=== PATIENT | female | born 1935 | race Caucasian/White ===

== ENCOUNTER 2016-09-17 10:31 | Inpatient (IN) | payer MEDICARE ==
[2016-09-17] MEDS ORDERED: PANTOPRAZOLE 40 MG/10 ML VIAL IVP STA (10:44)
[2016-09-17] MEDS: SODIUM CHLORIDE 0.9% 1,000 ML IV STA ×2 (11:10→15:45)
[2016-09-17 11:19] LABS: CH 30.5; CHCM 33.9; HCT 40.7 % (34.0-46.0); HGB 13.7 gm/dL (11.4-16.0); Immature Gran Flag Marked; MCH 30.4 pg (25.0-35.0); MCHC 33.6 g/dL (31.0-37.0); MCV 90.4 fL (80.0-100.0); RDW 14.4 % (11.5-15.5); WBC 5.9 k/uL (3.8-10.6); WBC (Perox) 5.93
[2016-09-17 11:25] LABS: ALT 20 U/L (9-52); AST 20 U/L (14-36); Alkaline Phosphatase 59 U/L (38-126); Amylase 108 U/L (30-110); Anion Gap 12 mmol/L; Blood Urea Nitrogen 14 mg/dL (7-17); Calcium 8.7 mg/dL (8.4-10.2); Carbon Dioxide 22 mmol/L (22-30); Chloride 106 mmol/L (98-107); Glucose 85 mg/dL (74-99); Non-African American GFR(MDRD) >60 (>60 ml/min/1.73 sqM); Sodium 140 mmol/L (137-145); Total Protein 5.6 g/dL (6.3-8.2)
[2016-09-17] MEDS ORDERED: POTASSIUM CHLORIDE ER 20 MEQ TAB.ER PO STA (11:30)
[2016-09-17 11:37] LABS: INR 1.2 (<1.1); Prothrombin Time 12.3 sec (9.0-12.0)
[2016-09-17 11:42] LABS: Partial Thromboplastin Time 21.5 sec (22.0-30.0)
--- NOTE | 2016-09-17 11:54 | XR ---
EXAMINATION TYPE: XR abdomen acute w cxr DATE OF EXAM: 09/17/2016 COMPARISON: NONE HISTORY: Right upper quadrant pain TECHNIQUE: Frontal view of the chest, upright view of the abdomen, supine view of the abdomen submit shelby FINDINGS: Chest x-ray is rotated. There is increased attenuation at the right lung base, obscured right hemidia phragm and heart border. There is no evident pneumothorax. Difficult to assess heart size. Minimal pa tchy density also present at the left lung base. There is no evident bowel obstruction or pneumoperit oneum. Arthropathy present in the hips. There is a spinal curvature, bone mineralization is reduced. There are vascular calcifications. Calcified gallstones present in quadrant. IMPRESSION: Cholelithiasis. Possible right lower lobe pneumonia versus atelectasis and associated effusion, minim al basilar density also noted on the left, follow-up PA and lateral chest x-ray is recommended.
[2016-09-17] MEDS ORDERED: HYDROmorphone 1 MG/ML 1 ML SYRINGE IVP STA (11:56)
[2016-09-17 11:58] LABS: Creatine Kinase MB 1.1 ng/mL (0.0-2.4); Troponin I 0.029 ng/mL (0.000-0.034)
[2016-09-17] MEDS ORDERED: POTASSIUM CHLORIDE 20 MEQ in WATER FOR INJECTION 1 100ML.BAG IVPB ONE (12:00)
[2016-09-17 12:03] LABS: Add Differential Manual Differential
[2016-09-17 12:06] LABS: Nucleated Red Blood Cells 0 /100 WBC (0-0); Total Cells Counted 100
[2016-09-17 12:08] LABS: Manual Review Performed
[2016-09-17 12:46] LABS: Appearance,Urine Cloudy (Clear); Bacteria,Urine Occasional /hpf; Bilirubin,Urine Negative (Negative); Glucose,Urine (UA) Negative (Negative); Ketones,Urine Negative (Negative); Leukocyte Esterase,Urine Negative (Negative); Mucus,Urine Rare /hpf; Nitrite,Urine Negative (Negative); Particle Count 176076; Protein,Urine 2+ (Negative); Specific Gravity,Urine 1.015 (1.001-1.035); UA Billing (MACRO vs. MICRO) MICRO; Urobilinogen,Urine <2.0 mg/dL (<2.0); WBC,Urine 4 /hpf (0-5)
[2016-09-17] MEDS ORDERED: RX INFO: IV CONTRAST WAS GIVEN 1 EACH MISC MISCELLANE PRN (13:53)
[2016-09-17] MEDS ORDERED: MAGNESIUM SULFATE-D5W PMX 1 GM in DEXTROSE/WATER 1 100ML.BAG IVPB ONE (13:55)
--- NOTE | 2016-09-17 14:01 | ED ---
Abdominal Pain HPI - General Chief Complaint: Abdominal Pain Stated Complaint: Abd Pain, Diff Breathing Time Seen by Provider: 09/17/16 10:31 Source: patient, EMS, RN notes reviewed Mode of arrival: EMS Limitations: physical limitation - History of Present Illness Initial Comments: This is a 1-year-old female was brought in by EMS for complaints are right upper abdominal pain and later developed shortness breath. She was noted have a 80% saturation was placed on a nonrebreather now she was 95% upon arrival with nasal cannula. Also new she had atrial fibrillation with a rate between 101 50 bpm. She was given 50 g of fentanyl blood pressure initially was in the 90s over 50s after some fluids it was 130s over 70s. Of note she does have a history of COPD who just quit smoking several days ago. MD Complaint: abdominal pain, other - Related Data Home Medications Medication Instructions Recorded Confirmed Gabapentin [Neurontin] 300 mg PO HS 09/17/16 09/17/16 Ibuprofen [Motrin] 200 mg PO Q6HR PRN 09/17/16 09/17/16 Allergies Allergy/AdvReac Type Severity Reaction Status Date / Time No Known Allergies Allergy Verified 09/17/16 11:07 Review of Systems ROS Statement: Those systems with pertinent positive or pertinent negative responses have been documented in the HPI. ROS Other: All systems not noted in ROS Statement are negative. Past Medical History Past Medical History: COPD Additional Past Medical History / Comment(s): arthritis, emphysema History of Any Multi-Drug Resistant Organisms: None Reported Past Surgical History: Unable to Obtain Past Psychological History: No Psychological Hx Reported Smoking Status: Former smoker Past Alcohol Use History: None Reported Past Drug Use History: None Reported General Exam - General Exam Comments Initial Comments: This is a well-developed well-nourished awake alert oriented 1 female Limitations: physical limitation General appearance: alert, in no apparent distress Head exam: Present: atraumatic, normocephalic, normal inspection Eye exam: Present: normal appearance, PERRL, EOMI. Absent: scleral icterus, conjunctival injection, periorbital swelling ENT exam: Present: mucous membranes dry Neck exam: Present: normal inspection. Absent: tenderness, meningismus, lymphadenopathy Respiratory exam: Present: decreased breath sounds. Absent: respiratory distress, wheezes, rales, rhonchi, stridor Cardiovascular Exam: Present: tachycardia, irregular rhythm. Absent: systolic murmur, diastolic murmur, rubs, gallop, clicks GI/Abdominal exam: Present: soft, tenderness (Tenderness increased hip pain no definite guarding no pulsatile masses or bruits.), normal bowel sounds. Absent : distended, guarding, rebound, rigid Extremities exam: Present: normal inspection, full ROM, normal capillary refill. Absent: tenderness, pedal edema, joint swelling, calf tenderness Back exam: Present: normal inspection Neurological exam: Present: alert, oriented X3, CN II-XII intact Psychiatric exam: Present: normal affect, normal mood Skin exam: Present: warm, dry, intact, normal color. Absent: rash Course Vital Signs 09/17/16 09/17/16 09/17/16 10:34 10:49 11:51 Temperature 97.6 F Pulse Rate 128 H 112 H Respiratory 18 24 18 Rate Blood Pressure 124/75 173/94 O2 Sat by Pulse 93 L 93 L Oximetry 09/17/16 09/17/16 09/17/16 12:38 13:38 13:57 Temperature 97.0 F L Pulse Rate 91 76 117 H Respiratory 18 18 14 Rate Blood Pressure 157/93 144/94 129/89 O2 Sat by Pulse 93 L 95 91 L Oximetry - Reevaluation(s) Reevaluation #1: 09/17/16 15:00 Reevaluation patient is heart rate is ordering between 100 110 so Cardizem was withheld initially. 09/17/16 15:01 Reevaluation #2: 09/17/16 15:02 I did discuss case with Dr. Savage surgery will be consulted as well as cardiology Medical Decision Making - Medical Decision Making I did discuss findings with the patient family and with Dr. Crowell and Dr. Savage. Dr. Crowell did come to the emergency department. Patient will be admitted his service and taken surgery. - Lab Data Result diagrams: 09/17/16 10:11 09/17/16 10:11 Lab Results 09/17/16 09/17/16 09/17/16 Range/Units 10:11 10:11 10:11 WBC 5.9 (3.8-10.6) k/uL RBC 4.50 (3.80-5.40) m/uL Hgb 13.7 (11.4-16.0) gm/dL Hct 40.7 (34.0-46.0) % MCV 90.4 (80.0-100.0) fL MCH 30.4 (25.0-35.0) pg MCHC 33.6 (31.0-37.0) g/dL RDW 14.4 (11.5-15.5) % Plt Count 370 (150-450) k/uL Neutrophils % (Manual) 68.0 % Band Neutrophils % 10.0 % Lymphocytes % (Manual) 14.0 % Monocytes % (Manual) 8.0 % Neutrophils # (Manual) 4.6 (1.3-7.7) k/uL Lymphocytes # (Manual) 0.8 L (1.0-4.8) k/uL Monocytes # (Manual) 0.5 (0-1.0) k/uL Nucleated RBCs 0 (0-0) /100 WBC Manual Slide Review Performed PT (9.0-12.0) sec INR (<1.1) APTT (22.0-30.0) sec D-Dimer (<0.60) mg/L FEU Sodium 140 (137-145) mmol/L Potassium 3.0 L* (3.5-5.1) mmol/L Chloride 106 (98-107) mmol/L Carbon Dioxide 22 (22-30) mmol/L Anion Gap 12 mmol/L BUN 14 (7-17) mg/dL Creatinine 0.65 (0.52-1.04) mg/dL Est GFR (MDRD) Af Amer >60 (>60 ml/min/1.73 sqM) Est GFR (MDRD) Non-Af >60 (>60 ml/min/1.73 sqM) Glucose 85 (74-99) mg/dL Plasma Lactic Acid Denny (0.7-2.0) mmol/L Calcium 8.7 (8.4-10.2) mg/dL Magnesium (1.6-2.3) mg/dL Total Bilirubin 1.0 (0.2-1.3) mg/dL AST 20 (14-36) U/L ALT 20 (9-52) U/L Alkaline Phosphatase 59 (38-126) U/L Total Creatine Kinase 39 (30-135) U/L CK-MB (CK-2) 1.1 (0.0-2.4) ng/mL CK-MB (CK-2) Rel Index 2.8 Troponin I 0.029 (0.000-0.034) ng/mL Total Protein 5.6 L (6.3-8.2) g/dL Albumin 2.9 L (3.5-5.0) g/dL Amylase 108 (30-110) U/L Lipase 479 H (23-300) U/L Urine Color Urine Appearance (Clear) Urine pH (5.0-8.0) Ur Specific Ferguson (1.001-1.035) Urine Protein (Negative) Urine Glucose (UA) (Negative) Urine Ketones (Negative) Urine Blood (Negative) Urine Nitrite (Negative) Urine Bilirubin (Negative) Urine Urobilinogen (<2.0) mg/dL Ur Leukocyte Esterase (Negative) Urine WBC (0-5) /hpf Urine Bacteria (None) /hpf Urine Mucus (None) /hpf Blood Type Blood Type Confirm Blood Type Recheck Antibody Screen Spec Expiration Date 09/17/16 09/17/16 09/17/16 Range/Units 10:11 10:11 10:11 WBC (3.8-10.6) k/uL RBC (3.80-5.40) m/uL Hgb (11.4-16.0) gm/dL Hct (34.0-46.0) % MCV (80.0-100.0) fL MCH (25.0-35.0) pg MCHC (31.0-37.0) g/dL RDW (11.5-15.5) % Plt Count (150-450) k/uL Neutrophils % (Manual) % Band Neutrophils % % Lymphocytes % (Manual) % Monocytes % (Manual) % Neutrophils # (Manual) (1.3-7.7) k/uL Lymphocytes # (Manual) (1.0-4.8) k/uL Monocytes # (Manual) (0-1.0) k/uL Nucleated RBCs (0-0) /100 WBC Manual Slide Review PT 12.3 H (9.0-12.0) sec INR 1.2 (<1.1) APTT 21.5 L (22.0-30.0) sec D-Dimer 3.61 H (<0.60) mg/L FEU Sodium (137-145) mmol/L Potassium (3.5-5.1) mmol/L Chloride (98-107) mmol/L Carbon Dioxide (22-30) mmol/L Anion Gap mmol/L BUN (7-17) mg/dL Creatinine (0.52-1.04) mg/dL Est GFR (MDRD) Af Amer (>60 ml/min/1.73 sqM) Est GFR (MDRD) Non-Af (>60 ml/min/1.73 sqM) Glucose (74-99) mg/dL Plasma Lactic Acid Denny 1.4 (0.7-2.0) mmol/L Calcium (8.4-10.2) mg/dL Magnesium (1.6-2.3) mg/dL Total Bilirubin (0.2-1.3) mg/dL AST (14-36) U/L ALT (9-52) U/L Alkaline Phosphatase (38-126) U/L Total Creatine Kinase (30-135) U/L CK-MB (CK-2) (0.0-2.4) ng/mL CK-MB (CK-2) Rel Index Troponin I (0.000-0.034) ng/mL Total Protein (6.3-8.2) g/dL Albumin (3.5-5.0) g/dL Amylase (30-110) U/L Lipase (23-300) U/L Urine Color Urine Appearance (Clear) Urine pH (5.0-8.0) Ur Specific Ferguson (1.001-1.035) Urine Protein (Negative) Urine Glucose (UA) (Negative) Urine Ketones (Negative) Urine Blood (Negative) Urine Nitrite (Negative) Urine Bilirubin (Negative) Urine Urobilinogen (<2.0) mg/dL Ur Leukocyte Esterase (Negative) Urine WBC (0-5) /hpf Urine Bacteria (None) /hpf Urine Mucus (None) /hpf Blood Type A Positive Blood Type Confirm Blood Type Recheck CABO Indicated Antibody Screen NEGATIVE Spec Expiration Date 09/20/2016 - 231009/17/16 09/17/16 09/17/16 Range/Units 11:03 12:30 13:04 WBC (3.8-10.6) k/uL RBC (3.80-5.40) m/uL Hgb (11.4-16.0) gm/dL Hct (34.0-46.0) % MCV (80.0-100.0) fL MCH (25.0-35.0) pg MCHC (31.0-37.0) g/dL RDW (11.5-15.5) % Plt Count (150-450) k/uL Neutrophils % (Manual) % Band Neutrophils % % Lymphocytes % (Manual) % Monocytes % (Manual) % Neutrophils # (Manual) (1.3-7.7) k/uL Lymphocytes # (Manual) (1.0-4.8) k/uL Monocytes # (Manual) (0-1.0) k/uL Nucleated RBCs (0-0) /100 WBC Manual Slide Review PT (9.0-12.0) sec INR (<1.1) APTT (22.0-30.0) sec D-Dimer (<0.60) mg/L FEU Sodium (137-145) mmol/L Potassium (3.5-5.1) mmol/L Chloride (98-107) mmol/L Carbon Dioxide (22-30) mmol/L Anion Gap mmol/L BUN (7-17) mg/dL Creatinine (0.52-1.04) mg/dL Est GFR (MDRD) Af Amer (>60 ml/min/1.73 sqM) Est GFR (MDRD) Non-Af (>60 ml/min/1.73 sqM) Glucose (74-99) mg/dL Plasma Lactic Acid Denny (0.7-2.0) mmol/L Calcium (8.4-10.2) mg/dL Magnesium 1.5 L (1.6-2.3) mg/dL Total Bilirubin (0.2-1.3) mg/dL AST (14-36) U/L ALT (9-52) U/L Alkaline Phosphatase (38-126) U/L Total Creatine Kinase (30-135) U/L CK-MB (CK-2) (0.0-2.4) ng/mL CK-MB (CK-2) Rel Index Troponin I (0.000-0.034) ng/mL Total Protein (6.3-8.2) g/dL Albumin (3.5-5.0) g/dL Amylase (30-110) U/L Lipase (23-300) U/L Urine Color Yellow Urine Appearance Cloudy H (Clear) Urine pH 6.0 (5.0-8.0) Ur Specific Ferguson 1.015 (1.001-1.035) Urine Protein 2+ H (Negative) Urine Glucose (UA) Negative (Negative) Urine Ketones Negative (Negative) Urine Blood Negative (Negative) Urine Nitrite Negative (Negative) Urine Bilirubin Negative (Negative) Urine Urobilinogen <2.0 (<2.0) mg/dL Ur Leukocyte Esterase Negative (Negative) Urine WBC 4 (0-5) /hpf Urine Bacteria Occasional H (None) /hpf Urine Mucus Rare H (None) /hpf Blood Type Blood Type Confirm A Positive Blood Type Recheck Antibody Screen Spec Expiration Date - Radiology Data Radiology results: report reviewed (I did review the imaging and reports x-rays are suspicious for infiltrate. CAT scan was discussed with Dr. leone there is evidence of free air under the diaphragm suspected of a perforated viscus.), image reviewed Critical Care Time Critical Care Time: Yes Critical Care Time: Critical care time 35 minutes includes initial monitoring EMS and discussed with paramedics. History physical labs x-rays reevaluation patient several occasions discussion with the patient family members discussion with the admitting physicians. Disposition Clinical Impression: Perforated viscus, Rapid atrial fibrillation, Pancreatitis, Acute abdomen Disposition: ADMITTED IP TO THIS HOSP Condition: Serious Referrals: Reuben Ruiz MD [Primary Care Provider] - 1-2 days
[2016-09-17] MEDS ORDERED: DILTIAZEM 125 MG in SODIUM CHLORIDE 0.9% 100 ML IV ONE (14:59)
--- NOTE | 2016-09-17 15:08 | CT ---
EXAMINATION TYPE: CT angio thoracic/abd aorta DATE OF EXAM: 09/17/2016 COMPARISON: NONE HISTORY: Generalized abdominal pain with weakness CT DLP: 1166 mGycm. Automated Exposure Control for Dose Reduction was Utilized. CONTRAST: CTA scan of the thorax, abdomen and pelvis is performed without oral and without and with IV Contrast , patient injected with 100 mL of Omnipaque 350. Three-D reconstructed images are created on independ ent workstation and reviewed. FINDINGS: Patient has very little intra-abdominal fat making evaluation somewhat suboptimal. VASCULAR: There is satisfactory enhancement of the pulmonary artery and its branches. Ascending aorta measures up to 3.3 cm in diameter. There is mild to moderate calcified plaque in the aortic arch ext ending into descending aorta. No aneurysmal change is evident. There is focal ectasia of distal abdom inal aorta measuring up to 2.2 cm transversely on axial image 68. Moderate to severe calcified change in the abdominal aorta extending into pelvic branch vessels is present. No linear hypodensity to sug gest dissection is seen. There is patent celiac axis, SMA, HUSSAIN, bilateral single renal arteries. Patency of the common as well as internal/external iliac arteries is present bilaterally. Patency of common femoral into branching superficial and deep femoral arteries is seen without significant stenosis. There is normal three-v essel origin from the arch. Arch vessels are patent without significant stenosis. LUNGS: Mild to moderate underlying emphysematous change is present. There is more focal posterior rig ht basilar consolidation and/or atelectasis MEDIASTINUM: There are no greater than 1 cm hilar or mediastinal lymph nodes. No significant perica rdial effusion is seen. Cardiomegaly is present. OTHER: No additional significant abnormality is seen. LIVER/GB: Gallbladder has distended margins and is dilated with dependent small calcified gallstones. Liver is small in size. PANCREAS: Generalized atrophy of pancreas is felt present which is overall not well visualized. SPLEEN: No significant abnormality is seen. ADRENALS: There is heterogeneous enhancing right adrenal mass measuring 1.8 x 1.1 cm on axial image 5 0. KIDNEYS: A 3 mm central calcification right kidney on coronal image 50 favors collecting system calcu paola, vascular calcification is not excluded. No hydronephrosis is evident bilaterally. BOWEL: There is moderate to large size hiatal hernia which is poorly distended, thickened wall is fel t present. Evaluation of bowel is suboptimal secondary to lack of enteric contrast. There are diverti cula throughout the colon most pronounced in the left and sigmoid colon. There is no CT evidence for acute diverticulitis. Evaluation is however suboptimal as there is diffuse fluid and fat stranding no shelby throughout the abdomen and pelvis. No suspicious small or large bowel dilatation is present. GENITAL ORGANS: Uterus is surgically absent or markedly atrophic in appearance. LYMPH NODES: No greater than 1cm abdominal or pelvic lymph nodes are appreciated. OSSEOUS STRUCTURES: Osseous structures are demineralized. Underlying S-shaped scoliosis is present. T here is mild compression at T12 level and T11 level. There is advanced compression with sclerosis at T7 level. Multilevel spurring and disc space narrowing is seen most prominent in lumbar levels. Moder ate to severe joint space loss in both hip joints is seen. OTHER: There is small amount of fluid in the left pelvis on axial image 101. Some mild ill-defined fl uid throughout the mesentery of the abdomen. There is large amount of focal fluid in the right upper and mid abdomen. In addition there is pneumoperitoneum identified for reference axial image 44. Addit ional foci of pneumoperitoneum are seen in the anterior abdominal wall upper to midabdomen, for refer ence midline on axial image 51. IMPRESSION: 1. No CTA evidence for aortic aneurysm or dissection. 2. Pneumoperitoneum is present most prominent in the upper abdomen. There is abdominal and pelvic asc ites most prominent in the right upper quadrant. There is hiatal hernia with abnormal wall thickening at this level. Consider perforated ulcer related to severe esophagitis or gastritis. There is dilate d gallbladder with gallstones also noted. Diverticular disease is present. Critical results of pneumoperitoneum communicated to ordering ER physician via telephone at time of d ictation.
[2016-09-17] MEDS ORDERED: PIPERACILLIN-TAZOBACTAM 3.375 GM in DEXTROSE/WATER 1 50ML.BAG IVPB STA (15:09)
[2016-09-17] MEDS ORDERED: NALOXONE 0.4 MG/ML 1 ML VIAL IV PRN (15:45)
--- NOTE | 2016-09-17 16:26 | P.GSHP ---
History of Present Illness H&P Date: 09/17/16 Chief Complaint: Pneumoperitoneum Patient comes in the hospital today accompanied by her daughter who she lives with. She was short of breath complaining of abdominal pain. The symptoms appeared to begin today. She is also complaining of an exacerbation of her chronic back pain. Her white blood cell count was normal however there were 10 % bands present. Her magnesium and potassium are both low. She was found to be in A. fib with rapid ventricular response. Initially her blood pressure was 90 systolic but it is been in the 140s since that time. Cardizem drip is starting currently. A CAT scan was performed with the aorta protocol because of an elevated d-dimer level. The CAT scan shows evidence of free air. The etiology is unclear however she does have a hiatal hernia with some inflammation present. She ambulates with a walker at times. Her appetite has been low lately. No nausea or vomiting. No heartburn. No dysphagia. Some constipation at times. Last colonoscopy 10-15 years ago. Only surgical abdominal history is a hysterectomy. - Review of Systems Comment: The patient denies any acute changes in his vision or hearing, no dysphagia or odynophagia, no chest pain, no dysuria or hematuria, no headache, no runny nose , no rectal bleeding or melena, no unexplained weight loss Past Medical History Past Medical History: COPD Additional Past Medical History / Comment(s): arthritis, emphysema History of Any Multi-Drug Resistant Organisms: None Reported Past Surgical History: Unable to Obtain Past Psychological History: No Psychological Hx Reported Smoking Status: Former smoker Past Alcohol Use History: None Reported Past Drug Use History: None Reported Medications and Allergies Home Medications Medication Instructions Recorded Confirmed Type Gabapentin [Neurontin] 300 mg PO HS 09/17/16 09/17/16 History Ibuprofen [Motrin] 200 mg PO Q6HR PRN 09/17/16 09/17/16 History Allergies Allergy/AdvReac Type Severity Reaction Status Date / Time No Known Allergies Allergy Verified 09/17/16 11:07 Surgical - Exam Vital Signs Temp Pulse Resp BP Pulse Ox 97.6 F 128 H 18 124/75 93 L 09/17/16 10:34 09/17/16 10:34 09/17/16 10:34 09/17/16 10:34 09/17/16 10:34 Physical exam: General: Elderly female, somewhat malnourished-appearing, appears to be in some abdominal distress as she is moving about bed HEENT: Normocephalic, sclerae nonicteric Abdomen: Slightly distended, moderate to severe diffuse tenderness noted Extremities: No edema Neuro: Alert, slightly confused Results - Labs 09/17/16 10:11 09/17/16 10:11 Abnormal Lab Results - Last 24 Hours (Table) 09/17/16 09/17/16 09/17/16 Range/Units 10:11 10:11 10:11 Lymphocytes # (Manual) 0.8 L (1.0-4.8) k/uL PT 12.3 H (9.0-12.0) sec APTT 21.5 L (22.0-30.0) sec D-Dimer 3.61 H (<0.60) mg/L FEU Potassium 3.0 L* (3.5-5.1) mmol/L Magnesium (1.6-2.3) mg/dL Total Protein 5.6 L (6.3-8.2) g/dL Albumin 2.9 L (3.5-5.0) g/dL Lipase 479 H (23-300) U/L Urine Appearance (Clear) Urine Protein (Negative) Urine Bacteria (None) /hpf Urine Mucus (None) /hpf 09/17/16 09/17/16 Range/Units 11:03 12:30 Lymphocytes # (Manual) (1.0-4.8) k/uL PT (9.0-12.0) sec APTT (22.0-30.0) sec D-Dimer (<0.60) mg/L FEU Potassium (3.5-5.1) mmol/L Magnesium 1.5 L (1.6-2.3) mg/dL Total Protein (6.3-8.2) g/dL Albumin (3.5-5.0) g/dL Lipase (23-300) U/L Urine Appearance Cloudy H (Clear) Urine Protein 2+ H (Negative) Urine Bacteria Occasional H (None) /hpf Urine Mucus Rare H (None) /hpf Diabetes panel 09/17/16 Range/Units 10:11 Sodium 140 (137-145) mmol/L Potassium 3.0 L* (3.5-5.1) mmol/L Chloride 106 (98-107) mmol/L Carbon Dioxide 22 (22-30) mmol/L BUN 14 (7-17) mg/dL Creatinine 0.65 (0.52-1.04) mg/dL Glucose 85 (74-99) mg/dL Calcium 8.7 (8.4-10.2) mg/dL AST 20 (14-36) U/L ALT 20 (9-52) U/L Alkaline Phosphatase 59 (38-126) U/L Total Protein 5.6 L (6.3-8.2) g/dL Albumin 2.9 L (3.5-5.0) g/dL Calcium panel 09/17/16 Range/Units 10:11 Calcium 8.7 (8.4-10.2) mg/dL Albumin 2.9 L (3.5-5.0) g/dL Pituitary panel 09/17/16 Range/Units 10:11 Sodium 140 (137-145) mmol/L Potassium 3.0 L* (3.5-5.1) mmol/L Chloride 106 (98-107) mmol/L Carbon Dioxide 22 (22-30) mmol/L BUN 14 (7-17) mg/dL Creatinine 0.65 (0.52-1.04) mg/dL Glucose 85 (74-99) mg/dL Calcium 8.7 (8.4-10.2) mg/dL Adrenal panel 09/17/16 Range/Units 10:11 Sodium 140 (137-145) mmol/L Potassium 3.0 L* (3.5-5.1) mmol/L Chloride 106 (98-107) mmol/L Carbon Dioxide 22 (22-30) mmol/L BUN 14 (7-17) mg/dL Creatinine 0.65 (0.52-1.04) mg/dL Glucose 85 (74-99) mg/dL Calcium 8.7 (8.4-10.2) mg/dL Total Bilirubin 1.0 (0.2-1.3) mg/dL AST 20 (14-36) U/L ALT 20 (9-52) U/L Alkaline Phosphatase 59 (38-126) U/L Total Protein 5.6 L (6.3-8.2) g/dL Albumin 2.9 L (3.5-5.0) g/dL Assessment and Plan (1) Pneumoperitoneum Narrative/Plan: Clinical scenario discussed in detail with the patient and her daughter. We'll proceed with exploratory laparotomy. Potential need for bowel resection and/or ostomy was discussed. Risks of bleeding, infection, hernia, progressive sepsis , respiratory failure, cardiac failure, and were discussed. They understand and wish for us to proceed. Status: Acute
[2016-09-17] MEDS ORDERED: LIDOCAINE 1% INJ 10MG/ML (20 ML MDV) ONE (17:04)
[2016-09-17] MEDS ORDERED: fentaNYL (PF) 50 MCG/ML 2 ML AMP ONE (17:04)
[2016-09-17] MEDS ORDERED: MIDAZOLAM 2 MG/2 ML VIAL ONE (17:04)
[2016-09-17] MEDS ORDERED: ePHEDrine 50 MG/ML 1 ML AMP ONE (17:04)
[2016-09-17] MEDS ORDERED: PROPOFOL 10 MG/ML 20 ML VIAL IV ONE (17:04)
[2016-09-17] MEDS ORDERED: PHENYLEPHRINE-0.9% NACL SYG 1 MG/10 ML SYRINGE ONE (17:04)
[2016-09-17] MEDS ORDERED: ROCURONIUM BROMIDE 10 MG/ML 10 ML VIAL IV ONE (17:04)
[2016-09-17] MEDS ORDERED: IV FLUID CONTINUATION 1,000 ML IV ONE ×2 (17:04→17:26)
[2016-09-17] MEDS ORDERED: SUCCINYLCHOLINE CHLORIDE 100 MG/5 ML SYR IV ONE (17:04)
[2016-09-17] MEDS ORDERED: LACTATED RINGERS 1,000 ML IV ONE (17:51)
[2016-09-17] MEDS ORDERED: PROPOFOL 50 ML IV ONE (19:17)
[2016-09-17 19:19] LABS: Glucose,Whole Blood 107 mg/dL (75-99)
[2016-09-17] MEDS: 0.9% NACL WITH KCL 20 MEQ/L 1,000 ML IV SCH (19:38)
--- NOTE | 2016-09-17 19:48 | P.OP ---
Date of Procedure: 09/17/16 Preoperative Diagnosis: Postoperative Diagnosis: Procedure(s) Performed: PREOPERATIVE DIAGNOSIS: Pneumoperitoneum POSTOPERATIVE DIAGNOSIS: Perforated gastric ulcer PROCEDURE: Partial gastrectomy with loop gastrojejunostomy SURGEON: Mervat EBL: 25 mL ANESTHESIA: Gen. COMPLICATIONS: None OPERATIVE PROCEDURE: Patient was placed under anesthesia in the supine position. The abdomen was prepped and draped in the usual sterile fashion. The abdomen was entered through a midline incision extending above and below the umbilicus. The fascia was divided using electrocautery. There was bilious fluid present throughout the peritoneal cavity with a mucopurulent exudate seen scattered throughout as well. This was gradually evacuated. The stomach was inspected and there was noted to be a perforated ulcer measuring approximately 8 mm in diameter. There was a masslike inflammatory reaction in the antrum at the location of the ulcer. Clinically I was concerned about the possibility of a malignant perforation. The edges of the perforation site were extremely thin and did not appear to be amenable to primary closure. At that point I decided to proceed with a distal gastrectomy. The distal stomach was freed of the surrounding vascular structures using a combination of 2-0 silk ties and the LigaSure device. Once the duodenum was identified the duodenum was divided using a linear 75 blue load stapler. The stomach was divided proximal to the masslike area using 2 separate firings of the linear 75 stapler with the green load. The posterior aspect of the stomach was inspected and the gastrocolic ligament was divided proximally for a short distance as well. No bleeding was seen. The specimen was later opened and revealed a large ulcer in the prepyloric region. There appeared to be an abscess-like cavity and the wall of the stomach creating the fairly impressive inflammatory response but at that point I was less concerned about malignancy. I decided to perform a loop gastrojejunostomy. The proximal jejunum was brought up and stapled to the posterior wall the stomach in a antecolic fashion. A small gastrotomy was created approximately 3 cm proximal to the staple line and a small enterotomy was created on the antimesenteric border. Using a blue load near [address] took place. The remaining defect was closed transversely using a TX 60 blue load stapler. This staple line was imbricated using interrupted 3- 0 GI silk sutures. A 3-0 GI silk stitch was also placed proximally on the stomach between the stomach and the jejunum to avoid tension of our staple line. Care was taken to avoid kinking of the gastrojejunostomy proximally. The abdomen was thoroughly irrigated with saline. A drain was placed from the right upper quadrant in the epigastric region anterior to both the duodenal stump and the distal stomach. The midline fascia was then reapproximated using a double-stranded #1 PDS suture. The skin was loosely reapproximated with yoandy and 3 separate Telfa erik were placed within the wound itself. A sterile dressing was applied. DISPOSITION: Stable to recovery room Implants: Indications for Procedure: Operative Findings: Description of Procedure:
[2016-09-17 20:21] LABS: ABG Base Excess -6.4 mmol/L; ABG HCO3 19 mmol/L (21-25); ABG PCO2 44 mmHg (35-45); ABG PH 7.27 (7.35-7.45); ABG PO2 83 mmHg (83-108); ABG TCO2 21 mmol/L (19-24)
[2016-09-17] MEDS ORDERED: PROPOFOL 500 MG in EMPTY BAG 1 BAG IV SCH (22:00)
[2016-09-17] MEDS: FLUCONAZOLE IN NACL,ISO-OSM 100 MG in SALINE 1 50ML.BAG IVPB SCH (22:06)
[2016-09-17] MEDS: MAGNESIUM SULFATE-D5W PMX 1 GM in DEXTROSE/WATER 1 100ML.BAG IVPB SCH ×2 (22:07→23:32)
[2016-09-17 22:49] LABS: Appearance,Urine Clear (Clear); Bacteria,Urine Rare /hpf; Bilirubin,Urine Negative (Negative); Glucose,Urine (UA) Negative (Negative); Ketones,Urine Negative (Negative); Leukocyte Esterase,Urine Trace (Negative); Nitrite,Urine Negative (Negative); PH, Urine 6.5 (5.0-8.0); Particle Count 1522; Protein,Urine 1+ (Negative); RBC,Urine 7 /hpf (0-5); UA Billing (MACRO vs. MICRO) MICRO; Urobilinogen,Urine <2.0 mg/dL (<2.0); WBC,Urine 3 /hpf (0-5)
[2016-09-17] MEDS: POTASSIUM CHLORIDE 10 MEQ, LIDOCAINE 2% INJ 10 MG in SODIUM CHLORIDE 0.9% 100 ML IV SCH (23:32)
[2016-09-17] MEDS: PIPERACILLIN-TAZOBACTAM 3.375 GM in DEXTROSE/WATER 1 50ML.BAG IVPB SCH (23:33)
[2016-09-18] MEDS ORDERED: HYDROmorphone 1 MG/ML 1 ML SYRINGE IVP PRN (00:15)
[2016-09-18] MEDS ORDERED: SODIUM CHLORIDE 0.9% 2,000 ML IV ONE (00:15)
[2016-09-18] MEDS: IPRATROPIUM-ALBUTEROL 3 ML NEB INHALATION SCH ×6 (01:17→20:36)
[2016-09-18] MEDS: HEPARIN SODIUM,PORCINE 5,000 UNIT/ML 1 ML VIAL SQ SCH ×3 (01:29→16:32)
[2016-09-18] MEDS: POTASSIUM CHLORIDE 10 MEQ, LIDOCAINE 2% INJ 10 MG in SODIUM CHLORIDE 0.9% 100 ML IV SCH (01:29)
[2016-09-18 05:11] LABS: ALT 23 U/L (9-52); AST 21 U/L (14-36); Alkaline Phosphatase 36 U/L (38-126); Anion Gap 7 mmol/L; Blood Urea Nitrogen 15 mg/dL (7-17); Calcium 7.2 mg/dL (8.4-10.2); Carbon Dioxide 16 mmol/L (22-30); Chloride 116 mmol/L (98-107); Glucose 105 mg/dL (74-99); Magnesium 2.4 mg/dL (1.6-2.3); Non-African American GFR(MDRD) >60 (>60 ml/min/1.73 sqM); Phosphorous 3.7 mg/dL (2.5-4.5); Potassium 4.1 mmol/L (3.5-5.1); Sodium 139 mmol/L (137-145); Total Bilirubin 0.5 mg/dL (0.2-1.3); Total Protein 4.1 g/dL (6.3-8.2)
[2016-09-18 05:21] LABS: CH 30.1; CHCM 32.2; HCT 39.8 % (34.0-46.0); HDW 2.89; HGB 12.6 gm/dL (11.4-16.0); Immature Gran Flag Marked; MCH 29.8 pg (25.0-35.0); MCHC 31.7 g/dL (31.0-37.0); MCV 93.9 fL (80.0-100.0); RBC 4.24 m/uL (3.80-5.40); RDW 14.6 % (11.5-15.5); WBC 11.8 k/uL (3.8-10.6); WBC (Perox) 12.07
[2016-09-18 06:35] LABS: Add Differential Manual Differential
[2016-09-18 06:41] LABS: Metamyelocytes % 2.5 %; Nucleated Red Blood Cells 0 /100 WBC (0-0); Total Cells Counted 200
[2016-09-18 06:42] LABS: Toxic Vacuolation Present
[2016-09-18 06:44] LABS: Polychromasia Present
[2016-09-18] MEDS: 0.9% NACL WITH KCL 20 MEQ/L 1,000 ML IV SCH ×4 (07:21→21:01)
[2016-09-18] MEDS: PANTOPRAZOLE 40 MG/10 ML VIAL IVP SCH (08:09)
[2016-09-18] MEDS: BISACODYL 10 MG SUPP RECTAL SCH (08:09)
--- NOTE | 2016-09-18 08:16 | XR ---
EXAMINATION TYPE: XR chest 1V DATE OF EXAM: 09/18/2016 COMPARISON: Prior chest x-ray 09/17/[address] 09/17/2016 HISTORY: Shortness of breath TECHNIQUE: Single frontal view of the chest is obtained. FINDINGS: There is been interval intubation, endotracheal tube is overlying the tracheal air column. NG tube has also been placed and is coursing towards the stomach. There are overlying cardiac leads. Heart is likely enlarged, there is elevation of the right hemidiaphragm, increased basilar density o n the right. Interstitium is increased. No evident pneumothorax. Patient is rotated. Pneumoperitoneum noted on CT is not evident. IMPRESSION: Interval intubation. There may be a component of volume overload, pulmonary venous hyper tension and interstitial edema. Additional findings above.
[2016-09-18 08:47] LABS: ABG HCO3 16 mmol/L (21-25); ABG PCO2 32 mmHg (35-45); ABG PH 7.32 (7.35-7.45); ABG PO2 111 mmHg (83-108)
[2016-09-18 08:48] LABS: ABG TCO2 17 mmol/L (19-24)
[2016-09-18] MEDS: PIPERACILLIN-TAZOBACTAM 3.375 GM in DEXTROSE/WATER 1 50ML.BAG IVPB SCH ×2 (08:50→16:35)
[2016-09-18] MEDS ORDERED: CHLORHEXIDINE GLUCONATE 15 ML CUP MUCOUS MEM SCH (09:00)
[2016-09-18] MEDS ORDERED: FUROSEMIDE 10 MG/ML 4 ML VIAL IV STA (09:13)
--- NOTE | 2016-09-18 09:26 | ECHOF ---
Referral Reason:Atrial fibrillation MEASUREMENTS -------- HEIGHT: 160.0 cm WEIGHT: 53.1 kg BP: 86/55 RVIDd: 3.4 cm (< 3.3) IVSd: 0.9 cm (0.6 - 1.1) LVIDd: 3.2 cm (3.9 - 5.3) LVPWd: 1.4 cm (0.6 - 1.1) IVSs: 1.1 cm LVIDs: 3.0 cm LVPWs: 1.4 cm LAESV Index (A-L): 22.58 ml/m Ao Diam: 3.2 cm (2.0 - 3.7) AV Cusp: 1.4 cm (1.5 - 2.6) LA Diam: 4.1 cm (2.7 - 3.8) MV EXCURSION: 15.965 mm (> 18.000) MV EF SLOPE: 91 mm/s (70 - 150) EPSS: 1.0 cm MV E Aki: 0.37 m/s MV DecT: 229 ms MV A Aki: 0.85 m/s MV E/A Ratio: 0.43 RAP: 5.00 mmHg RVSP: 33.58 mmHg FINDINGS -------- Atrial fibrillation. This was a technically good study. There is mild concentric left ventricular hypertrophy. There is severe global hypokinesis of LV . Overall left ventricular systolic function is severely impaired with, an EF between 25 - 30 %. The right ventricle is mildly enlarged. Normal LA size by volume 22+/-6 ml/m2. RA appears enlarged. Aortic valve is trileaflet and is mildly thickened. The mitral valve leaflets are mildly thickened. Mild mitral annular calcification present. Mild mitral regurgitation is present. Moderate tricuspid regurgitation present. The right ventricular systolic pressure, as measured by Doppler, is 33.58mmHg. Pulmonic valve appears structurally normal. The aortic root size is normal. There is a trivial pericardial effusion present. CONCLUSIONS -------- 1. Atrial fibrillation. 2. The mitral valve leaflets are mildly thickened. 3. Mild mitral annular calcification present. 4. Mild mitral regurgitation is present. 5. Moderate tricuspid regurgitation present. 6. The right ventricular systolic pressure, as measured by Doppler, is 33.58mmHg. 7. Pulmonic valve appears structurally normal. 8. The aortic root size is normal. 9. There is a trivial pericardial effusion present. 10. This was a technically good study. 11. There is mild concentric left ventricular hypertrophy. 12. There is severe global hypokinesis of LV . 13. Overall left ventricular systolic function is severely impaired with, an EF between 25 - 30 %. 14. The right ventricle is mildly enlarged. 15. Normal LA size by volume 22+/-6 ml/m2. 16. RA appears enlarged. 17. Aortic valve is trileaflet and is mildly thickened. FINISHING TECHNICIAN: Karen Anderson RDCS
[2016-09-18] MEDS: HYDROmorphone 1 MG/ML 1 ML SYRINGE IVP PRN ×4 (09:35→23:27)
--- NOTE | 2016-09-18 11:44 | CONS ---
DATE OF CONSULTATION: Mrs. Guzman is an 80-year-old female who presented yesterday to the emergency room with symptoms of abdominal discomfort, was found to have free air and underwent emergency surgery by Dr. Crowell and was found to have a ruptured viscus with her perforated gastric ulcer ans underwent partial gastrectomy and loop gastrojejunostomy. She is intubated. Cardiology consultation was requested because possible arrhythmia in the ER. Patient is intubated. She is hemodynamically stable. She is in sinus mechanism. I am not able to obtain any history at this time. There is no prior admission to the hospital available to me. Her medications at home included Ibuprofen on a p.r.n. basis and gabapentin. Review of systems could not be obtained. PHYSICAL EXAMINATION: She is an 80-year-old female, alert, intubated, in the weaning process. Blood pressure 91/57 with a heart rate in the 80s. HEAD: Normocephalic. EYES: Sclerae anicteric. NECK: No bruit. LUNGS: With clear lungs anteriorly. HEART: Regular rate and rhythm. S1, S2, no S3, with systolic murmur at the base. No diastolic murmur. ABDOMEN: Tender, hypoactive bowel sounds. EXTREMITIES: No edema, +2 distal pulses. LAB DATA: On presentation, her BUN and creatinine 14 and 0.65. Potassium 3.0. Her troponin 0.029, 0.044 and 0.061. Her BUN and creatinine 15 and 0.7. Potassium 4.1. Her hemoglobin is 12.6. White blood cell of 11.8. Her NT-proBNP is 4080. Her TSH is 2.0. Her EKG performed yesterday revealed a sinus mechanism with multiple PACs and nonspecific ST-T wave changes with occasional PVCs. Her chest x-ray this morning shows evidence of pulmonary congestion. IMPRESSION: 1. Status post ruptured viscus and surgery. 2. Atrial arrhythmia with no evidence of atrial fibrillation. 3. Findings consistent with congestive heart failure that could be related to the fluid overload that she received during and after surgery. The full echo report is pending at this time. RECOMMENDATIONS: From the cardiac standpoint, patient will be extubated today. I will repeat her EKG. The troponin elevation most likely represents a type II event. She will receive diuretics because of her congestion. Depending on the results of the echo, further adjustment of her medical regimen will be done. Thank you for this consult. We will follow with you.
--- NOTE | 2016-09-18 11:54 | P.CNPUL ---
History of Present Illness Consult date: 09/18/16 Requesting physician: Mynor Crowell Reason for consult: other (ICU management, patient is status post partial gastrectomy and loop gastrojejunostomy for perforated gastric ulcer) Chief complaint: Abdominal pain History of present illness: This is an 80-year-old female with history of COPD, brought in yesterday to the ER with mostly symptoms of abdominal pain and shortness of breath of 1 day duration. Patient was also complaining of chronic back pain, workup in the ER included a CT of the abdomen and pelvis and it was positive for pneumoperitoneum. Hence the patient was taken to the operating room by Dr. read , and she was found to have perforation of gastric ulcer. She underwent partial gastrectomy and loop gastrojejunostomy. Upon exploration, the patient was found to have bilious fluid present throughout the peritoneal cavity and mucopurulent exudate seen scattered throughout. There was also evidence of perforated ulcer measuring 8 mm in diameter. There was a masslike inflammatory reaction in the antrum at the location of the ulcer. Patient underwent distal gastrectomy. Postoperatively, patient was transferred to the intensive care unit on mechanical ventilation, and I was asked to see her on consultation. Ventilator settings were adjusted overnight, patient received fluid boluses overnight for marginal urine output, and her follow-up chest x-ray this morning showed evidence of pulmonary vascular congestion and possibly some component of interstitial edema. Hence her main IV fluid was cut down to 75 mL/h, and I recommended Lasix 40 mg IV push 1. I reviewed her ventilator settings, reviewed her chest x-ray, reviewed her weaning parameters, and I gave the patient is short the pressure support and CPAP trial then moved on to extubate the patient to a nasal cannula. Patient is relatively asymptomatic except for some abdominal discomfort. After extubation, patient denied any shortness of breath, denied any headaches no blurred vision no dizziness. No nausea, she has some vague abdominal discomfort over the incision. Denies any dysuria frequency or urgency. Review of Systems 14 point review of systems were obtained, please refer to pertinent positives and negatives in HPI. Past Medical History Past Medical History: COPD Additional Past Medical History / Comment(s): arthritis, emphysema History of Any Multi-Drug Resistant Organisms: None Reported Past Surgical History: Unable to Obtain Additional Past Surgical History / Comment(s): eye surgery Past Anesthesia/Blood Transfusion Reactions: No Reported Reaction Past Psychological History: No Psychological Hx Reported Smoking Status: Former smoker Past Alcohol Use History: None Reported Past Drug Use History: None Reported Medications and Allergies Home Medications Medication Instructions Recorded Confirmed Type Gabapentin [Neurontin] 300 mg PO HS 09/17/16 09/17/16 History Ibuprofen [Motrin] 200 mg PO Q6HR PRN 09/17/16 09/17/16 History Allergies Allergy/AdvReac Type Severity Reaction Status Date / Time No Known Allergies Allergy Verified 09/17/16 11:07 Physical Exam Vitals: Vital Signs Temp Pulse Pulse Resp BP BP Pulse Ox 09/18/16 09:36 90 09/18/16 09:25 90 09/18/16 09:00 89 22 97/56 98 09/18/16 08:30 96 18 91/58 98 09/18/16 08:00 89 19 91/57 99 09/18/16 07:30 98.2 F 88 28 H 86/55 99 09/18/16 07:00 88 13 137/75 97 09/18/16 06:00 90 16 103/62 100 09/18/16 05:00 84 14 94/49 99 09/18/16 04:30 85 14 97/55 99 09/18/16 04:00 97.9 F 81 14 94/55 98 09/18/16 03:42 78 09/18/16 03:35 14 09/18/16 03:31 78 09/18/16 03:00 83 14 103/63 100 09/18/16 02:30 85 14 110/55 100 09/18/16 02:00 78 14 104/63 100 09/18/16 01:30 82 14 102/62 100 09/18/16 01:00 89 16 101/66 100 09/18/16 00:30 88 16 96/60 99 09/18/16 00:00 98.1 F 95 14 108/62 99 09/17/16 23:30 93 18 115/69 99 09/17/16 23:00 80 15 93/57 100 09/17/16 22:59 86 15 93/57 100 09/17/16 22:40 94 23 93/57 99 09/17/16 22:20 100 21 99 09/17/16 22:00 103 H 18 81/63 99 09/17/16 21:40 94 17 93/55 100 09/17/16 21:20 93 14 60/51 95 09/17/16 21:00 108 H 14 104/69 79 L 09/17/16 20:40 116 H 10 L 94/68 91 L 09/17/16 20:20 116 H 10 L 93/65 93 L 09/17/16 20:00 97.8 F 103 H 86 14 96/58 94 L 09/17/16 19:40 97 10 L 80/58 94 L 09/17/16 19:20 93 10 L 107/59 92 L 09/17/16 16:34 86 22 142/73 92 L 09/17/16 16:19 98.8 F 114 H 14 165/110 94 L 09/17/16 13:57 97.0 F L 117 H 14 129/89 91 L 09/17/16 13:38 76 18 144/94 95 09/17/16 12:38 91 18 157/93 93 L 09/17/16 11:51 112 H 18 173/94 93 L Intake and Output 09/17/16 09/18/16 09/18/16 22:59 06:59 14:59 Intake Total 2150 3375.0 200 Output Total 765 170 27 Balance 1385 3205.0 173 Intake: IV 2150 3375.0 200 0.9% NaCl with KCl 20 Meq 1125 200 /l 1,000 ml @ 75 mls/hr IV .[id number] JEOVANNY Rx#: [id number] Fluconazole in NaCl,Iso- 50 Osm 100 mg In Saline 1 50ml.bag @ 50 mls/hr IVPB Q24H JEOVANNY Rx#:[id number] Magnesium Sulfate-D5w Pmx 100 100 1 gm In Dextrose/Water 1 100ml.bag @ 100 mls/hr IVPB Q1H JEOVANNY Rx#: [id number] Piperacillin-Tazobactam 3 50.0 .375 gm In Dextrose/Water 1 50ml.bag @ 12.5 mls/hr IVPB Q8HR JEOVANNY Rx#: [id number] Potassium Chloride 10 meq 100 Lidocaine 2% Inj 10 mg In Sodium Chloride 0.9% 100 ml @ 100 mls/hr IV Q1HR JEOVANNY Rx#:[id number] Sodium Chloride 0.9% 2, 2000 000 ml @ 999 mls/hr IV . Q2H1M ONE Rx#:[id number] Output: Drainage 30 15 Right Lower Abdomen 30 15 Urine 710 155 27 Uretheral (Gunderson) 200 Estimated Blood Loss 25 Other: Voiding Method Indwelling Catheter Indwelling Catheter Indwelling Catheter Weight 45 kg 53.4 kg Physical Exam: Revealed an 80-year-old female in no distress, on mechanical ventilation initially, and she was later placed on nasal cannula. HEENT:[Neck is supple.] [No neck masses.] [No thyromegaly.] [No JVD.] Chest: [Diminished breath sounds and crackles at the bases especially at the right base..] Cardiac Exam: [Normal S1 and S2, no S3 gallop, no murmur.] Abdomen: [Soft, slightly tender in the epigastric region, no megaly, no rebound , slight guarding guarding, negative bowel sounds.] Extremities: [No clubbing, no edema, no cyanosis.] Neurological Exam: [No focal neurologic deficit.] Results - Laboratory Findings CBC and BMP: 09/18/16 04:37 09/18/16 04:37 ABG ABG pH 7.32 (7.35-7.45) L 09/18/16 08:45 ABG pCO2 32 mmHg (35-45) L 09/18/16 08:45 ABG pO2 111 mmHg (83-108) H 09/18/16 08:45 ABG O2 Saturation 98.0 % (94-97) H 09/18/16 08:45 PT/INR, D-dimer PT 12.3 sec (9.0-12.0) H 09/17/16 10:11 INR 1.2 (<1.1) 09/17/16 10:11 D-Dimer 3.61 mg/L FEU (<0.60) H 09/17/16 10:11 Abnormal lab findings: Abnormal Labs 09/17/16 09/17/16 09/17/16 10:11 10:11 10:11 WBC Neutrophils # (Manual) Lymphocytes # (Manual) 0.8 L PT 12.3 H APTT 21.5 L D-Dimer 3.61 H ABG pH ABG pCO2 ABG pO2 ABG HCO3 ABG Total CO2 ABG O2 Saturation Potassium 3.0 L* Chloride Carbon Dioxide Glucose POC Glucose (mg/dL) Calcium Magnesium Alkaline Phosphatase Troponin I Total Protein 5.6 L Albumin 2.9 L Lipase 479 H Urine Appearance Ur Specific [place] Urine Protein Ur Leukocyte Esterase Urine RBC Urine Bacteria Urine Mucus 09/17/16 09/17/16 09/17/16 11:03 12:30 19:17 WBC Neutrophils # (Manual) Lymphocytes # (Manual) PT APTT D-Dimer ABG pH ABG pCO2 ABG pO2 ABG HCO3 ABG Total CO2 ABG O2 Saturation Potassium Chloride Carbon Dioxide Glucose POC Glucose (mg/dL) 107 H Calcium Magnesium 1.5 L Alkaline Phosphatase Troponin I Total Protein Albumin Lipase Urine Appearance Cloudy H Ur Specific [place] Urine Protein 2+ H Ur Leukocyte Esterase Urine RBC Urine Bacteria Occasional H Urine Mucus Rare H 09/17/16 09/17/16 09/17/16 19:39 19:39 19:52 WBC Neutrophils # (Manual) Lymphocytes # (Manual) PT APTT D-Dimer ABG pH 7.27 L ABG pCO2 ABG pO2 ABG HCO3 19 L ABG Total CO2 ABG O2 Saturation Potassium 3.1 L Chloride Carbon Dioxide Glucose POC Glucose (mg/dL) Calcium Magnesium Alkaline Phosphatase Troponin I 0.044 H* Total Protein Albumin Lipase Urine Appearance Ur Specific [place] Urine Protein Ur Leukocyte Esterase Urine RBC Urine Bacteria Urine Mucus 09/17/16 09/17/16 09/18/16 22:07 22:30 04:37 WBC 11.8 H Neutrophils # (Manual) 10.3 H Lymphocytes # (Manual) 0.7 L PT APTT D-Dimer ABG pH ABG pCO2 ABG pO2 ABG HCO3 ABG Total CO2 ABG O2 Saturation Potassium Chloride Carbon Dioxide Glucose POC Glucose (mg/dL) Calcium Magnesium Alkaline Phosphatase Troponin I 0.061 H* Total Protein Albumin Lipase Urine Appearance Ur Specific [place] 1.050 H Urine Protein 1+ H Ur Leukocyte Esterase Trace H Urine RBC 7 H Urine Bacteria Rare H Urine Mucus 09/18/16 09/18/16 04:37 08:45 WBC Neutrophils # (Manual) Lymphocytes # (Manual) PT APTT D-Dimer ABG pH 7.32 L ABG pCO2 32 L ABG pO2 111 H ABG HCO3 16 L ABG Total CO2 17 L ABG O2 Saturation 98.0 H Potassium Chloride 116 H Carbon Dioxide 16 L Glucose 105 H POC Glucose (mg/dL) Calcium 7.2 L Magnesium 2.4 H Alkaline Phosphatase 36 L Troponin I Total Protein 4.1 L Albumin 2.0 L Lipase Urine Appearance Ur Specific [place] Urine Protein Ur Leukocyte Esterase Urine RBC Urine Bacteria Urine Mucus - Diagnostic Findings Chest x-ray: image reviewed (Chest x-ray is consistent with pulmonary vascular congestion and interstitial edema with right hemidiaphragm elevation and right basilar atelectasis.) Assessment and Plan Plan: Impression: 1 status post partial gastrectomy, postoperative day #1. 2 acute perforation of gastric ulcer, most likely secondary to nonsteroidal anti -inflammatory drugs/Motrin. 3 documented history of COPD, severity of which is not clear at present, however the patient will be placed on bronchodilators, and will be placed on incentive spirometry post extubation. 4 congestive heart failure secondary to systolic dysfunction, ejection fraction of 25-50% noted on the echo today. Hence the patient will receive Lasix and will cut down the IV fluid to 75 mL/h, we'll continue to monitor cardiopulmonary status closely. Patient was already seen by cardiology. 5 possible atrial fibrillation on presentation, however that's being addressed by cardiology, no documentation so far of atrial fibrillation noted on the monitor or on her initial EKG. Presently the patient is in normal sinus rhythm. Recommendation: Patient was extubated uneventfully she will be given incentive spirometry, given diuretics, bronchodilators, continue with nasogastric tube in place, and we'll continue to monitor over the next 24 hours in the intensive care unit. Discussed her condition with daughter at bedside. Discussed her condition with the flare breaker on the case. Critical care time is 40 minutes. Time with Patient: Greater than 30
--- NOTE | 2016-09-18 14:07 | P.CONS ---
History of Present Illness - Reason for Consult Consult date: 09/18/16 Medical management Requesting physician: Mynor Crowell - Chief Complaint Right upper abdominal pain and shortness of breath hypoxemia - History of Present Illness This a pleasant 80-year-old lady patient of Dr. Blanco Ruiz. She has underlying history of COPD, also arthritis, admitted through the emergency room after she was brought in by EMS secondary to right upper quadrant pain and later developed some shortness of breath, patient was noted to be hypoxemic requiring a nonrebreather mask prior to ER viable, pulse ox on ER was 95%, requiring nasal cannula patient denies any melena hematochezia no chest pain no palpitations, Emergency room, she was hypotensive after an earlier dose of fentanyl, this has stabilized she had full workup to include elevated lipase of 479, troponins were okay, they did additional imaging to include CAT scan of the abdomen and fell pelvis incidentally she was found to have a perforated viscus, also coming in with A. fib with rapid ventricular rate, she was immediately taken in operating room after Cardizem drip has been started and was hemodynamically stabilized . Patient was subsequently transferred to ICU postoperatively. Consults were made with Dr. Faith cardiology Dr. Leigh from [facility] pulmonary medicine currently receiving IV Zosyn for the peritonitis as well as right lower lobe infiltrate. She underwent emergent exploratory laparotomy 09/17/2016 and underwent a partial gastrectomy with loop gastrojejunostomy by Dr. Crowell for an 8 mm perforation in the antrum, and a large prepyloric ulcer abscess-like cavity there is an masslike inflammatory reaction at the location of the ulcer with clinical concern of possibility of malignant perforation. Review of Systems Constitutional: Reports as per HPI, Reports anorexia, Denies chills, Denies chronic headaches, Denies chronic pain, Denies daytime sleepiness, Denies fatigue, Denies fever, Denies lethargy, Denies malaise, Denies night sweats, Denies poor appetite, Denies sweats, Denies weakness, Denies weight gain, Denies weight loss Ears, nose, mouth and throat: Reports as per HPI, Denies ant. neck pain, Denies bleeding gums, Denies dental pain, Denies dysphagia, Denies epistaxis, Denies headache, Denies hoarseness, Denies mouth pain, Denies nasal congestion, Denies nasal discharge, Denies neck fullness/pressure, Denies neck lump, Denies nose pain, Denies odynophagia, Denies post-nasal drip, Denies sinus pain, Denies sinus pressure, Denies swelling in mouth, Denies swelling in throat, Denies sore throat, Denies vertigo, Denies voice changes Cardiovascular: Reports as per HPI, Reports dyspnea on exertion, Reports irregular heart beat, Reports shortness of breath Respiratory: Reports as per HPI, Denies congestion, Denies cough, Denies cough with sputum, Denies dyspnea, Denies excessive sputum, Denies hemoptysis, Denies home oxygen, Denies pain, Denies pain on inspiration, Denies pleurisy, Denies respiratory infections, Denies sleep apnea, Denies snoring, Denies wheezing Gastrointestinal: Reports as per HPI, Reports abdominal pain, Reports early satiety, Denies belching, Denies bloating, Denies BRBPR, Denies change in bowel habits, Denies coffee ground emesis, Denies constipation, Denies diarrhea, Denies dyspepsia, Denies excessive gas, Denies heartburn, Denies hematemesis, Denies hematochezia, Denies indigestion, Denies jaundice, Denies lactose intolerance, Denies loss of appetite, Denies melena, Denies nausea, Denies vomiting Genitourinary: Reports as per HPI, Reports stress incontinence, Denies abnormal vaginal bleeding, Denies decreased libido, Denies difficulty conceiving, Denies difficulty voiding, Denies dysmenorrhea, Denies dyspareunia, Denies dysuria, Denies flank pain, Denies genital sores, Denies hematuria, Denies hot flashes, Denies incomplete emptying, Denies kidney stones, Denies menorrhagia, Denies mixed incontinence, Denies nocturia, Denies pelvic pain, Denies post void dribbling, Denies , Denies prolapse symptoms, Denies urge incontinence, Denies urgency, Denies urinary frequency, Denies vaginal discharge, Denies vaginal dryness, Denies vaginal itching, Denies vaginal odor Menstruation: Reports as per HPI Musculoskeletal: Reports as per HPI Integumentary: Reports as per HPI Neurological: Reports as per HPI Psychiatric: Reports as per HPI Endocrine: Reports as per HPI Hematologic/Lymphatic: Reports as per HPI Allergic/Immunologic: Reports as per HPI Past Medical History Past Medical History: COPD Additional Past Medical History / Comment(s): arthritis, emphysema History of Any Multi-Drug Resistant Organisms: None Reported Past Surgical History: Unable to Obtain Past Psychological History: No Psychological Hx Reported Smoking Status: Former smoker Past Alcohol Use History: None Reported Past Drug Use History: None Reported - Past Family History Father Family Medical History: Congestive Heart Failure (CHF), Coronary Artery Disease (CAD) Mother Family Medical History: Cancer (Pancreas) Brother(s) Family Medical History: Cancer (Pancreas) Sister(s) Family Medical History: No Reported History Daughter(s) Family Medical History: Cancer (Skin face), Osteoarthritis (OA) Son(s) Family Medical History: Diabetes Mellitus Medications and Allergies Home Medications Medication Instructions Recorded Confirmed Type Gabapentin [Neurontin] 300 mg PO HS 09/17/16 09/17/16 History Ibuprofen [Motrin] 200 mg PO Q6HR PRN 09/17/16 09/17/16 History Allergies Allergy/AdvReac Type Severity Reaction Status Date / Time No Known Allergies Allergy Verified 09/17/16 11:07 Physical Exam Vitals: Vital Signs Temp Pulse Pulse Resp BP BP Pulse Ox 09/17/16 16:34 86 22 142/73 92 L 09/17/16 16:19 98.8 F 114 H 14 165/110 94 L 09/17/16 13:57 97.0 F L 117 H 14 129/89 91 L 09/17/16 13:38 76 18 144/94 95 09/17/16 12:38 91 18 157/93 93 L 09/17/16 11:51 112 H 18 173/94 93 L 09/17/16 10:49 24 09/17/16 10:34 97.6 F 128 H 18 124/75 93 L Intake and Output 09/17/16 09/17/16 09/17/16 06:59 14:59 22:59 Output Total 200 Balance -200 Output: Urine 200 Uretheral (Gunderson) 200 Other: Weight 42.184 kg Patient Weight 09/18/16 06:59 Weight 42.184 kg - Constitutional General appearance: average body habitus, cooperative, no acute distress - EENT Eyes: anicteric sclerae, edentulous, PERRLA, normal appearance ENT: no hard of hearing, hearing grossly normal, NA/AT, normal oropharynx, no other, no pharyngeal erythema, no thrush, no tonsillar exudates, no tonsillar swelling - Neck Neck: no lymphadenopathy, normal ROM, no other, no rigidity, no stridor, no thyromegaly - Respiratory Respiratory: bilateral: CTA, diminished, negative: dullness, rales, rhonchi, wheezing - Cardiovascular Rhythm: regular Heart sounds: normal: S1, S2 Abnormal Heart Sounds: no systolic murmur, no diastolic murmur, no rub, no S3 Gallop, no S4 Gallop, no click, no other - Gastrointestinal General gastrointestinal: decreased bowel sounds, soft Localized gastrointestinal: tender: diffuse - Integumentary Integumentary: normal - Neurologic Neurologic: CNII-XII intact - Musculoskeletal Musculoskeletal: strength equal bilaterally - Psychiatric Psychiatric: A&O x's 3, appropriate affect, intact judgment & insight Results CBC & Chem 7: 09/18/16 04:37 09/18/16 04:37 Labs: Abnormal Lab Results - Last 24 Hours (Table) 09/17/16 09/17/16 09/17/16 Range/Units 10:11 10:11 10:11 Lymphocytes # (Manual) 0.8 L (1.0-4.8) k/uL PT 12.3 H (9.0-12.0) sec APTT 21.5 L (22.0-30.0) sec D-Dimer 3.61 H (<0.60) mg/L FEU Potassium 3.0 L* (3.5-5.1) mmol/L Magnesium (1.6-2.3) mg/dL Total Protein 5.6 L (6.3-8.2) g/dL Albumin 2.9 L (3.5-5.0) g/dL Lipase 479 H (23-300) U/L Urine Appearance (Clear) Urine Protein (Negative) Urine Bacteria (None) /hpf Urine Mucus (None) /hpf 09/17/16 09/17/16 Range/Units 11:03 12:30 Lymphocytes # (Manual) (1.0-4.8) k/uL PT (9.0-12.0) sec APTT (22.0-30.0) sec D-Dimer (<0.60) mg/L FEU Potassium (3.5-5.1) mmol/L Magnesium 1.5 L (1.6-2.3) mg/dL Total Protein (6.3-8.2) g/dL Albumin (3.5-5.0) g/dL Lipase (23-300) U/L Urine Appearance Cloudy H (Clear) Urine Protein 2+ H (Negative) Urine Bacteria Occasional H (None) /hpf Urine Mucus Rare H (None) /hpf Laboratory Results WBC 11.8 k/uL (3.8-10.6) H 09/18/16 04:37 RBC 4.24 m/uL (3.80-5.40) 09/18/16 04:37 Hgb 12.6 gm/dL (11.4-16.0) 09/18/16 04:37 Hct 39.8 % (34.0-46.0) 09/18/16 04:37 MCV 93.9 fL (80.0-100.0) 09/18/16 04:37 MCH 29.8 pg (25.0-35.0) 09/18/16 04:37 MCHC 31.7 g/dL (31.0-37.0) 09/18/16 04:37 RDW 14.6 % (11.5-15.5) 09/18/16 04:37 Plt Count 371 k/uL (150-450) 09/18/16 04:37 Neutrophils % (Manual) 22.5 % 09/18/16 04:37 Band Neutrophils % 65.0 % 09/18/16 04:37 Lymphocytes % (Manual) 6.0 % 09/18/16 04:37 Monocytes % (Manual) 4.0 % 09/18/16 04:37 Metamyelocytes % 2.5 % 09/18/16 04:37 Neutrophils # (Manual) 10.3 k/uL (1.3-7.7) H 09/18/16 04:37 Lymphocytes # (Manual) 0.7 k/uL (1.0-4.8) L 09/18/16 04:37 Monocytes # (Manual) 0.5 k/uL (0-1.0) 09/18/16 04:37 Nucleated RBCs 0 /100 WBC (0-0) 09/18/16 04:37 Manual Slide Review Performed 09/17/16 10:11 Toxic Vacuolation Present 09/18/16 04:37 Polychromasia Present 09/18/16 04:37 Poikilocytosis (manual Present 09/18/16 04:37 Anisocytosis (manual) Present 09/18/16 04:37 PT 12.3 sec (9.0-12.0) H 09/17/16 10:11 INR 1.2 (<1.1) 09/17/16 10:11 APTT 21.5 sec (22.0-30.0) L 09/17/16 10:11 D-Dimer 3.61 mg/L FEU (<0.60) H 09/17/16 10:11 Sample Site rrad 09/18/16 08:45 ABG pH 7.32 (7.35-7.45) L 09/18/16 08:45 ABG pCO2 32 mmHg (35-45) L 09/18/16 08:45 ABG pO2 111 mmHg (83-108) H 09/18/16 08:45 ABG HCO3 16 mmol/L (21-25) L 09/18/16 08:45 ABG Total CO2 17 mmol/L (19-24) L 09/18/16 08:45 ABG O2 Saturation 98.0 % (94-97) H 09/18/16 08:45 ABG Base Excess -9.0 mmol/L 09/18/16 08:45 FiO2 40 % 09/18/16 08:45 Sodium 139 mmol/L (137-145) 09/18/16 04:37 Potassium 4.1 mmol/L (3.5-5.1) 09/18/16 04:37 Chloride 116 mmol/L (98-107) H 09/18/16 04:37 Carbon Dioxide 16 mmol/L (22-30) L 09/18/16 04:37 Anion Gap 7 mmol/L 09/18/16 04:37 BUN 15 mg/dL (7-17) 09/18/16 04:37 Creatinine 0.70 mg/dL (0.52-1.04) 09/18/16 04:37 Est GFR (MDRD) Af Amer >60 (>60 ml/min/1.73 sqM) 09/18/16 04:37 Est GFR (MDRD) Non-Af >60 (>60 ml/min/1.73 sqM) 09/18/16 04:37 Glucose 105 mg/dL (74-99) H 09/18/16 04:37 POC Glucose (mg/dL) 107 mg/dL (75-99) H 09/17/16 19:17 POC Glu Capping Machine Operator ID Melodie Thomson 09/17/16 19:17 Plasma Lactic Acid Denny 1.4 mmol/L (0.7-2.0) 09/17/16 10:11 Calcium 7.2 mg/dL (8.4-10.2) L 09/18/16 04:37 Phosphorus 3.7 mg/dL (2.5-4.5) 09/18/16 04:37 Magnesium 2.4 mg/dL (1.6-2.3) H 09/18/16 04:37 Total Bilirubin 0.5 mg/dL (0.2-1.3) 09/18/16 04:37 AST 21 U/L (14-36) 09/18/16 04:37 ALT 23 U/L (9-52) 09/18/16 04:37 Alkaline Phosphatase 36 U/L (38-126) L 09/18/16 04:37 Total Creatine Kinase 39 U/L (30-135) 09/17/16 10:11 CK-MB (CK-2) 1.1 ng/mL (0.0-2.4) 09/17/16 10:11 CK-MB (CK-2) Rel Index 2.8 09/17/16 10:11 Troponin I 0.061 ng/mL (0.000-0.034) H* 09/17/16 22:07 NT-Pro-B Natriuret Pep 4080 pg/mL 09/18/16 04:37 Total Protein 4.1 g/dL (6.3-8.2) L 09/18/16 04:37 Albumin 2.0 g/dL (3.5-5.0) L 09/18/16 04:37 Amylase 108 U/L (30-110) 09/17/16 10:11 Lipase 94 U/L (23-300) 09/18/16 04:37 TSH 2.030 mIU/L (0.465-4.680) 09/18/16 04:37 Urine Color Yellow 09/17/16 22:30 Urine Appearance Clear (Clear) 09/17/16 22:30 Urine pH 6.5 (5.0-8.0) 09/17/16 22:30 Ur Specific [place] 1.050 (1.001-1.035) H 09/17/16 22:30 Urine Protein 1+ (Negative) H 09/17/16 22:30 Urine Glucose (UA) Negative (Negative) 09/17/16 22:30 Urine Ketones Negative (Negative) 09/17/16 22:30 Urine Blood Negative (Negative) 09/17/16 22:30 Urine Nitrite Negative (Negative) 09/17/16 22:30 Urine Bilirubin Negative (Negative) 09/17/16 22:30 Urine Urobilinogen <2.0 mg/dL (<2.0) 09/17/16 22:30 Ur Leukocyte Esterase Trace (Negative) H 09/17/16 22:30 Urine RBC 7 /hpf (0-5) H 09/17/16 22:30 Urine WBC 3 /hpf (0-5) 09/17/16 22:30 Urine Bacteria Rare /hpf (None) H 09/17/16 22:30 Urine Mucus Rare /hpf (None) H 09/17/16 12:30 Blood Type A Positive 09/17/16 10:11 Blood Type Confirm A Positive 09/17/16 13:04 Blood Type Recheck CABO Indicated 09/17/16 10:11 Antibody Screen NEGATIVE 09/17/16 10:11 Spec Expiration Date 09/20/2016 - 231009/17/16 10:11 Assessment and Plan Plan: 1. Status post exploratory laparotomy perforated gastric ulcer and prepyloric ulcer requiring partial gastrectomy and loop gastrojejunostomy on 09/17/2016 secondary to pneumoperitoneum noted. This was most likely secondary to NSAID use prior to admission. Patient currently is in ICU, a NG tube is in place, postoperative pain along with incentive spirometry, and albuterol Atrovent for pulmonary prophylaxis. Pathology has been sent from gastric perforation, patient's receiving IV antibiotics Zosyn and IV Diflucan and patient is going to be held of any anti-inflammatories and Nsaids are going to be avoided 2. Atrial fibrillation with rapid ventricular rate, new onset patient was seen by cardiology, keep patient cannot be anticoagulated secondary to her recent surgery, and GI perforation gastric area, she has an echocardiogram showing atrial fibrillation with trivial pericardial effusion, ejection fraction of 25- 30%, severe global hypokinesia currently Cardizem IV has been switched to IV metoprolol 2.5 mg every 12 hours further anticoagulation would need to be discussed later by cardiology aortic tests normal, elevated troponins 4Acute peritonitis secondary to perforated viscus, patient's on IV Zosyn and Diflucan, Dr. Anthony from infectious disease 5.. Systolic dysfunction secondary to atrial fibrillation, cardiology is on consult, X 6. lumbar disc disease gabapentin is on hold until by mouth will be started 7. COPD without any exacerbation, patient is on albuterol Atrovent scheduled follows closely by Dr. Leigh 8. GI prophylaxis with Protonix 40 IV twice a day and this would be to switch to oral PPI for the treatment of gastritis and gastric ulcers 9. Onychogryphosis, extremely long toenails noted, consult with Dr. Escalante 10. CODE STATUS 11. DVT prophylaxis with heparin subcu 12. Acute pancreatitis most likely secondary to inflammatory reaction from gastric perforation, this will be monitored, patient still on bowel rest with her NG tube 13. Metabolic acidosis secondary to sepsis from peritonitis, this will be monitored 14. Elevated troponin most likely secondary troponin leak from atrial fibrillation new onset, 15. Family history of pancreatic cancer Thank you Dr. Crowell in allowing us to participate in the care of the patient, we 're going to follow her with you during her clinical recovery, recommendations will be made on her treatment based on her progress
--- NOTE | 2016-09-18 16:05 | P.PN ---
Subjective Principal diagnosis: Perforated ulcer Patient was extubated earlier this morning. Her pain is improved from preop. Her white blood cell count 11.8 today. Her pressure has been for the most part stable. Urine output improving. EFE drain is serosanguineous. Nasogastric tube bilious. Objective - Vital Signs Vital signs: Vital Signs Temp 96.7 F L 09/18/16 12:00 Pulse 84 09/18/16 15:00 Resp 14 09/18/16 15:00 BP 109/58 09/18/16 15:00 Pulse Ox 95 09/18/16 15:00 Intake & Output 09/17/16 09/18/16 09/18/16 18:59 06:59 18:59 Intake Total 1999 3525.0 575 Output Total 470 328 3895 Balance 1325 3265.0 -502 Weight 45 kg 53.4 kg Intake: IV 1999 3525.0 575 0.9% NaCl with KCl 20 Meq 1125 575 /l 1,000 ml @ 75 mls/hr IV .[id number] [facility] Rx#: [id number] Fluconazole in NaCl,Iso- 50 Osm 100 mg In Saline 1 50ml.bag @ 50 mls/hr IVPB Q24H [facility] Rx#:[id number] Magnesium Sulfate-D5w Pmx 200 1 gm In Dextrose/Water 1 100ml.bag @ 100 mls/hr IVPB Q1H [facility] Rx#: [id number] Piperacillin-Tazobactam 3 50.0 .375 gm In Dextrose/Water 1 50ml.bag @ 12.5 mls/hr IVPB Q8HR [facility] Rx#: [id number] Potassium Chloride 10 meq 100 Lidocaine 2% Inj 10 mg In Sodium Chloride 0.9% 100 ml @ 100 mls/hr IV Q1HR [facility] Rx#:[id number] Sodium Chloride 0.9% 2, 2000 000 ml @ 999 mls/hr IV . Q2H1M [facility] Rx#:[id number] Output: Drainage 45 Right Lower Abdomen 45 Urine 964 542 0353 Uretheral (Gunderson) 200 Estimated Blood Loss 25 Other: Voiding Method Indwelling Catheter Indwelling Catheter - Exam Abdomen: Soft, mild tenderness, dressing intact, EFE serosanguineous - Labs CBC & Chem 7: 09/18/16 04:37 09/18/16 04:37 Labs: Abnormal Lab Results - Last 24 Hours (Table) 09/17/16 09/17/16 09/17/16 Range/Units 19:17 19:39 19:39 WBC (3.8-10.6) k/uL Neutrophils # (Manual) (1.3-7.7) k/uL Lymphocytes # (Manual) (1.0-4.8) k/uL ABG pH (7.35-7.45) ABG pCO2 (35-45) mmHg ABG pO2 (83-108) mmHg ABG HCO3 (21-25) mmol/L ABG Total CO2 (19-24) mmol/L ABG O2 Saturation (94-97) % Potassium 3.1 L (3.5-5.1) mmol/L Chloride (98-107) mmol/L Carbon Dioxide (22-30) mmol/L Glucose (74-99) mg/dL POC Glucose (mg/dL) 107 H (75-99) mg/dL Calcium (8.4-10.2) mg/dL Magnesium (1.6-2.3) mg/dL Alkaline Phosphatase (38-126) U/L Troponin I 0.044 H* (0.000-0.034) ng/mL Total Protein (6.3-8.2) g/dL Albumin (3.5-5.0) g/dL Ur Specific [place] (1.001-1.035) Urine Protein (Negative) Ur Leukocyte Esterase (Negative) Urine RBC (0-5) /hpf Urine Bacteria (None) /hpf 09/17/16 09/17/16 09/17/16 Range/Units 19:52 22:07 22:30 WBC (3.8-10.6) k/uL Neutrophils # (Manual) (1.3-7.7) k/uL Lymphocytes # (Manual) (1.0-4.8) k/uL ABG pH 7.27 L (7.35-7.45) ABG pCO2 (35-45) mmHg ABG pO2 (83-108) mmHg ABG HCO3 19 L (21-25) mmol/L ABG Total CO2 (19-24) mmol/L ABG O2 Saturation (94-97) % Potassium (3.5-5.1) mmol/L Chloride (98-107) mmol/L Carbon Dioxide (22-30) mmol/L Glucose (74-99) mg/dL POC Glucose (mg/dL) (75-99) mg/dL Calcium (8.4-10.2) mg/dL Magnesium (1.6-2.3) mg/dL Alkaline Phosphatase (38-126) U/L Troponin I 0.061 H* (0.000-0.034) ng/mL Total Protein (6.3-8.2) g/dL Albumin (3.5-5.0) g/dL Ur Specific [place] 1.050 H (1.001-1.035) Urine Protein 1+ H (Negative) Ur Leukocyte Esterase Trace H (Negative) Urine RBC 7 H (0-5) /hpf Urine Bacteria Rare H (None) /hpf 09/18/16 09/18/16 09/18/16 Range/Units 04:37 04:37 08:45 WBC 11.8 H (3.8-10.6) k/uL Neutrophils # (Manual) 10.3 H (1.3-7.7) k/uL Lymphocytes # (Manual) 0.7 L (1.0-4.8) k/uL ABG pH 7.32 L (7.35-7.45) ABG pCO2 32 L (35-45) mmHg ABG pO2 111 H (83-108) mmHg ABG HCO3 16 L (21-25) mmol/L ABG Total CO2 17 L (19-24) mmol/L ABG O2 Saturation 98.0 H (94-97) % Potassium (3.5-5.1) mmol/L Chloride 116 H (98-107) mmol/L Carbon Dioxide 16 L (22-30) mmol/L Glucose 105 H (74-99) mg/dL POC Glucose (mg/dL) (75-99) mg/dL Calcium 7.2 L (8.4-10.2) mg/dL Magnesium 2.4 H (1.6-2.3) mg/dL Alkaline Phosphatase 36 L (38-126) U/L Troponin I (0.000-0.034) ng/mL Total Protein 4.1 L (6.3-8.2) g/dL Albumin 2.0 L (3.5-5.0) g/dL Ur Specific [place] (1.001-1.035) Urine Protein (Negative) Ur Leukocyte Esterase (Negative) Urine RBC (0-5) /hpf Urine Bacteria (None) /hpf Microbiology - Last 24 Hours (Table) 09/17/16 22:30 Urine Culture - Preliminary Urine,Catheterized Assessment and Plan (1) Pneumoperitoneum Narrative/Plan: Continue antiacid therapy. Keep nothing by mouth with nasogastric tube to suction for now. Gradually increase activity levels. Continue antibiotics. Await infectious disease evaluation. Status: Acute
[2016-09-18] MEDS: METOPROLOL TARTRATE 5 MG/5 ML VIAL IVP SCH (17:13)
[2016-09-18] MEDS: FLUCONAZOLE IN NACL,ISO-OSM 100 MG in SALINE 1 50ML.BAG IVPB SCH (21:01)
[2016-09-19] MEDS: IPRATROPIUM-ALBUTEROL 3 ML NEB INHALATION SCH ×6 (00:06→19:35)
[2016-09-19] MEDS: PIPERACILLIN-TAZOBACTAM 3.375 GM in DEXTROSE/WATER 1 50ML.BAG IVPB SCH ×3 (00:30→16:07)
[2016-09-19] MEDS: HEPARIN SODIUM,PORCINE 5,000 UNIT/ML 1 ML VIAL SQ SCH ×3 (00:30→16:10)
[2016-09-19 04:58] LABS: Basophils % (A) 0 %; CH 29.6; CHCM 30.7; Eosinophils % (A) 0 %; HDW 2.77; Hypochromasia Moderate; Luc # (Auto) 0.14; Luc % (Auto) 1; Lymphocytes # (A) 0.5 k/uL (1.0-4.8); Lymphocytes % (A) 3 %; MCH 30.2 pg (25.0-35.0); MCV 97.2 fL (80.0-100.0); Mean Platelet Volume 8.2; Monocytes # (A) 0.5 k/uL (0-1.0); Monocytes % (A) 4 %; Neutrophils # (A) 13.1 k/uL (1.3-7.7); Neutrophils % (A) 92 %; RBC 4.32 m/uL (3.80-5.40); RDW 14.9 % (11.5-15.5); WBC 14.3 k/uL (3.8-10.6); WBC (Perox) 14.68
[2016-09-19 05:13] LABS: ALT 29 U/L (9-52); AST 21 U/L (14-36); Alkaline Phosphatase 53 U/L (38-126); Anion Gap 12 mmol/L; Blood Urea Nitrogen 18 mg/dL (7-17); Calcium 7.8 mg/dL (8.4-10.2); Carbon Dioxide 17 mmol/L (22-30); Chloride 116 mmol/L (98-107); Glucose 73 mg/dL (74-99); Non-African American GFR(MDRD) >60 (>60 ml/min/1.73 sqM); Phosphorous 4.4 mg/dL (2.5-4.5); Potassium 3.4 mmol/L (3.5-5.1); Sodium 145 mmol/L (137-145); Total Bilirubin 0.5 mg/dL (0.2-1.3); Total Protein 4.8 g/dL (6.3-8.2)
[2016-09-19] MEDS: HYDROmorphone 1 MG/ML 1 ML SYRINGE IVP PRN ×4 (06:44→21:52)
[2016-09-19] MEDS: POTASSIUM CHLORIDE 10 MEQ, LIDOCAINE 2% INJ 10 MG in SODIUM CHLORIDE 0.9% 100 ML IV SCH ×2 (07:39→09:02)
--- NOTE | 2016-09-19 08:11 | XR ---
EXAMINATION TYPE: XR chest 1V portable DATE OF EXAM: 09/19/2016 COMPARISON: 09/18/2016 HISTORY: Shortness of breath FINDINGS: There are bilateral pleural effusions with cardiomegaly and bibasilar infiltrate. There is a diffuse interstitial pattern. NG tube noted. ET tube is been removed. No pneumothorax. Arthropathy of the sh oulders. Scoliosis and degenerative change of the spine. Atherosclerotic change aorta. IMPRESSION: 1. Stable bilateral infiltrate and small effusion on the right with progressive changes on the left. Mild central venous congestion not excluded. Correlate for pneumonia.
[2016-09-19] MEDS: PANTOPRAZOLE 40 MG/10 ML VIAL IVP SCH (09:02)
[2016-09-19] MEDS: BISACODYL 10 MG SUPP RECTAL SCH (09:03)
[2016-09-19] MEDS: METOPROLOL TARTRATE 5 MG/5 ML VIAL IVP SCH ×2 (09:03→20:29)
--- NOTE | 2016-09-19 09:46 | P.PN ---
Progress Note - Text Patient is day 2 post partial gastrectomy for perforated the ulcer 1. Coming along fairly well. Usual postoperative pain and. Vitals are stable. Temperature is normal. Heart rate 94 minute. He could alert. Abdomen is soft with the usual postoperative tenderness diffusely. Incision looks fine Telfa erik in place. EFE drain is about 40 mL's of last 2 shifts serosanguineous in nature. Labs were noted. The lites are normal. Impression. Stable postop. No evidence of any major complications. Recommendation. Continued supportive care IV fluids antibiotics NG tube monitoring of the EFE drainage. From a surgical standpoint can be transferred to a monitored bed on the floor.
--- NOTE | 2016-09-19 11:00 | US ---
EXAMINATION TYPE: US chest DATE OF EXAM: 09/19/2016 COMPARISON: NONE CLINICAL HISTORY: rt pleural effusion bilateral small pleural effusions per X-Ray today. EXAM MEASUREMENTS: Right Pleural Effusion fluid pocket: 2.0 cm A/P Transverse Right skin to fluid thickness: 1.8 cm Left Pleural Effusion fluid pocket: 1.6 cm A/P Transverse Left skin to fluid thickness: 2.0 cm Right side was not marked for possible thoracentesis outside the dept. Left side was not marked for possible thoracentesis outside the dept. Pulmonologists are able to review the images in the patient?s EMR. IMPRESSIONS: Tiny bilateral pleural effusions.
--- NOTE | 2016-09-19 11:27 | P.PN ---
Subjective Principal diagnosis: Status post partial gastrectomy and loop gastrojejunostomy for perforated gastric ulcer postoperative day #2. This is an 80-year-old female with history of COPD, brought in yesterday to the ER with mostly symptoms of abdominal pain and shortness of breath of 1 day duration. Patient was also complaining of chronic back pain, workup in the ER included a CT of the abdomen and pelvis and it was positive for pneumoperitoneum. Hence the patient was taken to the operating room by Dr. read , and she was found to have perforation of gastric ulcer. She underwent partial gastrectomy and loop gastrojejunostomy. Upon exploration, the patient was found to have bilious fluid present throughout the peritoneal cavity and mucopurulent exudate seen scattered throughout. There was also evidence of perforated ulcer measuring 8 mm in diameter. There was a masslike inflammatory reaction in the antrum at the location of the ulcer. Patient underwent distal gastrectomy. Postoperatively, patient was transferred to the intensive care unit on mechanical ventilation, and I was asked to see her on consultation. Ventilator settings were adjusted overnight, patient received fluid boluses overnight for marginal urine output, and her follow-up chest x-ray this morning showed evidence of pulmonary vascular congestion and possibly some component of interstitial edema. Hence her main IV fluid was cut down to 75 mL/h, and I recommended Lasix 40 mg IV push 1. I reviewed her ventilator settings, reviewed her chest x-ray, reviewed her weaning parameters, and I gave the patient is short the pressure support and CPAP trial then moved on to extubate the patient to a nasal cannula. Patient is relatively asymptomatic except for some abdominal discomfort. After extubation, patient denied any shortness of breath, denied any headaches no blurred vision no dizziness. No nausea, she has some vague abdominal discomfort over the incision. Denies any dysuria frequency or urgency. Patient was reevaluated today on 09/19/2016, doing quite well, remains on nasal cannula, relatively asymptomatic, chest x-ray is showing significant right lower lobe atelectasis and possible pleural effusion. However the ultrasound failed to show significant pocket to make thoracentesis safe and easy. The pocket is rather small, hence we will recommend mostly incentive spirometry, antibiotics, bronchodilators, and no need for thoracentesis. Clinically the patient is doing well overall. Labs were reviewed WBC was 14.3 hemoglobin is 13.0, electrolytes were reviewed and they seem to be relatively unremarkable. Bicarb is a bit on the low side at 17. Renal profile is normal. Objective - Vital Signs Vital signs: Vital Signs Temp 97.6 F 09/19/16 08:00 Pulse 94 09/19/16 11:00 Resp 9 L 09/19/16 11:00 BP 127/98 09/19/16 11:00 Pulse Ox 97 09/19/16 11:00 Intake & Output 09/18/16 09/19/16 09/19/16 18:59 06:59 18:59 Intake Total 875 900 225 Output Total 1592 1150 128 Balance -717 -250 97 Weight 47.7 kg Intake: IV 875 900 225 0.9% NaCl with KCl 20 Meq 875 900 225 /l 1,000 ml @ 75 mls/hr IV .[id number] [facility] Rx#: [id number] Output: Gastric Drainage 300 Drainage 40 40 40 Right Lower Abdomen 40 40 40 Urine 1552 [id number] 88 Other: Voiding Method Indwelling Catheter Indwelling Catheter - Exam Physical Exam: Revealed an 80-year-old female in no distress, on nasal cannula HEENT:[Neck is supple.] [No neck masses.] [No thyromegaly.] [No JVD.] Chest: [Diminished breath sounds and crackles at the bases especially at the right base..] Cardiac Exam: [Normal S1 and S2, no S3 gallop, no murmur.] Abdomen: [Soft, slightly tender in the epigastric region, no megaly, no rebound , slight guarding guarding, negative bowel sounds.] Extremities: [No clubbing, no edema, no cyanosis.] Neurological Exam: [No focal neurologic deficit.] - Labs CBC & Chem 7: 09/19/16 04:36 09/19/16 04:36 Labs: Abnormal Lab Results - Last 24 Hours (Table) 09/19/16 09/19/16 Range/Units 04:36 04:36 WBC 14.3 H (3.8-10.6) k/uL Neutrophils # 13.1 H (1.3-7.7) k/uL Lymphocytes # 0.5 L (1.0-4.8) k/uL Potassium 3.4 L (3.5-5.1) mmol/L Chloride 116 H (98-107) mmol/L Carbon Dioxide 17 L (22-30) mmol/L BUN 18 H (7-17) mg/dL Glucose 73 L (74-99) mg/dL Calcium 7.8 L (8.4-10.2) mg/dL Total Protein 4.8 L (6.3-8.2) g/dL Albumin 2.4 L (3.5-5.0) g/dL Lipase 21 L (23-300) U/L Microbiology - Last 24 Hours (Table) 09/17/16 16:00 Blood Culture - Preliminary Blood No Growth after 24 hours 09/17/16 22:30 Urine Culture - Preliminary Urine,Catheterized Assessment and Plan Plan: Impression: 1 status post partial gastrectomy, postoperative day #2 acute perforation of gastric ulcer, most likely secondary to nonsteroidal anti- inflammatory drugs/Motrin. 3 documented history of COPD, severity of which is not clear at present, however the patient will be placed on bronchodilators, and will be placed on incentive spirometry post extubation. 4 congestive heart failure secondary to systolic dysfunction, ejection fraction of 25-50% noted on the echo today. Hence the patient will receive Lasix and will cut down the IV fluid to 75 mL/h, we'll continue to monitor cardiopulmonary status closely. Patient was already seen by cardiology. 5 possible atrial fibrillation on presentation, however that's being addressed by cardiology, no documentation so far of atrial fibrillation noted on the monitor or on her initial EKG. Presently the patient is in normal sinus rhythm. Recommendation: Continue present treatment plan, incentive spirometry, bronchodilators, antibiotics, early ambulation, no need for thoracentesis, the findings on the ultrasound are not suggestive of a large pleural effusion to warrant safe thoracentesis. We'll continue to follow, possibly transfer out of the ICU to a [facility] floor. Time with Patient: Less than 30
[2016-09-19] MEDS ORDERED: METOPROLOL TARTRATE 5 MG/5 ML VIAL IVP ONE (12:15)
--- NOTE | 2016-09-19 13:32 | PN ---
INTERVAL HISTORY: Patient continues to be hemodynamically stable. No major events reported by nursing staff. Patient still with NG tube in place fixed to lower intermittent suction. Dr. Polk was in this morning to evaluate the patient and recommending continuation with the current management. Gunderson catheter in place. Positive for clear urine. The patient is complaining of dry mouth, but has been on ice chips per primary surgeon recommendation. No major events reported by nursing staff. Patient is alert, oriented x3, following commands. PHYSICAL EXAMINATION: VITAL SIGNS: Temperature is 97.7, heart rate of 94, respiratory rate 18, blood pressure 126/62 and saturation is 99% on room air. GENERAL: In no acute distress. HEART: Normal S1, S2. ABDOMEN: Soft, no tenderness, positive bowel sounds, but still hypoactive. Dressing clean, intact and dry. LUNGS: Diminished bilaterally. LOWER EXTREMITY: No edema. GENITOURINARY: Positive for Gunderson in place. SKIN: No new rash. PSYCH: As above. IMAGING AND LABS: White blood count slightly elevated at 14.3, normal otherwise CBC. Chemistry showed low potassium at 3.4, normal kidney function. Her albumin is low at 2.4. Chest ultrasound showed stable bilateral infiltrate and small effusion on the right with progressive changes on the left, mild central venous congestion is not excluded, correlate with pneumonia. Chest ultrasound revealed tiny bilateral pleural effusion. ASSESSMENT AND PLAN: 1. Partial gastrectomy, postoperative day 2. 2. Perforated ulcer, likely related to NSAIDs. Patient will be continued with low intermittent suction per surgery recommendation. Ice chips only. No diet at this point. Patient's pain is under fair control and we will continue wound care. Will continue gentle hydration and will continue EFE care. Patient seems to be hemodynamically stable and can be transferred to general medical floor if Surgery agreed to the current recommendation. 3. Peptic ulcer disease as above. Will continue current medication. 4. Moderate protein calorie malnutrition likely secondary to being without food or drinks for a prolonged period of time and we will continue with supportive care and consider nutrition per surgery recommendation. Patient had bowel movement this morning according to the nursing staff. 5. Chronic obstructive pulmonary disease seems to be compensated. Will continue current medication and breathing treatments as needed. 6. Leukocytosis. Patient on Zosyn. We will continue current medication. Monitor CBC closely. 7. Pain seems to be under fair control. 8. Deep venous thrombosis prophylaxis. Patient is on heparin 3 times daily.
--- NOTE | 2016-09-19 15:31 | PN ---
Mrs. Guzman is an 80-year-old female who presented with perforated viscus underwent surgery. She was intubated and extubated yesterday. She was seen because of atrial arrhythmia. There was a question of atrial fibrillation, yet no documentation of that is available. She is feeling better today. She has abdominal pain. She has no chest pain. Her breathing has been stable. Hemodynamically she is stable. She denies any dizziness or palpitation. She had an echocardiogram, which showed global hypokinesis with severely impaired left ventricular systolic function and ejection fraction of 25% to 30% with mild mitral and moderate tricuspid regurgitation. The duration of her cardiomyopathy is not available to me. Her medications at this time include metoprolol tartrate 2.5 mg IV q.12 hours in addition to her antibiotics. PHYSICAL EXAMINATION: Blood pressure running in the 140s with the heart rate in the 90s. LUNGS: With mild decreased in breath sounds at bases. HEART: Regular rate rhythm. S1, S2, no S3, with systolic murmur and occasional extrasystole. ABDOMEN: Soft, tender, hypoactive bowel sounds. EXTREMITIES: No edema. Lab data revealed a hemoglobin of 13, BUN and creatinine of 18 and 0.8. Potassium 3.4. Her NT-proBNP yesterday was 4080. Her EKG revealed sinus mechanism with PACs. Her chest x-ray showed small effusion with mild congestion. IMPRESSION: 1. Status post ruptured viscus and surgery. 2. Cardiomyopathy, severe of unclear duration or etiology. 3. Atrial arrhythmia, but no evidence of atrial fibrillation. 4. Pleural effusion. RECOMMENDATIONS: From the cardiac standpoint, I will increase the dose of her beta michelle, continue the rest of the medical regimen. When her pressure is stabilized then I can add an ABILIO inhibitor. Will follow her closely regarding her left ventricular systolic dysfunction. She may need diuretics on a p.r.n. basis and depending on her progress, further recommendation will be made.
[2016-09-19] MEDS: 0.9% NACL WITH KCL 20 MEQ/L 1,000 ML IV SCH ×2 (16:08→21:54)
--- NOTE | 2016-09-19 19:07 | P.CONS ---
History of Present Illness - Reason for Consult Consult date: 09/19/16 - Chief Complaint Abdominal pain - History of Present Illness Pleasant 80-year-old female with a long-standing history of COPD presented to the emergency center with a several-day history of increasing abdominal pain. She relates over 3 or 4 days she was having increasing amounts of discomfort. She was feeling gassy and bloated. One day before admission she was having increasing amounts of discomfort and it went to her back. She Presented to the Emergency Center. Evaluation Revealed a Computed Tomography Scan of the Abdomen and Pelvis That Had Evidence of Pneumoperitoneum. She Was Taken to the Operating Room with Evidence of a Perforated Gastric Ulcer. The Partial Gastrectomy in Loop Gastrojejunostomy Was Performed. Pathology is pending for the mass that was noted in the stomach at the time of the resection. The patient had an increase of her leukocytosis and with concerns ongoing sepsis the infectious diseases consultation was requested. She relates that she has ongoing pain but it is improved. She would like to eat. She relates that she started to get some appetite. She finds the NG tube quite uncomfortable. Review of Systems HEENT:Denies headache or acute visual change. Denies sinus or mouth discomforts. Denies neck stiffness or pain. Denies significant oral cavity pain. Denies difficulty on swallowing. Lungs: Denies significant shortness of breath, cough, sputum production, or hemoptysis. Cardiovascular: Denies significant shortness of breath, chest pain, chest wall pain, orthopnea, dyspnea on exertion, syncope Gastrointestinal as per the HPI Musculoskeletal: denies significant myalgias or arthralgias. No new joint swelling. Denies new back pain. Skin: Denies new rash or lesions. No new ulcers or wounds are related.. Neuro: Denies headache or visual change. Denies any new onset weakness or difficulty with ambulation. Denies falls or seizures. Psychiatric:Denies anxiety or depression. Endocrine: Denies significant fatigue, denies significant weight loss or weight gain. Past Medical History Past Medical History: COPD Additional Past Medical History / Comment(s): arthritis, emphysema History of Any Multi-Drug Resistant Organisms: None Reported Past Surgical History: Unable to Obtain Additional Past Surgical History / Comment(s): eye surgery Past Anesthesia/Blood Transfusion Reactions: No Reported Reaction Past Psychological History: No Psychological Hx Reported Additional Psychological History / Comment(s): since 1970. Raised her 5 children alone. Tobacco smoker in the past. No alcohol use. No international travel. The experience. Pet dogs in the home, does not cleanup after them. Smoking Status: Former smoker Past Alcohol Use History: None Reported Past Drug Use History: None Reported - Past Family History Father Family Medical History: Congestive Heart Failure (CHF), Coronary Artery Disease (CAD) Mother Family Medical History: Cancer (Pancreas) Brother(s) Family Medical History: Cancer (Pancreas) Sister(s) Family Medical History: No Reported History Daughter(s) Family Medical History: Cancer (Skin face), Osteoarthritis (OA) Son(s) Family Medical History: Diabetes Mellitus Medications and Allergies Home Medications and Allergies Comment(s): Current Medications Albuterol/Ipratropium (Duoneb 0.5 Mg-3 Mg/3 Ml Soln) 3 ml INHALATION RT-Q4H [facility] Last Admin: 09/19/16 15:48 Dose: 3 ml Bisacodyl (Dulcolax) 10 mg RECTAL DAILY [facility] Last Admin: 09/19/16 09:03 Dose: Not Given Heparin Sodium (Porcine) (Heparin) 5,000 unit SQ Q8HR [facility] Last Admin: 09/19/16 16:10 Dose: 5,000 unit Hydromorphone HCl (Dilaudid) 0.5 mg IVP Q4HR PRN PRN Reason: Pain Last Admin: 09/19/16 16:08 Dose: 0.5 mg Potassium Chloride/Sodium Chloride (Ns-Kcl 20 Meq/L Iv Solution) 1,000 mls @ 75 mls/hr IV .[id number] [facility] Last Admin: 09/19/16 16:08 Dose: 75 mls/hr Piperacillin/Tazobactam/ (Dextrose 3.375 gm/ IV Solution) 50 mls @ 12.5 mls/hr IVPB Q8HR [facility] Last Admin: 09/19/16 16:07 Dose: 12.5 mls/hr Fluconazole/Sodium Chloride (100 mg/ IV Solution) 50 mls @ 50 mls/hr IVPB Q24H [facility] Last Admin: 09/18/16 21:01 Dose: 50 mls/hr Metoprolol Tartrate (Lopressor) 5 mg IVP Q12HR [facility] Naloxone HCl (Narcan) 0.2 mg IV Q2M PRN PRN Reason: Opioid Reversal Last Admin: 09/18/16 07:21 Dose: 0.2 mg Pantoprazole Sodium (Protonix) 40 mg IVP DAILY [facility] Last Admin: 09/19/16 09:02 Dose: 40 mg Home Medications Medication Instructions Recorded Confirmed Type Gabapentin [Neurontin] 300 mg PO HS 09/17/16 09/17/16 History Ibuprofen [Motrin] 200 mg PO Q6HR PRN 09/17/16 09/17/16 History Allergies Allergy/AdvReac Type Severity Reaction Status Date / Time No Known Allergies Allergy Verified 09/17/16 11:07 Physical Exam Vitals: Vital Signs Temp Pulse Resp BP Pulse Ox 09/19/16 16:12 99 09/19/16 16:00 98 16 164/74 98 09/19/16 15:48 100 09/19/16 14:00 95 12 146/75 96 09/19/16 12:29 101 H 09/19/16 12:18 100 09/19/16 12:00 98 F 99 22 147/64 94 L 09/19/16 11:00 94 9 L 127/98 97 09/19/16 10:30 91 12 134/84 98 09/19/16 10:00 91 20 140/69 98 09/19/16 09:30 94 24 150/83 94 L 09/19/16 09:00 112 H 24 134/78 98 09/19/16 08:30 106 H 20 124/60 95 09/19/16 08:00 97.6 F 102 H 24 145/65 98 09/19/16 07:41 94 09/19/16 07:33 94 24 09/19/16 07:30 94 10 L 126/62 99 09/19/16 07:00 94 7 L 114/89 98 09/19/16 06:30 95 10 L 148/71 100 09/19/16 06:00 111 H 14 139/73 99 09/19/16 05:30 96 19 133/72 99 09/19/16 05:00 91 7 L 135/70 99 09/19/16 04:30 99 7 L 129/68 99 09/19/16 04:08 99 09/19/16 04:00 99 8 L 131/64 100 09/19/16 03:30 102 H 20 121/63 99 09/19/16 03:01 12 09/19/16 03:00 92 15 129/64 99 09/19/16 02:00 96 20 116/64 100 09/19/16 01:00 108 H 17 121/64 99 09/19/16 00:05 100 09/19/16 00:00 98.1 F 100 10 L 122/56 99 09/18/16 23:00 95 20 113/54 85 L 09/18/16 22:00 109 H 7 L 105/54 96 09/18/16 21:00 100 17 98/57 86 L 09/18/16 20:53 92 09/18/16 20:37 90 09/18/16 20:30 90 12 113/69 97 09/18/16 20:00 98.1 F 109 H 12 140/73 96 09/18/16 19:00 99 24 121/54 94 L Intake and Output 09/19/16 09/19/16 09/19/16 06:59 14:59 22:59 Intake Total 600 700 Output Total 400 378 Balance 200 322 Intake: IV 600 700 0.9% NaCl with KCl 20 Meq 600 700 /l 1,000 ml @ 75 mls/hr IV .[id number] [facility] Rx#: [id number] Output: Drainage 40 40 Right Lower Abdomen 40 40 Urine 360 338 Other: Voiding Method Indwelling Catheter Indwelling Catheter Indwelling Catheter Weight 47.7 kg 47.7 kg Patient Weight 09/20/16 06:59 Weight 47.7 kg Pleasant 80-year-old woman who is more comfortable and relate she's getting some desire for food. HEENT: Anicteric conjunctiva are pink and moist nasal mucosa grossly intact without significant lesions, there is no thrush. Neck: The neck is supple without significant lymphadenopathy or thyromegaly. Lungs: Good bilateral air entry without significant crackles or wheezing. There is no significant bronchial sounds. There is no egophony or dullness. Heart: Regular rate and rhythm with an audible S1-S2, no S3 no S4. There is no significant murmur click or rub, PMI was nondisplaced. Abdomen: Soft, still very tender in the right upper quadrant, midline incision is without much drainage. She has few bowel sounds. NG is remaining in place. She is minimally distended. She is not rigid. Organomegaly was not palpated. Extremities: The upper extremities have excellent pulses they are symmetric, no significant petechiae or telangiectasia. No splinter hemorrhages were noted. The lower extremities are free from significant edema. The peripheral pulses were 2+ and symmetric. Neuro: Awake alert oriented to person place and time. There are no acute new gross focal sensory motor deficits. Results CBC & Chem 7: 09/19/16 04:36 09/19/16 04:36 Labs: Abnormal Lab Results - Last 24 Hours (Table) 09/19/16 09/19/16 Range/Units 04:36 04:36 WBC 14.3 H (3.8-10.6) k/uL Neutrophils # 13.1 H (1.3-7.7) k/uL Lymphocytes # 0.5 L (1.0-4.8) k/uL Potassium 3.4 L (3.5-5.1) mmol/L Chloride 116 H (98-107) mmol/L Carbon Dioxide 17 L (22-30) mmol/L BUN 18 H (7-17) mg/dL Glucose 73 L (74-99) mg/dL Calcium 7.8 L (8.4-10.2) mg/dL Total Protein 4.8 L (6.3-8.2) g/dL Albumin 2.4 L (3.5-5.0) g/dL Lipase 21 L (23-300) U/L Microbiology - Last 24 Hours (Table) 09/17/16 16:00 Blood Culture - Preliminary Blood No Growth after 48 hours 09/17/16 22:30 Urine Culture - Final Urine,Catheterized Laboratory Results WBC 14.3 k/uL (3.8-10.6) H 09/19/16 04:36 RBC 4.32 m/uL (3.80-5.40) 09/19/16 04:36 Hgb 13.0 gm/dL (11.4-16.0) 09/19/16 04:36 Hct 42.0 % (34.0-46.0) 09/19/16 04:36 MCV 97.2 fL (80.0-100.0) 09/19/16 04:36 MCH 30.2 pg (25.0-35.0) 09/19/16 04:36 MCHC 31.0 g/dL (31.0-37.0) 09/19/16 04:36 RDW 14.9 % (11.5-15.5) 09/19/16 04:36 Plt Count 316 k/uL (150-450) 09/19/16 04:36 Neutrophils % 92 % 09/19/16 04:36 Neutrophils % (Manual) 22.5 % 09/18/16 04:37 Band Neutrophils % 65.0 % 09/18/16 04:37 Lymphocytes % 3 % 09/19/16 04:36 Lymphocytes % (Manual) 6.0 % 09/18/16 04:37 Monocytes % 4 % 09/19/16 04:36 Monocytes % (Manual) 4.0 % 09/18/16 04:37 Eosinophils % 0 % 09/19/16 04:36 Basophils % 0 % 09/19/16 04:36 Metamyelocytes % 2.5 % 09/18/16 04:37 Neutrophils # 13.1 k/uL (1.3-7.7) H 09/19/16 04:36 Neutrophils # (Manual) 10.3 k/uL (1.3-7.7) H 09/18/16 04:37 Lymphocytes # 0.5 k/uL (1.0-4.8) L 09/19/16 04:36 Lymphocytes # (Manual) 0.7 k/uL (1.0-4.8) L 09/18/16 04:37 Monocytes # 0.5 k/uL (0-1.0) 09/19/16 04:36 Monocytes # (Manual) 0.5 k/uL (0-1.0) 09/18/16 04:37 Eosinophils # 0.0 k/uL (0-0.7) 09/19/16 04:36 Basophils # 0.0 k/uL (0-0.2) 09/19/16 04:36 Nucleated RBCs 0 /100 WBC (0-0) 09/18/16 04:37 Manual Slide Review Performed 09/17/16 10:11 Toxic Vacuolation Present 09/18/16 04:37 Polychromasia Present 09/18/16 04:37 Hypochromasia Moderate 09/19/16 04:36 Poikilocytosis (manual Present 09/18/16 04:37 Anisocytosis (manual) Present 09/18/16 04:37 PT 12.3 sec (9.0-12.0) H 09/17/16 10:11 INR 1.2 (<1.1) 09/17/16 10:11 APTT 21.5 sec (22.0-30.0) L 09/17/16 10:11 D-Dimer 3.61 mg/L FEU (<0.60) H 09/17/16 10:11 Sample Site rrad 09/18/16 08:45 ABG pH 7.32 (7.35-7.45) L 09/18/16 08:45 ABG pCO2 32 mmHg (35-45) L 09/18/16 08:45 ABG pO2 111 mmHg (83-108) H 09/18/16 08:45 ABG HCO3 16 mmol/L (21-25) L 09/18/16 08:45 ABG Total CO2 17 mmol/L (19-24) L 09/18/16 08:45 ABG O2 Saturation 98.0 % (94-97) H 09/18/16 08:45 ABG Base Excess -9.0 mmol/L 09/18/16 08:45 FiO2 40 % 09/18/16 08:45 Sodium 145 mmol/L (137-145) 09/19/16 04:36 Potassium 3.4 mmol/L (3.5-5.1) L 09/19/16 04:36 Chloride 116 mmol/L (98-107) H 09/19/16 04:36 Carbon Dioxide 17 mmol/L (22-30) L 09/19/16 04:36 Anion Gap 12 mmol/L 09/19/16 04:36 BUN 18 mg/dL (7-17) H 09/19/16 04:36 Creatinine 0.80 mg/dL (0.52-1.04) 09/19/16 04:36 Est GFR (MDRD) Af Amer >60 (>60 ml/min/1.73 sqM) 09/19/16 04:36 Est GFR (MDRD) Non-Af >60 (>60 ml/min/1.73 sqM) 09/19/16 04:36 Glucose 73 mg/dL (74-99) L 09/19/16 04:36 POC Glucose (mg/dL) 107 mg/dL (75-99) H 09/17/16 19:17 POC Glu [employer] Sales Representative ID Melodie Thomson 09/17/16 19:17 Plasma Lactic Acid Denny 1.4 mmol/L (0.7-2.0) 09/17/16 10:11 Calcium 7.8 mg/dL (8.4-10.2) L 09/19/16 04:36 Phosphorus 4.4 mg/dL (2.5-4.5) 09/19/16 04:36 Magnesium 2.0 mg/dL (1.6-2.3) 09/19/16 04:36 Total Bilirubin 0.5 mg/dL (0.2-1.3) 09/19/16 04:36 AST 21 U/L (14-36) 09/19/16 04:36 ALT 29 U/L (9-52) 09/19/16 04:36 Alkaline Phosphatase 53 U/L (38-126) 09/19/16 04:36 Total Creatine Kinase 39 U/L (30-135) 09/17/16 10:11 CK-MB (CK-2) 1.1 ng/mL (0.0-2.4) 09/17/16 10:11 CK-MB (CK-2) Rel Index 2.8 09/17/16 10:11 Troponin I 0.061 ng/mL (0.000-0.034) H* 09/17/16 22:07 NT-Pro-B Natriuret Pep 4080 pg/mL 09/18/16 04:37 Total Protein 4.8 g/dL (6.3-8.2) L 09/19/16 04:36 Albumin 2.4 g/dL (3.5-5.0) L 09/19/16 04:36 Amylase 108 U/L (30-110) 09/17/16 10:11 Lipase 21 U/L (23-300) L 09/19/16 04:36 TSH 2.030 mIU/L (0.465-4.680) 09/18/16 04:37 Urine Color Yellow 09/17/16 22:30 Urine Appearance Clear (Clear) 09/17/16 22:30 Urine pH 6.5 (5.0-8.0) 09/17/16 22:30 Ur Specific [place] 1.050 (1.001-1.035) H 09/17/16 22:30 Urine Protein 1+ (Negative) H 09/17/16 22:30 Urine Glucose (UA) Negative (Negative) 09/17/16 22:30 Urine Ketones Negative (Negative) 09/17/16 22:30 Urine Blood Negative (Negative) 09/17/16 22:30 Urine Nitrite Negative (Negative) 09/17/16 22:30 Urine Bilirubin Negative (Negative) 09/17/16 22:30 Urine Urobilinogen <2.0 mg/dL (<2.0) 09/17/16 22:30 Ur Leukocyte Esterase Trace (Negative) H 09/17/16 22:30 Urine RBC 7 /hpf (0-5) H 09/17/16 22:30 Urine WBC 3 /hpf (0-5) 09/17/16 22:30 Urine Bacteria Rare /hpf (None) H 09/17/16 22:30 Urine Mucus Rare /hpf (None) H 09/17/16 12:30 Blood Type A Positive 09/17/16 10:11 Blood Type Confirm A Positive 09/17/16 13:04 Blood Type Recheck CABO Indicated 09/17/16 10:11 Antibody Screen NEGATIVE 09/17/16 10:11 Spec Expiration Date 09/20/2016 - 2311 09/17/16 10:11 Microbiology 09/17/16 16:00 Blood Blood Culture - Preliminary No Growth after 48 hours 09/17/16 22:30 Urine,Catheterized Urine Culture - Final CT scan - abdomen: report reviewed (Pneumoperitoneum was noted) Assessment and Plan (1) Perforated viscus Narrative/Plan: 80-year-old female presents to hospital with a several-day history of abdominal pain. Imaging studies revealed evidence of the pneumoperitoneum. She was taken to the operating room and the perforated gastric ulceration was noted. This is been sent to the laboratory for further pathological review. That is pending at this time. The patient is feeling slightly better. She now has an increasing amount of leukocytosis. It is not a significant change. Likely due to the current extensive illness. She is on appropriate antibiotic therapy with Zosyn and fluconazole. She has no history of MRSA. She seems to be having some improvement in she's getting some appetite. Although awaiting return of her gastrointestinal function. Oral cavity care does make her feel better. Cultures are processing negative so far. Pathology is pending any further help direct therapy if marked abnormality is seen. Status: Acute (2) Pneumoperitoneum Status: Acute (3) Leukocytosis Status: Acute
[2016-09-19] MEDS: FLUCONAZOLE IN NACL,ISO-OSM 100 MG in SALINE 1 50ML.BAG IVPB SCH (20:28)
[2016-09-20] MEDS: HEPARIN SODIUM,PORCINE 5,000 UNIT/ML 1 ML VIAL SQ SCH ×3 (00:01→17:07)
[2016-09-20] MEDS: PIPERACILLIN-TAZOBACTAM 3.375 GM in DEXTROSE/WATER 1 50ML.BAG IVPB SCH ×3 (00:02→17:11)
[2016-09-20] MEDS: IPRATROPIUM-ALBUTEROL 3 ML NEB INHALATION SCH ×7 (00:12→21:06)
[2016-09-20] MEDS: METOPROLOL TARTRATE 5 MG/5 ML VIAL IVP SCH ×2 (03:51→20:48)
[2016-09-20 07:02] LABS: Anion Gap 14 mmol/L; Blood Urea Nitrogen 24 mg/dL (7-17); Calcium 8.2 mg/dL (8.4-10.2); Carbon Dioxide 16 mmol/L (22-30); Glucose 59 mg/dL (74-99); Magnesium 2.1 mg/dL (1.6-2.3); Non-African American GFR(MDRD) >60 (>60 ml/min/1.73 sqM); Potassium 3.8 mmol/L (3.5-5.1); Sodium 150 mmol/L (137-145)
[2016-09-20 07:07] LABS: Chloride 120 mmol/L (98-107)
--- NOTE | 2016-09-20 07:24 | XR ---
EXAMINATION TYPE: XR chest 1V portable DATE OF EXAM: 09/20/2016 COMPARISON: 09/19/2016 HISTORY: Shortness of breath TECHNIQUE: Single frontal view of the chest is obtained. FINDINGS: There are bilateral pleural effusions with cardiomegaly and bibasilar infiltrate. There is a diffuse interstitial pattern. NG tube noted. ET tube is been removed. No pneumothorax. Arthropathy of the shoulders. Scoliosis and degenerative change of the spine. Atherosclerotic change aorta. IMPRESSION: 1. Stable bilateral infiltrate and small effusion on the right with stable changes on the left. Mild central venous congestion not excluded. Correlate for pneumonia.
[2016-09-20 07:30] LABS: Basophils % (A) 0 %; CH 29.8; CHCM 31.6; Eosinophils % (A) 0 %; HCT 38.4 % (34.0-46.0); HDW 3.02; HGB 12.1 gm/dL (11.4-16.0); Hypochromasia Slight; Luc # (Auto) 0.09; Luc % (Auto) 1; Lymphocytes # (A) 0.5 k/uL (1.0-4.8); Lymphocytes % (A) 5 %; MCHC 31.6 g/dL (31.0-37.0); MCV 94.9 fL (80.0-100.0); Mean Platelet Volume 8.5; Monocytes # (A) 0.3 k/uL (0-1.0); Monocytes % (A) 3 %; Neutrophils % (A) 91 %; RBC 4.05 m/uL (3.80-5.40); RDW 14.8 % (11.5-15.5); WBC (Perox) 11.82
[2016-09-20] MEDS ORDERED: DEXTROSE 5% IN WATER 500 ML IV ONE ×2 (07:38→07:57)
[2016-09-20] MEDS ORDERED: D5-0.9% NACL WITH KCL 20 MEQ/L 1,000 ML IV SCH (08:00)
[2016-09-20] MEDS: PANTOPRAZOLE 40 MG/10 ML VIAL IVP SCH (08:24)
[2016-09-20] MEDS: BISACODYL 10 MG SUPP RECTAL SCH (08:25)
--- NOTE | 2016-09-20 09:50 | P.PN ---
Progress Note - Text The patient is day 3 post-partial gastrectomy for perforated ulcer.. No fever. Vitals are stable. She is feeling hungry. Abdomen is soft with usual postoperative tenderness. Incision with no evidence of infection. EFE drain about 15 miles a overnight CHCS type of fluid. No bile. Labs are noted. Impression. Stable postop. Recommendation. Continued NG tube the IV fluids. Hopefully in the next day or 2 week and clamp the NG tube and see how she tolerates that. May suck and some popsicles for now.
[2016-09-20] MEDS: HYDROmorphone 1 MG/ML 1 ML SYRINGE IVP PRN ×3 (09:52→22:24)
[2016-09-20] MEDS: NITROGLYCERIN OINT 1 INCH/GM PACKET TOPICAL SCH ×2 (11:02→17:07)
[2016-09-20] MEDS: DEXTROSE 5% IN WATER 1,000 ML IV SCH (11:03)
--- NOTE | 2016-09-20 11:03 | P.PN ---
Subjective Principal diagnosis: Status post partial gastrectomy and loop gastrojejunostomy for perforated gastric ulcer postoperative day #3 This is an 80-year-old female with history of COPD, brought in yesterday to the ER with mostly symptoms of abdominal pain and shortness of breath of 1 day duration. Patient was also complaining of chronic back pain, workup in the ER included a CT of the abdomen and pelvis and it was positive for pneumoperitoneum. Hence the patient was taken to the operating room by Dr. read , and she was found to have perforation of gastric ulcer. She underwent partial gastrectomy and loop gastrojejunostomy. Upon exploration, the patient was found to have bilious fluid present throughout the peritoneal cavity and mucopurulent exudate seen scattered throughout. There was also evidence of perforated ulcer measuring 8 mm in diameter. There was a masslike inflammatory reaction in the antrum at the location of the ulcer. Patient underwent distal gastrectomy. Postoperatively, patient was transferred to the intensive care unit on mechanical ventilation, and I was asked to see her on consultation. Ventilator settings were adjusted overnight, patient received fluid boluses overnight for marginal urine output, and her follow-up chest x-ray this morning showed evidence of pulmonary vascular congestion and possibly some component of interstitial edema. Hence her main IV fluid was cut down to 75 mL/h, and I recommended Lasix 40 mg IV push 1. I reviewed her ventilator settings, reviewed her chest x-ray, reviewed her weaning parameters, and I gave the patient is short the pressure support and CPAP trial then moved on to extubate the patient to a nasal cannula. Patient is relatively asymptomatic except for some abdominal discomfort. After extubation, patient denied any shortness of breath, denied any headaches no blurred vision no dizziness. No nausea, she has some vague abdominal discomfort over the incision. Denies any dysuria frequency or urgency. Patient was reevaluated today on 09/19/2016, doing quite well, remains on nasal cannula, relatively asymptomatic, chest x-ray is showing significant right lower lobe atelectasis and possible pleural effusion. However the ultrasound failed to show significant pocket to make thoracentesis safe and easy. The pocket is rather small, hence we will recommend mostly incentive spirometry, antibiotics, bronchodilators, and no need for thoracentesis. Clinically the patient is doing well overall. Labs were reviewed WBC was 14.3 hemoglobin is 13.0, electrolytes were reviewed and they seem to be relatively unremarkable. Bicarb is a bit on the low side at 17. Renal profile is normal. Patient was reevaluated today on 09/20/2016, clinically she is doing well, however her chest x-ray continues to show significant right lower lobe atelectasis, and possible consolidation in the right lower lobe. There is also small bilateral pleural effusions. Electrolytes were also noted to be abnormal with sodium up to 150. Hence I recommended switching her main IV fluid to D5W. Ultrasound of the chest did not show significant amount of fluid to be drained and patient could not have the safe thoracentesis. If she continues to have this abnormality in the right lower lobe, bronchoscopy may have to be considered especially if that doesn't improve with incentive spirometry and bronchodilators and antibiotics. Clinically however the patient is relatively asymptomatic. And I stressed today to the patient the importance of using incentive spirometry. Objective - Vital Signs Vital signs: Vital Signs Temp 97.5 F L 09/20/16 08:00 Pulse 85 09/20/16 08:48 Resp 16 09/20/16 08:00 BP 175/90 09/20/16 08:00 Pulse Ox 94 L 09/20/16 08:40 Intake & Output 09/19/16 09/20/16 09/20/16 18:59 06:59 18:59 Intake Total 700 75 Output Total 378 1205 400 Balance 322 -1130 -400 Weight 47.7 kg 50 kg Intake: IV 700 75 0.9% NaCl with KCl 20 Meq 700 75 /l 1,000 ml @ 75 mls/hr IV .[id number] [facility] Rx#: [id number] Output: Gastric Drainage 150 Drainage 40 80 Right Lower Abdomen 40 80 Urine 338 975 400 Other: Voiding Method Indwelling Catheter Indwelling Catheter # Voids 7 - Exam Physical Exam: Revealed an 80-year-old female in no distress, on nasal cannula HEENT:[Neck is supple.] [No neck masses.] [No thyromegaly.] [No JVD.] Chest: [Diminished breath sounds and crackles at the bases especially at the right base..] Cardiac Exam: [Normal S1 and S2, no S3 gallop, no murmur.] Abdomen: [Soft, slightly tender in the epigastric region, no megaly, no rebound , slight guarding guarding, negative bowel sounds.] Extremities: [No clubbing, no edema, no cyanosis.] Neurological Exam: [No focal neurologic deficit.] - Labs CBC & Chem 7: 09/20/16 05:51 09/20/16 05:51 Labs: Abnormal Lab Results - Last 24 Hours (Table) 09/20/16 09/20/16 Range/Units 05:51 05:51 WBC 11.0 H (3.8-10.6) k/uL Neutrophils # 10.0 H (1.3-7.7) k/uL Lymphocytes # 0.5 L (1.0-4.8) k/uL Sodium 150 H (137-145) mmol/L Chloride 120 H* (98-107) mmol/L Carbon Dioxide 16 L (22-30) mmol/L BUN 24 H (7-17) mg/dL Glucose 59 L (74-99) mg/dL Calcium 8.2 L (8.4-10.2) mg/dL Microbiology - Last 24 Hours (Table) 09/17/16 16:00 Blood Culture - Preliminary Blood No Growth after 48 hours 09/17/16 22:30 Urine Culture - Final Urine,Catheterized Assessment and Plan Plan: Impression: 1 status post partial gastrectomy, postoperative day #3 acute perforation of gastric ulcer, most likely secondary to nonsteroidal anti- inflammatory drugs/Motrin. 3 documented history of COPD, severity of which is not clear at present, however the patient will be placed on bronchodilators, and will be placed on incentive spirometry post extubation. 4 congestive heart failure secondary to systolic dysfunction, ejection fraction of 25-50% noted on the echo today. Hence the patient will receive Lasix and will cut down the IV fluid to 75 mL/h, we'll continue to monitor cardiopulmonary status closely. Patient was already seen by cardiology. 5 possible atrial fibrillation on presentation, however that's being addressed by cardiology, no documentation so far of atrial fibrillation noted on the monitor or on her initial EKG. Presently the patient is in normal sinus rhythm. 6 postoperative atelectasis, possible consolidation in the right lower lobe, hence the patient will remain on bronchodilators, incentive spirometry, may or may not eventually require bronchoscopy. Recommendation: Continue present treatment plan, incentive spirometry, bronchodilators, antibiotics, early ambulation, no need for thoracentesis, the findings on the ultrasound are not suggestive of a large pleural effusion to warrant safe thoracentesis. We'll continue to follow, and follow-up chest x- ray was ordered to be done in a.m. Time with Patient: Less than 30
[2016-09-20] MEDS: ENALAPRILAT 1.25 MG/ML 1 ML VIAL IVP PRN (11:53)
--- NOTE | 2016-09-20 16:07 | P.PN ---
Subjective Principal diagnosis: Abdominal pain Pleasant 80-year-old female with a long-standing history of COPD presented to the emergency center with a several-day history of increasing abdominal pain. She relates over 3 or 4 days she was having increasing amounts of discomfort. She was feeling gassy and bloated. One day before admission she was having increasing amounts of discomfort and it went to her back. She Presented to the Emergency Center. Evaluation Revealed a Computed Tomography Scan of the Abdomen and Pelvis That Had Evidence of Pneumoperitoneum. She Was Taken to the Operating Room with Evidence of a Perforated Gastric Ulcer. The Partial Gastrectomy in Loop Gastrojejunostomy Was Performed. Pathology is pending for the mass that was noted in the stomach at the time of the resection. The patient had an increase of her leukocytosis and with concerns ongoing sepsis the infectious diseases consultation was requested. She relates that she has ongoing pain but it is improved. She would like to eat. She relates that she started to get some appetite. She finds the NG tube quite uncomfortable. She is feeling somewhat better today. She is not allowed to have some soft material such as a semi-melted sherbet the NG in place. She does relate that she is feeling better. Abdominal pains improved. And not having fever. Objective - Vital Signs Vital signs: Vital Signs Temp 97.8 F 09/20/16 11:54 Pulse 92 09/20/16 13:16 Resp 16 09/20/16 12:00 BP 180/98 09/20/16 11:54 Pulse Ox 93 L 09/20/16 11:54 Intake & Output 09/19/16 09/20/16 09/20/16 18:59 06:59 18:59 Intake Total 700 75 Output Total 378 1205 400 Balance 322 -1130 -400 Weight 47.7 kg 50 kg Intake: IV 700 75 0.9% NaCl with KCl 20 Meq 700 75 /l 1,000 ml @ 75 mls/hr IV .[id number] JEOVANNY Rx#: [id number] Output: Gastric Drainage 150 Drainage 40 80 Right Lower Abdomen 40 80 Urine 338 975 400 Other: Voiding Method Indwelling Catheter Indwelling Catheter Bedpan # Voids 7 - Exam Pleasant 80-year-old woman who is more comfortable and relate she's getting some desire for food. HEENT: Anicteric conjunctiva are pink and moist nasal mucosa grossly intact without significant lesions, there is no thrush. Neck: The neck is supple without significant lymphadenopathy or thyromegaly. Lungs: Good bilateral air entry without significant crackles or wheezing. There is no significant bronchial sounds. There is no egophony or dullness. Heart: Regular rate and rhythm with an audible S1-S2, no S3 no S4. There is no significant murmur click or rub, PMI was nondisplaced. Abdomen: Soft, still very tender in the right upper quadrant, midline incision is without much drainage. She has few bowel sounds. NG is remaining in place. She is minimally distended. She is not rigid. Organomegaly was not palpated. Extremities: The upper extremities have excellent pulses they are symmetric, no significant petechiae or telangiectasia. No splinter hemorrhages were noted. The lower extremities are free from significant edema. The peripheral pulses were 2+ and symmetric. Neuro: Awake alert oriented to person place and time. There are no acute new gross focal sensory motor deficits. - Constitutional Constitutional Comment(s): Pleasant 80-year-old woman who is more comfortable and relate she's getting some desire for food. HEENT: Anicteric conjunctiva are pink and moist nasal mucosa grossly intact without significant lesions, there is no thrush. Neck: The neck is supple without significant lymphadenopathy or thyromegaly. Lungs: Good bilateral air entry without significant crackles or wheezing. There is no significant bronchial sounds. There is no egophony or dullness. Heart: Regular rate and rhythm with an audible S1-S2, no S3 no S4. There is no significant murmur click or rub, PMI was nondisplaced. Abdomen: Soft, still very tender in the right upper quadrant, midline incision is without much drainage. She has few bowel sounds. NG is remaining in place. She is minimally distended. She is not rigid. Organomegaly was not palpated. Extremities: The upper extremities have excellent pulses they are symmetric, no significant petechiae or telangiectasia. No splinter hemorrhages were noted. The lower extremities are free from significant edema. The peripheral pulses were 2+ and symmetric. Neuro: Awake alert oriented to person place and time. There are no acute new gross focal sensory motor deficits. - Labs CBC & Chem 7: 09/20/16 05:51 09/20/16 05:51 Labs: Abnormal Lab Results - Last 24 Hours (Table) 09/20/16 09/20/16 Range/Units 05:51 05:51 WBC 11.0 H (3.8-10.6) k/uL Neutrophils # 10.0 H (1.3-7.7) k/uL Lymphocytes # 0.5 L (1.0-4.8) k/uL Sodium 150 H (137-145) mmol/L Chloride 120 H* (98-107) mmol/L Carbon Dioxide 16 L (22-30) mmol/L BUN 24 H (7-17) mg/dL Glucose 59 L (74-99) mg/dL Calcium 8.2 L (8.4-10.2) mg/dL Microbiology - Last 24 Hours (Table) 09/17/16 16:00 Blood Culture - Preliminary Blood No Growth after 48 hours 09/17/16 22:30 Urine Culture - Final Urine,Catheterized Laboratory Results WBC 11.0 k/uL (3.8-10.6) H 09/20/16 05:51 RBC 4.05 m/uL (3.80-5.40) 09/20/16 05:51 Hgb 12.1 gm/dL (11.4-16.0) 09/20/16 05:51 Hct 38.4 % (34.0-46.0) 09/20/16 05:51 MCV 94.9 fL (80.0-100.0) 09/20/16 05:51 MCH 30.0 pg (25.0-35.0) 09/20/16 05:51 MCHC 31.6 g/dL (31.0-37.0) 09/20/16 05:51 RDW 14.8 % (11.5-15.5) 09/20/16 05:51 Plt Count 340 k/uL (150-450) 09/20/16 05:51 Neutrophils % 91 % 09/20/16 05:51 Neutrophils % (Manual) 22.5 % 09/18/16 04:37 Band Neutrophils % 65.0 % 09/18/16 04:37 Lymphocytes % 5 % 09/20/16 05:51 Lymphocytes % (Manual) 6.0 % 09/18/16 04:37 Monocytes % 3 % 09/20/16 05:51 Monocytes % (Manual) 4.0 % 09/18/16 04:37 Eosinophils % 0 % 09/20/16 05:51 Basophils % 0 % 09/20/16 05:51 Metamyelocytes % 2.5 % 09/18/16 04:37 Neutrophils # 10.0 k/uL (1.3-7.7) H 09/20/16 05:51 Neutrophils # (Manual) 10.3 k/uL (1.3-7.7) H 09/18/16 04:37 Lymphocytes # 0.5 k/uL (1.0-4.8) L 09/20/16 05:51 Lymphocytes # (Manual) 0.7 k/uL (1.0-4.8) L 09/18/16 04:37 Monocytes # 0.3 k/uL (0-1.0) 09/20/16 05:51 Monocytes # (Manual) 0.5 k/uL (0-1.0) 09/18/16 04:37 Eosinophils # 0.0 k/uL (0-0.7) 09/20/16 05:51 Basophils # 0.0 k/uL (0-0.2) 09/20/16 05:51 Nucleated RBCs 0 /100 WBC (0-0) 09/18/16 04:37 Manual Slide Review Performed 09/17/16 10:11 Toxic Vacuolation Present 09/18/16 04:37 Polychromasia Present 09/18/16 04:37 Hypochromasia Slight 09/20/16 05:51 Poikilocytosis (manual Present 09/18/16 04:37 Anisocytosis (manual) Present 09/18/16 04:37 PT 12.3 sec (9.0-12.0) H 09/17/16 10:11 INR 1.2 (<1.1) 09/17/16 10:11 APTT 21.5 sec (22.0-30.0) L 09/17/16 10:11 D-Dimer 3.61 mg/L FEU (<0.60) H 09/17/16 10:11 Sample Site rrad 09/18/16 08:45 ABG pH 7.32 (7.35-7.45) L 09/18/16 08:45 ABG pCO2 32 mmHg (35-45) L 09/18/16 08:45 ABG pO2 111 mmHg (83-108) H 09/18/16 08:45 ABG HCO3 16 mmol/L (21-25) L 09/18/16 08:45 ABG Total CO2 17 mmol/L (19-24) L 09/18/16 08:45 ABG O2 Saturation 98.0 % (94-97) H 09/18/16 08:45 ABG Base Excess -9.0 mmol/L 09/18/16 08:45 FiO2 40 % 09/18/16 08:45 Sodium 150 mmol/L (137-145) H 09/20/16 05:51 Potassium 3.8 mmol/L (3.5-5.1) 09/20/16 05:51 Chloride 120 mmol/L (98-107) H* 09/20/16 05:51 Carbon Dioxide 16 mmol/L (22-30) L 09/20/16 05:51 Anion Gap 14 mmol/L 09/20/16 05:51 BUN 24 mg/dL (7-17) H 09/20/16 05:51 Creatinine 0.70 mg/dL (0.52-1.04) 09/20/16 05:51 Est GFR (MDRD) Af Amer >60 (>60 ml/min/1.73 sqM) 09/20/16 05:51 Est GFR (MDRD) Non-Af >60 (>60 ml/min/1.73 sqM) 09/20/16 05:51 Glucose 59 mg/dL (74-99) L 09/20/16 05:51 POC Glucose (mg/dL) 107 mg/dL (75-99) H 09/17/16 19:17 POC Glu Heat Treat Technician ID Melodie Thomson 09/17/16 19:17 Plasma Lactic Acid Denny 1.4 mmol/L (0.7-2.0) 09/17/16 10:11 Calcium 8.2 mg/dL (8.4-10.2) L 09/20/16 05:51 Phosphorus 3.0 mg/dL (2.5-4.5) 09/20/16 05:51 Magnesium 2.1 mg/dL (1.6-2.3) 09/20/16 05:51 Total Bilirubin 0.5 mg/dL (0.2-1.3) 09/19/16 04:36 AST 21 U/L (14-36) 09/19/16 04:36 ALT 29 U/L (9-52) 09/19/16 04:36 Alkaline Phosphatase 53 U/L (38-126) 09/19/16 04:36 Total Creatine Kinase 39 U/L (30-135) 09/17/16 10:11 CK-MB (CK-2) 1.1 ng/mL (0.0-2.4) 09/17/16 10:11 CK-MB (CK-2) Rel Index 2.8 09/17/16 10:11 Troponin I 0.061 ng/mL (0.000-0.034) H* 09/17/16 22:07 NT-Pro-B Natriuret Pep 4080 pg/mL 09/18/16 04:37 Total Protein 4.8 g/dL (6.3-8.2) L 09/19/16 04:36 Albumin 2.4 g/dL (3.5-5.0) L 09/19/16 04:36 Amylase 108 U/L (30-110) 09/17/16 10:11 Lipase 21 U/L (23-300) L 09/19/16 04:36 TSH 2.030 mIU/L (0.465-4.680) 09/18/16 04:37 Urine Color Yellow 09/17/16 22:30 Urine Appearance Clear (Clear) 09/17/16 22:30 Urine pH 6.5 (5.0-8.0) 09/17/16 22:30 Ur Specific Loyal 1.050 (1.001-1.035) H 09/17/16 22:30 Urine Protein 1+ (Negative) H 09/17/16 22:30 Urine Glucose (UA) Negative (Negative) 09/17/16 22:30 Urine Ketones Negative (Negative) 09/17/16 22:30 Urine Blood Negative (Negative) 09/17/16 22:30 Urine Nitrite Negative (Negative) 09/17/16 22:30 Urine Bilirubin Negative (Negative) 09/17/16 22:30 Urine Urobilinogen <2.0 mg/dL (<2.0) 09/17/16 22:30 Ur Leukocyte Esterase Trace (Negative) H 09/17/16 22:30 Urine RBC 7 /hpf (0-5) H 09/17/16 22:30 Urine WBC 3 /hpf (0-5) 09/17/16 22:30 Urine Bacteria Rare /hpf (None) H 09/17/16 22:30 Urine Mucus Rare /hpf (None) H 09/17/16 12:30 Blood Type A Positive 09/17/16 10:11 Blood Type Confirm A Positive 09/17/16 13:04 Blood Type Recheck CABO Indicated 09/17/16 10:11 Antibody Screen NEGATIVE 09/17/16 10:11 Spec Expiration Date 09/20/2016 - 2311 09/17/16 10:11 Microbiology 09/17/16 16:00 Blood Blood Culture - Preliminary No Growth after 48 hours 09/17/16 22:30 Urine,Catheterized Urine Culture - Final Assessment and Plan (1) Perforated viscus Narrative/Plan: 80-year-old female presents to hospital with a several-day history of abdominal pain. Imaging studies revealed evidence of the pneumoperitoneum. She was taken to the operating room and the perforated gastric ulceration was noted. This is been sent to the laboratory for further pathological review. That is pending at this time. The patient is feeling slightly better. She now has an increasing amount of leukocytosis. It is not a significant change. Likely due to the current extensive illness. She is on appropriate antibiotic therapy with Zosyn and fluconazole. She has no history of MRSA. She seems to be having some improvement in she's getting some appetite. Although awaiting return of her gastrointestinal function. Was allowed some sherbet and has helped her considerably as far as her desire to take some food. Oral cavity care does make her feel better. Cultures are processing negative so far. Pathology is pending any further help direct therapy if marked abnormality is seen. Status: Acute (2) Pneumoperitoneum Status: Acute (3) Leukocytosis Status: Acute
--- NOTE | 2016-09-20 17:12 | PN ---
Miss Guzman is an 80-year-old female, whose underwent surgery because of a ruptured viscus. She has a history of hypertension. She had some atrial arrhythmia but no evidence of atrial fibrillation. She is doing well this morning except she is having abdominal pain. She has no chest pain. Her breathing is stable. She continues to have an NG tube in place. Her blood pressure has been elevated. She continued to be on Lopressor 5 mg IV q.12 hours. PHYSICAL EXAMINATION: Her blood pressure is running in the 160s to 170s with a heart rate in the 80s. LUNGS: Mild decreased breath sounds in the right base. HEART: Regular rate and rhythm. S1, S2, no S3, with systolic murmur. No diastolic murmur. ABDOMEN: Soft, mild tenderness. Hypoactive bowel sounds. EXTREMITIES: No edema. Her chest x-ray raises the possibility of right-sided pneumonia. Her lab data revealed Hemoglobin of 12.1, white blood cell of 11, her sodium is up to 150 with a chloride up to 120. IMPRESSION: 1. Status post surgery for ruptured viscus. 2. Hypertension. 3. Atrial arrhythmia, stable. 4. Hypernatremia. 5. Questionable pneumonia. 6. Cardiomyopathy of unclear duration. RECOMMENDATIONS: From the cardiac standpoint, we will continue on the present therapy. I will add nitro paste to her regimen to improve her blood pressure control. Also add low-dose IV ABILIO inhibitor for her cardiomyopathy. It is unclear to me if the cardiomyopathy is a permanent thing or was related to the infectious process on admission.
--- NOTE | 2016-09-20 17:39 | PN ---
INTERVAL HISTORY: Patient continued to be hemodynamically stable overnight. Transferred to [facility] yesterday evening. Had no complication overnight and patient currently asking if she can eat as she feels hungry. Patient is denying nausea or vomiting. Said that her abdominal pain is under fair control. Denying chest pain, shortness breath and her Gunderson catheter was removed this morning. PHYSICAL EXAMINATION: VITAL SIGNS: 97.5, 85, 16, 169/85 and saturation is 94% on 3 liters. LUNGS: Diminished bilaterally. HEART: Normal S1, S2. ABDOMEN: Soft. Incision was examined in the presence of Dr. Polk and showed no drainage or swelling, seems to be healing. EFE positive for 40 mL in the last shift, serosanguineous drainage. SKIN: No new rash. IMAGING AND LABS: CBC showed white blood count 11, normal otherwise. Her chemistry was elevated sodium at 150, chloride high at 120, carbon dioxide low at 16 and BUN 24. Creatinine still within acceptable range. Anion gap was 14. Glucose 59, calcium 8.2, magnesium 2.1. Urine culture from September 17 showed no growth. Blood cultures are still negative at 48 hours. Chest x-ray was done this morning showed stable bilateral infiltrate and small effusion on the right with stable changes on the left, mild central venous congestion not excluded. ASSESSMENT AND PLAN: 1. Partial gastrectomy postoperative day #3. 2. 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 Patient will be continued currently on NG tube with low intermittent suction. Discussed with Dr. Pokl at the bedside who would like to keep the patient on the NG tube and no diet for 5 days. TPN will be considered only if the patient stays without diet after 5 days. Popsicles were ordered on the top of her ice chips and patient was happy with that progress. Pain under fair control at this point and patient is receiving deep venous thrombosis prophylaxis without with problem. EFE is positive for 40 mL of serosanguineous and seems to be subsiding drainage overall. 3. Hypernatremia with hyperkalemia and dehydration likely secondary to decreased oral intake and dehydration. I would like to provide the patient with 500 mL bolus of D5W. Patient currently on 75 mL normal saline with 20 mEq potassium in each bag. I would like to add 25 mL per hour continuous infusion of D5W to be added to the 75 mL on top of the bolus I mentioned above and would like to repeat the blood work in the morning and consider nephrology consult if patient deteriorates. 4. Moderate protein calorie malnutrition. TPN could be considered if the patient passes 5 days without being able to be advanced on the diet. We will continue monitoring at this time. Discussed with Dr. Polk as mentioned above. 5. Chronic obstructive pulmonary disease seems to be compensated. 6. Leukocytosis, mild and patient currently receiving Zosyn. 7. Deep venous thrombosis prophylaxis. Will continue heparin 3 times daily.
[2016-09-20] MEDS ORDERED: IPRATROPIUM-ALBUTEROL 3 ML NEB INHALATION PRN (19:59)
[2016-09-21] MEDS: FLUCONAZOLE IN NACL,ISO-OSM 100 MG in SALINE 1 50ML.BAG IVPB SCH ×2 (00:12→20:19)
[2016-09-21] MEDS: PIPERACILLIN-TAZOBACTAM 3.375 GM in DEXTROSE/WATER 1 50ML.BAG IVPB SCH ×3 (00:12→16:03)
[2016-09-21] MEDS: DEXTROSE 5% IN WATER 1,000 ML IV SCH ×2 (00:38→13:30)
[2016-09-21] MEDS: HEPARIN SODIUM,PORCINE 5,000 UNIT/ML 1 ML VIAL SQ SCH ×3 (00:39→16:03)
[2016-09-21] MEDS: NITROGLYCERIN OINT 1 INCH/GM PACKET TOPICAL SCH ×3 (00:39→16:02)
[2016-09-21] MEDS: HYDROmorphone 1 MG/ML 1 ML SYRINGE IVP PRN ×5 (02:58→20:20)
[2016-09-21 06:30] LABS: Basophils % (A) 0 %; CH 30.1; CHCM 32.8; Eosinophils # (A) 0.1 k/uL (0-0.7); Eosinophils % (A) 1 %; HCT 37.5 % (34.0-46.0); HDW 3.15; HGB 12.4 gm/dL (11.4-16.0); Luc % (Auto) 1; Lymphocytes % (A) 8 %; MCH 30.6 pg (25.0-35.0); MCHC 33.1 g/dL (31.0-37.0); MCV 92.3 fL (80.0-100.0); Mean Platelet Volume 8.2; Monocytes # (A) 0.6 k/uL (0-1.0); Monocytes % (A) 4 %; Neutrophils # (A) 11.9 k/uL (1.3-7.7); Neutrophils % (A) 86 %; RBC 4.07 m/uL (3.80-5.40); RDW 14.6 % (11.5-15.5); WBC 13.8 k/uL (3.8-10.6); WBC (Perox) 14.77
[2016-09-21 06:47] LABS: Anion Gap 9 mmol/L; Blood Urea Nitrogen 15 mg/dL (7-17); Carbon Dioxide 20 mmol/L (22-30); Chloride 111 mmol/L (98-107); Glucose 118 mg/dL (74-99); Magnesium 1.7 mg/dL (1.6-2.3); Non-African American GFR(MDRD) >60 (>60 ml/min/1.73 sqM); Phosphorous 1.8 mg/dL (2.5-4.5); Potassium 3.1 mmol/L (3.5-5.1); Sodium 140 mmol/L (137-145)
--- NOTE | 2016-09-21 07:51 | XR ---
EXAMINATION TYPE: XR chest 1V portable DATE OF EXAM: 09/21/2016 HISTORY: rll atelectasis. REFERENCE: Previous study dated 09/20/2016. FINDINGS: The patient's NG tube remains in place, unchanged in appearance. There are bilateral effusions, unchanged from previous. There are bibasilar infiltrates, unchanged fr om the previous study. There is vascular congestion. Heart size is obscured. IMPRESSION: NO SIGNIFICANT INTERVAL CHANGE IN THE APPEARANCE OF THE CHEST.
[2016-09-21] MEDS: IPRATROPIUM-ALBUTEROL 3 ML NEB INHALATION SCH ×4 (09:11→19:39)
[2016-09-21] MEDS: BISACODYL 10 MG SUPP RECTAL SCH (09:55)
[2016-09-21] MEDS: METOPROLOL TARTRATE 5 MG/5 ML VIAL IVP SCH ×2 (09:55→20:20)
[2016-09-21] MEDS: PANTOPRAZOLE 40 MG/10 ML VIAL IVP SCH (12:23)
--- NOTE | 2016-09-21 12:28 | P.PN ---
Subjective Principal diagnosis: Ruptured viscus This is an 80-year-old female who underwent surgery secondary to a ruptured viscus. She has a known history of hypertension, she was also noted to have an atrial arrhythmia with no evidence of atrial fibrillation. Patient was seen and examined this morning, continues to have an NG tube in place. Blood pressure this morning 150/70. In normal sinus rhythm with PACs. Potassium this morning 3.1. Magnesium level I.7. Objective - Vital Signs Vital signs: Vital Signs Temp 97.3 F L 09/21/16 04:00 Pulse 82 09/21/16 10:50 Resp 16 09/21/16 04:00 BP 150/71 09/21/16 04:00 Pulse Ox 92 L 09/21/16 04:00 Intake & Output 09/20/16 09/21/16 09/21/16 18:59 06:59 18:59 Intake Total 350 Output Total 750 815 40 Balance -750 -465 -40 Weight 53.5 kg Intake: Intake, IV Titration 350 Amount Dextrose 5% in Water 1, 300 000 ml @ 75 mls/hr IV . [id number] JEOVANNY Rx#:[id number] Fluconazole in NaCl,Iso- 50 Osm 100 mg In Saline 1 50ml.bag @ 50 mls/hr IVPB Q24H JEOVANNY Rx#:[id number] Output: Gastric Drainage 150 Drainage 50 40 40 Right Lower Abdomen 50 40 40 Urine 700 625 Other: Voiding Method Bedpan Bedpan # Voids 7 2 - Exam PHYSICAL EXAMINATION: HEENT: Head is atraumatic, normocephalic. Pupils equal, round. Neck is supple. There is no elevated jugular venous pressure. HEART EXAMINATION: Heart S1 and S2 systolic murmur is heard. CHEST EXAMINATION: Lungs are clear to auscultation and precussion. No chest wall tenderness is noted on palpation or with deep breathing. ABDOMEN: Soft, nontender. Bowel sounds are heard. No organomegaly noted. NG tube in place. EXTREMITIES: 2+ peripheral pulses with no evidence of peripheral edema and no calf tenderness noted. NEUROLOGIC patient is awake, alert and oriented -3. . - Labs CBC & Chem 7: 09/21/16 05:48 09/21/16 05:48 Labs: Abnormal Lab Results - Last 24 Hours (Table) 09/21/16 09/21/16 Range/Units 05:48 05:48 WBC 13.8 H (3.8-10.6) k/uL Neutrophils # 11.9 H (1.3-7.7) k/uL Potassium 3.1 L (3.5-5.1) mmol/L Chloride 111 H (98-107) mmol/L Carbon Dioxide 20 L (22-30) mmol/L Creatinine 0.50 L (0.52-1.04) mg/dL Glucose 118 H (74-99) mg/dL Calcium 8.0 L (8.4-10.2) mg/dL Phosphorus 1.8 L (2.5-4.5) mg/dL Microbiology - Last 24 Hours (Table) 09/17/16 16:00 Blood Culture - Preliminary Blood No Growth after 72 hours Assessment and Plan (1) HTN (hypertension) Status: Acute (2) Atrial arrhythmia Status: Acute (3) Cardiomyopathy Narrative/Plan: type undetermined Status: Acute (4) Perforated viscus Status: Acute Plan: From cardiology's perspective, we'll continue current medications. Blood pressure under better control today. DNP note has been reviewed, I agree with a documented findings and plan of care. Patient was seen and examined.
--- NOTE | 2016-09-21 15:35 | P.PN ---
Subjective This a pleasant 80-year-old lady patient of Dr. Blanco Ruiz. She has underlying history of COPD, also arthritis, admitted through the emergency room after she was brought in by EMS secondary to right upper quadrant pain and later developed some shortness of breath, patient was noted to be hypoxemic requiring a nonrebreather mask prior to ER viable, pulse ox on ER was 95%, requiring nasal cannula patient denies any melena hematochezia no chest pain no palpitations, Emergency room, she was hypotensive after an earlier dose of fentanyl, this has stabilized she had full workup to include elevated lipase of 479, troponins were okay, they did additional imaging to include CAT scan of the abdomen and fell pelvis incidentally she was found to have a perforated viscus, also coming in with Rin clinton with rapid ventricular rate, she was immediately taken in operating room after Cardizem drip has been started and was hemodynamically stabilized . Patient was subsequently transferred to ICU postoperatively. Consults were made with Dr. 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 She underwent emergent exploratory laparotomy 09/17/2016 and underwent a partial gastrectomy with loop gastrojejunostomy by Dr. Crowell for an 8 mm perforation in the antrum, and a large prepyloric ulcer abscess-like cavity there is an masslike inflammatory reaction at the location of the ulcer with clinical concern of possibility of malignant perforation. 09/21: Patient has been hemodynamically stable and was transferred to the selective care unit. She continues to have NG tube in place. Daughter is concerned that she has more cough with thick secretions and congestion. Incentive spirometry is only 300-500. Patient is complaining of feeling tired. Cardiology is following for she was noted to be in atrial arrhythmia but no atrial fibrillation. Blood pressure is well controlled. Repeat chest x-ray shows no significant interval change. Patient is followed by Dr. Anthony from infectious disease and continued on Zosyn and fluconazole. Pathology report remains pending. Objective - Vital Signs Vital signs: Vital Signs Temp 97.3 F L 09/21/16 04:00 Pulse 76 09/21/16 10:40 Resp 16 09/21/16 04:00 BP 150/71 09/21/16 04:00 Pulse Ox 92 L 09/21/16 04:00 Intake & Output 09/20/16 09/21/16 09/21/16 18:59 06:59 18:59 Intake Total 350 Output Total 750 815 40 Balance -750 -465 -40 Weight 53.5 kg Intake: Intake, IV Titration 350 Amount Dextrose 5% in Water 1, 300 000 ml @ 75 mls/hr IV . [id number] [facility] Rx#:[id number] Fluconazole in NaCl,Iso- 50 Osm 100 mg In Saline 1 50ml.bag @ 50 mls/hr IVPB Q24H [facility] Rx#:[id number] Output: Gastric Drainage 150 Drainage 50 40 40 Right Lower Abdomen 50 40 40 Urine 700 625 Other: Voiding Method Bedpan Bedpan # Voids 7 2 - Exam General appearance: average body habitus, cooperative, no acute distress - EENT Eyes: anicteric sclerae, edentulous, PERRLA, normal appearance ENT: no hard of hearing, hearing grossly normal, NA/AT, normal oropharynx, no other, no pharyngeal erythema, no thrush, no tonsillar exudates, no tonsillar swelling - Neck Neck: no lymphadenopathy, normal ROM, no other, no rigidity, no stridor, no thyromegaly - Respiratory Respiratory: bilateral: CTA, diminished, negative: dullness, rales, rhonchi, wheezing - Cardiovascular Rhythm: regular Heart sounds: normal: S1, S2 Abnormal Heart Sounds: no systolic murmur, no diastolic murmur, no rub, no S3 Gallop, no S4 Gallop, no click, no other - Gastrointestinal General gastrointestinal: decreased bowel sounds, soft Localized gastrointestinal: tender: diffuse - Integumentary Integumentary: normal - Neurologic Neurologic: CNII-XII intact - Musculoskeletal Musculoskeletal: strength equal bilaterally - Psychiatric Psychiatric: A&O x's 3, appropriate affect, intact judgment & insight - Labs CBC & Chem 7: 09/21/16 05:48 09/21/16 05:48 Labs: Abnormal Lab Results - Last 24 Hours (Table) 09/21/16 09/21/16 Range/Units 05:48 05:48 WBC 13.8 H (3.8-10.6) k/uL Neutrophils # 11.9 H (1.3-7.7) k/uL Potassium 3.1 L (3.5-5.1) mmol/L Chloride 111 H (98-107) mmol/L Carbon Dioxide 20 L (22-30) mmol/L Creatinine 0.50 L (0.52-1.04) mg/dL Glucose 118 H (74-99) mg/dL Calcium 8.0 L (8.4-10.2) mg/dL Phosphorus 1.8 L (2.5-4.5) mg/dL Microbiology - Last 24 Hours (Table) 09/17/16 16:00 Blood Culture - Preliminary Blood No Growth after 72 hours Assessment and Plan Plan: 1. Status post exploratory laparotomy perforated gastric ulcer and prepyloric ulcer requiring partial gastrectomy and loop gastrojejunostomy on 09/17/2016 secondary to pneumoperitoneum noted. This was most likely secondary to NSAID use prior to admission. NG tube is in place, postoperative pain along with incentive spirometry, and albuterol Atrovent for pulmonary prophylaxis. IV antibiotics Zosyn and IV Diflucan. 2. Atrial arrhythmia. Cardiology is following. No atrial fibrillation was found. 3. Acute peritonitis secondary to perforated viscus, patient's on IV Zosyn and Diflucan, Dr. Anthony from infectious disease 4. Lumbar disc disease gabapentin is on hold until by mouth will be started 5. COPD without any exacerbation, patient is on albuterol Atrovent scheduled follows closely by Dr. Leigh 6. GI prophylaxis with Protonix 40 IV twice a day and this would be to switch to oral PPI for the treatment of gastritis and gastric ulcers 7. Onychogryphosis, extremely long toenails noted, consult with Dr. Escalante 8. CODE STATUS 9. DVT prophylaxis with heparin subcu 10. Acute pancreatitis most likely secondary to inflammatory reaction from gastric perforation, this will be monitored, patient still on bowel rest with her NG tube 11. Metabolic acidosis secondary to sepsis from peritonitis, this will be monitored 12. Elevated troponin most likely secondary troponin leak from atrial fibrillation new onset, 13. Family history of pancreatic cancer Discharge plan: [facility] once stable Impression and plan of care have been directed as dictated by the signing physician. Gisele Hilliard nurse practitioner acting as scribe for signing physician.
--- NOTE | 2016-09-21 16:48 | P.PN ---
Progress Note - Text The patient is afebrile. States she is getting hungry. NG tube is in place. No nausea or vomiting. EFE drain is minimum. She is in no acute distress. Abdomen is soft incision looks good. Has some bowel sounds. Impression. Coming along fairly well considering the major surgery. We will probably DC NG tube tomorrow and start her on some by mouth fluids.
--- NOTE | 2016-09-21 17:54 | PN ---
This patient is an 80-year-old female who is postoperative day number 4, status post partial gastrectomy for acute perforation of a gastric ulcer likely caused by non-steroidal anti-inflammatory drugs. She also has a history of severe COPD, CHF, atrial fibrillation and postoperative atelectasis. She is doing reasonably well. She is down to 3 L nasal cannula. Her vital signs are relatively stable. She is not complaining of any respiratory issues. Coughing a bit. Not producing any phlegm. No wheezing. No chest tightness. No chest pain. Current vital signs include temperature 97.3, heart rate 76, respiratory rate 16, blood pressure 150/71, mean 97. Three-liter saturation 93% to 94%. Appears in no acute distress. HEENT examination is unremarkable. Mucous membranes are moist. No oral lesions. NECK: Supple. Full range of motion. No adenopathy or thyromegaly. Neck veins are flat. Cardiovascular examination reveals regular rhythm and rate. S1, S2 normal. No S3, S4 or murmur. Lungs reveal relatively clear breath sounds. Breath sounds are diminished. A few scattered mild rhonchi. No wheezes or crackles. ABDOMEN: Soft. Bowel sounds are noted. EXTREMITIES: Intact. No cyanosis, clubbing or edema. Skin without rash. Neurologic examination is nonfocal. Labs are reviewed. White count 13.8; hemoglobin, hematocrit and platelet count all normal. Sodium 140, potassium 3.1, chloride 111, CO2 20. BUN and creatinine were 15 and 0.5. The rest of the labs look okay. Phosphorus is a bit low and it should be replaced. A chest x-ray was done and showed small bilateral effusions. There was some bibasilar atelectasis. Other than that, the x-ray looks pretty good. There is no significant interval change compared to the prior x-ray done on 09/20. Again, chest ultrasound showed only small pleural effusions. Microbiology is all negative. Medications are reviewed. ASSESSMENT: 1. Postoperative day number 4, status post partial gastrectomy for perforated gastric ulcer likely caused by non-steroidal anti-inflammatory drugs. 2. Severe but stable chronic obstructive pulmonary disease. 3. Congestive heart failure secondary to systolic dysfunction. 4. Cardiomyopathy with ejection fraction of 25% to 30%. 5. History of atrial fibrillation. 6. Postoperative atelectasis. PLAN: Will continue to follow. Medications are reviewed. They are appropriate. Will continue with incentive spirometer and bronchodilators. Those medications are appropriate. The patient is also getting antibiotics in the form of Zosyn. Will continue to follow. Prognosis is guarded.
[2016-09-21] MEDS ORDERED: Potassium Replacement Protocol 1 EACH MISC MISCELLANE PRN (22:05)
[2016-09-21] MEDS: POTASSIUM CHLORIDE 10 MEQ in WATER FOR INJECTION 1 100ML.BAG IVPB SCH (22:30)
[2016-09-22] MEDS: HEPARIN SODIUM,PORCINE 5,000 UNIT/ML 1 ML VIAL SQ SCH ×4 (00:41→23:11)
[2016-09-22] MEDS: NITROGLYCERIN OINT 1 INCH/GM PACKET TOPICAL SCH ×4 (04:42→23:13)
[2016-09-22] MEDS: POTASSIUM CHLORIDE 10 MEQ in WATER FOR INJECTION 1 100ML.BAG IVPB SCH ×3 (04:43→11:12)
[2016-09-22] MEDS: PIPERACILLIN-TAZOBACTAM 3.375 GM in DEXTROSE/WATER 1 50ML.BAG IVPB SCH ×4 (04:43→23:30)
[2016-09-22] MEDS: DEXTROSE 5% IN WATER 1,000 ML IV SCH ×2 (04:44→15:43)
[2016-09-22] MEDS: HYDROmorphone 1 MG/ML 1 ML SYRINGE IVP PRN ×2 (04:45→08:47)
[2016-09-22 06:17] LABS: Basophils % (A) 0 %; CH 30.3; CHCM 33.4; Eosinophils # (A) 0.1 k/uL (0-0.7); Eosinophils % (A) 1 %; HCT 39.9 % (34.0-46.0); HDW 3.23; HGB 13.1 gm/dL (11.4-16.0); Luc # (Auto) 0.23; Luc % (Auto) 2; Lymphocytes # (A) 0.9 k/uL (1.0-4.8); Lymphocytes % (A) 7 %; MCH 29.9 pg (25.0-35.0); MCHC 32.8 g/dL (31.0-37.0); MCV 91.1 fL (80.0-100.0); Monocytes # (A) 0.9 k/uL (0-1.0); Monocytes % (A) 6 %; Neutrophils # (A) 12.3 k/uL (1.3-7.7); Neutrophils % (A) 85 %; RBC 4.38 m/uL (3.80-5.40); RDW 14.4 % (11.5-15.5); WBC 14.5 k/uL (3.8-10.6); WBC (Perox) 15.36
[2016-09-22 06:29] LABS: ALT 32 U/L (9-52); AST 22 U/L (14-36); Alkaline Phosphatase 66 U/L (38-126); Anion Gap 8 mmol/L; Blood Urea Nitrogen 10 mg/dL (7-17); Calcium 7.8 mg/dL (8.4-10.2); Carbon Dioxide 20 mmol/L (22-30); Chloride 103 mmol/L (98-107); Glucose 119 mg/dL (74-99); Non-African American GFR(MDRD) >60 (>60 ml/min/1.73 sqM); Potassium 3.1 mmol/L (3.5-5.1); Sodium 131 mmol/L (137-145); Total Bilirubin 0.9 mg/dL (0.2-1.3); Total Protein 4.5 g/dL (6.3-8.2)
[2016-09-22] MEDS: ENALAPRILAT 1.25 MG/ML 1 ML VIAL IVP PRN (08:38)
[2016-09-22] MEDS: PANTOPRAZOLE 40 MG/10 ML VIAL IVP SCH (08:40)
[2016-09-22] MEDS: BISACODYL 10 MG SUPP RECTAL SCH (08:41)
[2016-09-22] MEDS: METOPROLOL TARTRATE 5 MG/5 ML VIAL IVP SCH (08:51)
[2016-09-22] MEDS: IPRATROPIUM-ALBUTEROL 3 ML NEB INHALATION SCH ×4 (09:05→19:55)
[2016-09-22] MEDS ORDERED: Magnesium Replacement Protocol 1 EACH MISC MISCELLANE PRN (09:16)
[2016-09-22] MEDS: MAGNESIUM SULFATE-D5W PMX 1 GM in DEXTROSE/WATER 1 100ML.BAG IVPB SCH ×2 (09:55→12:27)
--- NOTE | 2016-09-22 11:10 | P.PN ---
Subjective This a pleasant 80-year-old lady patient of Dr. Blanco Ruiz. She has underlying history of COPD, also arthritis, admitted through the emergency room after she was brought in by EMS secondary to right upper quadrant pain and later developed some shortness of breath, patient was noted to be hypoxemic requiring a nonrebreather mask prior to ER viable, pulse ox on ER was 95%, requiring nasal cannula patient denies any melena hematochezia no chest pain no palpitations, Emergency room, she was hypotensive after an earlier dose of fentanyl, this has stabilized she had full workup to include elevated lipase of 479, troponins were okay, they did additional imaging to include CAT scan of the abdomen and fell pelvis incidentally she was found to have a perforated viscus, also coming in with Rin clinton with rapid ventricular rate, she was immediately taken in operating room after Cardizem drip has been started and was hemodynamically stabilized . Patient was subsequently transferred to ICU postoperatively. Consults were made with Dr. 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 She underwent emergent exploratory laparotomy 09/17/2016 and underwent a partial gastrectomy with loop gastrojejunostomy by Dr. Crowell for an 8 mm perforation in the antrum, and a large prepyloric ulcer abscess-like cavity there is an masslike inflammatory reaction at the location of the ulcer with clinical concern of possibility of malignant perforation. 09/21: Patient has been hemodynamically stable and was transferred to the selective care unit. She continues to have NG tube in place. Daughter is concerned that she has more cough with thick secretions and congestion. Incentive spirometry is only 300-500. Patient is complaining of feeling tired. Cardiology is following for she was noted to be in atrial arrhythmia but no atrial fibrillation. Blood pressure is well controlled. Repeat chest x-ray shows no significant interval change. Patient is followed by Dr. Anthony from infectious disease and continued on Zosyn and fluconazole. Pathology report remains pending. 09/22: Today the patient was noted to be hypoxic. The patient was placed on a Ventimask and O2 came up to 94%. She was drowsy but easily arousable. She has been receiving IV Dilaudid for pain control, this is believed to be the source of her hypoxemia. Her Dilaudid will be held for the next 24 hours. The patient has been receiving potassium supplementation per protocol, today her potassium was still noted to be 3.1. Magnesium was 1.4, supplement ordered along with potassium supplement per protocol, will recheck potassium this afternoon. The patient continues to be followed by Dr. Anthony. Blood cultures show no growth after 96 hours. Objective - Vital Signs Vital signs: Vital Signs Temp 97.1 F L 09/22/16 04:00 Pulse 70 09/22/16 09:17 Resp 17 09/22/16 04:00 BP 126/60 09/22/16 04:00 Pulse Ox 94 L 09/22/16 09:09 Intake & Output 09/21/16 09/22/16 09/22/16 18:59 06:59 18:59 Intake Total 700 Output Total 70 100 Balance -70 600 Weight 53.5 kg 53.5 kg Intake: Intake, IV Titration 700 Amount Dextrose 5% in Water 1, 600 000 ml @ 75 mls/hr IV . [id number] [facility] Rx#:[id number] Fluconazole in NaCl,Iso- 50 Osm 100 mg In Saline 1 50ml.bag @ 50 mls/hr IVPB Q24H [facility] Rx#:[id number] Piperacillin-Tazobactam 3 50 .375 gm In Dextrose/Water 1 50ml.bag @ 12.5 mls/hr IVPB Q8HR [facility] Rx#: [id number] Output: Drainage 70 100 Right Lower Abdomen 70 100 Other: Voiding Method Bedpan # Voids 1 2 - Exam Exam General appearance: average body habitus, cooperative, no acute distress - EENT Eyes: anicteric sclerae, edentulous, PERRLA, normal appearance ENT: no hard of hearing, hearing grossly normal, NA/AT, normal oropharynx, no other, no pharyngeal erythema, no thrush, no tonsillar exudates, no tonsillar swelling - Neck Neck: no lymphadenopathy, normal ROM, no other, no rigidity, no stridor, no thyromegaly - Respiratory Respiratory: bilateral: CTA, diminished, negative: dullness, rales, rhonchi, wheezing - Cardiovascular Rhythm: regular Heart sounds: normal: S1, S2 Abnormal Heart Sounds: no systolic murmur, no diastolic murmur, no rub, no S3 Gallop, no S4 Gallop, no click, no other - Gastrointestinal General gastrointestinal: decreased bowel sounds, soft Localized gastrointestinal: tender: diffuse - Integumentary Integumentary: normal - Neurologic Neurologic: CNII-XII intact - Musculoskeletal Musculoskeletal: strength equal bilaterally - Psychiatric Psychiatric: A&O x's 3, appropriate affect, intact judgment & insight - Labs CBC & Chem 7: 09/22/16 05:50 09/22/16 05:50 Labs: Abnormal Lab Results - Last 24 Hours (Table) 09/22/16 09/22/16 09/22/16 Range/Units 05:50 05:50 05:50 WBC 14.5 H (3.8-10.6) k/uL Neutrophils # 12.3 H (1.3-7.7) k/uL Lymphocytes # 0.9 L (1.0-4.8) k/uL Sodium 131 L (137-145) mmol/L Potassium 3.1 L (3.5-5.1) mmol/L Carbon Dioxide 20 L (22-30) mmol/L Creatinine 0.40 L (0.52-1.04) mg/dL Glucose 119 H (74-99) mg/dL Calcium 7.8 L (8.4-10.2) mg/dL Magnesium 1.4 L (1.6-2.3) mg/dL Total Protein 4.5 L (6.3-8.2) g/dL Albumin 2.3 L (3.5-5.0) g/dL Microbiology - Last 24 Hours (Table) 09/17/16 16:00 Blood Culture - Preliminary Blood No Growth after 96 hours Assessment and Plan Plan: Plan: 1. Status post exploratory laparotomy perforated gastric ulcer and prepyloric ulcer requiring partial gastrectomy and loop gastrojejunostomy on 09/17/2016 secondary to pneumoperitoneum noted. This was most likely secondary to NSAID use prior to admission. NG tube is in place, postoperative pain along with incentive spirometry, and albuterol Atrovent for pulmonary prophylaxis. IV antibiotics Zosyn and IV Diflucan. 2. Atrial arrhythmia. Cardiology is following. No atrial fibrillation was found. 3. Acute peritonitis secondary to perforated viscus, patient's on IV Zosyn and Diflucan, Dr. Anthony from infectious disease 4. Lumbar disc disease gabapentin is on hold until by mouth will be started 5. COPD without any exacerbation, patient is on albuterol Atrovent scheduled follows closely by Dr. Leigh 6. GI prophylaxis with Protonix 40 IV twice a day and this would be to switch to oral PPI for the treatment of gastritis and gastric ulcers 7. Onychogryphosis, extremely long toenails noted, consult with Dr. Escalante 8. CODE STATUS 9. DVT prophylaxis with heparin subcu 10. Acute pancreatitis most likely secondary to inflammatory reaction from gastric perforation, this will be monitored, patient still on bowel rest with her NG tube 11. Metabolic acidosis secondary to sepsis from peritonitis, this will be monitored 12. Elevated troponin most likely secondary troponin leak from atrial fibrillation new onset, 13. Family history of pancreatic cancer Discharge plan: [facility] once stable The above impression and plan of care have been discussed and directed by signing physician. Ludivina Kraft nurse practitioner acting as scribe for signing physician.
--- NOTE | 2016-09-22 11:38 | P.PN ---
Subjective Principal diagnosis: Status post partial gastrectomy and loop gastrojejunostomy for perforated gastric ulcer, postoperative day #5. This is an 80-year-old female with history of COPD, brought in yesterday to the ER with mostly symptoms of abdominal pain and shortness of breath of 1 day duration. Patient was also complaining of chronic back pain, workup in the ER included a CT of the abdomen and pelvis and it was positive for pneumoperitoneum. Hence the patient was taken to the operating room by Dr. read , and she was found to have perforation of gastric ulcer. She underwent partial gastrectomy and loop gastrojejunostomy. Upon exploration, the patient was found to have bilious fluid present throughout the peritoneal cavity and mucopurulent exudate seen scattered throughout. There was also evidence of perforated ulcer measuring 8 mm in diameter. There was a masslike inflammatory reaction in the antrum at the location of the ulcer. Patient underwent distal gastrectomy. Postoperatively, patient was transferred to the intensive care unit on mechanical ventilation, and I was asked to see her on consultation. Ventilator settings were adjusted overnight, patient received fluid boluses overnight for marginal urine output, and her follow-up chest x-ray this morning showed evidence of pulmonary vascular congestion and possibly some component of interstitial edema. Hence her main IV fluid was cut down to 75 mL/h, and I recommended Lasix 40 mg IV push 1. I reviewed her ventilator settings, reviewed her chest x-ray, reviewed her weaning parameters, and I gave the patient is short the pressure support and CPAP trial then moved on to extubate the patient to a nasal cannula. Patient is relatively asymptomatic except for some abdominal discomfort. After extubation, patient denied any shortness of breath, denied any headaches no blurred vision no dizziness. No nausea, she has some vague abdominal discomfort over the incision. Denies any dysuria frequency or urgency. Patient was reevaluated today on 09/19/2016, doing quite well, remains on nasal cannula, relatively asymptomatic, chest x-ray is showing significant right lower lobe atelectasis and possible pleural effusion. However the ultrasound failed to show significant pocket to make thoracentesis safe and easy. The pocket is rather small, hence we will recommend mostly incentive spirometry, antibiotics, bronchodilators, and no need for thoracentesis. Clinically the patient is doing well overall. Labs were reviewed WBC was 14.3 hemoglobin is 13.0, electrolytes were reviewed and they seem to be relatively unremarkable. Bicarb is a bit on the low side at 17. Renal profile is normal. Patient was reevaluated today on 09/20/2016, clinically she is doing well, however her chest x-ray continues to show significant right lower lobe atelectasis, and possible consolidation in the right lower lobe. There is also small bilateral pleural effusions. Electrolytes were also noted to be abnormal with sodium up to 150. Hence I recommended switching her main IV fluid to D5W. Ultrasound of the chest did not show significant amount of fluid to be drained and patient could not have the safe thoracentesis. If she continues to have this abnormality in the right lower lobe, bronchoscopy may have to be considered especially if that doesn't improve with incentive spirometry and bronchodilators and antibiotics. Clinically however the patient is relatively asymptomatic. And I stressed today to the patient the importance of using incentive spirometry. The patient is seen again today 09/22/2016 in follow-up on the selective care unit. She is awake and alert in no acute distress. She is however requiring a Ventimask at 40% for oxygenation to maintain O2 saturations in the 90s. She is awake and alert. She denies any worsening shortness of breath, cough or congestion. Her chloride has improved to 103. Sodium 131. Minimal leukocytosis at 14.5. Hemoglobin stable at 13.1. Objective - Vital Signs Vital signs: Vital Signs Temp 97.1 F L 09/22/16 04:00 Pulse 70 09/22/16 09:17 Resp 17 09/22/16 04:00 BP 126/60 09/22/16 04:00 Pulse Ox 94 L 09/22/16 09:09 Intake & Output 09/21/16 09/22/16 09/22/16 18:59 06:59 18:59 Intake Total 700 Output Total 70 100 Balance -70 600 Weight 53.5 kg 53.5 kg Intake: Intake, IV Titration 700 Amount Dextrose 5% in Water 1, 600 000 ml @ 75 mls/hr IV . [id number] [facility] Rx#:[id number] Fluconazole in NaCl,Iso- 50 Osm 100 mg In Saline 1 50ml.bag @ 50 mls/hr IVPB Q24H [facility] Rx#:[id number] Piperacillin-Tazobactam 3 50 .375 gm In Dextrose/Water 1 50ml.bag @ 12.5 mls/hr IVPB Q8HR [facility] Rx#: [id number] Output: Drainage 70 100 Right Lower Abdomen 70 100 Other: Voiding Method Bedpan # Voids 1 2 - Exam GENERAL EXAM: Frail, cachectic. Alert, fairly comfortable in no apparent distress. HEAD: Normocephalic. EYES: Normal reaction of pupils, equal size. NOSE: Clear with pink turbinates. THROAT: No erythema or exudates. NECK: No masses, no JVD. CHEST: No chest wall deformity. LUNGS: Equal air entry with crackles in the right base.. CVS: S1 and S2 normal with no audible mumurs, regular rhythm. ABDOMEN: Soft tenderness at surgical site, normal bowel sounds, no guarding or rigidity. EFE drain remains in place. Extremities: There is no significant peripheral edema. No clubbing, no cyanosis. Peripheral pulses are intact. - Labs CBC & Chem 7: 09/22/16 05:50 09/22/16 05:50 Labs: Abnormal Lab Results - Last 24 Hours (Table) 09/22/16 09/22/16 09/22/16 Range/Units 05:50 05:50 05:50 WBC 14.5 H (3.8-10.6) k/uL Neutrophils # 12.3 H (1.3-7.7) k/uL Lymphocytes # 0.9 L (1.0-4.8) k/uL Sodium 131 L (137-145) mmol/L Potassium 3.1 L (3.5-5.1) mmol/L Carbon Dioxide 20 L (22-30) mmol/L Creatinine 0.40 L (0.52-1.04) mg/dL Glucose 119 H (74-99) mg/dL Calcium 7.8 L (8.4-10.2) mg/dL Magnesium 1.4 L (1.6-2.3) mg/dL Total Protein 4.5 L (6.3-8.2) g/dL Albumin 2.3 L (3.5-5.0) g/dL Microbiology - Last 24 Hours (Table) 09/17/16 16:00 Blood Culture - Preliminary Blood No Growth after 96 hours Assessment and Plan Plan: Impression: 1 status post partial gastrectomy, postoperative day #5 2 acute perforation of gastric ulcer, most likely secondary to nonsteroidal anti -inflammatory drugs/Motrin. 3 documented history of COPD, severity of which is not clear at present, however the patient will be placed on bronchodilators, and will be placed on incentive spirometry post extubation. 4 congestive heart failure secondary to systolic dysfunction, ejection fraction of 25-50% noted on the echo today. Patient was already seen by cardiology. 5 possible atrial fibrillation on presentation, however that's being addressed by cardiology, no documentation so far of atrial fibrillation noted on the monitor or on her initial EKG. Presently the patient is in normal sinus rhythm. 6 postoperative atelectasis, possible consolidation in the right lower lobe, hence the patient will remain on bronchodilators, incentive spirometry, may or may not eventually require bronchoscopy. Plan: The patient was seen and evaluated by Dr. Crane. We will continue with bronchodilators 4 times a day and when necessary. She remains on antibiotics in the form of Zosyn along with fluconazole. She remains on heparin subcutaneous for DVT prophylaxis. Protonix for GI prophylaxis. We'll titrate down the FiO2 while maintaining O2 saturations greater than 90%. We'll increase her activity as tolerated. We'll continue to follow.
--- NOTE | 2016-09-22 12:27 | XR ---
EXAMINATION TYPE: XR chest 1V portable DATE OF EXAM: 09/22/2016 HISTORY: Dyspnea. REFERENCE: Previous study dated 09/21/2016. FINDINGS: There is apparent elevation right hemidiaphragm. The heart is enlarged. There are bilateral effusions. The overall appearance has not changed significantly. The patient is NG tube is been removed. IMPRESSION: LITTLE ANY INTERVAL CHANGE IN THE APPEARANCE OF THE CHEST.
[2016-09-22] MEDS ORDERED: Acetaminophen-Codeine 300-30mg TAB PO PRN (12:37)
[2016-09-22 12:52] LABS: ABG Base Excess -0.8 mmol/L; ABG HCO3 22 mmol/L (21-25); ABG PCO2 28 mmHg (35-45); ABG PH 7.51 (7.35-7.45); ABG PO2 71 mmHg (83-108); ABG TCO2 23 mmol/L (19-24)
[2016-09-22] MEDS ORDERED: POTASSIUM CHLORIDE ER 20 MEQ TAB.ER PO SCH (16:00)
--- NOTE | 2016-09-22 16:32 | P.PN ---
Subjective Principal diagnosis: Ruptured viscus This is an 80-year-old female who underwent surgery secondary to a ruptured viscus. She has a known history of hypertension, she was also noted to have an atrial arrhythmia with no evidence of atrial fibrillation. Patient was seen and examined this morning, NG tube has been removed. Overall feeling better, more alert today. Still having some pain. Blood pressure 192/90, 156/90. 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 Discontinue Nitropaste. Objective - Vital Signs Vital signs: Vital Signs Temp 96.2 F L 09/22/16 12:00 Pulse 74 09/22/16 13:48 Resp 24 09/22/16 12:00 BP 157/88 09/22/16 12:00 Pulse Ox 95 09/22/16 12:00 Intake & Output 09/21/16 09/22/16 09/22/16 18:59 06:59 18:59 Intake Total 700 Output Total 70 100 40 Balance -70 600 -40 Weight 53.5 kg 53.5 kg Intake: Intake, IV Titration 700 Amount Dextrose 5% in Water 1, 600 000 ml @ 75 mls/hr IV . [id number] JEOVANNY Rx#:[id number] Fluconazole in NaCl,Iso- 50 Osm 100 mg In Saline 1 50ml.bag @ 50 mls/hr IVPB Q24H JEOVANNY Rx#:[id number] Piperacillin-Tazobactam 3 50 .375 gm In Dextrose/Water 1 50ml.bag @ 12.5 mls/hr IVPB Q8HR JEOVANNY Rx#: [id number] Output: Drainage 70 100 40 Right Lower Abdomen 70 100 40 Other: Voiding Method Bedpan # Voids 1 2 3 - Exam PHYSICAL EXAMINATION: HEENT: Head is atraumatic, normocephalic. Pupils equal, round. Neck is supple. There is no elevated jugular venous pressure. HEART EXAMINATION: Heart S1 and S2 systolic murmur is heard. CHEST EXAMINATION: Lungs reveal crackles to bilateral bases No chest wall tenderness is noted on palpation or with deep breathing. ABDOMEN: Soft, nontender. Bowel sounds are heard. No organomegaly noted. NG tube in place. EXTREMITIES: 2+ peripheral pulses with no evidence of peripheral edema and no calf tenderness noted. NEUROLOGIC patient is awake, alert and oriented -3. . - Labs CBC & Chem 7: 09/22/16 05:50 09/22/16 14:47 Labs: Abnormal Lab Results - Last 24 Hours (Table) 09/22/16 09/22/16 09/22/16 Range/Units 05:50 05:50 05:50 WBC 14.5 H (3.8-10.6) k/uL Neutrophils # 12.3 H (1.3-7.7) k/uL Lymphocytes # 0.9 L (1.0-4.8) k/uL ABG pH (7.35-7.45) ABG pCO2 (35-45) mmHg ABG pO2 (83-108) mmHg Sodium 131 L (137-145) mmol/L Potassium 3.1 L (3.5-5.1) mmol/L Carbon Dioxide 20 L (22-30) mmol/L Creatinine 0.40 L (0.52-1.04) mg/dL Glucose 119 H (74-99) mg/dL Calcium 7.8 L (8.4-10.2) mg/dL Magnesium 1.4 L (1.6-2.3) mg/dL Total Protein 4.5 L (6.3-8.2) g/dL Albumin 2.3 L (3.5-5.0) g/dL 09/22/16 Range/Units 12:40 WBC (3.8-10.6) k/uL Neutrophils # (1.3-7.7) k/uL Lymphocytes # (1.0-4.8) k/uL ABG pH 7.51 H (7.35-7.45) ABG pCO2 28 L (35-45) mmHg ABG pO2 71 L (83-108) mmHg Sodium (137-145) mmol/L Potassium (3.5-5.1) mmol/L Carbon Dioxide (22-30) mmol/L Creatinine (0.52-1.04) mg/dL Glucose (74-99) mg/dL Calcium (8.4-10.2) mg/dL Magnesium (1.6-2.3) mg/dL Total Protein (6.3-8.2) g/dL Albumin (3.5-5.0) g/dL Microbiology - Last 24 Hours (Table) 09/17/16 16:00 Blood Culture - Preliminary Blood No Growth after 96 hours Assessment and Plan (1) HTN (hypertension) Status: Acute (2) Atrial arrhythmia Status: Acute (3) Cardiomyopathy Status: Acute (4) Perforated viscus Status: Acute Plan: From cardiology's perspective, we'll his continue IV beta michelle and IV ABILIO inhibitor and start the patient on oral. Discontinue Nitropaste. Once the patient receives Tylenol 3 for pain, we have advised the nurse to have her sitting up straight in bed or up in the chair, using her incentive spirometry and taking deep breaths. DNP note has been reviewed, I agree with a documented findings and plan of care. Patient was seen and examined.
[2016-09-22] MEDS: LISINOPRIL 5 MG TAB PO SCH (16:57)
--- NOTE | 2016-09-22 16:58 | P.PN ---
Progress Note - Text Patient is a progressively improving. The states she is very hungry. Had 2 bowel movements yesterday. NG output is not excessive. On examination she is afebrile. Vitals are stable. She is awake alert and sitting up. Her daughter is in the room. Her abdomen is quite soft nontender with mild tenderness along her incision.. Incision looks fine with no evidence of infection. WBC is slightly elevated to 14.1. Hemoglobin also is a well-developed. Impression progressive improvement. Resolving ileus status post partial gastrectomy. Recommendation we will DC the NG tube. Try and some clear liquids. Monitor WBC. Continue IV antibiotics.
[2016-09-22] MEDS ORDERED: METOPROLOL TARTRATE 5 MG/5 ML VIAL IVP STA (18:12)
[2016-09-22] MEDS ORDERED: METOPROLOL TARTRATE 50 MG TAB PO STA (18:12)
[2016-09-22] MEDS: METOPROLOL TARTRATE 25 MG TAB PO SCH (18:13)
[2016-09-22] MEDS: FLUCONAZOLE IN NACL,ISO-OSM 100 MG in SALINE 1 50ML.BAG IVPB SCH (20:29)
[2016-09-22] MEDS: HYDROcodone/APAP 5-325MG 1 EACH TAB PO PRN (22:13)
--- NOTE | 2016-09-22 22:25 | P.PN ---
Subjective Principal diagnosis: Abdominal pain Pleasant 80-year-old female with a long-standing history of COPD presented to the emergency center with a several-day history of increasing abdominal pain. She relates over 3 or 4 days she was having increasing amounts of discomfort. She was feeling gassy and bloated. One day before admission she was having increasing amounts of discomfort and it went to her back. She Presented to the Emergency Center. Evaluation Revealed a Computed Tomography Scan of the Abdomen and Pelvis That Had Evidence of Pneumoperitoneum. She Was Taken to the Operating Room with Evidence of a Perforated Gastric Ulcer. The Partial Gastrectomy in Loop Gastrojejunostomy Was Performed. Pathology is pending for the mass that was noted in the stomach at the time of the resection. The patient had an increase of her leukocytosis and with concerns ongoing sepsis the infectious diseases consultation was requested. She relates that she has ongoing pain but it is improved. She would like to eat. She relates that she started to get some appetite. She finds the NG tube quite uncomfortable. She is feeling somewhat better today. She does relate that she is feeling better. Abdominal pains improved. And not having fever. Had a bowel movement this evening. In is very pleased that her NG tube is been removed Objective - Vital Signs Vital signs: Vital Signs Temp 97.2 F L 09/22/16 20:00 Pulse 64 09/22/16 20:10 Resp 18 09/22/16 20:00 BP 129/82 09/22/16 20:00 Pulse Ox 98 09/22/16 20:00 Intake & Output 09/22/16 09/22/16 09/23/16 06:59 18:59 06:59 Intake Total 700 800 Output Total 100 90 200 Balance 600 710 -200 Weight 53.5 kg Intake: IV 350 Magnesium Sulfate-D5w Pmx 100 1 gm In Dextrose/Water 1 100ml.bag @ 100 mls/hr IVPB Q1H JEOV[facility]NY Rx#: [id number] Piperacillin-Tazobactam 3 50 .375 gm In Dextrose/Water 1 50ml.bag @ 12.5 mls/hr IVPB Q8HR JEOVANNY Rx#: [id number] Potassium Chloride 10 meq 200 Lidocaine 2% Inj 10 mg In Sodium Chloride 0.9% 100 ml @ 100 mls/hr IV Q1HR JEOVANNY Rx#:[id number] Intake, IV Titration 700 450 Amount Dextrose 5% in Water 1, 600 450 000 ml @ 75 mls/hr IV . [id number] JEOVANNY Rx#:[id number] Fluconazole in NaCl,Iso- 50 Osm 100 mg In Saline 1 50ml.bag @ 50 mls/hr IVPB Q24H JEOVANNY Rx#:[id number] Piperacillin-Tazobactam 3 50 .375 gm In Dextrose/Water 1 50ml.bag @ 12.5 mls/hr IVPB Q8HR JEOVANNY Rx#: [id number] Output: Drainage 100 90 Right Lower Abdomen 100 90 Urine 200 Other: Voiding Method Bedpan Bedside Commode Bedside Commode Diaper Diaper # Voids 2 3 - Exam Pleasant 80-year-old woman who is more comfortable and relate she's getting some desire for food. HEENT: Anicteric conjunctiva are pink and moist nasal mucosa grossly intact without significant lesions, there is no thrush. G-tube removed Neck: The neck is supple without significant lymphadenopathy or thyromegaly. Lungs: Good bilateral air entry without significant crackles or wheezing. There is no significant bronchial sounds. There is no egophony or dullness. Heart: Regular rate and rhythm with an audible S1-S2, no S3 no S4. There is no significant murmur click or rub, PMI was nondisplaced. Abdomen: Soft, still somewhat tender in the right upper quadrant, midline incision is without much drainage. She has few bowel sounds. NG is remaining in place. She is minimally distended. She is not rigid. Organomegaly was not palpated. Extremities: The upper extremities have excellent pulses they are symmetric, no significant petechiae or telangiectasia. No splinter hemorrhages were noted. The lower extremities are free from significant edema. The peripheral pulses were 2+ and symmetric. Neuro: Awake alert oriented to person place and time. There are no acute new gross focal sensory motor deficits. - Labs CBC & Chem 7: 09/22/16 05:50 09/22/16 19:44 Labs: Abnormal Lab Results - Last 24 Hours (Table) 09/22/16 09/22/16 09/22/16 Range/Units 05:50 05:50 05:50 WBC 14.5 H (3.8-10.6) k/uL Neutrophils # 12.3 H (1.3-7.7) k/uL Lymphocytes # 0.9 L (1.0-4.8) k/uL ABG pH (7.35-7.45) ABG pCO2 (35-45) mmHg ABG pO2 (83-108) mmHg Sodium 131 L (137-145) mmol/L Potassium 3.1 L (3.5-5.1) mmol/L Carbon Dioxide 20 L (22-30) mmol/L Creatinine 0.40 L (0.52-1.04) mg/dL Glucose 119 H (74-99) mg/dL Calcium 7.8 L (8.4-10.2) mg/dL Magnesium 1.4 L (1.6-2.3) mg/dL Total Protein 4.5 L (6.3-8.2) g/dL Albumin 2.3 L (3.5-5.0) g/dL 09/22/16 09/22/16 Range/Units 12:40 19:44 WBC (3.8-10.6) k/uL Neutrophils # (1.3-7.7) k/uL Lymphocytes # (1.0-4.8) k/uL ABG pH 7.51 H (7.35-7.45) ABG pCO2 28 L (35-45) mmHg ABG pO2 71 L (83-108) mmHg Sodium (137-145) mmol/L Potassium 3.3 L (3.5-5.1) mmol/L Carbon Dioxide (22-30) mmol/L Creatinine (0.52-1.04) mg/dL Glucose (74-99) mg/dL Calcium (8.4-10.2) mg/dL Magnesium (1.6-2.3) mg/dL Total Protein (6.3-8.2) g/dL Albumin (3.5-5.0) g/dL Microbiology - Last 24 Hours (Table) 09/17/16 16:00 Blood Culture - Preliminary Blood No Growth after 120 hours Laboratory Results WBC 14.5 k/uL (3.8-10.6) H 09/22/16 05:50 RBC 4.38 m/uL (3.80-5.40) 09/22/16 05:50 Hgb 13.1 gm/dL (11.4-16.0) 09/22/16 05:50 Hct 39.9 % (34.0-46.0) 09/22/16 05:50 MCV 91.1 fL (80.0-100.0) 09/22/16 05:50 MCH 29.9 pg (25.0-35.0) 09/22/16 05:50 MCHC 32.8 g/dL (31.0-37.0) 09/22/16 05:50 RDW 14.4 % (11.5-15.5) 09/22/16 05:50 Plt Count 337 k/uL (150-450) 09/22/16 05:50 Neutrophils % 85 % 09/22/16 05:50 Neutrophils % (Manual) 22.5 % 09/18/16 04:37 Band Neutrophils % 65.0 % 09/18/16 04:37 Lymphocytes % 7 % 09/22/16 05:50 Lymphocytes % (Manual) 6.0 % 09/18/16 04:37 Monocytes % 6 % 09/22/16 05:50 Monocytes % (Manual) 4.0 % 09/18/16 04:37 Eosinophils % 1 % 09/22/16 05:50 Basophils % 0 % 09/22/16 05:50 Metamyelocytes % 2.5 % 09/18/16 04:37 Neutrophils # 12.3 k/uL (1.3-7.7) H 09/22/16 05:50 Neutrophils # (Manual) 10.3 k/uL (1.3-7.7) H 09/18/16 04:37 Lymphocytes # 0.9 k/uL (1.0-4.8) L 09/22/16 05:50 Lymphocytes # (Manual) 0.7 k/uL (1.0-4.8) L 09/18/16 04:37 Monocytes # 0.9 k/uL (0-1.0) 09/22/16 05:50 Monocytes # (Manual) 0.5 k/uL (0-1.0) 09/18/16 04:37 Eosinophils # 0.1 k/uL (0-0.7) 09/22/16 05:50 Basophils # 0.0 k/uL (0-0.2) 09/22/16 05:50 Nucleated RBCs 0 /100 WBC (0-0) 09/18/16 04:37 Manual Slide Review Performed 09/17/16 10:11 Toxic Vacuolation Present 09/18/16 04:37 Polychromasia Present 09/18/16 04:37 Hypochromasia Slight 09/20/16 05:51 Poikilocytosis (manual Present 09/18/16 04:37 Anisocytosis (manual) Present 09/18/16 04:37 PT 12.3 sec (9.0-12.0) H 09/17/16 10:11 INR 1.2 (<1.1) 09/17/16 10:11 APTT 21.5 sec (22.0-30.0) L 09/17/16 10:11 D-Dimer 3.61 mg/L FEU (<0.60) H 09/17/16 10:11 Sample Site lrad 09/22/16 12:40 ABG pH 7.51 (7.35-7.45) H 09/22/16 12:40 ABG pCO2 28 mmHg (35-45) L 09/22/16 12:40 ABG pO2 71 mmHg (83-108) L 09/22/16 12:40 ABG HCO3 22 mmol/L (21-25) 09/22/16 12:40 ABG Total CO2 23 mmol/L (19-24) 09/22/16 12:40 ABG O2 Saturation 96.0 % (94-97) 09/22/16 12:40 ABG Base Excess -0.8 mmol/L 09/22/16 12:40 FiO2 40 % 09/22/16 12:40 Sodium 131 mmol/L (137-145) L 09/22/16 05:50 Potassium 3.3 mmol/L (3.5-5.1) L 09/22/16 19:44 Chloride 103 mmol/L (98-107) 09/22/16 05:50 Carbon Dioxide 20 mmol/L (22-30) L 09/22/16 05:50 Anion Gap 8 mmol/L 09/22/16 05:50 BUN 10 mg/dL (7-17) 09/22/16 05:50 Creatinine 0.40 mg/dL (0.52-1.04) L 09/22/16 05:50 Est GFR (MDRD) Af Amer >60 (>60 ml/min/1.73 sqM) 09/22/16 05:50 Est GFR (MDRD) Non-Af >60 (>60 ml/min/1.73 sqM) 09/22/16 05:50 Glucose 119 mg/dL (74-99) H 09/22/16 05:50 POC Glucose (mg/dL) 107 mg/dL (75-99) H 09/17/16 19:17 POC Glu Booster Station Operator ID Melodie Thomson 09/17/16 19:17 Plasma Lactic Acid Denny 1.4 mmol/L (0.7-2.0) 09/17/16 10:11 Calcium 7.8 mg/dL (8.4-10.2) L 09/22/16 05:50 Phosphorus 1.8 mg/dL (2.5-4.5) L 09/21/16 05:48 Magnesium 1.4 mg/dL (1.6-2.3) L 09/22/16 05:50 Total Bilirubin 0.9 mg/dL (0.2-1.3) 09/22/16 05:50 AST 22 U/L (14-36) 09/22/16 05:50 ALT 32 U/L (9-52) 09/22/16 05:50 Alkaline Phosphatase 66 U/L (38-126) 09/22/16 05:50 Total Creatine Kinase 39 U/L (30-135) 09/17/16 10:11 CK-MB (CK-2) 1.1 ng/mL (0.0-2.4) 09/17/16 10:11 CK-MB (CK-2) Rel Index 2.8 09/17/16 10:11 Troponin I 0.061 ng/mL (0.000-0.034) H* 09/17/16 22:07 NT-Pro-B Natriuret Pep 4080 pg/mL 09/18/16 04:37 Total Protein 4.5 g/dL (6.3-8.2) L 09/22/16 05:50 Albumin 2.3 g/dL (3.5-5.0) L 09/22/16 05:50 Amylase 108 U/L (30-110) 09/17/16 10:11 Lipase 21 U/L (23-300) L 09/19/16 04:36 TSH 2.030 mIU/L (0.465-4.680) 09/18/16 04:37 Urine Color Yellow 09/17/16 22:30 Urine Appearance Clear (Clear) 09/17/16 22:30 Urine pH 6.5 (5.0-8.0) 09/17/16 22:30 Ur Specific [place] 1.050 (1.001-1.035) H 09/17/16 22:30 Urine Protein 1+ (Negative) H 09/17/16 22:30 Urine Glucose (UA) Negative (Negative) 09/17/16 22:30 Urine Ketones Negative (Negative) 09/17/16 22:30 Urine Blood Negative (Negative) 09/17/16 22:30 Urine Nitrite Negative (Negative) 09/17/16 22:30 Urine Bilirubin Negative (Negative) 09/17/16 22:30 Urine Urobilinogen <2.0 mg/dL (<2.0) 09/17/16 22:30 Ur Leukocyte Esterase Trace (Negative) H 09/17/16 22:30 Urine RBC 7 /hpf (0-5) H 09/17/16 22:30 Urine WBC 3 /hpf (0-5) 09/17/16 22:30 Urine Bacteria Rare /hpf (None) H 09/17/16 22:30 Urine Mucus Rare /hpf (None) H 09/17/16 12:30 Blood Type A Positive 09/17/16 10:11 Blood Type Confirm A Positive 09/17/16 13:04 Blood Type Recheck CABO Indicated 09/17/16 10:11 Antibody Screen NEGATIVE 09/17/16 10:11 Spec Expiration Date 09/20/2016 - 23109/17/16 10:11 Microbiology 09/17/16 16:00 Blood Blood Culture - Preliminary No Growth after 120 hours 09/17/16 22:30 Urine,Catheterized Urine Culture - Final Assessment and Plan (1) Perforated viscus Narrative/Plan: 80-year-old female presents to hospital with a several-day history of abdominal pain. Imaging studies revealed evidence of the pneumoperitoneum. She was taken to the operating room and the perforated gastric ulceration was noted. This is been sent to the laboratory for further pathological review. That is pending at this time. The patient is feeling slightly better. She now has an increasing amount of leukocytosis. It is not a significant change. Likely due to the current extensive illness. She is on appropriate antibiotic therapy with Zosyn and fluconazole. She has no history of MRSA. She seems to be having some improvement in she's getting some appetite. Appetite improving, and a bowel movement this evening. Oral cavity care does make her feel better. Cultures are processing negative so far. Pathology is pending any further help direct therapy if marked abnormality is seen. Planning 3 further days of antibiotics at this time. Status: Acute (2) Pneumoperitoneum Status: Acute (3) Leukocytosis Status: Acute
[2016-09-23 06:46] LABS: Basophils % (A) 0 %; CH 30.3; CHCM 33.6; Eosinophils # (A) 0.1 k/uL (0-0.7); Eosinophils % (A) 0 %; HCT 40.4 % (34.0-46.0); HDW 3.04; HGB 13.3 gm/dL (11.4-16.0); Luc # (Auto) 0.17; Luc % (Auto) 1; Lymphocytes # (A) 0.9 k/uL (1.0-4.8); Lymphocytes % (A) 7 %; MCH 29.7 pg (25.0-35.0); MCHC 32.8 g/dL (31.0-37.0); MCV 90.5 fL (80.0-100.0); Mean Platelet Volume 9.1; Monocytes # (A) 0.8 k/uL (0-1.0); Monocytes % (A) 6 %; Neutrophils # (A) 11.9 k/uL (1.3-7.7); Neutrophils % (A) 86 %; RBC 4.46 m/uL (3.80-5.40); RDW 14.8 % (11.5-15.5); WBC 13.8 k/uL (3.8-10.6); WBC (Perox) 13.26
[2016-09-23] MEDS: DEXTROSE 5% IN WATER 1,000 ML IV SCH ×2 (06:48→19:56)
[2016-09-23] MEDS: BISACODYL 10 MG SUPP RECTAL SCH (07:55)
[2016-09-23] MEDS: NITROGLYCERIN OINT 1 INCH/GM PACKET TOPICAL SCH ×3 (07:55→23:17)
[2016-09-23 08:10] LABS: ALT 21 U/L (9-52); AST 22 U/L (14-36); Alkaline Phosphatase 76 U/L (38-126); Anion Gap 9 mmol/L; Blood Urea Nitrogen 11 mg/dL (7-17); Calcium 7.4 mg/dL (8.4-10.2); Carbon Dioxide 24 mmol/L (22-30); Chloride 96 mmol/L (98-107); Glucose 121 mg/dL (74-99); Magnesium 1.7 mg/dL (1.6-2.3); Non-African American GFR(MDRD) >60 (>60 ml/min/1.73 sqM); Potassium 3.3 mmol/L (3.5-5.1); Sodium 129 mmol/L (137-145); Total Bilirubin 0.9 mg/dL (0.2-1.3); Total Protein 4.6 g/dL (6.3-8.2)
[2016-09-23] MEDS: PIPERACILLIN-TAZOBACTAM 3.375 GM in DEXTROSE/WATER 1 50ML.BAG IVPB SCH ×3 (08:15→23:21)
[2016-09-23] MEDS: HYDROcodone/APAP 5-325MG 1 EACH TAB PO PRN ×2 (08:16→19:42)
[2016-09-23] MEDS: HEPARIN SODIUM,PORCINE 5,000 UNIT/ML 1 ML VIAL SQ SCH ×3 (08:17→23:21)
[2016-09-23] MEDS: LISINOPRIL 5 MG TAB PO SCH (08:19)
[2016-09-23] MEDS: METOPROLOL TARTRATE 25 MG TAB PO SCH ×2 (08:19→19:42)
[2016-09-23] MEDS: PANTOPRAZOLE 40 MG/10 ML VIAL IVP SCH (08:20)
--- NOTE | 2016-09-23 08:57 | P.PN ---
Progress Note - Text Patient has been somewhat short of breath the. Chest x-ray showed some small pleural effusion. Some atelectasis. No definite infiltrate. Doesn't have much of an appetite. However no nausea or vomiting. Had the 2 soft bowel movements last night. She states she is passing some flatus. EFE drain is about 40 amounts of serous fluid. On examination she is afebrile in no acute distress. Awake alert. Abdomen is soft with mild distention slightly tympanitic. Mild tenderness. Incision looks good. EFE drain is intact. No guarding or rebound. WBC is down to 13,800. Hemoglobin is stable. Has persistent hypokalemia despite displaced replacement therapy as well as hypomagnesemia. Impression. Slow recovery. Some shortness of breath. Mild leukocytosis. Hypokalemia. Recommendation. Continued close observation. We'll keep her on by mouth fluids for now. Continued IV antibiotics. Encourage increase activity.
[2016-09-23] MEDS: MAGNESIUM SULFATE-D5W PMX 1 GM in DEXTROSE/WATER 1 100ML.BAG IVPB SCH ×2 (09:24→11:13)
[2016-09-23] MEDS: POTASSIUM CHLORIDE ER 20 MEQ TAB.ER PO SCH ×2 (09:25→11:11)
[2016-09-23] MEDS: IPRATROPIUM-ALBUTEROL 3 ML NEB INHALATION SCH ×4 (09:39→20:16)
--- NOTE | 2016-09-23 10:54 | P.PN ---
Subjective Principal diagnosis: Status post partial gastrectomy and loop gastrojejunostomy for perforated gastric ulcer, postoperative day #5. This is an 80-year-old female with history of COPD, brought in yesterday to the ER with mostly symptoms of abdominal pain and shortness of breath of 1 day duration. Patient was also complaining of chronic back pain, workup in the ER included a CT of the abdomen and pelvis and it was positive for pneumoperitoneum. Hence the patient was taken to the operating room by Dr. read , and she was found to have perforation of gastric ulcer. She underwent partial gastrectomy and loop gastrojejunostomy. Upon exploration, the patient was found to have bilious fluid present throughout the peritoneal cavity and mucopurulent exudate seen scattered throughout. There was also evidence of perforated ulcer measuring 8 mm in diameter. There was a masslike inflammatory reaction in the antrum at the location of the ulcer. Patient underwent distal gastrectomy. Postoperatively, patient was transferred to the intensive care unit on mechanical ventilation, and I was asked to see her on consultation. Ventilator settings were adjusted overnight, patient received fluid boluses overnight for marginal urine output, and her follow-up chest x-ray this morning showed evidence of pulmonary vascular congestion and possibly some component of interstitial edema. Hence her main IV fluid was cut down to 75 mL/h, and I recommended Lasix 40 mg IV push 1. I reviewed her ventilator settings, reviewed her chest x-ray, reviewed her weaning parameters, and I gave the patient is short the pressure support and CPAP trial then moved on to extubate the patient to a nasal cannula. Patient is relatively asymptomatic except for some abdominal discomfort. After extubation, patient denied any shortness of breath, denied any headaches no blurred vision no dizziness. No nausea, she has some vague abdominal discomfort over the incision. Denies any dysuria frequency or urgency. Patient was reevaluated today on 09/19/2016, doing quite well, remains on nasal cannula, relatively asymptomatic, chest x-ray is showing significant right lower lobe atelectasis and possible pleural effusion. However the ultrasound failed to show significant pocket to make thoracentesis safe and easy. The pocket is rather small, hence we will recommend mostly incentive spirometry, antibiotics, bronchodilators, and no need for thoracentesis. Clinically the patient is doing well overall. Labs were reviewed WBC was 14.3 hemoglobin is 13.0, electrolytes were reviewed and they seem to be relatively unremarkable. Bicarb is a bit on the low side at 17. Renal profile is normal. Patient was reevaluated today on 09/20/2016, clinically she is doing well, however her chest x-ray continues to show significant right lower lobe atelectasis, and possible consolidation in the right lower lobe. There is also small bilateral pleural effusions. Electrolytes were also noted to be abnormal with sodium up to 150. Hence I recommended switching her main IV fluid to D5W. Ultrasound of the chest did not show significant amount of fluid to be drained and patient could not have the safe thoracentesis. If she continues to have this abnormality in the right lower lobe, bronchoscopy may have to be considered especially if that doesn't improve with incentive spirometry and bronchodilators and antibiotics. Clinically however the patient is relatively asymptomatic. And I stressed today to the patient the importance of using incentive spirometry. The patient is seen again today 09/22/2016 in follow-up on the selective care unit. She is awake and alert in no acute distress. She is however requiring a Ventimask at 40% for oxygenation to maintain O2 saturations in the 90s. She is awake and alert. She denies any worsening shortness of breath, cough or congestion. Her chloride has improved to 103. Sodium 131. Minimal leukocytosis at 14.5. Hemoglobin stable at 13.1. The patient is seen again today 09/23/2016 in follow-up on the selective care unit. She is currently resting quite comfortably in bed. She did have episodes of confusion last night pulling out her IVs and pulling off her oxygen mask. There is a sitter at the bedside. She is continued on 40% Ventimask to maintain O2 saturations in the 90s. Yesterday's blood gases revealed a PaO2 of 71, pCO2 28 and a pH of 7.51. Chest x-ray revealed bilateral effusions but stable as compared to previous. Current sodium 129, potassium 3.3. Hemoglobin stable at 13.3. Minimal leukocytosis at 13.8. Objective - Vital Signs Vital signs: Vital Signs Temp 96.7 F L 09/22/16 23:53 Pulse 76 09/23/16 09:49 Resp 18 09/23/16 03:44 BP 139/92 09/23/16 03:41 Pulse Ox 93 L 09/23/16 03:41 Intake & Output 09/22/16 09/23/1617 18:59 06:59 18:59 Intake Total 800 725 Output Total 90 225 300 Balance 710 500 -300 Weight 51 kg Intake: IV 350 50 Magnesium Sulfate-D5w Pmx 100 1 gm In Dextrose/Water 1 100ml.bag @ 100 mls/hr IVPB Q1H [facility] Rx#: [id number] Piperacillin-Tazobactam 3 50 50 .375 gm In Dextrose/Water 1 50ml.bag @ 12.5 mls/hr IVPB Q8HR [facility] Rx#: [id number] Potassium Chloride 10 meq 200 Lidocaine 2% Inj 10 mg In Sodium Chloride 0.9% 100 ml @ 100 mls/hr IV Q1HR [facility] Rx#:[id number] Intake, IV Titration 450 675 Amount Dextrose 5% in Water 1, 450 675 000 ml @ 75 mls/hr IV . [id number] [facility] Rx#:[id number] Output: Drainage 90 25 Right Lower Abdomen 90 25 Urine 200 300 Other: Voiding Method Bedside Commode Bedside Commode Diaper Diaper # Voids 3 - Exam GENERAL EXAM: Frail, cachectic. Alert, fairly comfortable in no apparent distress. HEAD: Normocephalic. EYES: Normal reaction of pupils, equal size. NOSE: Clear with pink turbinates. THROAT: No erythema or exudates. NECK: No masses, no JVD. CHEST: No chest wall deformity. LUNGS: Equal air entry with crackles in the right base.. CVS: S1 and S2 normal with no audible mumurs, regular rhythm. ABDOMEN: Soft tenderness at surgical site, normal bowel sounds, no guarding or rigidity. EFE drain remains in place. Extremities: There is no significant peripheral edema. No clubbing, no cyanosis. Peripheral pulses are intact. - Labs CBC & Chem 7: 09/23/16 05:42 09/23/16 05:42 Labs: Abnormal Lab Results - Last 24 Hours (Table) 09/22/16 09/22/16 09/23/16 Range/Units 12:40 19:44 05:42 WBC (3.8-10.6) k/uL Neutrophils # (1.3-7.7) k/uL Lymphocytes # (1.0-4.8) k/uL ABG pH 7.51 H (7.35-7.45) ABG pCO2 28 L (35-45) mmHg ABG pO2 71 L (83-108) mmHg Sodium 129 L (137-145) mmol/L Potassium 3.3 L 3.3 L (3.5-5.1) mmol/L Chloride 96 L (98-107) mmol/L Creatinine 0.45 L (0.52-1.04) mg/dL Glucose 121 H (74-99) mg/dL Calcium 7.4 L (8.4-10.2) mg/dL Total Protein 4.6 L (6.3-8.2) g/dL Albumin 2.3 L (3.5-5.0) g/dL 09/23/16 Range/Units 05:42 WBC 13.8 H (3.8-10.6) k/uL Neutrophils # 11.9 H (1.3-7.7) k/uL Lymphocytes # 0.9 L (1.0-4.8) k/uL ABG pH (7.35-7.45) ABG pCO2 (35-45) mmHg ABG pO2 (83-108) mmHg Sodium (137-145) mmol/L Potassium (3.5-5.1) mmol/L Chloride (98-107) mmol/L Creatinine (0.52-1.04) mg/dL Glucose (74-99) mg/dL Calcium (8.4-10.2) mg/dL Total Protein (6.3-8.2) g/dL Albumin (3.5-5.0) g/dL Microbiology - Last 24 Hours (Table) 09/17/16 16:00 Blood Culture - Preliminary Blood No Growth after 120 hours Assessment and Plan Plan: Impression: 1 status post partial gastrectomy, postoperative day #6 2 acute perforation of gastric ulcer, most likely secondary to nonsteroidal anti -inflammatory drugs/Motrin. 3 documented history of COPD, severity of which is not clear at present, however the patient will be placed on bronchodilators, and will be placed on incentive spirometry post extubation. 4 congestive heart failure secondary to systolic dysfunction, ejection fraction of 25-50% noted on the echo today. Patient was already seen by cardiology. 5 possible atrial fibrillation on presentation, however that's being addressed by cardiology, no documentation so far of atrial fibrillation noted on the monitor or on her initial EKG. Presently the patient is in normal sinus rhythm. 6 postoperative atelectasis, possible consolidation in the right lower lobe, hence the patient will remain on bronchodilators, incentive spirometry, may or may not eventually require bronchoscopy. Plan: The patient was seen and evaluated by Dr. Crane. We will continue with bronchodilators 4 times a day and when necessary. She remains on antibiotics in the form of Zosyn along with fluconazole. ID remains on the case as well. We'll titrate down the FiO2 while maintaining O2 saturations greater than 90%. We'll increase her activity as tolerated. We'll continue to follow.
--- NOTE | 2016-09-23 11:06 | P.PN ---
Subjective This a pleasant 80-year-old lady patient of Dr. Blanco Ruiz. She has underlying history of COPD, also arthritis, admitted through the emergency room after she was brought in by EMS secondary to right upper quadrant pain and later developed some shortness of breath, patient was noted to be hypoxemic requiring a nonrebreather mask prior to ER viable, pulse ox on ER was 95%, requiring nasal cannula patient denies any melena hematochezia no chest pain no palpitations, Emergency room, she was hypotensive after an earlier dose of fentanyl, this has stabilized she had full workup to include elevated lipase of 479, troponins were okay, they did additional imaging to include CAT scan of the abdomen and fell pelvis incidentally she was found to have a perforated viscus, also coming in with Rin clinton with rapid ventricular rate, she was immediately taken in operating room after Cardizem drip has been started and was hemodynamically stabilized . Patient was subsequently transferred to ICU postoperatively. Consults were made with Dr. Faith cardiology Dr. Leigh from make up operator pulmonary medicine currently receiving IV Zosyn for the peritonitis as well as right lower lobe infiltrate. She underwent emergent exploratory laparotomy 09/17/2016 and underwent a partial gastrectomy with loop gastrojejunostomy by Dr. Crowell for an 8 mm perforation in the antrum, and a large prepyloric ulcer abscess-like cavity there is an masslike inflammatory reaction at the location of the ulcer with clinical concern of possibility of malignant perforation. 09/21: Patient has been hemodynamically stable and was transferred to the selective care unit. She continues to have NG tube in place. Daughter is concerned that she has more cough with thick secretions and congestion. Incentive spirometry is only 300-500. Patient is complaining of feeling tired. Cardiology is following for she was noted to be in atrial arrhythmia but no atrial fibrillation. Blood pressure is well controlled. Repeat chest x-ray shows no significant interval change. Patient is followed by Dr. Anthony from infectious disease and continued on Zosyn and fluconazole. Pathology report remains pending. 09/22: Today the patient was noted to be hypoxic. The patient was placed on a Ventimask and O2 came up to 94%. She was drowsy but easily arousable. She has been receiving IV Dilaudid for pain control, this is believed to be the source of her hypoxemia. Her Dilaudid will be held for the next 24 hours. The patient has been receiving potassium supplementation per protocol, today her potassium was still noted to be 3.1. Magnesium was 1.4, supplement ordered along with potassium supplement per protocol, will recheck potassium this afternoon. The patient continues to be followed by Dr. Anthony. Blood cultures show no growth after 96 hours. 09/23: Patient still requires Ventimask to achieve a O2 sat above 90%. The patient Chest x-ray showed little interval change from the previous x-ray she does have bilateral effusions but no significant change. The patient did have her NG tube removed. Cardiology is following patient for her atrial arrhythmia with no evidence of atrial fibrillation. Infectious disease is also following patient who is planning for 3 further days of antibiotics at this time. Pathology report still pending. Her potassium improved to 3.6. Objective - Vital Signs Vital signs: Vital Signs Temp 96.7 F L 09/22/16 23:53 Pulse 76 09/23/16 09:49 Resp 18 09/23/16 03:44 BP 139/92 09/23/16 03:41 Pulse Ox 93 L 09/23/16 03:41 Intake & Output 09/22/16 09/23/16 09/23/16 18:59 06:59 18:59 Intake Total 800 725 Output Total 90 225 300 Balance 710 500 -300 Weight 51 kg Intake: IV 350 50 Magnesium Sulfate-D5w Pmx 100 1 gm In Dextrose/Water 1 100ml.bag @ 100 mls/hr IVPB Q1H [facility] Rx#: [id number] Piperacillin-Tazobactam 3 50 50 .375 gm In Dextrose/Water 1 50ml.bag @ 12.5 mls/hr IVPB Q8HR [facility] Rx#: [id number] Potassium Chloride 10 meq 200 Lidocaine 2% Inj 10 mg In Sodium Chloride 0.9% 100 ml @ 100 mls/hr IV Q1HR [facility] Rx#:[id number] Intake, IV Titration 450 675 Amount Dextrose 5% in Water 1, 450 675 000 ml @ 75 mls/hr IV . [id number] [facility] Rx#:[id number] Output: Drainage 90 25 Right Lower Abdomen 90 25 Urine 200 300 Other: Voiding Method Bedside Commode Bedside Commode Diaper Diaper # Voids 3 - Exam Exam General appearance: average body habitus, cooperative, no acute distress - EENT Eyes: anicteric sclerae, edentulous, PERRLA, normal appearance ENT: no hard of hearing, hearing grossly normal, NA/AT, normal oropharynx, no other, no pharyngeal erythema, no thrush, no tonsillar exudates, no tonsillar swelling - Neck Neck: no lymphadenopathy, normal ROM, no other, no rigidity, no stridor, no thyromegaly - Respiratory Respiratory: bilateral: CTA, diminished, negative: dullness, rales, rhonchi, wheezing - Cardiovascular Rhythm: regular Heart sounds: normal: S1, S2 Abnormal Heart Sounds: no systolic murmur, no diastolic murmur, no rub, no S3 Gallop, no S4 Gallop, no click, no other - Gastrointestinal General gastrointestinal: decreased bowel sounds, soft Localized gastrointestinal: tender: diffuse - Integumentary Integumentary: normal - Neurologic Neurologic: CNII-XII intact - Musculoskeletal Musculoskeletal: strength equal bilaterally - Psychiatric Psychiatric: A&O x's 3, appropriate affect, intact judgment & insight - Labs CBC & Chem 7: 09/23/16 05:42 09/23/16 05:42 Labs: Abnormal Lab Results - Last 24 Hours (Table) 09/22/16 09/22/16 09/23/16 Range/Units 12:40 19:44 05:42 WBC (3.8-10.6) k/uL Neutrophils # (1.3-7.7) k/uL Lymphocytes # (1.0-4.8) k/uL ABG pH 7.51 H (7.35-7.45) ABG pCO2 28 L (35-45) mmHg ABG pO2 71 L (83-108) mmHg Sodium 129 L (137-145) mmol/L Potassium 3.3 L 3.3 L (3.5-5.1) mmol/L Chloride 96 L (98-107) mmol/L Creatinine 0.45 L (0.52-1.04) mg/dL Glucose 121 H (74-99) mg/dL Calcium 7.4 L (8.4-10.2) mg/dL Total Protein 4.6 L (6.3-8.2) g/dL Albumin 2.3 L (3.5-5.0) g/dL 09/23/16 Range/Units 05:42 WBC 13.8 H (3.8-10.6) k/uL Neutrophils # 11.9 H (1.3-7.7) k/uL Lymphocytes # 0.9 L (1.0-4.8) k/uL ABG pH (7.35-7.45) ABG pCO2 (35-45) mmHg ABG pO2 (83-108) mmHg Sodium (137-145) mmol/L Potassium (3.5-5.1) mmol/L Chloride (98-107) mmol/L Creatinine (0.52-1.04) mg/dL Glucose (74-99) mg/dL Calcium (8.4-10.2) mg/dL Total Protein (6.3-8.2) g/dL Albumin (3.5-5.0) g/dL Microbiology - Last 24 Hours (Table) 09/17/16 16:00 Blood Culture - Preliminary Blood No Growth after 120 hours Assessment and Plan Plan: Plan: 1. Status post exploratory laparotomy perforated gastric ulcer and prepyloric ulcer requiring partial gastrectomy and loop gastrojejunostomy on 09/17/2016 secondary to pneumoperitoneum noted. This was most likely secondary to NSAID use prior to admission. NG tube is in place, postoperative pain along with incentive spirometry, and albuterol Atrovent for pulmonary prophylaxis. IV antibiotics Zosyn. 2. Atrial arrhythmia. Cardiology is following. No atrial fibrillation was found. 3. Acute peritonitis secondary to perforated viscus, patient's on IV Zosy, Dr. Anthony from infectious disease 4. Lumbar disc disease gabapentin is on hold until by mouth will be started 5. COPD without any exacerbation, patient is on albuterol Atrovent scheduled follows closely by Dr. Leigh 6. GI prophylaxis with Protonix 40 IV twice a day and this would be to switch to oral PPI for the treatment of gastritis and gastric ulcers 7. Onychogryphosis, extremely long toenails noted, consult with Dr. Escalante 8. CODE STATUS 9. DVT prophylaxis with heparin subcu 10. Acute pancreatitis most likely secondary to inflammatory reaction from gastric perforation, this will be monitored. 11. Metabolic acidosis secondary to sepsis from peritonitis, this will be monitored 12. Elevated troponin most likely secondary troponin leak from atrial fibrillation new onset. 13. Family history of pancreatic cancer Discharge plan: [facility] once stable The above impression and plan of care have been discussed and directed by signing physician. Ludivina Kraft nurse practitioner acting as scribe for signing physician.
[2016-09-23] MEDS ORDERED: POTASSIUM CHLORIDE 10 MEQ, LIDOCAINE 2% INJ 10 MG in SODIUM CHLORIDE 0.9% 100 ML IV ONE (12:00)
--- NOTE | 2016-09-23 15:05 | P.PN ---
Subjective Principal diagnosis: Ruptured viscus This is an 80-year-old female who underwent surgery secondary to a ruptured viscus. She has a known history of hypertension, she was also noted to have an atrial arrhythmia with no evidence of atrial fibrillation. Throughout the night last night patient's heart rate was up to the 120 range, sinus tachycardia , she was given a dose of IV beta michelle and her by mouth dose of beta michelle was increased. Oxygen saturation was also down. Patient extremely weak today, physical therapy has been and with the patient, they were unable to get her up. If the head of the bed is raised, patient slight down to the bottom. She is currently on a 35% Ventimask satting 93%. Heart rate is in the 70s. Chest x- ray which was performed yesterday was unchanged from prior. Objective - Vital Signs Vital signs: Vital Signs Temp 96.3 F L 09/23/16 11:42 Pulse 68 09/23/16 14:14 Resp 20 09/23/16 11:42 BP 141/83 09/23/16 11:42 Pulse Ox 93 L 09/23/16 11:42 Intake & Output 09/22/16 09/23/16 09/23/16 18:59 06:59 18:59 Intake Total 800 725 400 Output Total 90 225 345 Balance 710 500 55 Weight 51 kg Intake: IV 350 50 350 Magnesium Sulfate-D5w Pmx 100 200 1 gm In Dextrose/Water 1 100ml.bag @ 100 mls/hr IVPB Q1H [facility] Rx#: [id number] Piperacillin-Tazobactam 3 50 50 50 .375 gm In Dextrose/Water 1 50ml.bag @ 12.5 mls/hr IVPB Q8HR [facility] Rx#: [id number] Potassium Chloride 10 meq 200 100 Lidocaine 2% Inj 10 mg In Sodium Chloride 0.9% 100 ml @ 100 mls/hr IV Q1HR [facility] Rx#:[id number] Intake, IV Titration 450 675 Amount Dextrose 5% in Water 1, 450 675 000 ml @ 75 mls/hr IV . [id number] [facility] Rx#:[id number] Oral 50 Output: Drainage 90 25 45 Right Lower Abdomen 90 25 45 Urine 200 300 Other: Voiding Method Bedside Commode Bedside Commode Bedside Commode Diaper Diaper Diaper # Voids 3 - Exam PHYSICAL EXAMINATION: HEENT: Head is atraumatic, normocephalic. Pupils equal, round. Neck is supple. There is no elevated jugular venous pressure. HEART EXAMINATION: Heart S1 and S2 systolic murmur is heard. CHEST EXAMINATION: Lungs reveal crackles to bilateral bases No chest wall tenderness is noted on palpation or with deep breathing. ABDOMEN: Soft, nontender. Bowel sounds are heard. No organomegaly noted. NG tube in place. EXTREMITIES: 2+ peripheral pulses with no evidence of peripheral edema and no calf tenderness noted. NEUROLOGIC patient is awake, alert and oriented -3. . - Labs CBC & Chem 7: 09/23/16 05:42 09/23/16 05:42 Labs: Abnormal Lab Results - Last 24 Hours (Table) 09/22/16 09/23/16 09/23/16 Range/Units 19:44 05:42 05:42 WBC 13.8 H (3.8-10.6) k/uL Neutrophils # 11.9 H (1.3-7.7) k/uL Lymphocytes # 0.9 L (1.0-4.8) k/uL Sodium 129 L (137-145) mmol/L Potassium 3.3 L 3.3 L (3.5-5.1) mmol/L Chloride 96 L (98-107) mmol/L Creatinine 0.45 L (0.52-1.04) mg/dL Glucose 121 H (74-99) mg/dL Calcium 7.4 L (8.4-10.2) mg/dL Total Protein 4.6 L (6.3-8.2) g/dL Albumin 2.3 L (3.5-5.0) g/dL Microbiology - Last 24 Hours (Table) 09/17/16 16:00 Blood Culture - Preliminary Blood No Growth after 120 hours Assessment and Plan (1) HTN (hypertension) Status: Acute (2) Atrial arrhythmia Status: Acute (3) Cardiomyopathy Status: Acute (4) Perforated viscus Status: Acute Plan: From cardiology's perspective, we'll continue with current medications. If possible patient does need to be encouraged to take deep breaths and to cough. If we are able to get her sitting up straight this would also help with her lung status. DNP note has been reviewed, I agree with a documented findings and plan of care. Patient was seen and examined.
--- NOTE | 2016-09-23 16:53 | P.CON ---
Consult Note - . Consult date: 09/23/16 Assessment/Plan:: This consultation report was per performed for the request of Dr. Savage's reading elongated thick dystrophic nails This patient came into the hospital on 09/17/2016 accompanied by her daughter who she lives with. She was complaining of shortness of breath and abdominal pain stated that symptoms began that date to complained of an exacerbation of her chronic back pain. Her white blood cell count was abnormally high or 10% bands present. Her magnesium potassium were both low and she was found to be in A. fib with rapid ventricular response. Initially her blood pressure was 90 systolic at its been in the 140s since that time and drip was started. Formed with aorta protocol because an elevated d-dimer level CAT scan showed evidence of free air etiology is unclear she does have a hiatal hernia and some inflammation present. Its with a walker at home. Low lately. There is been no nausea or vomiting there is no reported heartburn or dysphagia ends of constipation at times as colonoscopy was 10-15 years ago surgical abdominal history is a hysterectomy Review of systems patient denies any acute change in vision or hearing no dysphasia pain no dysuria or hematuria no headache no runny nose no rectal bleeding unexplained weight loss. Past medical history Is referred chronic obstructive pulmonary disease arthritis emphysema Past history unable to obtain an past psychological history: No psychological history reported Smoking status: Former smoker Past alcohol abuse 3: None reported. Past drug use history: None reported rare graft physical exam roll elderly female somewhat malnourished appearing appears to be in some abdominal distress strep minis: No edema neuro: Alert slightly confused or graft extremity examination showed pulses with regard to the dorsalis pedis and posterior tibial arteries of both feet capillary refill is less than 3 seconds were negative skin with regard to color moisture temperature and texture was essentially within normal limits for a 1-year-old female patient's nails were exceptionally elongated somewhat dystrophic conically involved Assessment and Plan pneumoperitoneum active bowel proceeded with laparotomy This date I reduced the patient's nails of both feet were reduced 1 through 5 bilaterally Thank you for considering him in the care your patients sign Reuben Escalante DPM
--- NOTE | 2016-09-23 20:20 | P.PN ---
Subjective Principal diagnosis: Abdominal pain Pleasant 80-year-old female with a long-standing history of COPD presented to the emergency center with a several-day history of increasing abdominal pain. She relates over 3 or 4 days she was having increasing amounts of discomfort. She was feeling gassy and bloated. One day before admission she was having increasing amounts of discomfort and it went to her back. She Presented to the Emergency Center. Evaluation Revealed a Computed Tomography Scan of the Abdomen and Pelvis That Had Evidence of Pneumoperitoneum. She Was Taken to the Operating Room with Evidence of a Perforated Gastric Ulcer. The Partial Gastrectomy in Loop Gastrojejunostomy Was Performed. Pathology is pending for the mass that was noted in the stomach at the time of the resection. The patient had an increase of her leukocytosis and with concerns ongoing sepsis the infectious diseases consultation was requested. She relates that she has ongoing pain but it is improved. She would like to eat. She relates that she started to get some appetite. She is feeling somewhat better today. She does relate that she is feeling better. Abdominal pains improved. And not having fever. Had a bowel movement this evening. More comfortable now that her NG tube is been removed. Bit more weak and lethargic tonight. Objective - Vital Signs Vital signs: Vital Signs Temp 96.9 F L 09/23/16 16:00 Pulse 70 09/23/16 16:01 Resp 24 09/23/16 16:00 BP 166/94 09/23/16 16:00 Pulse Ox 90 L 09/23/16 16:00 Intake & Output 09/23/16 09/23/16 09/24/16 06:59 18:59 06:59 Intake Total 725 720 Output Total 225 545 50 Balance 500 175 -50 Weight 51 kg Intake: IV 50 350 Magnesium Sulfate-D5w Pmx 200 1 gm In Dextrose/Water 1 100ml.bag @ 100 mls/hr IVPB Q1H [facility] Rx#: [id number] Piperacillin-Tazobactam 3 50 50 .375 gm In Dextrose/Water 1 50ml.bag @ 12.5 mls/hr IVPB Q8HR [facility] Rx#: [id number] Potassium Chloride 10 meq 100 Lidocaine 2% Inj 10 mg In Sodium Chloride 0.9% 100 ml @ 100 mls/hr IV Q1HR [facility] Rx#:[id number] Intake, IV Titration 675 Amount Dextrose 5% in Water 1, 675 000 ml @ 75 mls/hr IV . [id number] [facility] Rx#:[id number] Oral 370 Output: Drainage 25 45 Right Lower Abdomen 25 45 Urine 200 500 50 Other: Voiding Method Bedside Commode Diaper Diaper - Exam Pleasant 80-year-old woman who is more comfortable and relate she's getting some desire for food. HEENT: Anicteric conjunctiva are pink and moist nasal mucosa grossly intact without significant lesions, there is no thrush. G-tube removed Neck: The neck is supple without significant lymphadenopathy or thyromegaly. Lungs: Good bilateral air entry without significant crackles or wheezing. There is no significant bronchial sounds. There is no egophony or dullness. Heart: Regular rate and rhythm with an audible S1-S2, no S3 no S4. There is no significant murmur click or rub, PMI was nondisplaced. Abdomen: Soft, still somewhat tender in the right upper quadrant, midline incision is without much drainage. She has few bowel sounds. NG is remaining in place. She is minimally distended. She is not rigid. Organomegaly was not palpated. Extremities: The upper extremities have excellent pulses they are symmetric, no significant petechiae or telangiectasia. No splinter hemorrhages were noted. The lower extremities are free from significant edema. The peripheral pulses were 2+ and symmetric. Neuro: Awake alert oriented to person place and time. There are no acute new gross focal sensory motor deficits. - Labs CBC & Chem 7: 09/23/16 05:42 09/23/16 14:52 Labs: Abnormal Lab Results - Last 24 Hours (Table) 09/23/16 09/23/16 Range/Units 05:42 05:42 WBC 13.8 H (3.8-10.6) k/uL Neutrophils # 11.9 H (1.3-7.7) k/uL Lymphocytes # 0.9 L (1.0-4.8) k/uL Sodium 129 L (137-145) mmol/L Potassium 3.3 L (3.5-5.1) mmol/L Chloride 96 L (98-107) mmol/L Creatinine 0.45 L (0.52-1.04) mg/dL Glucose 121 H (74-99) mg/dL Calcium 7.4 L (8.4-10.2) mg/dL Total Protein 4.6 L (6.3-8.2) g/dL Albumin 2.3 L (3.5-5.0) g/dL Microbiology - Last 24 Hours (Table) 09/17/16 16:00 Blood Culture - Final Blood No Growth after 144 hours Laboratory Results WBC 13.8 k/uL (3.8-10.6) H 09/23/16 05:42 RBC 4.46 m/uL (3.80-5.40) 09/23/16 05:42 Hgb 13.3 gm/dL (11.4-16.0) 09/23/16 05:42 Hct 40.4 % (34.0-46.0) 09/23/16 05:42 MCV 90.5 fL (80.0-100.0) 09/23/16 05:42 MCH 29.7 pg (25.0-35.0) 09/23/16 05:42 MCHC 32.8 g/dL (31.0-37.0) 09/23/16 05:42 RDW 14.8 % (11.5-15.5) 09/23/16 05:42 Plt Count 328 k/uL (150-450) 09/23/16 05:42 Neutrophils % 86 % 09/23/16 05:42 Neutrophils % (Manual) 22.5 % 09/18/16 04:37 Band Neutrophils % 65.0 % 09/18/16 04:37 Lymphocytes % 7 % 09/23/16 05:42 Lymphocytes % (Manual) 6.0 % 09/18/16 04:37 Monocytes % 6 % 09/23/16 05:42 Monocytes % (Manual) 4.0 % 09/18/16 04:37 Eosinophils % 0 % 09/23/16 05:42 Basophils % 0 % 09/23/16 05:42 Metamyelocytes % 2.5 % 09/18/16 04:37 Neutrophils # 11.9 k/uL (1.3-7.7) H 09/23/16 05:42 Neutrophils # (Manual) 10.3 k/uL (1.3-7.7) H 09/18/16 04:37 Lymphocytes # 0.9 k/uL (1.0-4.8) L 09/23/16 05:42 Lymphocytes # (Manual) 0.7 k/uL (1.0-4.8) L 09/18/16 04:37 Monocytes # 0.8 k/uL (0-1.0) 09/23/16 05:42 Monocytes # (Manual) 0.5 k/uL (0-1.0) 09/18/16 04:37 Eosinophils # 0.1 k/uL (0-0.7) 09/23/16 05:42 Basophils # 0.0 k/uL (0-0.2) 09/23/16 05:42 Nucleated RBCs 0 /100 WBC (0-0) 09/18/16 04:37 Manual Slide Review Performed 09/17/16 10:11 Toxic Vacuolation Present 09/18/16 04:37 Polychromasia Present 09/18/16 04:37 Hypochromasia Slight 09/20/16 05:51 Poikilocytosis (manual Present 09/18/16 04:37 Anisocytosis (manual) Present 09/18/16 04:37 PT 12.3 sec (9.0-12.0) H 09/17/16 10:11 INR 1.2 (<1.1) 09/17/16 10:11 APTT 21.5 sec (22.0-30.0) L 09/17/16 10:11 D-Dimer 3.61 mg/L FEU (<0.60) H 09/17/16 10:11 Sample Site lrad 09/22/16 12:40 ABG pH 7.51 (7.35-7.45) H 09/22/16 12:40 ABG pCO2 28 mmHg (35-45) L 09/22/16 12:40 ABG pO2 71 mmHg (83-108) L 09/22/16 12:40 ABG HCO3 22 mmol/L (21-25) 09/22/16 12:40 ABG Total CO2 23 mmol/L (19-24) 09/22/16 12:40 ABG O2 Saturation 96.0 % (94-97) 09/22/16 12:40 ABG Base Excess -0.8 mmol/L 09/22/16 12:40 FiO2 40 % 09/22/16 12:40 Sodium 129 mmol/L (137-145) L 09/23/16 05:42 Potassium 4.0 mmol/L (3.5-5.1) 09/23/16 14:52 Chloride 96 mmol/L (98-107) L 09/23/16 05:42 Carbon Dioxide 24 mmol/L (22-30) 09/23/16 05:42 Anion Gap 9 mmol/L 09/23/16 05:42 BUN 11 mg/dL (7-17) 09/23/16 05:42 Creatinine 0.45 mg/dL (0.52-1.04) L 09/23/16 05:42 Est GFR (MDRD) Af Amer >60 (>60 ml/min/1.73 sqM) 09/23/16 05:42 Est GFR (MDRD) Non-Af >60 (>60 ml/min/1.73 sqM) 09/23/16 05:42 Glucose 121 mg/dL (74-99) H 09/23/16 05:42 POC Glucose (mg/dL) 107 mg/dL (75-99) H 09/17/16 19:17 POC Glu [employer] Associate ID Melodie Thomson 09/17/16 19:17 Plasma Lactic Acid Denny 1.4 mmol/L (0.7-2.0) 09/17/16 10:11 Calcium 7.4 mg/dL (8.4-10.2) L 09/23/16 05:42 Phosphorus 1.8 mg/dL (2.5-4.5) L 09/21/16 05:48 Magnesium 1.7 mg/dL (1.6-2.3) 09/23/16 05:42 Total Bilirubin 0.9 mg/dL (0.2-1.3) 09/23/16 05:42 AST 22 U/L (14-36) 09/23/16 05:42 ALT 21 U/L (9-52) 09/23/16 05:42 Alkaline Phosphatase 76 U/L (38-126) 09/23/16 05:42 Total Creatine Kinase 39 U/L (30-135) 09/17/16 10:11 CK-MB (CK-2) 1.1 ng/mL (0.0-2.4) 09/17/16 10:11 CK-MB (CK-2) Rel Index 2.8 09/17/16 10:11 Troponin I 0.061 ng/mL (0.000-0.034) H* 09/17/16 22:07 NT-Pro-B Natriuret Pep 4080 pg/mL 09/18/16 04:37 Total Protein 4.6 g/dL (6.3-8.2) L 09/23/16 05:42 Albumin 2.3 g/dL (3.5-5.0) L 09/23/16 05:42 Amylase 108 U/L (30-110) 09/17/16 10:11 Lipase 21 U/L (23-300) L 09/19/16 04:36 TSH 2.030 mIU/L (0.465-4.680) 09/18/16 04:37 Urine Color Yellow 09/17/16 22:30 Urine Appearance Clear (Clear) 09/17/16 22:30 Urine pH 6.5 (5.0-8.0) 09/17/16 22:30 Ur Specific [place] 1.050 (1.001-1.035) H 09/17/16 22:30 Urine Protein 1+ (Negative) H 09/17/16 22:30 Urine Glucose (UA) Negative (Negative) 09/17/16 22:30 Urine Ketones Negative (Negative) 09/17/16 22:30 Urine Blood Negative (Negative) 09/17/16 22:30 Urine Nitrite Negative (Negative) 09/17/16 22:30 Urine Bilirubin Negative (Negative) 09/17/16 22:30 Urine Urobilinogen <2.0 mg/dL (<2.0) 09/17/16 22:30 Ur Leukocyte Esterase Trace (Negative) H 09/17/16 22:30 Urine RBC 7 /hpf (0-5) H 09/17/16 22:30 Urine WBC 3 /hpf (0-5) 09/17/16 22:30 Urine Bacteria Rare /hpf (None) H 09/17/16 22:30 Urine Mucus Rare /hpf (None) H 09/17/16 12:30 Blood Type A Positive 09/17/16 10:11 Blood Type Confirm A Positive 09/17/16 13:04 Blood Type Recheck CABO Indicated 09/17/16 10:11 Antibody Screen NEGATIVE 09/17/16 10:11 Spec Expiration Date 09/20/2016 - 231009/17/16 10:11 Microbiology 09/17/16 16:00 Blood Blood Culture - Final No Growth after 144 hours 09/17/16 22:30 Urine,Catheterized Urine Culture - Final Assessment and Plan (1) Perforated viscus Narrative/Plan: 80-year-old female presents to hospital with a several-day history of abdominal pain. Imaging studies revealed evidence of the pneumoperitoneum. She was taken to the operating room and the perforated gastric ulceration was noted. This is been sent to the laboratory for further pathological review. That is pending at this time. The patient is feeling slightly better. She now has an increasing amount of leukocytosis. It is not a significant change. Likely due to the current extensive illness. She is on appropriate antibiotic therapy with Zosyn and fluconazole. She has no history of MRSA. She seems to be having some improvement in she's getting some appetite. Appetite improving, and a bowel movement this evening. Oral cavity care does make her feel better. Cultures are processing negative so far. Pathology did not report any malignancy, and H. pylori was negative. Planning 2 further days of antibiotics at this time. Patient does have evidence of hyponatremia which may be worsening her mental status at this time. Status: Acute (2) Pneumoperitoneum Status: Acute (3) Leukocytosis Status: Acute
[2016-09-23] MEDS: SODIUM CHLORIDE 0.9% 1,000 ML IV SCH (20:29)
[2016-09-23] MEDS: ACETAMINOPHEN IV (For NPO) 1,000 MG in EMPTY BAG 1 BAG IVPB SCH (21:27)
[2016-09-23] MEDS: FLUCONAZOLE IN NACL,ISO-OSM 100 MG in SALINE 1 50ML.BAG IVPB SCH (22:14)
[2016-09-24] MEDS: ACETAMINOPHEN IV (For NPO) 1,000 MG in EMPTY BAG 1 BAG IVPB SCH ×3 (03:45→16:01)
[2016-09-24 07:46] LABS: ALT 21 U/L (9-52); AST 23 U/L (14-36); Alkaline Phosphatase 68 U/L (38-126); Anion Gap 11 mmol/L; Blood Urea Nitrogen 11 mg/dL (7-17); Calcium 7.4 mg/dL (8.4-10.2); Carbon Dioxide 23 mmol/L (22-30); Chloride 93 mmol/L (98-107); Glucose 95 mg/dL (74-99); Magnesium 1.8 mg/dL (1.6-2.3); Non-African American GFR(MDRD) >60 (>60 ml/min/1.73 sqM); Potassium 3.2 mmol/L (3.5-5.1); Sodium 127 mmol/L (137-145); Total Protein 4.9 g/dL (6.3-8.2)
[2016-09-24] MEDS: PIPERACILLIN-TAZOBACTAM 3.375 GM in DEXTROSE/WATER 1 50ML.BAG IVPB SCH ×3 (07:55→23:29)
[2016-09-24] MEDS: HEPARIN SODIUM,PORCINE 5,000 UNIT/ML 1 ML VIAL SQ SCH ×3 (07:58→23:29)
--- NOTE | 2016-09-24 08:00 | P.PN ---
Subjective This a pleasant 80-year-old lady patient of Dr. Blanco Ruiz. She has underlying history of COPD, also arthritis, admitted through the emergency room after she was brought in by EMS secondary to right upper quadrant pain and later developed some shortness of breath, patient was noted to be hypoxemic requiring a nonrebreather mask prior to ER viable, pulse ox on ER was 95%, requiring nasal cannula patient denies any melena hematochezia no chest pain no palpitations, Emergency room, she was hypotensive after an earlier dose of fentanyl, this has stabilized she had full workup to include elevated lipase of 479, troponins were okay, they did additional imaging to include CAT scan of the abdomen and fell pelvis incidentally she was found to have a perforated viscus, also coming in with Rin cl[place] with rapid ventricular rate, she was immediately taken in operating room after Cardizem drip has been started and was hemodynamically stabilized . Patient was subsequently transferred to ICU postoperatively. Consults were made with Dr. Faith cardiology Dr. Leigh from [facility] currently receiving IV Zosyn for the peritonitis as well as right lower lobe infiltrate. She underwent emergent exploratory laparotomy 09/17/2016 and underwent a partial gastrectomy with loop gastrojejunostomy by Dr. Crowell for an 8 mm perforation in the antrum, and a large prepyloric ulcer abscess-like cavity there is an masslike inflammatory reaction at the location of the ulcer with clinical concern of possibility of malignant perforation. 09/21: Patient has been hemodynamically stable and was transferred to the selective care unit. She continues to have NG tube in place. Daughter is concerned that she has more cough with thick secretions and congestion. Incentive spirometry is only 300-500. Patient is complaining of feeling tired. Cardiology is following for she was noted to be in atrial arrhythmia but no atrial fibrillation. Blood pressure is well controlled. Repeat chest x-ray shows no significant interval change. Patient is followed by Dr. Anthony from infectious disease and continued on Zosyn and fluconazole. Pathology report remains pending. 09/22: Today the patient was noted to be hypoxic. The patient was placed on a Ventimask and O2 came up to 94%. She was drowsy but easily arousable. She has been receiving IV Dilaudid for pain control, this is believed to be the source of her hypoxemia. Her Dilaudid will be held for the next 24 hours. The patient has been receiving potassium supplementation per protocol, today her potassium was still noted to be 3.1. Magnesium was 1.4, supplement ordered along with potassium supplement per protocol, will recheck potassium this afternoon. The patient continues to be followed by Dr. Anthony. Blood cultures show no growth after 96 hours. 09/23: Patient still requires Ventimask to achieve a O2 sat above 90%. The patient Chest x-ray showed little interval change from the previous x-ray she does have bilateral effusions but no significant change. The patient did have her NG tube removed. Cardiology is following patient for her atrial arrhythmia with no evidence of atrial fibrillation. Infectious disease is also following patient who is planning for 3 further days of antibiotics at this time. Pathology report still pending. Her potassium improved to 3.6. 09/24: Last night the patient had an episode of sinus tachycardia with a rate of 120s. She is consulted by Dr. Faith who gave her a dose of IV beta michelle and and by mouth beta michelle was increased. Her heart rate is in the 70s currently. Her pathology did not report any malignancy and H. pylori was negative. Dr. Anthony is recommended two further days of antibiotics at this time. She was also consulted by Dr. Escalante for elongated thick dystrophic nails. Nails were reduced 1 through 5 bilaterally. There were concerns about aspiration, patient had barium swallow done today. Barium swallow showed penetration without aspiration with thin liquids. Objective - Vital Signs Vital signs: Vital Signs Temp 97.3 F L 09/24/16 00:00 Pulse 75 09/24/16 04:00 Resp 16 09/24/16 04:00 BP 147/81 09/24/16 04:00 Pulse Ox 92 L 09/24/16 04:00 Intake & Output 09/23/16 09/24/16 09/24/16 18:59 06:59 18:59 Intake Total 720 200 Output Total 545 160 Balance 175 40 Weight 51 kg Intake: IV 350 200 ACETAMINOPHEN IV (For NPO 100 ) 1,000 mg In Empty Bag 1 bag @ 400 mls/hr IVPB Q6H [facility] Rx#:[id number] Fluconazole in NaCl,Iso- 50 Osm 100 mg In Saline 1 50ml.bag @ 50 mls/hr IVPB Q24H [facility] Rx#:[id number] Magnesium Sulfate-D5w Pmx 200 1 gm In Dextrose/Water 1 100ml.bag @ 100 mls/hr IVPB Q1H [facility] Rx#: [id number] Piperacillin-Tazobactam 3 50 50 .375 gm In Dextrose/Water 1 50ml.bag @ 12.5 mls/hr IVPB Q8HR [facility] Rx#: [id number] Potassium Chloride 10 meq 100 Lidocaine 2% Inj 10 mg In Sodium Chloride 0.9% 100 ml @ 100 mls/hr IV Q1HR [facility] Rx#:[id number] Oral 370 Output: Drainage 45 110 Right Lower Abdomen 45 110 Urine 500 50 Other: Voiding Method Diaper Diaper - Exam Exam General appearance: average body habitus, cooperative, no acute distress - EENT Eyes: anicteric sclerae, edentulous, PERRLA, normal appearance ENT: no hard of hearing, hearing grossly normal, NA/AT, normal oropharynx, no other, no pharyngeal erythema, no thrush, no tonsillar exudates, no tonsillar swelling - Neck Neck: no lymphadenopathy, normal ROM, no other, no rigidity, no stridor, no thyromegaly - Respiratory Respiratory: bilateral: CTA, diminished, negative: dullness, rales, rhonchi, wheezing - Cardiovascular Rhythm: regular Heart sounds: normal: S1, S2 Abnormal Heart Sounds: no systolic murmur, no diastolic murmur, no rub, no S3 Gallop, no S4 Gallop, no click, no other - Gastrointestinal General gastrointestinal: decreased bowel sounds, soft Localized gastrointestinal: tender: diffuse - Integumentary Integumentary: normal - Neurologic Neurologic: CNII-XII intact - Musculoskeletal Musculoskeletal: strength equal bilaterally - Psychiatric Psychiatric: A&O x's 3, appropriate affect, intact judgment & insight - Labs CBC & Chem 7: 09/23/16 05:42 09/24/16 06:00 Labs: Abnormal Lab Results - Last 24 Hours (Table) 09/23/16 09/24/16 Range/Units 05:42 06:00 Sodium 129 L 127 L (137-145) mmol/L Potassium 3.3 L 3.2 L (3.5-5.1) mmol/L Chloride 96 L 93 L (98-107) mmol/L Creatinine 0.45 L 0.42 L (0.52-1.04) mg/dL Glucose 121 H (74-99) mg/dL Calcium 7.4 L 7.4 L (8.4-10.2) mg/dL Total Protein 4.6 L 4.9 L (6.3-8.2) g/dL Albumin 2.3 L 2.4 L (3.5-5.0) g/dL Microbiology - Last 24 Hours (Table) 09/17/16 16:00 Blood Culture - Final Blood No Growth after 144 hours Assessment and Plan Plan: Plan: 1. Status post exploratory laparotomy perforated gastric ulcer and prepyloric ulcer requiring partial gastrectomy and loop gastrojejunostomy on 09/17/2016 secondary to pneumoperitoneum noted. This was most likely secondary to NSAID use prior to admission. Postoperative pain along with incentive spirometry, and albuterol Atrovent for pulmonary prophylaxis. IV antibiotics Zosyn. 2. Atrial arrhythmia. Cardiology is following. No atrial fibrillation was found. Patient received IV beta michelle to control tachycardia 3. Acute peritonitis secondary to perforated viscus, patient's on IV Zosyn, Dr. Anthony from infectious disease 4. Lumbar disc disease gabapentin is on hold until by mouth will be started 5. COPD without any exacerbation, patient is on albuterol Atrovent scheduled follows closely by Dr. Leigh 6. GI prophylaxis with Protonix 40 IV twice a day and this would be to switch to oral PPI for the treatment of gastritis and gastric ulcers 7. Onychogryphosis, extremely long toenails noted, consult with Dr. Escalante, had nails trimmed. 8. CODE STATUS 9. DVT prophylaxis with heparin subcu 10. Acute pancreatitis most likely secondary to inflammatory reaction from gastric perforation, this will be monitored. 11. Metabolic acidosis secondary to sepsis from peritonitis, this will be monitored 12. Elevated troponin most likely secondary troponin leak from atrial fibrillation new onset. 13. Family history of pancreatic cancer Discharge plan: [facility] once stable The above impression and plan of care have been discussed and directed by signing physician. Ludivina Kraft nurse practitioner acting as scribe for signing physician.
[2016-09-24] MEDS: NITROGLYCERIN OINT 1 INCH/GM PACKET TOPICAL SCH ×3 (08:09→23:29)
[2016-09-24] MEDS: HYDROcodone/APAP 5-325MG 1 EACH TAB PO PRN (08:10)
[2016-09-24] MEDS: IPRATROPIUM-ALBUTEROL 3 ML NEB INHALATION SCH ×4 (08:34→20:34)
--- NOTE | 2016-09-24 09:41 | FL ---
EXAMINATION TYPE: FL barium swallow w video DATE OF EXAM: 09/24/2016 COMPARISON: NONE HISTORY: COPD, evaluate for silent aspiration TECHNIQUE: Fluoroscopy. FINDINGS: Fluoroscopic guidance was provided for the procedure performed in conjunction with the [facility] pathology department. Please see complete report forthcoming from the Speech Pathology departmen t. Various consistencies from thin liquid to solids were administered. There is penetration with thin liquids. This range from mild somewhat deeper. No aspiration could be observed. With limited neck thick evaluation no penetration was evident. IMPRESSION: 1. Limited exam. 2. Penetration without aspiration with thin liquids.
--- NOTE | 2016-09-24 10:15 | P.PN ---
Subjective The patient is seen on rounds. The patient being worked up with a swallow study because of concerns of aspiration. Nurses said she appears in no distress. She is requiring a venti mask due to low O2 saturations. He has been pulling at her EFE drain. Objective - Vital Signs Vital signs: Vital Signs Temp 97 F L 09/24/16 08:00 Pulse 64 09/24/16 08:48 Resp 20 09/24/16 08:00 BP 160/72 09/24/16 08:00 Pulse Ox 90 L 09/24/16 08:00 Intake & Output 09/23/16 09/24/16 09/24/16 18:59 06:59 18:59 Intake Total 720 200 Output Total 545 160 Balance 175 40 Weight 51 kg Intake: IV 350 200 ACETAMINOPHEN IV (For NPO 100 ) 1,000 mg In Empty Bag 1 bag @ 400 mls/hr IVPB Q6H [facility] Rx#:[id number] Fluconazole in NaCl,Iso- 50 Osm 100 mg In Saline 1 50ml.bag @ 50 mls/hr IVPB Q24H [facility] Rx#:[id number] Magnesium Sulfate-D5w Pmx 200 1 gm In Dextrose/Water 1 100ml.bag @ 100 mls/hr IVPB Q1H [facility] Rx#: [id number] Piperacillin-Tazobactam 3 50 50 .375 gm In Dextrose/Water 1 50ml.bag @ 12.5 mls/hr IVPB Q8HR [facility] Rx#: [id number] Potassium Chloride 10 meq 100 Lidocaine 2% Inj 10 mg In Sodium Chloride 0.9% 100 ml @ 100 mls/hr IV Q1HR [facility] Rx#:[id number] Oral 370 Output: Drainage 45 110 Right Lower Abdomen 45 110 Urine 500 50 Other: Voiding Method Diaper Diaper - Constitutional Constitutional Comment(s): Mildly confused to commands General appearance: Present: cooperative, no acute distress - Gastrointestinal Gastrointestinal Comment(s): EFE is serous General gastrointestinal: Present: normal bowel sounds, soft. Absent: tenderness - Labs CBC & Chem 7: 09/23/16 05:42 09/24/16 06:00 Labs: Abnormal Lab Results - Last 24 Hours (Table) 09/24/16 Range/Units 06:00 Sodium 127 L (137-145) mmol/L Potassium 3.2 L (3.5-5.1) mmol/L Chloride 93 L (98-107) mmol/L Creatinine 0.42 L (0.52-1.04) mg/dL Calcium 7.4 L (8.4-10.2) mg/dL Total Protein 4.9 L (6.3-8.2) g/dL Albumin 2.4 L (3.5-5.0) g/dL Microbiology - Last 24 Hours (Table) 09/17/16 16:00 Blood Culture - Final Blood No Growth after 144 hours Assessment and Plan (1) Perforated viscus Status: Acute Plan: Surgically the patient's progressing fairly well. She is going for a swallow study. We will discontinue the EFE drain.
[2016-09-24] MEDS: PANTOPRAZOLE 40 MG/10 ML VIAL IVP SCH (10:41)
[2016-09-24] MEDS: LISINOPRIL 5 MG TAB PO SCH (10:41)
[2016-09-24] MEDS: METOPROLOL TARTRATE 25 MG TAB PO SCH ×2 (10:41→20:22)
[2016-09-24] MEDS: BISACODYL 10 MG SUPP RECTAL SCH (10:41)
[2016-09-24] MEDS: SODIUM CHLORIDE 0.9% 1,000 ML IV SCH ×2 (10:42→23:29)
--- NOTE | 2016-09-24 13:43 | P.PN ---
Subjective Principal diagnosis: Status post partial gastrectomy and loop gastrojejunostomy for perforated gastric ulcer, postoperative day #5. This is an 80-year-old female with history of COPD, brought in yesterday to the ER with mostly symptoms of abdominal pain and shortness of breath of 1 day duration. Patient was also complaining of chronic back pain, workup in the ER included a CT of the abdomen and pelvis and it was positive for pneumoperitoneum. Hence the patient was taken to the operating room by Dr. read , and she was found to have perforation of gastric ulcer. She underwent partial gastrectomy and loop gastrojejunostomy. Upon exploration, the patient was found to have bilious fluid present throughout the peritoneal cavity and mucopurulent exudate seen scattered throughout. There was also evidence of perforated ulcer measuring 8 mm in diameter. There was a masslike inflammatory reaction in the antrum at the location of the ulcer. Patient underwent distal gastrectomy. Postoperatively, patient was transferred to the intensive care unit on mechanical ventilation, and I was asked to see her on consultation. Ventilator settings were adjusted overnight, patient received fluid boluses overnight for marginal urine output, and her follow-up chest x-ray this morning showed evidence of pulmonary vascular congestion and possibly some component of interstitial edema. Hence her main IV fluid was cut down to 75 mL/h, and I recommended Lasix 40 mg IV push 1. I reviewed her ventilator settings, reviewed her chest x-ray, reviewed her weaning parameters, and I gave the patient is short the pressure support and CPAP trial then moved on to extubate the patient to a nasal cannula. Patient is relatively asymptomatic except for some abdominal discomfort. After extubation, patient denied any shortness of breath, denied any headaches no blurred vision no dizziness. No nausea, she has some vague abdominal discomfort over the incision. Denies any dysuria frequency or urgency. Patient was reevaluated today on 09/19/2016, doing quite well, remains on nasal cannula, relatively asymptomatic, chest x-ray is showing significant right lower lobe atelectasis and possible pleural effusion. However the ultrasound failed to show significant pocket to make thoracentesis safe and easy. The pocket is rather small, hence we will recommend mostly incentive spirometry, antibiotics, bronchodilators, and no need for thoracentesis. Clinically the patient is doing well overall. Labs were reviewed WBC was 14.3 hemoglobin is 13.0, electrolytes were reviewed and they seem to be relatively unremarkable. Bicarb is a bit on the low side at 17. Renal profile is normal. Patient was reevaluated today on 09/20/2016, clinically she is doing well, however her chest x-ray continues to show significant right lower lobe atelectasis, and possible consolidation in the right lower lobe. There is also small bilateral pleural effusions. Electrolytes were also noted to be abnormal with sodium up to 150. Hence I recommended switching her main IV fluid to D5W. Ultrasound of the chest did not show significant amount of fluid to be drained and patient could not have the safe thoracentesis. If she continues to have this abnormality in the right lower lobe, bronchoscopy may have to be considered especially if that doesn't improve with incentive spirometry and bronchodilators and antibiotics. Clinically however the patient is relatively asymptomatic. And I stressed today to the patient the importance of using incentive spirometry. The patient is seen again today 09/22/2016 in follow-up on the selective care unit. She is awake and alert in no acute distress. She is however requiring a Ventimask at 40% for oxygenation to maintain O2 saturations in the 90s. She is awake and alert. She denies any worsening shortness of breath, cough or congestion. Her chloride has improved to 103. Sodium 131. Minimal leukocytosis at 14.5. Hemoglobin stable at 13.1. The patient is seen again today 09/23/2016 in follow-up on the selective care unit. She is currently resting quite comfortably in bed. She did have episodes of confusion last night pulling out her IVs and pulling off her oxygen mask. There is a sitter at the bedside. She is continued on 40% Ventimask to maintain O2 saturations in the 90s. Yesterday's blood gases revealed a PaO2 of 71, pCO2 28 and a pH of 7.51. Chest x-ray revealed bilateral effusions but stable as compared to previous. Current sodium 129, potassium 3.3. Hemoglobin stable at 13.3. Minimal leukocytosis at 13.8. The patient was seen again today 09/24/2016 in follow-up on the selective care unit. She is a little less agitated and restless today. She is now a DO NOT RESUSCITATE/DO NOT INTUBATE CODE STATUS. Her overall prognosis is quite guarded. She is currently maintaining O2 saturations in the 90s on 35% Ventimask. Her sodium does continue to decline currently at 127, potassium 3.2. Creatinine 0.42. Objective - Vital Signs Vital signs: Vital Signs Temp 97 F L 09/24/16 08:00 Pulse 68 09/24/16 12:46 Resp 20 09/24/16 08:00 BP 160/72 09/24/16 08:00 Pulse Ox 90 L 09/24/16 08:00 Intake & Output 09/23/16 09/24/16 09/24/16 18:59 06:59 18:59 Intake Total 720 200 650 Output Total 545 160 1 Balance 175 40 649 Weight 51 kg 51 kg Intake: IV 350 200 50 ACETAMINOPHEN IV (For NPO 100 ) 1,000 mg In Empty Bag 1 bag @ 400 mls/hr IVPB Q6H [facility] Rx#:[id number] Fluconazole in NaCl,Iso- 50 Osm 100 mg In Saline 1 50ml.bag @ 50 mls/hr IVPB Q24H [facility] Rx#:[id number] Magnesium Sulfate-D5w Pmx 200 1 gm In Dextrose/Water 1 100ml.bag @ 100 mls/hr IVPB Q1H [facility] Rx#: [id number] Piperacillin-Tazobactam 3 50 50 50 .375 gm In Dextrose/Water 1 50ml.bag @ 12.5 mls/hr IVPB Q8HR [facility] Rx#: [id number] Potassium Chloride 10 meq 100 Lidocaine 2% Inj 10 mg In Sodium Chloride 0.9% 100 ml @ 100 mls/hr IV Q1HR [facility] Rx#:[id number] Intake, IV Titration 600 Amount Sodium Chloride 0.9% 1, 600 000 ml @ 75 mls/hr IV . [id number] [facility] Rx#:[id number] Oral 370 Output: Drainage 45 110 Right Lower Abdomen 45 110 Urine 500 50 Stool 1 Other: Voiding Method Diaper Diaper Diaper # Voids 3 - Exam GENERAL EXAM: Frail, cachectic. Alert, fairly comfortable in no apparent distress. HEAD: Normocephalic. EYES: Normal reaction of pupils, equal size. NOSE: Clear with pink turbinates. THROAT: No erythema or exudates. NECK: No masses, no JVD. CHEST: No chest wall deformity. LUNGS: Equal air entry with crackles in the right base.. CVS: S1 and S2 normal with no audible mumurs, regular rhythm. ABDOMEN: Soft tenderness at surgical site, normal bowel sounds, no guarding or rigidity. EFE drain remains in place. Extremities: There is no significant peripheral edema. No clubbing, no cyanosis. Peripheral pulses are intact. - Labs CBC & Chem 7: 09/23/16 05:42 09/24/16 06:00 Labs: Abnormal Lab Results - Last 24 Hours (Table) 09/24/16 Range/Units 06:00 Sodium 127 L (137-145) mmol/L Potassium 3.2 L (3.5-5.1) mmol/L Chloride 93 L (98-107) mmol/L Creatinine 0.42 L (0.52-1.04) mg/dL Calcium 7.4 L (8.4-10.2) mg/dL Total Protein 4.9 L (6.3-8.2) g/dL Albumin 2.4 L (3.5-5.0) g/dL Microbiology - Last 24 Hours (Table) 09/17/16 16:00 Blood Culture - Final Blood No Growth after 144 hours Assessment and Plan Plan: Impression: 1 status post partial gastrectomy, postoperative day #7 2 acute perforation of gastric ulcer, most likely secondary to nonsteroidal anti -inflammatory drugs/Motrin. 3 documented history of COPD, severity of which is not clear at present, however the patient will be placed on bronchodilators, and will be placed on incentive spirometry post extubation. 4 congestive heart failure secondary to systolic dysfunction, ejection fraction of 25-50% noted on the echo today. Patient was already seen by cardiology. 5 possible atrial fibrillation on presentation, however that's being addressed by cardiology, no documentation so far of atrial fibrillation noted on the monitor or on her initial EKG. Presently the patient is in normal sinus rhythm. 6 postoperative atelectasis, possible consolidation in the right lower lobe, hence the patient will remain on bronchodilators, incentive spirometry, may or may not eventually require bronchoscopy. #7 Hyponatremia. Currently on 0.9 normal saline at 75 miles per hour. Plan: The patient was seen and evaluated by Dr. Crane. We will continue with bronchodilators 4 times a day and when necessary. She remains on antibiotics in the form of Zosyn along with fluconazole. We'll titrate down the FiO2 while maintaining O2 saturations greater than 90%. The plan is for discharge to [facility] once discharge. We'll continue to follow.
--- NOTE | 2016-09-24 15:59 | P.PN ---
Subjective Principal diagnosis: Ruptured viscus This is an 80-year-old female who underwent surgery secondary to a ruptured viscus. She has a known history of hypertension, she was also noted to have an atrial arrhythmia with no evidence of atrial fibrillation. Throughout the night last night patient's heart rate was up to the 120 range, sinus tachycardia , she was given a dose of IV beta michelle and her by mouth dose of beta michelle was increased. Oxygen saturation was also down. Does seem stronger today. Lungs improving. Blood pressure 138/76, 92% on Ventimask. Sodium today 127, potassium 3.2, creatinine 0.4. Objective - Vital Signs Vital signs: Vital Signs Temp 98.5 F 09/24/16 12:00 Pulse 68 09/24/16 12:46 Resp 20 09/24/16 12:00 BP 139/76 09/24/16 12:00 Pulse Ox 92 L 09/24/16 12:00 Intake & Output 09/23/16 09/24/16 09/24/16 18:59 06:59 18:59 Intake Total 720 200 650 Output Total 545 160 1 Balance 175 40 649 Weight 51 kg 51 kg Intake: IV 350 200 50 ACETAMINOPHEN IV (For NPO 100 ) 1,000 mg In Empty Bag 1 bag @ 400 mls/hr IVPB Q6H [facility] Rx#:[id number] Fluconazole in NaCl,Iso- 50 Osm 100 mg In Saline 1 50ml.bag @ 50 mls/hr IVPB Q24H [facility] Rx#:[id number] Magnesium Sulfate-D5w Pmx 200 1 gm In Dextrose/Water 1 100ml.bag @ 100 mls/hr IVPB Q1H [facility] Rx#: [id number] Piperacillin-Tazobactam 3 50 50 50 .375 gm In Dextrose/Water 1 50ml.bag @ 12.5 mls/hr IVPB Q8HR [facility] Rx#: [id number] Potassium Chloride 10 meq 100 Lidocaine 2% Inj 10 mg In Sodium Chloride 0.9% 100 ml @ 100 mls/hr IV Q1HR [facility] Rx#:[id number] Intake, IV Titration 600 Amount Sodium Chloride 0.9% 1, 600 000 ml @ 75 mls/hr IV . [id number] [facility] Rx#:[id number] Oral 370 Output: Drainage 45 110 Right Lower Abdomen 45 110 Urine 500 50 Stool 1 Other: Voiding Method Diaper Diaper Diaper # Voids 3 - Exam PHYSICAL EXAMINATION: HEENT: Head is atraumatic, normocephalic. Pupils equal, round. Neck is supple. There is no elevated jugular venous pressure. HEART EXAMINATION: Heart S1 and S2 systolic murmur is heard. CHEST EXAMINATION: Lungs reveal less crackles to bilateral bases No chest wall tenderness is noted on palpation or with deep breathing. ABDOMEN: Soft, nontender. Bowel sounds are heard. No organomegaly noted. NG tube in place. EXTREMITIES: 2+ peripheral pulses with no evidence of peripheral edema and no calf tenderness noted. NEUROLOGIC patient is awake, alert and oriented -3. . - Labs CBC & Chem 7: 09/23/16 05:42 09/24/16 06:00 Labs: Abnormal Lab Results - Last 24 Hours (Table) 09/24/16 Range/Units 06:00 Sodium 127 L (137-145) mmol/L Potassium 3.2 L (3.5-5.1) mmol/L Chloride 93 L (98-107) mmol/L Creatinine 0.42 L (0.52-1.04) mg/dL Calcium 7.4 L (8.4-10.2) mg/dL Total Protein 4.9 L (6.3-8.2) g/dL Albumin 2.4 L (3.5-5.0) g/dL Microbiology - Last 24 Hours (Table) 09/17/16 16:00 Blood Culture - Final Blood No Growth after 144 hours Assessment and Plan (1) HTN (hypertension) Status: Acute (2) Atrial arrhythmia Status: Acute (3) Cardiomyopathy Status: Acute (4) Perforated viscus Status: Acute Plan: From cardiology's perspective, we'll continue with current medications. We'll follow this patient with you now on an as-needed basis only, please don't hesitate to call with any questions. DNP note has been reviewed, I agree with a documented findings and plan of care. Patient was seen and examined.
--- NOTE | 2016-09-24 16:38 | CDI ---
In responding to this query, please exercise your independent professional judgment. The [facility] Coding Staff and Clinical Documentation Specialists appreciate your assistance in clarifying documentation, maintaining compliance with coding guidelines, accurately documenting patients condition and capturing severity of illness. The fact that a question is asked does not imply that any particular answer is desired or expected. Communication forms are a method of clarifying documentation and are not made part of the Legal Health Record. Thank you in advance for your clarification. Last Revision, May 2016 [address] [place] [address] Documentation Clarification Form Date: 09/24/2016 4:07:00 PM From: Jen Dang RN, CDS Admit Date: 09/17/2016 3:45:00 PM Patient Name: Leni Guzman Visit Number: [id number] Dr. Florentino Leigh, 80 yo patient admitted for perforated gastric ulcer. A partial gastrectomy with loop gastrojejunostomy performed. Chest Xray on 09/17 showed Right basilar atelectasis. Abdominal Xray on 09/17 showed pneumonia versus Atelectasis. "Postoperative Atelectasis, possible consolidation right lower lobe, hence patient will remain on bronchodilators, incentive spirometer, may or may not eventually require bronchoscopy" per pulmonary progress notes Post Op Atelectasis is documented in the Pulmonary progress notes 09/20, 09/22, , 09/24. History/Risk Factors: COPD, Emphysema Clinical Indicators: Lung sounds Inspiratory and Expiratory Wheezes, Rhonchi, Crackles documented per nursing on 09/22, 09/23, Lung sounds Clear per nursing on 09/21 Chest Xray on 09/17 showed Right basilar atelectasis. Abdominal Xray on 09/17 showed pneumonia versus Atelectasis. "Postoperative Atelectasis, possible consolidation right lower lobe, hence patient will remain on bronchodilators, incentive spirometer, may or may not eventually require bronchoscopy" per pulmonary progress notes Treatment: CXR, Pulmonary consult, Duoneb, Incentive Spirometer In order to accurately reflect this patients severity of illness, please clarify if the post-operative diagnosis is: An expected post-procedural or post-surgical condition Integral to the procedure Inherent to the procedure An unexpected post-procedural or post-surgical condition, related to surgical care Other, please specify Unable to determine Please document in your progress notes and discharge summary in order to capture severity of illness and risk of mortality. Include clinical findings that support your diagnosis. FYI: Press F11 to launch patient chart Place X here if this finding has no clinical significance, is not applicable or if you are not able to provide any additional documentation. MALLORIED
[2016-09-24] MEDS: FLUCONAZOLE IN NACL,ISO-OSM 100 MG in SALINE 1 50ML.BAG IVPB SCH (20:28)
[2016-09-25] MEDS: MAGNESIUM SULFATE-D5W PMX 1 GM in DEXTROSE/WATER 1 100ML.BAG IVPB SCH ×2 (02:03→03:40)
[2016-09-25] MEDS: POTASSIUM CHLORIDE 10 MEQ, LIDOCAINE 2% INJ 10 MG in SODIUM CHLORIDE 0.9% 100 ML IV SCH ×4 (03:37→14:33)
[2016-09-25 07:03] LABS: ALT 24 U/L (9-52); AST 24 U/L (14-36); Alkaline Phosphatase 73 U/L (38-126); Anion Gap 11 mmol/L; Blood Urea Nitrogen 11 mg/dL (7-17); Calcium 7.3 mg/dL (8.4-10.2); Carbon Dioxide 22 mmol/L (22-30); Chloride 97 mmol/L (98-107); Glucose 76 mg/dL (74-99); Non-African American GFR(MDRD) >60 (>60 ml/min/1.73 sqM); Potassium 3.1 mmol/L (3.5-5.1); Sodium 130 mmol/L (137-145); Total Bilirubin 1.1 mg/dL (0.2-1.3); Total Protein 4.8 g/dL (6.3-8.2)
[2016-09-25] MEDS: IPRATROPIUM-ALBUTEROL 3 ML NEB INHALATION SCH ×2 (07:32→11:33)
[2016-09-25] MEDS: NITROGLYCERIN OINT 1 INCH/GM PACKET TOPICAL SCH ×2 (07:54→17:35)
[2016-09-25] MEDS: PIPERACILLIN-TAZOBACTAM 3.375 GM in DEXTROSE/WATER 1 50ML.BAG IVPB SCH ×2 (07:54→17:35)
[2016-09-25] MEDS: HYDROcodone/APAP 5-325MG 1 EACH TAB PO PRN (07:54)
[2016-09-25] MEDS: HEPARIN SODIUM,PORCINE 5,000 UNIT/ML 1 ML VIAL SQ SCH ×2 (07:54→17:35)
[2016-09-25] MEDS: METOPROLOL TARTRATE 25 MG TAB PO SCH ×2 (07:57→21:56)
[2016-09-25] MEDS: LISINOPRIL 5 MG TAB PO SCH (07:57)
[2016-09-25] MEDS: BISACODYL 10 MG SUPP RECTAL SCH (07:57)
[2016-09-25] MEDS: PANTOPRAZOLE 40 MG TABLET PO SCH (08:08)
[2016-09-25] MEDS: POTASSIUM CHLORIDE ER 20 MEQ TAB.ER PO SCH ×3 (11:23→22:55)
--- NOTE | 2016-09-25 11:32 | P.PN ---
Subjective This a pleasant 80-year-old lady patient of Dr. Blanco Ruiz. She has underlying history of COPD, also arthritis, admitted through the emergency room after she was brought in by EMS secondary to right upper quadrant pain and later developed some shortness of breath, patient was noted to be hypoxemic requiring a nonrebreather mask prior to ER viable, pulse ox on ER was 95%, requiring nasal cannula patient denies any melena hematochezia no chest pain no palpitations, Emergency room, she was hypotensive after an earlier dose of fentanyl, this has stabilized she had full workup to include elevated lipase of 479, troponins were okay, they did additional imaging to include CAT scan of the abdomen and fell pelvis incidentally she was found to have a perforated viscus, also coming in with Rin clinton with rapid ventricular rate, she was immediately taken in operating room after Cardizem drip has been started and was hemodynamically stabilized . Patient was subsequently transferred to ICU postoperatively. Consults were made with Dr. Faith cardiology Dr. Leigh from [facility] currently receiving IV Zosyn for the peritonitis as well as right lower lobe infiltrate. She underwent emergent exploratory laparotomy 09/17/2016 and underwent a partial gastrectomy with loop gastrojejunostomy by Dr. Crowell for an 8 mm perforation in the antrum, and a large prepyloric ulcer abscess-like cavity there is an masslike inflammatory reaction at the location of the ulcer with clinical concern of possibility of malignant perforation. 09/21: Patient has been hemodynamically stable and was transferred to the selective care unit. She continues to have NG tube in place. Daughter is concerned that she has more cough with thick secretions and congestion. Incentive spirometry is only 300-500. Patient is complaining of feeling tired. Cardiology is following for she was noted to be in atrial arrhythmia but no atrial fibrillation. Blood pressure is well controlled. Repeat chest x-ray shows no significant interval change. Patient is followed by Dr. Anthony from infectious disease and continued on Zosyn and fluconazole. Pathology report remains pending. 09/22: Today the patient was noted to be hypoxic. The patient was placed on a Ventimask and O2 came up to 94%. She was drowsy but easily arousable. She has been receiving IV Dilaudid for pain control, this is believed to be the source of her hypoxemia. Her Dilaudid will be held for the next 24 hours. The patient has been receiving potassium supplementation per protocol, today her potassium was still noted to be 3.1. Magnesium was 1.4, supplement ordered along with potassium supplement per protocol, will recheck potassium this afternoon. The patient continues to be followed by Dr. Anthony. Blood cultures show no growth after 96 hours. 09/23: Patient still requires Ventimask to achieve a O2 sat above 90%. The patient Chest x-ray showed little interval change from the previous x-ray she does have bilateral effusions but no significant change. The patient did have her NG tube removed. Cardiology is following patient for her atrial arrhythmia with no evidence of atrial fibrillation. Infectious disease is also following patient who is planning for 3 further days of antibiotics at this time. Pathology report still pending. Her potassium improved to 3.6. 09/24: Last night the patient had an episode of sinus tachycardia with a rate of 120s. She is consulted by Dr. Faith who gave her a dose of IV beta michelle and and by mouth beta michelle was increased. Her heart rate is in the 70s currently. Her pathology did not report any malignancy and H. pylori was negative. Dr. Anthony is recommended two further days of antibiotics at this time. She was also consulted by Dr. Escalante for elongated thick dystrophic nails. Nails were reduced 1 through 5 bilaterally. There were concerns about aspiration, patient had barium swallow done today. Barium swallow showed penetration without aspiration with thin liquids. 09/25: The patient remaines hypokalemic last potassium was 3.1 despite multiple doses of potassium chloride. Will replace potassium and magnesium, will add cortisol level as well. Sodium noted to be 1:30. The patient was switched from a Ventimask to 6 L nasal cannula today. She continues to pull at the oxygen tubing. She remains on antibiotics of Zosyn along with flucanazole. The patient's heart rate remains in the 60s, currently rate controlled. Objective - Vital Signs Vital signs: Vital Signs Temp 97.7 F 09/25/16 08:00 Pulse 64 09/25/16 08:00 Resp 20 09/25/16 08:00 BP 152/65 09/25/16 08:00 Pulse Ox 90 L 09/25/16 08:00 Intake & Output 09/24/16 09/25/16 09/25/16 18:59 06:59 18:59 Intake Total 1050 Output Total 1 150 Balance 1049 -150 Weight 51 kg 52 kg 52 kg Intake: IV 50 Piperacillin-Tazobactam 3 50 .375 gm In Dextrose/Water 1 50ml.bag @ 12.5 mls/hr IVPB Q8HR [facility] Rx#: [id number] Intake, IV Titration 1000 Amount ACETAMINOPHEN IV (For NPO 400 ) 1,000 mg In Empty Bag 1 bag @ 400 mls/hr IVPB Q6H [facility] Rx#:[id number] Sodium Chloride 0.9% 1, 600 000 ml @ 75 mls/hr IV . [id number] [facility] Rx#:[id number] Output: Urine 150 Stool 1 Other: Voiding Method Diaper Diaper Diaper # Voids 1 1 # Bowel Movements 1 1 1 - Exam Exam General appearance: average body habitus, cooperative, no acute distress - EENT Eyes: anicteric sclerae, edentulous, PERRLA, normal appearance ENT: no hard of hearing, hearing grossly normal, NA/AT, normal oropharynx, no other, no pharyngeal erythema, no thrush, no tonsillar exudates, no tonsillar swelling - Neck Neck: no lymphadenopathy, normal ROM, no other, no rigidity, no stridor, no thyromegaly - Respiratory Respiratory: bilateral: CTA, diminished, negative: dullness, rales, rhonchi, wheezing - Cardiovascular Rhythm: regular Heart sounds: normal: S1, S2 Abnormal Heart Sounds: no systolic murmur, no diastolic murmur, no rub, no S3 Gallop, no S4 Gallop, no click, no other - Gastrointestinal General gastrointestinal: decreased bowel sounds, soft Localized gastrointestinal: tender: diffuse - Integumentary Integumentary: normal - Neurologic Neurologic: CNII-XII intact - Musculoskeletal Musculoskeletal: strength equal bilaterally - Psychiatric Psychiatric: A&O x's 3, appropriate affect, intact judgment & insight - Labs CBC & Chem 7: 09/23/16 05:42 09/25/16 06:01 Labs: Abnormal Lab Results - Last 24 Hours (Table) 09/25/16 Range/Units 06:01 Sodium 130 L (137-145) mmol/L Potassium 3.1 L (3.5-5.1) mmol/L Chloride 97 L (98-107) mmol/L Creatinine 0.43 L (0.52-1.04) mg/dL Calcium 7.3 L (8.4-10.2) mg/dL Total Protein 4.8 L (6.3-8.2) g/dL Albumin 2.4 L (3.5-5.0) g/dL Assessment and Plan Plan: Plan: 1. Status post exploratory laparotomy perforated gastric ulcer and prepyloric ulcer requiring partial gastrectomy and loop gastrojejunostomy on 09/17/2016 secondary to pneumoperitoneum noted. This was most likely secondary to NSAID use prior to admission. Postoperative pain along with incentive spirometry, and albuterol Atrovent for pulmonary prophylaxis. IV antibiotics Zosyn. 2. Atrial arrhythmia. Cardiology is following. No atrial fibrillation was found. Patient received IV beta michelle to control tachycardia, currently rate controlled. 3. Acute peritonitis secondary to perforated viscus, patient's on IV Zosyn, Dr. Anthony from infectious disease 4. Lumbar disc disease gabapentin is on hold 5. COPD without any exacerbation, patient is on albuterol Atrovent, currently on supplemental O2 via nasal cannula 6. GI prophylaxis with Protonix 40mg 7. Onychogryphosis, extremely long toenails noted, consult with Dr. Escalante, had nails trimmed. 8. CODE STATUS 9. DVT prophylaxis with heparin subcu 10. Acute pancreatitis most likely secondary to inflammatory reaction from gastric perforation, this will be monitored. 11. Metabolic acidosis secondary to sepsis from peritonitis, this will be monitored 12. Elevated troponin most likely secondary troponin leak from atrial fibrillation new onset. 13. Family history of pancreatic cancer Discharge plan: [facility] once stable The above impression and plan of care have been discussed and directed by signing physician. Ludivina Kraft nurse practitioner acting as scribe for signing physician.
--- NOTE | 2016-09-25 11:44 | P.PN ---
Subjective Progress note dated 09/25/2016 80-year-old female who is DO NOT RESUSCITATE patient. She's currently on O2 at 6 L. The patient is doing very poorly. Unresponsive. Family is apparently giving some consideration to comfort measures only. She is a DO NOT RESUSCITATE. Patient is status post partial gastrectomy postop day #8 acute perforation of gastric ulcer underlying COPD CHF systolic dysfunction atrial fibrillation and postoperative atelectasis with consolidation of the right lower lobe. She also has a history of underlying hyponatremia. Again doing very poorly. Poorly responsive. This has been going on for a couple of days. I was able to talk to some family members a couple days ago and thankfully make her DO NOT RESUSCITATE. Objective - Vital Signs Vital signs: Vital Signs Temp 97.7 F 09/25/16 08:00 Pulse 64 09/25/16 08:00 Resp 20 09/25/16 08:00 BP 152/65 09/25/16 08:00 Pulse Ox 90 L 09/25/16 08:00 Intake & Output 09/24/16 09/25/16 09/25/16 18:59 06:59 18:59 Intake Total 1050 Output Total 1 150 Balance 1049 -150 Weight 51 kg 52 kg 52 kg Intake: IV 50 Piperacillin-Tazobactam 3 50 .375 gm In Dextrose/Water 1 50ml.bag @ 12.5 mls/hr IVPB Q8HR [facility] Rx#: [id number] Intake, IV Titration 1000 Amount ACETAMINOPHEN IV (For NPO 400 ) 1,000 mg In Empty Bag 1 bag @ 400 mls/hr IVPB Q6H [facility] Rx#:[id number] Sodium Chloride 0.9% 1, 600 000 ml @ 75 mls/hr IV . [id number] [facility] Rx#:[id number] Output: Urine 150 Stool 1 Other: Voiding Method Diaper Diaper Diaper # Voids 1 1 # Bowel Movements 1 1 1 - Exam No acute distress, resting comfortably. Does not arouse. HEENT examination is grossly unremarkable. Nasal O2 in place. Mucous membranes are dry. Neck supple. Full range of motion. No adenopathy. Cardiovascular examination reveals distant heart sounds. S1-S2 normal. No murmur. Lungs reveal few scattered rhonchi. Breath sounds are diminished. She does not take deep breaths. Breath efforts are very shallow. Abdomen soft bowel sounds are noted. Extremities are intact. Slightly mottled. There are some areas of livedo reticularis. There is some acrocyanosis. Toetips and fingertips are cold. Skin is mottled. Neurologic examination cannot be performed. - Labs CBC & Chem 7: 09/23/16 05:42 09/25/16 06:01 Labs: Abnormal Lab Results - Last 24 Hours (Table) 09/25/16 Range/Units 06:01 Sodium 130 L (137-145) mmol/L Potassium 3.1 L (3.5-5.1) mmol/L Chloride 97 L (98-107) mmol/L Creatinine 0.43 L (0.52-1.04) mg/dL Calcium 7.3 L (8.4-10.2) mg/dL Total Protein 4.8 L (6.3-8.2) g/dL Albumin 2.4 L (3.5-5.0) g/dL Assessment and Plan (1) Status post gastrectomy Status: Acute (2) Acute abdomen Status: Acute (3) Cardiomyopathy Status: Acute (4) HTN (hypertension) Status: Acute (5) Perforated viscus Status: Acute (6) Pneumoperitoneum Status: Acute (7) Rapid atrial fibrillation Status: Acute Plan: Plan dated 09/25/2016 Overall prognosis remains very poor. The patient's mental status has declined significantly. She is currently getting O2 6 L. I will review the medications and discontinue the unnecessary medications. Family is apparently giving some consideration to comfort measures. I think it's very appropriate given her current situation. Additional recommendations suggestions are forthcoming. I would certainly limited x-rays labs and other things like that. Time with Patient: Less than 30
[2016-09-25] MEDS: SODIUM CHLORIDE 0.9% 1,000 ML IV SCH (14:36)
[2016-09-25] MEDS ORDERED: Potassium Replacement Protocol 1 EACH MISC MISCELLANE PRN (21:43)
[2016-09-25] MEDS: FLUCONAZOLE IN NACL,ISO-OSM 100 MG in SALINE 1 50ML.BAG IVPB SCH (21:53)
[2016-09-26] MEDS: NITROGLYCERIN OINT 1 INCH/GM PACKET TOPICAL SCH ×5 (00:33→23:57)
[2016-09-26] MEDS: PIPERACILLIN-TAZOBACTAM 3.375 GM in DEXTROSE/WATER 1 50ML.BAG IVPB SCH ×4 (00:35→23:57)
[2016-09-26] MEDS: HEPARIN SODIUM,PORCINE 5,000 UNIT/ML 1 ML VIAL SQ SCH ×4 (00:38→23:56)
[2016-09-26] MEDS: SODIUM CHLORIDE 0.9% 1,000 ML IV SCH (04:15)
[2016-09-26 06:24] LABS: Basophils # (A) 0.1 k/uL (0-0.2); Basophils % (A) 0 %; CH 29.8; CHCM 31.9; Eosinophils % (A) 0 %; HDW 2.88; HGB 13.7 gm/dL (11.4-16.0); Hypochromasia Slight; Luc # (Auto) 0.17; Luc % (Auto) 1; Lymphocytes # (A) 0.5 k/uL (1.0-4.8); Lymphocytes % (A) 2 %; MCH 29.3 pg (25.0-35.0); MCHC 31.2 g/dL (31.0-37.0); MCV 93.9 fL (80.0-100.0); Mean Platelet Volume 7.9; Monocytes % (A) 4 %; Neutrophils % (A) 93 %; RBC 4.69 m/uL (3.80-5.40); RDW 14.8 % (11.5-15.5); WBC 24.7 k/uL (3.8-10.6); WBC (Perox) 25.14
[2016-09-26 06:37] LABS: ALT 37 U/L (9-52); AST 23 U/L (14-36); Alkaline Phosphatase 85 U/L (38-126); Anion Gap 9 mmol/L; Blood Urea Nitrogen 12 mg/dL (7-17); Calcium 7.6 mg/dL (8.4-10.2); Carbon Dioxide 25 mmol/L (22-30); Chloride 98 mmol/L (98-107); Glucose 79 mg/dL (74-99); Non-African American GFR(MDRD) >60 (>60 ml/min/1.73 sqM); Potassium 3.3 mmol/L (3.5-5.1); Sodium 132 mmol/L (137-145); Total Bilirubin 0.8 mg/dL (0.2-1.3); Total Protein 4.4 g/dL (6.3-8.2)
[2016-09-26] MEDS ORDERED: Potassium Replacement Protocol 1 EACH MISC MISCELLANE PRN (06:53)
[2016-09-26] MEDS: METOPROLOL TARTRATE 25 MG TAB PO SCH ×2 (08:09→21:18)
[2016-09-26] MEDS: LISINOPRIL 5 MG TAB PO SCH (08:09)
[2016-09-26] MEDS: POTASSIUM CHLORIDE ER 20 MEQ TAB.ER PO SCH (08:09)
[2016-09-26] MEDS: PANTOPRAZOLE 40 MG TABLET PO SCH (08:09)
--- NOTE | 2016-09-26 09:17 | P.PN ---
Subjective Principal diagnosis: Perforated gastric ulcer The patient is sleeping in bed. She has had some soft diet this morning. She denies any significant pain. Objective - Vital Signs Vital signs: Vital Signs Temp 97.5 F L 09/26/16 08:00 Pulse 75 09/26/16 08:00 Resp 18 09/26/16 08:00 BP 142/75 09/26/16 08:00 Pulse Ox 96 09/26/16 08:00 Intake & Output 09/25/16 09/26/16 09/26/16 18:59 06:59 18:59 Intake Total 20 100 Output Total 20 Balance 0 100 Weight 52 kg 51 kg Intake: Oral 20 100 Output: Urine 20 Other: Voiding Method Diaper Diaper # Voids 1 # Bowel Movements 1 1 - Constitutional General appearance: Present: cooperative - Gastrointestinal Gastrointestinal Comment(s): Abdomen soft. Incision sites clean dry intact. - Labs CBC & Chem 7: 09/26/16 05:47 09/26/16 05:47 Labs: Abnormal Lab Results - Last 24 Hours (Table) 09/25/16 09/26/16 09/26/16 Range/Units 18:52 05:47 05:47 WBC 24.7 H (3.8-10.6) k/uL Neutrophils # 23.0 H (1.3-7.7) k/uL Lymphocytes # 0.5 L (1.0-4.8) k/uL Sodium 132 L (137-145) mmol/L Potassium 3.3 L 3.3 L (3.5-5.1) mmol/L Creatinine 0.50 L (0.52-1.04) mg/dL Calcium 7.6 L (8.4-10.2) mg/dL Total Protein 4.4 L (6.3-8.2) g/dL Albumin 2.3 L (3.5-5.0) g/dL Assessment and Plan Plan: Status post R laparotomy with repair of gastric ulcer. Patient will continue receive supportive care.
--- NOTE | 2016-09-26 13:15 | XR ---
EXAMINATION TYPE: XR chest 1V portable DATE OF EXAM: 09/26/2016 HISTORY: Cough. REFERENCE: Previous study dated 09/22/2016. FINDINGS: Heart size is obscured. There are bilateral effusions, greater on the right than the left. There is bibasilar airspace disease.. IMPRESSION: WORSENING OPACITY IN THE RIGHT LUNG BASE.
[2016-09-26] MEDS: 0.9% NACL WITH KCL 20 MEQ/L 1,000 ML IV SCH (13:27)
--- NOTE | 2016-09-26 14:41 | P.PN ---
Subjective This a pleasant 80-year-old lady patient of Dr. Blanco Ruiz. She has underlying history of COPD, also arthritis, admitted through the emergency room after she was brought in by EMS secondary to right upper quadrant pain and later developed some shortness of breath, patient was noted to be hypoxemic requiring a nonrebreather mask prior to ER viable, pulse ox on ER was 95%, requiring nasal cannula patient denies any melena hematochezia no chest pain no palpitations, Emergency room, she was hypotensive after an earlier dose of fentanyl, this has stabilized she had full workup to include elevated lipase of 479, troponins were okay, they did additional imaging to include CAT scan of the abdomen and fell pelvis incidentally she was found to have a perforated viscus, also coming in with Rin clinton with rapid ventricular rate, she was immediately taken in operating room after Cardizem drip has been started and was hemodynamically stabilized . Patient was subsequently transferred to ICU postoperatively. Consults were made with Dr. Faith cardiology Dr. Leigh from [facility] currently receiving IV Zosyn for the peritonitis as well as right lower lobe infiltrate. She underwent emergent exploratory laparotomy 09/17/2016 and underwent a partial gastrectomy with loop gastrojejunostomy by Dr. Crowell for an 8 mm perforation in the antrum, and a large prepyloric ulcer abscess-like cavity there is an masslike inflammatory reaction at the location of the ulcer with clinical concern of possibility of malignant perforation. 09/21: Patient has been hemodynamically stable and was transferred to the selective care unit. She continues to have NG tube in place. Daughter is concerned that she has more cough with thick secretions and congestion. Incentive spirometry is only 300-500. Patient is complaining of feeling tired. Cardiology is following for she was noted to be in atrial arrhythmia but no atrial fibrillation. Blood pressure is well controlled. Repeat chest x-ray shows no significant interval change. Patient is followed by Dr. Anthony from infectious disease and continued on Zosyn and fluconazole. Pathology report remains pending. 09/22: Today the patient was noted to be hypoxic. The patient was placed on a Ventimask and O2 came up to 94%. She was drowsy but easily arousable. She has been receiving IV Dilaudid for pain control, this is believed to be the source of her hypoxemia. Her Dilaudid will be held for the next 24 hours. The patient has been receiving potassium supplementation per protocol, today her potassium was still noted to be 3.1. Magnesium was 1.4, supplement ordered along with potassium supplement per protocol, will recheck potassium this afternoon. The patient continues to be followed by Dr. Anthony. Blood cultures show no growth after 96 hours. 09/23: Patient still requires Ventimask to achieve a O2 sat above 90%. The patient Chest x-ray showed little interval change from the previous x-ray she does have bilateral effusions but no significant change. The patient did have her NG tube removed. Cardiology is following patient for her atrial arrhythmia with no evidence of atrial fibrillation. Infectious disease is also following patient who is planning for 3 further days of antibiotics at this time. Pathology report still pending. Her potassium improved to 3.6. 09/24: Last night the patient had an episode of sinus tachycardia with a rate of 120s. She is consulted by Dr. Faith who gave her a dose of IV beta michelle and and by mouth beta michelle was increased. Her heart rate is in the 70s currently. Her pathology did not report any malignancy and H. pylori was negative. Dr. Anthony is recommended two further days of antibiotics at this time. She was also consulted by Dr. Escalante for elongated thick dystrophic nails. Nails were reduced 1 through 5 bilaterally. There were concerns about aspiration, patient had barium swallow done today. Barium swallow showed penetration without aspiration with thin liquids. 09/25: The patient remaines hypokalemic last potassium was 3.1 despite multiple doses of potassium chloride. Will replace potassium and magnesium, will add cortisol level as well. Sodium noted to be 1:30. The patient was switched from a Ventimask to 6 L nasal cannula today. She continues to pull at the oxygen tubing. She remains on antibiotics of Zosyn along with flucanazole. The patient's heart rate remains in the 60s, currently rate controlled. 09/26/2016: Patient appears to be very weak today and she is more dyspneic, portal chest x-ray was done and the patient showed worsening bilateral pleural effusion and worsening airspace disease more the right side than the left side, subsequently I spoke with the nurse about starting the patient DuoNeb treatment nebulization 4 times every day, oxygen support, start the patient on Levaquin 500 mg IV piggyback every 24 hours, and obtain pulmonary consultation from Dr. Crane. Objective - Vital Signs Vital signs: Vital Signs Temp 97.5 F L 09/26/16 08:00 Pulse 75 09/26/16 08:00 Resp 18 09/26/16 08:00 BP 142/75 09/26/16 08:00 Pulse Ox 96 09/26/16 08:00 Intake & Output 09/25/16 09/26/16 09/26/16 18:59 06:59 18:59 Intake Total 20 100 Output Total 20 1 Balance 0 99 Weight 52 kg 51 kg Intake: Oral 20 100 Output: Urine 20 Stool 1 Other: Voiding Method Diaper Diaper Diaper # Voids 1 # Bowel Movements 1 1 - Exam General appearance: average body habitus, cooperative, no acute distress - EENT Eyes: anicteric sclerae, edentulous, PERRLA, normal appearance ENT: no hard of hearing, hearing grossly normal, NA/AT, normal oropharynx, no other, no pharyngeal erythema, no thrush, no tonsillar exudates, no tonsillar swelling - Neck Neck: no lymphadenopathy, normal ROM, no other, no rigidity, no stridor, no thyromegaly - Respiratory Respiratory: bilateral: CTA, diminished, negative: dullness, rales, rhonchi, wheezing - Cardiovascular Rhythm: regular Heart sounds: normal: S1, S2 Abnormal Heart Sounds: no systolic murmur, no diastolic murmur, no rub, no S3 Gallop, no S4 Gallop, no click, no other - Gastrointestinal General gastrointestinal: decreased bowel sounds, soft Localized gastrointestinal: tender: diffuse - Integumentary Integumentary: normal - Neurologic Neurologic: CNII-XII intact - Musculoskeletal Musculoskeletal: strength equal bilaterally - Psychiatric Psychiatric: A&O x's 3, appropriate affect, intact judgment & insight - Labs CBC & Chem 7: 09/26/16 05:47 09/26/16 05:47 Labs: Abnormal Lab Results - Last 24 Hours (Table) 09/25/16 09/26/16 09/26/16 Range/Units 18:52 05:47 05:47 WBC 24.7 H (3.8-10.6) k/uL Neutrophils # 23.0 H (1.3-7.7) k/uL Lymphocytes # 0.5 L (1.0-4.8) k/uL Sodium 132 L (137-145) mmol/L Potassium 3.3 L 3.3 L (3.5-5.1) mmol/L Creatinine 0.50 L (0.52-1.04) mg/dL Calcium 7.6 L (8.4-10.2) mg/dL Total Protein 4.4 L (6.3-8.2) g/dL Albumin 2.3 L (3.5-5.0) g/dL Assessment and Plan Plan: Assessment and Plan Plan: Plan: 1. Status post exploratory laparotomy perforated gastric ulcer and prepyloric ulcer requiring partial gastrectomy and loop gastrojejunostomy on 09/17/2016 secondary to pneumoperitoneum noted. This was most likely secondary to NSAID use prior to admission. Postoperative pain along with incentive spirometry, and albuterol Atrovent for pulmonary prophylaxis. IV antibiotics Zosyn. 2. Atrial arrhythmia. Cardiology is following. No atrial fibrillation was found. Patient received IV beta michelle to control tachycardia, currently rate controlled. 3. Acute peritonitis secondary to perforated viscus, patient's on IV Zosyn, Dr. Anthony from infectious disease 4. Lumbar disc disease gabapentin is on hold 5. Acute respiratory failure secondary to worsening bilateral pleural effusion and bilateral airspace disease mostly in the right side. Start the patient on Levaquin 500 mg IV piggyback every 24 hours, continue patient on Zosyn as well, start the patient on nebulized treatment DuoNeb 3 mg nebulization 4 times every day, monitor chest x-ray regularly monitor oxygen support, pulmonary consultation. 6. GI prophylaxis with Protonix 40mg 7. Onychogryphosis, extremely long toenails noted, consult with Dr. Escalante, had nails trimmed. 8. CODE STATUS 9. DVT prophylaxis with heparin subcu 10. Acute pancreatitis most likely secondary to inflammatory reaction from gastric perforation, this will be monitored. 11. Metabolic acidosis secondary to sepsis from peritonitis, this will be monitored 12. Elevated troponin most likely secondary troponin leak from atrial fibrillation new onset. 13. Family history of pancreatic cancer. 14. Patient's prognosis is very guarded. 15. Hypokalemia. Add 20 KCl to the IV fluid and decrease IV fluid to 50 mL an hour, patient would have magnesium level tomorrow morning.
[2016-09-26] MEDS: IPRATROPIUM-ALBUTEROL 3 ML NEB INHALATION PRN (14:42)
[2016-09-26] MEDS: POTASSIUM CHLORIDE 10 MEQ, LIDOCAINE 2% INJ 10 MG in SODIUM CHLORIDE 0.9% 100 ML IV SCH ×2 (17:27→18:37)
[2016-09-26] MEDS: LEVOFLOXACIN 500MG-D5W PMX 500 MG in DEXTROSE/WATER 1 100ML.BAG IVPB SCH (20:16)
[2016-09-26] MEDS: FLUCONAZOLE IN NACL,ISO-OSM 100 MG in SALINE 1 50ML.BAG IVPB SCH (21:16)
[2016-09-26] MEDS: LACTOBACILLUS ACIDOPH & BULGAR 1 EACH PACKET PO SCH (21:18)
[2016-09-26] MEDS: ACETAMINOPHEN TAB 325 MG TAB PO PRN (23:50)
[2016-09-26] MEDS: metroNIDAZOLE-NS PMX 500 MG in SALINE 1 100ML.BAG IVPB SCH (23:56)
[2016-09-27 06:24] LABS: Basophils % (A) 0 %; CHCM 32.5; Eosinophils # (A) 0.1 k/uL (0-0.7); Eosinophils % (A) 1 %; HCT 39.4 % (34.0-46.0); HDW 2.97; HGB 12.6 gm/dL (11.4-16.0); Luc # (Auto) 0.22; Luc % (Auto) 1; Lymphocytes % (A) 5 %; MCH 29.6 pg (25.0-35.0); MCHC 31.9 g/dL (31.0-37.0); MCV 92.9 fL (80.0-100.0); Mean Platelet Volume 8.2; Monocytes # (A) 0.7 k/uL (0-1.0); Monocytes % (A) 3 %; Neutrophils # (A) 18.3 k/uL (1.3-7.7); Neutrophils % (A) 90 %; RBC 4.25 m/uL (3.80-5.40); RDW 15.3 % (11.5-15.5); WBC 20.3 k/uL (3.8-10.6)
[2016-09-27 06:38] LABS: ALT 36 U/L (9-52); AST 15 U/L (14-36); Alkaline Phosphatase 77 U/L (38-126); Anion Gap 7 mmol/L; Blood Urea Nitrogen 7 mg/dL (7-17); Calcium 7.4 mg/dL (8.4-10.2); Carbon Dioxide 26 mmol/L (22-30); Chloride 101 mmol/L (98-107); Glucose 84 mg/dL (74-99); Magnesium 1.5 mg/dL (1.6-2.3); Non-African American GFR(MDRD) >60 (>60 ml/min/1.73 sqM); Sodium 134 mmol/L (137-145); Total Bilirubin 0.6 mg/dL (0.2-1.3); Total Protein 4.2 g/dL (6.3-8.2)
[2016-09-27 06:54] LABS: Potassium 2.9 mmol/L (3.5-5.1)
[2016-09-27] MEDS: POTASSIUM CHLORIDE 10 MEQ, LIDOCAINE 2% INJ 10 MG in SODIUM CHLORIDE 0.9% 100 ML IV SCH ×3 (09:07→11:13)
[2016-09-27] MEDS: metroNIDAZOLE-NS PMX 500 MG in SALINE 1 100ML.BAG IVPB SCH ×2 (09:30→15:52)
[2016-09-27] MEDS: LACTOBACILLUS ACIDOPH & BULGAR 1 EACH PACKET PO SCH ×2 (09:40→21:11)
[2016-09-27] MEDS: HEPARIN SODIUM,PORCINE 5,000 UNIT/ML 1 ML VIAL SQ SCH ×2 (09:40→16:48)
[2016-09-27] MEDS: LISINOPRIL 5 MG TAB PO SCH (09:40)
[2016-09-27] MEDS: METOPROLOL TARTRATE 25 MG TAB PO SCH ×2 (09:40→21:11)
[2016-09-27] MEDS: PANTOPRAZOLE 40 MG TABLET PO SCH (09:40)
[2016-09-27] MEDS: NITROGLYCERIN OINT 1 INCH/GM PACKET TOPICAL SCH ×2 (09:41→16:48)
[2016-09-27] MEDS: PIPERACILLIN-TAZOBACTAM 3.375 GM in DEXTROSE/WATER 1 50ML.BAG IVPB SCH ×2 (10:00→18:45)
[2016-09-27] MEDS: 0.9% NACL WITH KCL 20 MEQ/L 1,000 ML IV SCH (11:18)
--- NOTE | 2016-09-27 11:42 | P.PN ---
Subjective This a pleasant 80-year-old lady patient of Dr. Blanoc Ruiz. She has underlying history of COPD, also arthritis, admitted through the emergency room after she was brought in by EMS secondary to right upper quadrant pain and later developed some shortness of breath, patient was noted to be hypoxemic requiring a nonrebreather mask prior to ER viable, pulse ox on ER was 95%, requiring nasal cannula patient denies any melena hematochezia no chest pain no palpitations, Emergency room, she was hypotensive after an earlier dose of fentanyl, this has stabilized she had full workup to include elevated lipase of 479, troponins were okay, they did additional imaging to include CAT scan of the abdomen and fell pelvis incidentally she was found to have a perforated viscus, also coming in with Rin clinton with rapid ventricular rate, she was immediately taken in operating room after Cardizem drip has been started and was hemodynamically stabilized . Patient was subsequently transferred to ICU postoperatively. Consults were made with Dr. Faith cardiology Dr. Leigh from [facility] currently receiving IV Zosyn for the peritonitis as well as right lower lobe infiltrate. She underwent emergent exploratory laparotomy 09/17/2016 and underwent a partial gastrectomy with loop gastrojejunostomy by Dr. Crowell for an 8 mm perforation in the antrum, and a large prepyloric ulcer abscess-like cavity there is an masslike inflammatory reaction at the location of the ulcer with clinical concern of possibility of malignant perforation. 09/21: Patient has been hemodynamically stable and was transferred to the selective care unit. She continues to have NG tube in place. Daughter is concerned that she has more cough with thick secretions and congestion. Incentive spirometry is only 300-500. Patient is complaining of feeling tired. Cardiology is following for she was noted to be in atrial arrhythmia but no atrial fibrillation. Blood pressure is well controlled. Repeat chest x-ray shows no significant interval change. Patient is followed by Dr. Anthony from infectious disease and continued on Zosyn and fluconazole. Pathology report remains pending. 09/22: Today the patient was noted to be hypoxic. The patient was placed on a Ventimask and O2 came up to 94%. She was drowsy but easily arousable. She has been receiving IV Dilaudid for pain control, this is believed to be the source of her hypoxemia. Her Dilaudid will be held for the next 24 hours. The patient has been receiving potassium supplementation per protocol, today her potassium was still noted to be 3.1. Magnesium was 1.4, supplement ordered along with potassium supplement per protocol, will recheck potassium this afternoon. The patient continues to be followed by Dr. Anthony. Blood cultures show no growth after 96 hours. 09/23: Patient still requires Ventimask to achieve a O2 sat above 90%. The patient Chest x-ray showed little interval change from the previous x-ray she does have bilateral effusions but no significant change. The patient did have her NG tube removed. Cardiology is following patient for her atrial arrhythmia with no evidence of atrial fibrillation. Infectious disease is also following patient who is planning for 3 further days of antibiotics at this time. Pathology report still pending. Her potassium improved to 3.6. 09/24: Last night the patient had an episode of sinus tachycardia with a rate of 120s. She is consulted by Dr. Faith who gave her a dose of IV beta michelle and and by mouth beta michelle was increased. Her heart rate is in the 70s currently. Her pathology did not report any malignancy and H. pylori was negative. Dr. Anthony is recommended two further days of antibiotics at this time. She was also consulted by Dr. Escalante for elongated thick dystrophic nails. Nails were reduced 1 through 5 bilaterally. There were concerns about aspiration, patient had barium swallow done today. Barium swallow showed penetration without aspiration with thin liquids. 09/25: The patient remaines hypokalemic last potassium was 3.1 despite multiple doses of potassium chloride. Will replace potassium and magnesium, will add cortisol level as well. Sodium noted to be 1:30. The patient was switched from a Ventimask to 6 L nasal cannula today. She continues to pull at the oxygen tubing. She remains on antibiotics of Zosyn along with flucanazole. The patient's heart rate remains in the 60s, currently rate controlled. 09/26/2016: Patient appears to be very weak today and she is more dyspneic, portal chest x-ray was done and the patient showed worsening bilateral pleural effusion and worsening airspace disease more the right side than the left side, subsequently I spoke with the nurse about starting the patient DuoNeb treatment nebulization 4 times every day, oxygen support, start the patient on Levaquin 500 mg IV piggyback every 24 hours, and obtain pulmonary consultation from Dr. Crane. [id number]: Patient developed to have a significant diarrhea yesterday and she became quite lethargic, her C. diff came back positive, patient was started on Flagyl 500 mg IV piggyback every 8 hours, she also had a chest x-ray that showed bilateral pleural effusion with bibasilar airspace disease, patient was placed on Levaquin along with the Zosyn and she will be seen by pulmonary medicine as well. Objective - Vital Signs Vital signs: Vital Signs Temp 97.6 F 09/27/16 09:10 Pulse 80 09/27/16 09:10 Resp 20 09/27/16 09:10 BP 152/67 09/27/16 09:10 Pulse Ox 92 L 09/27/16 09:10 Intake & Output 09/26/16 09/27/16 09/27/16 18:59 06:59 18:59 Intake Total 800 Output Total 104 204 Balance 696 -204 Weight 50.5 kg Intake: IV 50 Piperacillin-Tazobactam 3 50 .375 gm In Dextrose/Water 1 50ml.bag @ 12.5 mls/hr IVPB Q8HR [facility] Rx#: [id number] Intake, IV Titration 600 Amount 0.9% NaCl with KCl 20 Meq 600 /l 1,000 ml @ 50 mls/hr IV .Q20H [facility] Rx#: [id number] Oral 150 Output: Urine 100 200 Stool 4 4 Other: Voiding Method Diaper Diaper # Voids 2 1 # Bowel Movements 2 1 - Exam General appearance: average body habitus, cooperative, no acute distress - EENT Eyes: anicteric sclerae, edentulous, PERRLA, normal appearance ENT: no hard of hearing, hearing grossly normal, NA/AT, normal oropharynx, no other, no pharyngeal erythema, no thrush, no tonsillar exudates, no tonsillar swelling - Neck Neck: no lymphadenopathy, normal ROM, no other, no rigidity, no stridor, no thyromegaly - Respiratory Respiratory: bilateral: CTA, diminished, negative: dullness, rales, rhonchi, wheezing - Cardiovascular Rhythm: regular Heart sounds: normal: S1, S2 Abnormal Heart Sounds: no systolic murmur, no diastolic murmur, no rub, no S3 Gallop, no S4 Gallop, no click, no other - Gastrointestinal General gastrointestinal: decreased bowel sounds, soft Localized gastrointestinal: tender: diffuse - Integumentary Integumentary: normal - Neurologic Neurologic: CNII-XII intact - Musculoskeletal Musculoskeletal: strength equal bilaterally - Psychiatric Psychiatric: A&O x's 3, appropriate affect, intact judgment & insight - Labs CBC & Chem 7: 09/27/16 05:32 09/27/16 05:32 Labs: Abnormal Lab Results - Last 24 Hours (Table) 09/26/16 09/26/16 09/27/16 Range/Units 13:56 16:00 05:32 WBC 20.3 H (3.8-10.6) k/uL Neutrophils # 18.3 H (1.3-7.7) k/uL Sodium (137-145) mmol/L Potassium 3.3 L (3.5-5.1) mmol/L Creatinine (0.52-1.04) mg/dL Calcium (8.4-10.2) mg/dL Magnesium (1.6-2.3) mg/dL Total Protein (6.3-8.2) g/dL Albumin (3.5-5.0) g/dL C. difficile (EIA) Intrp Positive A (Negative) 09/27/16 Range/Units 05:32 WBC (3.8-10.6) k/uL Neutrophils # (1.3-7.7) k/uL Sodium 134 L (137-145) mmol/L Potassium 2.9 L* (3.5-5.1) mmol/L Creatinine 0.50 L (0.52-1.04) mg/dL Calcium 7.4 L (8.4-10.2) mg/dL Magnesium 1.5 L (1.6-2.3) mg/dL Total Protein 4.2 L (6.3-8.2) g/dL Albumin 2.1 L (3.5-5.0) g/dL C. difficile (EIA) Intrp (Negative) Assessment and Plan Plan: Assessment and Plan Plan: Plan: 1. Status post exploratory laparotomy perforated gastric ulcer and prepyloric ulcer requiring partial gastrectomy and loop gastrojejunostomy on 09/17/2016 secondary to pneumoperitoneum noted. This was most likely secondary to NSAID use prior to admission. Postoperative pain along with incentive spirometry, and albuterol Atrovent for pulmonary prophylaxis. IV antibiotics Zosyn. 2. Atrial arrhythmia. Cardiology is following. No atrial fibrillation was found. Patient received IV beta michelle to control tachycardia, currently rate controlled. 3. Acute peritonitis secondary to perforated viscus, patient's on IV Zosyn, Dr. Anthony from infectious disease 4. Lumbar disc disease gabapentin is on hold 5. Acute respiratory failure secondary to worsening bilateral pleural effusion and bilateral airspace disease mostly in the right side. Start the patient on Levaquin 500 mg IV piggyback every 24 hours, continue patient on Zosyn as well, start the patient on nebulized treatment DuoNeb 3 mg nebulization 4 times every day, monitor chest x-ray regularly monitor oxygen support, pulmonary consultation. 6. GI prophylaxis with Protonix 40mg 7. Onychogryphosis, extremely long toenails noted, consult with Dr. Escalante, had nails trimmed. 8. CODE STATUS 9. DVT prophylaxis with heparin subcu 10. Acute pancreatitis most likely secondary to inflammatory reaction from gastric perforation, this will be monitored. 11. Metabolic acidosis secondary to sepsis from peritonitis, this will be monitored 12. Elevated troponin most likely secondary troponin leak from atrial fibrillation new onset. 13. Family history of pancreatic cancer. 14. Patient's prognosis is very guarded. 15. Hypokalemia. Add 20 KCl to the IV fluid and decrease IV fluid to 50 mL an hour, patient would have magnesium level tomorrow morning. 16. C. difficile colitis. Continue Flagyl 500 mg IV piggyback every 8 hours, continue with Lactinex 1 packet orally twice every day, continue contact isolation, monitor the patient electrolytes including. Improving creatinine and magnesium.
[2016-09-27] MEDS: MAGNESIUM SULFATE-D5W PMX 1 GM in DEXTROSE/WATER 1 100ML.BAG IVPB SCH ×2 (12:13→14:31)
--- NOTE | 2016-09-27 12:25 | P.PN ---
Progress Note - Text The patient resting comfortably in her bed. She has really no complaints of pain. She has been tolerating a full liquid diet On exam her vital signs appear stable. Her abdomen is soft. Incision site is clean dry tach. Patient will have her diet advanced to a soft diet. Dr. Mcdonald will resume her care in the a.m.
[2016-09-27] MEDS: POTASSIUM CHLORIDE 20 MEQ, LIDOCAINE 2% INJ 20 MG in SODIUM CHLORIDE 0.9% 100 ML IVPB SCH ×3 (13:27→18:44)
[2016-09-27] MEDS: LEVOFLOXACIN 500MG-D5W PMX 500 MG in DEXTROSE/WATER 1 100ML.BAG IVPB SCH (14:31)
[2016-09-27] MEDS: FLUCONAZOLE IN NACL,ISO-OSM 100 MG in SALINE 1 50ML.BAG IVPB SCH (20:45)
[2016-09-28] MEDS: metroNIDAZOLE-NS PMX 500 MG in SALINE 1 100ML.BAG IVPB SCH ×3 (00:21→15:26)
[2016-09-28] MEDS: NITROGLYCERIN OINT 1 INCH/GM PACKET TOPICAL SCH ×3 (00:22→15:24)
[2016-09-28] MEDS: PIPERACILLIN-TAZOBACTAM 3.375 GM in DEXTROSE/WATER 1 50ML.BAG IVPB SCH ×3 (00:34→15:23)
[2016-09-28] MEDS: HEPARIN SODIUM,PORCINE 5,000 UNIT/ML 1 ML VIAL SQ SCH ×3 (00:34→15:24)
[2016-09-28 05:55] LABS: Basophils % (A) 0 %; CH 29.6; CHCM 32.3; Eosinophils # (A) 0.1 k/uL (0-0.7); Eosinophils % (A) 1 %; HCT 38.4 % (34.0-46.0); HDW 2.96; HGB 12.7 gm/dL (11.4-16.0); Hypochromasia Slight; Luc # (Auto) 0.19; Luc % (Auto) 1; Lymphocytes % (A) 6 %; MCH 30.6 pg (25.0-35.0); MCHC 33.2 g/dL (31.0-37.0); MCV 92.2 fL (80.0-100.0); Mean Platelet Volume 7.9; Monocytes # (A) 0.6 k/uL (0-1.0); Monocytes % (A) 4 %; Neutrophils # (A) 15.3 k/uL (1.3-7.7); Neutrophils % (A) 89 %; RBC 4.16 m/uL (3.80-5.40); RDW 15.1 % (11.5-15.5); WBC 17.2 k/uL (3.8-10.6); WBC (Perox) 18.03
[2016-09-28 06:09] LABS: ALT 31 U/L (9-52); AST 14 U/L (14-36); Alkaline Phosphatase 69 U/L (38-126); Anion Gap 5 mmol/L; Blood Urea Nitrogen 5 mg/dL (7-17); Calcium 7.2 mg/dL (8.4-10.2); Carbon Dioxide 26 mmol/L (22-30); Chloride 105 mmol/L (98-107); Glucose 102 mg/dL (74-99); Magnesium 1.7 mg/dL (1.6-2.3); Non-African American GFR(MDRD) >60 (>60 ml/min/1.73 sqM); Potassium 3.4 mmol/L (3.5-5.1); Sodium 136 mmol/L (137-145); Total Bilirubin 0.5 mg/dL (0.2-1.3); Total Protein 4.1 g/dL (6.3-8.2)
[2016-09-28] MEDS: 0.9% NACL WITH KCL 20 MEQ/L 1,000 ML IV SCH (06:51)
[2016-09-28] MEDS: METOPROLOL TARTRATE 25 MG TAB PO SCH ×2 (09:02→22:04)
[2016-09-28] MEDS: PANTOPRAZOLE 40 MG TABLET PO SCH (09:03)
[2016-09-28] MEDS: LACTOBACILLUS ACIDOPH & BULGAR 1 EACH PACKET PO SCH ×2 (09:03→22:04)
[2016-09-28] MEDS: LISINOPRIL 5 MG TAB PO SCH (09:03)
[2016-09-28] MEDS: POTASSIUM CHLORIDE ER 20 MEQ TAB.ER PO SCH ×2 (09:09→10:10)
[2016-09-28] MEDS: ACETAMINOPHEN TAB 325 MG TAB PO PRN ×2 (11:34→15:40)
[2016-09-28] MEDS: LEVOFLOXACIN 500MG-D5W PMX 500 MG in DEXTROSE/WATER 1 100ML.BAG IVPB SCH (14:11)
--- NOTE | 2016-09-28 17:24 | P.PN ---
Subjective 80-year-old female patient with known history of COPD who presented to the hospital because of a right upper quadrant pain and shortness of breath and hypoxemia. The patient was also hypotensive. Further workup showed a 2 fibrillation with rapid ventricular response. In addition, the patient was found to have a perforated viscus for which she was taken to the operating room and she underwent an extra to laparotomy on 09/17/2016 and the patient underwent a partial gastrectomy with a loop gastrojejunostomy for an 8 mm perforated antrum and a large prepyloric ulcer/abscess. Postop the patient was brought into the intensive care unit and the patient was started on IV Zosyn and Diflucan and she was treated also for a right lower lobe pneumonia. Her condition was further stabilized and the patient got moved out of the intensive care units. On today's evaluation of 09/28/2016, the patient seems to be slightly dyspneic. She is quite weak and debilitated. Her chest x-ray showing bilateral pleural effusion/airspace disease worse on the right. Antibiotics have been modified by infectious disease and the patient is currently on a combination of Zosyn and Levaquin and the patient was started on IV Flagyl for C. diff colitis. She is having some liquidy/diarrhea bowel movements. The white cell count is down to 17.2. Renal function is stable with a creatinine of 0.4. Objective - Vital Signs Vital signs: Vital Signs Temp 96.7 F L 09/28/16 15:32 Pulse 67 09/28/16 15:32 Resp 20 09/28/16 15:32 BP 141/72 09/28/16 15:32 Pulse Ox 95 09/28/16 15:32 Intake & Output 09/27/16 09/28/16 09/28/16 18:59 06:59 18:59 Intake Total 375 883 3955 Output Total 252 5 Balance 632 786 7268 Weight 50 kg 50 kg Intake: IV 725 500 300 0.9% NaCl with KCl 20 Meq 400 400 /l 1,000 ml @ 50 mls/hr IV .Q20H [facility] Rx#: [id number] Fluconazole in NaCl,Iso- 50 50 Osm 100 mg In Saline 1 50ml.bag @ 50 mls/hr IVPB Q24H [facility] Rx#:[id number] Magnesium Sulfate-D5w Pmx 200 1 gm In Dextrose/Water 1 100ml.bag @ 100 mls/hr IVPB Q1H [facility] Rx#: [id number] Piperacillin-Tazobactam 3 75 50 100 .375 gm In Dextrose/Water 1 50ml.bag @ 12.5 mls/hr IVPB Q8HR [facility] Rx#: [id number] metroNIDAZOLE-NS PMX 500 200 mg In Saline 1 100ml.bag @ 100 mls/hr IVPB Q8HR [facility] Rx#:[id number] Intake, IV Titration 600 Amount 0.9% NaCl with KCl 20 Meq 600 /l 1,000 ml @ 50 mls/hr IV .Q20H [facility] Rx#: [id number] Oral 300 Output: Urine 250 Stool 2 5 Other: Voiding Method Diaper Diaper Diaper # Voids 3 # Bowel Movements 1 - Exam Gen. appearance the patient is calm and comfortable no acute rest. She is an elderly woman.Head exam was generally normal. There was no scleral icterus or corneal arcus. Mucous membranes were moist.Neck was supple and without jugular venous distension, thyromegaly, or carotid bruits. Carotids were easily palpable bilaterally. There was no adenopathy. Lung sounds are diminished in lung bases bilaterally more so in the right lung base.Cardiac exam revealed the PMI to be normally situated and sized. The rhythm was regular and no extrasystoles were noted during several minutes of auscultation. The first and second heart sounds were normal and physiologic splitting of the second heart sound was noted. There were no murmurs, rubs, clicks, or gallops. Abdomen is soft and there is hypoactive bowel sounds. The surgical wound site over the anterior abdominal wall is clean and intact. There is no active drainage or any signs of wound infection.Examination of the extremities revealed easily palpable radial, femoral and pedal pulses. There was no cyanosis, clubbing or edema. - Labs CBC & Chem 7: 09/28/16 05:38 09/28/16 05:38 Labs: Abnormal Lab Results - Last 24 Hours (Table) 09/28/16 09/28/16 Range/Units 05:38 05:38 WBC 17.2 H (3.8-10.6) k/uL Neutrophils # 15.3 H (1.3-7.7) k/uL Sodium 136 L (137-145) mmol/L Potassium 3.4 L (3.5-5.1) mmol/L BUN 5 L (7-17) mg/dL Creatinine 0.40 L (0.52-1.04) mg/dL Glucose 102 H (74-99) mg/dL Calcium 7.2 L (8.4-10.2) mg/dL Total Protein 4.1 L (6.3-8.2) g/dL Albumin 2.0 L (3.5-5.0) g/dL Assessment and Plan Plan: Assessment 1 perforated gastric ulcer in the prepyloric ulcer requiring partial gastrectomy and loop gastrojejunostomy and surgery was done on 09/17/2016. Rule out NSAID-induced peptic ulcer disease. 2 abdominal peritonitis secondary to perforated viscus, still on a combination of Zosyn, Levaquin and Diflucan 3 C. diff colitis currently on IV Flagyl 4 atrial fibrillation 5 metabolic acidosis secondary to peritonitis/sepsis, improved 6 bilateral lower lobe consolidation and pleural effusion, rule out hospital- acquired versus aspiration pneumonia. The patient is still on a combination of Zosyn and Levaquin. Oxygenation is stable for now 7 hypertension, history of 8 COPD, history of Plan Continue current antibiotic coverage. Repeat chest x-ray with the next 24 hours. Advance diet as tolerated. Encouraged use of incentive spirometer. Continue the bronchodilators. Heparin subcu for DVT prophylaxis. We'll continue to follow.
--- NOTE | 2016-09-28 21:09 | P.PN ---
Subjective Principal diagnosis: Abdominal pain Pleasant 80-year-old female with a long-standing history of COPD presented to the emergency center with a several-day history of increasing abdominal pain. She relates over 3 or 4 days she was having increasing amounts of discomfort. She was feeling gassy and bloated. One day before admission she was having increasing amounts of discomfort and it went to her back. She Presented to the Emergency Center. Evaluation Revealed a Computed Tomography Scan of the Abdomen and Pelvis That Had Evidence of Pneumoperitoneum. She Was Taken to the Operating Room with Evidence of a Perforated Gastric Ulcer. The Partial Gastrectomy in Loop Gastrojejunostomy Was Performed. Pathology is pending for the mass that was noted in the stomach at the time of the resection. The patient had an increase of her leukocytosis and with concerns ongoing sepsis the infectious diseases consultation was requested. She relates that she has ongoing pain but it is improved. She would like to eat. She relates that she started to get some appetite. Not feeling well today. It increasing stools. Was found to have evidence of C. diff. Is also having some ongoing shortness of breath associated with to her effusions. Objective - Vital Signs Vital signs: Vital Signs Temp 96.7 F L 09/28/16 15:32 Pulse 67 09/28/16 15:32 Resp 20 09/28/16 15:32 BP 141/72 09/28/16 15:32 Pulse Ox 95 09/28/16 15:32 Intake & Output 09/28/16 09/28/16 09/29/16 06:59 18:59 06:59 Intake Total 500 1320 600 Output Total 5 Balance 495 1320 600 Weight 50 kg 50 kg Intake: IV 500 300 600 0.9% NaCl with KCl 20 Meq 400 600 /l 1,000 ml @ 50 mls/hr IV .Q20H [facility] Rx#: [id number] Fluconazole in NaCl,Iso- 50 Osm 100 mg In Saline 1 50ml.bag @ 50 mls/hr IVPB Q24H [facility] Rx#:[id number] Piperacillin-Tazobactam 3 50 100 .375 gm In Dextrose/Water 1 50ml.bag @ 12.5 mls/hr IVPB Q8HR [facility] Rx#: [id number] metroNIDAZOLE-NS PMX 500 200 mg In Saline 1 100ml.bag @ 100 mls/hr IVPB Q8HR [facility] Rx#:[id number] Intake, IV Titration 600 Amount 0.9% NaCl with KCl 20 Meq 600 /l 1,000 ml @ 50 mls/hr IV .Q20H [facility] Rx#: [id number] Oral 420 Output: Stool 5 Other: Voiding Method Diaper Diaper # Voids 3 # Bowel Movements 1 - Exam Pleasant 80-year-old woman who is more comfortable and relate she's getting some desire for food. HEENT: Anicteric conjunctiva are pink and moist nasal mucosa grossly intact without significant lesions, there is no thrush. G-tube removed Neck: The neck is supple without significant lymphadenopathy or thyromegaly. Lungs: Good bilateral air entry basilar crackles are heard right greater than left. Heart: Regular rate and rhythm with an audible S1-S2, no S3 no S4. There is no significant murmur click or rub, PMI was nondisplaced. Abdomen: Soft, still somewhat tender in the right upper quadrant, midline incision is without much drainage. She has few bowel sounds. She is not rigid. Organomegaly was not palpated. Extremities: The upper extremities have excellent pulses they are symmetric, no significant petechiae or telangiectasia. No splinter hemorrhages were noted. The lower extremities are free from significant edema. The peripheral pulses were 2+ and symmetric. Neuro: Awake alert oriented to person place and time. There are no acute new gross focal sensory motor deficits. - Labs CBC & Chem 7: 09/28/16 05:38 09/28/16 05:38 Labs: Abnormal Lab Results - Last 24 Hours (Table) 09/28/16 09/28/16 Range/Units 05:38 05:38 WBC 17.2 H (3.8-10.6) k/uL Neutrophils # 15.3 H (1.3-7.7) k/uL Sodium 136 L (137-145) mmol/L Potassium 3.4 L (3.5-5.1) mmol/L BUN 5 L (7-17) mg/dL Creatinine 0.40 L (0.52-1.04) mg/dL Glucose 102 H (74-99) mg/dL Calcium 7.2 L (8.4-10.2) mg/dL Total Protein 4.1 L (6.3-8.2) g/dL Albumin 2.0 L (3.5-5.0) g/dL Laboratory Results WBC 17.2 k/uL (3.8-10.6) H 09/28/16 05:38 RBC 4.16 m/uL (3.80-5.40) 09/28/16 05:38 Hgb 12.7 gm/dL (11.4-16.0) 09/28/16 05:38 Hct 38.4 % (34.0-46.0) 09/28/16 05:38 MCV 92.2 fL (80.0-100.0) 09/28/16 05:38 MCH 30.6 pg (25.0-35.0) 09/28/16 05:38 MCHC 33.2 g/dL (31.0-37.0) 09/28/16 05:38 RDW 15.1 % (11.5-15.5) 09/28/16 05:38 Plt Count 332 k/uL (150-450) 09/28/16 05:38 Neutrophils % 89 % 09/28/16 05:38 Neutrophils % (Manual) 22.5 % 09/18/16 04:37 Band Neutrophils % 65.0 % 09/18/16 04:37 Lymphocytes % 6 % 09/28/16 05:38 Lymphocytes % (Manual) 6.0 % 09/18/16 04:37 Monocytes % 4 % 09/28/16 05:38 Monocytes % (Manual) 4.0 % 09/18/16 04:37 Eosinophils % 1 % 09/28/16 05:38 Basophils % 0 % 09/28/16 05:38 Metamyelocytes % 2.5 % 09/18/16 04:37 Neutrophils # 15.3 k/uL (1.3-7.7) H 09/28/16 05:38 Neutrophils # (Manual) 10.3 k/uL (1.3-7.7) H 09/18/16 04:37 Lymphocytes # 1.0 k/uL (1.0-4.8) 09/28/16 05:38 Lymphocytes # (Manual) 0.7 k/uL (1.0-4.8) L 09/18/16 04:37 Monocytes # 0.6 k/uL (0-1.0) 09/28/16 05:38 Monocytes # (Manual) 0.5 k/uL (0-1.0) 09/18/16 04:37 Eosinophils # 0.1 k/uL (0-0.7) 09/28/16 05:38 Basophils # 0.0 k/uL (0-0.2) 09/28/16 05:38 Nucleated RBCs 0 /100 WBC (0-0) 09/18/16 04:37 Manual Slide Review Performed 09/17/16 10:11 Toxic Vacuolation Present 09/18/16 04:37 Polychromasia Present 09/18/16 04:37 Hypochromasia Slight 09/28/16 05:38 Poikilocytosis (manual Present 09/18/16 04:37 Anisocytosis (manual) Present 09/18/16 04:37 PT 12.3 sec (9.0-12.0) H 09/17/16 10:11 INR 1.2 (<1.1) 09/17/16 10:11 APTT 21.5 sec (22.0-30.0) L 09/17/16 10:11 D-Dimer 3.61 mg/L FEU (<0.60) H 09/17/16 10:11 Sample Site lrad 09/22/16 12:40 ABG pH 7.51 (7.35-7.45) H 09/22/16 12:40 ABG pCO2 28 mmHg (35-45) L 09/22/16 12:40 ABG pO2 71 mmHg (83-108) L 09/22/16 12:40 ABG HCO3 22 mmol/L (21-25) 09/22/16 12:40 ABG Total CO2 23 mmol/L (19-24) 09/22/16 12:40 ABG O2 Saturation 96.0 % (94-97) 09/22/16 12:40 ABG Base Excess -0.8 mmol/L 09/22/16 12:40 FiO2 40 % 09/22/16 12:40 Sodium 136 mmol/L (137-145) L 09/28/16 05:38 Potassium 3.4 mmol/L (3.5-5.1) L 09/28/16 05:38 Chloride 105 mmol/L (98-107) 09/28/16 05:38 Carbon Dioxide 26 mmol/L (22-30) 09/28/16 05:38 Anion Gap 5 mmol/L 09/28/16 05:38 BUN 5 mg/dL (7-17) L 09/28/16 05:38 Creatinine 0.40 mg/dL (0.52-1.04) L 09/28/16 05:38 Est GFR (MDRD) Af Amer >60 (>60 ml/min/1.73 sqM) 09/28/16 05:38 Est GFR (MDRD) Non-Af >60 (>60 ml/min/1.73 sqM) 09/28/16 05:38 Glucose 102 mg/dL (74-99) H 09/28/16 05:38 POC Glucose (mg/dL) 107 mg/dL (75-99) H 09/17/16 19:17 POC Glu [employer]ist ID Melodie Thomson 09/17/16 19:17 Plasma Lactic Acid Denny 1.4 mmol/L (0.7-2.0) 09/17/16 10:11 Calcium 7.2 mg/dL (8.4-10.2) L 09/28/16 05:38 Phosphorus 1.8 mg/dL (2.5-4.5) L 09/21/16 05:48 Magnesium 1.7 mg/dL (1.6-2.3) 09/28/16 05:38 Total Bilirubin 0.5 mg/dL (0.2-1.3) 09/28/16 05:38 AST 14 U/L (14-36) 09/28/16 05:38 ALT 31 U/L (9-52) 09/28/16 05:38 Alkaline Phosphatase 69 U/L (38-126) 09/28/16 05:38 Total Creatine Kinase 39 U/L (30-135) 09/17/16 10:11 CK-MB (CK-2) 1.1 ng/mL (0.0-2.4) 09/17/16 10:11 CK-MB (CK-2) Rel Index 2.8 09/17/16 10:11 Troponin I 0.061 ng/mL (0.000-0.034) H* 09/17/16 22:07 NT-Pro-B Natriuret Pep 4080 pg/mL 09/18/16 04:37 Total Protein 4.1 g/dL (6.3-8.2) L 09/28/16 05:38 Albumin 2.0 g/dL (3.5-5.0) L 09/28/16 05:38 Amylase 108 U/L (30-110) 09/17/16 10:11 Lipase 21 U/L (23-300) L 09/19/16 04:36 TSH 2.030 mIU/L (0.465-4.680) 09/18/16 04:37 Cortisol 41 ug/dL 09/25/16 06:01 Urine Color Yellow 09/17/16 22:30 Urine Appearance Clear (Clear) 09/17/16 22:30 Urine pH 6.5 (5.0-8.0) 09/17/16 22:30 Ur Specific [place] 1.050 (1.001-1.035) H 09/17/16 22:30 Urine Protein 1+ (Negative) H 09/17/16 22:30 Urine Glucose (UA) Negative (Negative) 09/17/16 22:30 Urine Ketones Negative (Negative) 09/17/16 22:30 Urine Blood Negative (Negative) 09/17/16 22:30 Urine Nitrite Negative (Negative) 09/17/16 22:30 Urine Bilirubin Negative (Negative) 09/17/16 22:30 Urine Urobilinogen <2.0 mg/dL (<2.0) 09/17/16 22:30 Ur Leukocyte Esterase Trace (Negative) H 09/17/16 22:30 Urine RBC 7 /hpf (0-5) H 09/17/16 22:30 Urine WBC 3 /hpf (0-5) 09/17/16 22:30 Urine Bacteria Rare /hpf (None) H 09/17/16 22:30 Urine Mucus Rare /hpf (None) H 09/17/16 12:30 C. difficile (EIA) Intrp Positive (Negative) A 09/26/16 16:00 Blood Type A Positive 09/17/16 10:11 Blood Type Confirm A Positive 09/17/16 13:04 Blood Type Recheck CABO Indicated 09/17/16 10:11 Antibody Screen NEGATIVE 09/17/16 10:11 Spec Expiration Date 09/20/2016 - 231009/17/16 10:11 Microbiology 09/17/16 16:00 Blood Blood Culture - Final No Growth after 144 hours 09/17/16 22:30 Urine,Catheterized Urine Culture - Final - Imaging and Cardiology Chest x-ray: image reviewed (Worsening atelectasis possible fluid right base) Assessment and Plan (1) Perforated viscus Narrative/Plan: 80-year-old female presents to hospital with a several-day history of abdominal pain. Imaging studies revealed evidence of the pneumoperitoneum. She was taken to the operating room and the perforated gastric ulceration was noted. This is been sent to the laboratory for further pathological review. That is pending at this time. The patient is feeling slightly better. She now has an increasing amount of leukocytosis. It is not a significant change. Likely due to the current extensive illness. She is on appropriate antibiotic therapy with Zosyn and fluconazole. She has no history of MRSA. She seems to be having some improvement in she's getting some appetite. Appetite improving, and a bowel movement this evening. Oral cavity care does make her feel better. Cultures are processing negative so far. Pathology did not report any malignancy, and H. pylori was negative. Patient now has evidence of Clostridium difficile colitis. Prior antibiotic therapy will be discontinued. Oral vancomycin therapy given her current level of illness. Continue supportive care. Prognosis remains poor. Status: Acute (2) Pneumoperitoneum Status: Acute (3) Leukocytosis Status: Acute
--- NOTE | 2016-09-28 22:45 | P.PN ---
Subjective Principal diagnosis: Perforated ulcer Patient seen today with her daughter at the bedside. Denies abdominal pain. Eating better. No nausea or vomitin. Being treated currently for C. difficile colitis. Objective - Vital Signs Vital signs: Vital Signs Temp 96.7 F L 09/28/16 15:32 Pulse 67 09/28/16 15:32 Resp 20 09/28/16 15:32 BP 141/72 09/28/16 15:32 Pulse Ox 95 09/28/16 15:32 Intake & Output 09/28/16 09/28/16 09/29/16 06:59 18:59 06:59 Intake Total 500 1320 600 Output Total 5 Balance 495 1320 600 Weight 50 kg 50 kg Intake: IV 500 300 600 0.9% NaCl with KCl 20 Meq 400 600 /l 1,000 ml @ 50 mls/hr IV .Q20H [facility] Rx#: [id number] Fluconazole in NaCl,Iso- 50 Osm 100 mg In Saline 1 50ml.bag @ 50 mls/hr IVPB Q24H [facility] Rx#:[id number] Piperacillin-Tazobactam 3 50 100 .375 gm In Dextrose/Water 1 50ml.bag @ 12.5 mls/hr IVPB Q8HR [facility] Rx#: [id number] metroNIDAZOLE-NS PMX 500 200 mg In Saline 1 100ml.bag @ 100 mls/hr IVPB Q8HR [facility] Rx#:[id number] Intake, IV Titration 600 Amount 0.9% NaCl with KCl 20 Meq 600 /l 1,000 ml @ 50 mls/hr IV .Q20H [facility] Rx#: [id number] Oral 420 Output: Stool 5 Other: Voiding Method Diaper Diaper # Voids 3 # Bowel Movements 1 - Exam Abdomen: Soft, nondistended, nontender, some serous drainage from the old drain site, midline incision clean and dry - Labs CBC & Chem 7: 09/28/16 05:38 09/28/16 05:38 Labs: Abnormal Lab Results - Last 24 Hours (Table) 09/28/16 09/28/16 Range/Units 05:38 05:38 WBC 17.2 H (3.8-10.6) k/uL Neutrophils # 15.3 H (1.3-7.7) k/uL Sodium 136 L (137-145) mmol/L Potassium 3.4 L (3.5-5.1) mmol/L BUN 5 L (7-17) mg/dL Creatinine 0.40 L (0.52-1.04) mg/dL Glucose 102 H (74-99) mg/dL Calcium 7.2 L (8.4-10.2) mg/dL Total Protein 4.1 L (6.3-8.2) g/dL Albumin 2.0 L (3.5-5.0) g/dL Assessment and Plan (1) Pneumoperitoneum Narrative/Plan: Continue diet as ordered. Continue antibiotics per infectious disease. Monitor the patient's leukocytosis closely. We'll follow with you. Status: Acute
[2016-09-28] MEDS: FLUCONAZOLE IN NACL,ISO-OSM 100 MG in SALINE 1 50ML.BAG IVPB SCH (23:37)
[2016-09-29] MEDS: NITROGLYCERIN OINT 1 INCH/GM PACKET TOPICAL SCH ×2 (00:42→08:29)
[2016-09-29] MEDS: HEPARIN SODIUM,PORCINE 5,000 UNIT/ML 1 ML VIAL SQ SCH ×4 (00:42→23:51)
[2016-09-29] MEDS: VANCOMYCIN ORAL SOLUTION 250 MG/5 ML BOTTLE PO SCH ×5 (01:01→23:50)
[2016-09-29] MEDS: CHERRY FLAVOR 60 ML BOTTLE PO SCH ×5 (01:01→23:51)
[2016-09-29] MEDS: 0.9% NACL WITH KCL 20 MEQ/L 1,000 ML IV SCH (01:29)
[2016-09-29] MEDS: IPRATROPIUM-ALBUTEROL 3 ML NEB INHALATION PRN ×2 (03:05→07:27)
[2016-09-29 06:31] LABS: Basophils % (A) 0 %; CH 29.9; CHCM 32.1; Eosinophils # (A) 0.1 k/uL (0-0.7); Eosinophils % (A) 1 %; HCT 36.5 % (34.0-46.0); HGB 11.5 gm/dL (11.4-16.0); Hypochromasia Slight; Luc # (Auto) 0.16; Luc % (Auto) 1; Lymphocytes # (A) 1.3 k/uL (1.0-4.8); Lymphocytes % (A) 8 %; MCH 29.6 pg (25.0-35.0); MCHC 31.6 g/dL (31.0-37.0); MCV 93.6 fL (80.0-100.0); Mean Platelet Volume 7.9; Monocytes # (A) 0.7 k/uL (0-1.0); Monocytes % (A) 4 %; Neutrophils # (A) 13.6 k/uL (1.3-7.7); Neutrophils % (A) 86 %; RDW 15.3 % (11.5-15.5); WBC 15.9 k/uL (3.8-10.6); WBC (Perox) 16.71
[2016-09-29] MEDS: LACTOBACILLUS ACIDOPH & BULGAR 1 EACH PACKET PO SCH ×2 (08:28→17:26)
[2016-09-29] MEDS: LISINOPRIL 5 MG TAB PO SCH (08:29)
[2016-09-29] MEDS: METOPROLOL TARTRATE 25 MG TAB PO SCH ×2 (08:29→23:45)
[2016-09-29] MEDS: PANTOPRAZOLE 40 MG TABLET PO SCH (08:29)
--- NOTE | 2016-09-29 08:50 | XR ---
EXAMINATION TYPE: XR chest 1V DATE OF EXAM: 09/29/2016 HISTORY: pneumonia. REFERENCE: Previous study dated 09/26/2016. FINDINGS: There is persistent bibasilar airspace disease, worse on the right than the left. Heart siz e is obscured. I cannot exclude effusions. IMPRESSION: 1. CONTINUING BIBASILAR AIRSPACE DISEASE. 2. I CANNOT EXCLUDE BILATERAL EFFUSIONS.
[2016-09-29 09:25] LABS: ALT 26 U/L (9-52); AST 15 U/L (14-36); Alkaline Phosphatase 65 U/L (38-126); Anion Gap 7 mmol/L; Blood Urea Nitrogen 6 mg/dL (7-17); Calcium 7.6 mg/dL (8.4-10.2); Carbon Dioxide 24 mmol/L (22-30); Chloride 107 mmol/L (98-107); Glucose 88 mg/dL (74-99); Magnesium 1.5 mg/dL (1.6-2.3); Non-African American GFR(MDRD) >60 (>60 ml/min/1.73 sqM); Potassium 3.6 mmol/L (3.5-5.1); Sodium 138 mmol/L (137-145); Total Bilirubin 0.6 mg/dL (0.2-1.3); Total Protein 4.1 g/dL (6.3-8.2)
--- NOTE | 2016-09-29 11:11 | P.PN ---
Subjective 80-year-old female patient with known history of COPD who presented to the hospital because of a right upper quadrant pain and shortness of breath and hypoxemia. The patient was also hypotensive. Further workup showed a 2 fibrillation with rapid ventricular response. In addition, the patient was found to have a perforated viscus for which she was taken to the operating room and she underwent an extra to laparotomy on 09/17/2016 and the patient underwent a partial gastrectomy with a loop gastrojejunostomy for an 8 mm perforated antrum and a large prepyloric ulcer/abscess. Postop the patient was brought into the intensive care unit and the patient was started on IV Zosyn and Diflucan and she was treated also for a right lower lobe pneumonia. Her condition was further stabilized and the patient got moved out of the intensive care units. On today's evaluation of 09/28/2016, the patient seems to be slightly dyspneic. She is quite weak and debilitated. Her chest x-ray showing bilateral pleural effusion/airspace disease worse on the right. Antibiotics have been modified by infectious disease and the patient is currently on a combination of Zosyn and Levaquin and the patient was started on IV Flagyl for C. diff colitis. She is having some liquidy/diarrhea bowel movements. The white cell count is down to 17.2. Renal function is stable with a creatinine of 0.4. On today's evaluation of 09/29/2016 the patient is having any major respiratory difficulties. She is slow in answering questions however she is appropriate. She is still feeling very weak. Chest x-ray was repeated and showed persistent bibasilar airspace disease worse on the right compared to the left. On the right pleural effusion cannot be completely ruled out. She is being treated with oral vancomycin regarding significant colitis and her counts are improving and the white cell count is down to 15.9. The rest of the electrodes are all within normal limits. ID is on the case regarding her peritonitis. Surgical wound site over the anterior abdominal wall is dry clean and intact. She is afebrile and hemodynamically stable at this point. Oral intake is diminished and the patient is not meeting her caloric requirements. Objective - Vital Signs Vital signs: Vital Signs Temp 96.6 F L 09/29/16 08:00 Pulse 73 09/29/16 08:00 Resp 18 09/29/16 08:00 BP 142/77 09/29/16 08:00 Pulse Ox 93 L 09/29/16 08:00 Intake & Output 09/28/16 09/29/16 09/29/16 18:59 06:59 18:59 Intake Total 1320 1000 60 Output Total 4 200 Balance 1320 996 -140 Weight 50 kg 45.5 kg Intake: IV 300 1000 0.9% NaCl with KCl 20 Meq 1000 /l 1,000 ml @ 50 mls/hr IV .Q20H [facility] Rx#: [id number] Piperacillin-Tazobactam 3 100 .375 gm In Dextrose/Water 1 50ml.bag @ 12.5 mls/hr IVPB Q8HR [facility] Rx#: [id number] metroNIDAZOLE-NS PMX 500 200 mg In Saline 1 100ml.bag @ 100 mls/hr IVPB Q8HR [facility] Rx#:[id number] Intake, IV Titration 600 Amount 0.9% NaCl with KCl 20 Meq 600 /l 1,000 ml @ 50 mls/hr IV .Q20H [facility] Rx#: [id number] Oral 420 60 Output: Urine 200 Stool 4 Other: Voiding Method Diaper Diaper Diaper # Voids 3 1 # Bowel Movements 6 - Exam Gen. appearance the patient is calm and comfortable no acute rest. She is an elderly woman.Head exam was generally normal. There was no scleral icterus or corneal arcus. Mucous membranes were moist.Neck was supple and without jugular venous distension, thyromegaly, or carotid bruits. Carotids were easily palpable bilaterally. There was no adenopathy. Lung sounds are diminished in lung bases bilaterally more so in the right lung base.Cardiac exam revealed the PMI to be normally situated and sized. The rhythm was regular and no extrasystoles were noted during several minutes of auscultation. The first and second heart sounds were normal and physiologic splitting of the second heart sound was noted. There were no murmurs, rubs, clicks, or gallops. Abdomen is soft and there is hypoactive bowel sounds. The surgical wound site over the anterior abdominal wall is clean and intact. There is no active drainage or any signs of wound infection.Examination of the extremities revealed easily palpable radial, femoral and pedal pulses. There was no cyanosis, clubbing or edema. - Labs CBC & Chem 7: 09/29/16 06:05 09/29/16 06:05 Labs: Abnormal Lab Results - Last 24 Hours (Table) 09/29/16 09/29/16 Range/Units 06:05 06:05 WBC 15.9 H (3.8-10.6) k/uL Neutrophils # 13.6 H (1.3-7.7) k/uL BUN 6 L (7-17) mg/dL Creatinine 0.44 L (0.52-1.04) mg/dL Calcium 7.6 L (8.4-10.2) mg/dL Magnesium 1.5 L (1.6-2.3) mg/dL Total Protein 4.1 L (6.3-8.2) g/dL Albumin 1.9 L (3.5-5.0) g/dL Assessment and Plan Plan: Assessment 1 perforated gastric ulcer in the prepyloric ulcer requiring partial gastrectomy and loop gastrojejunostomy and surgery was done on 09/17/2016. Rule out NSAID-induced peptic ulcer disease. 2 abdominal peritonitis secondary to perforated viscus, completed the course of antibiotics and the Zosyn and the Levaquin and Diflucan were all discontinued. 3 C. diff colitis currently on by mouth vancomycin 4 atrial fibrillation 5 metabolic acidosis secondary to peritonitis/sepsis, improved 6 bilateral lower lobe consolidation and pleural effusion, rule out hospital- acquired versus aspiration pneumonia. The patient is still on a combination of Zosyn and Levaquin. Oxygenation is stable for now 7 hypertension, history of 8 COPD, history of Plan Chest x-ray findings are stable. We'll continue to monitor her oxygenation and breathing pattern. Aspiration precautions. Continue oral vancomycin. Advance diet as tolerated. We'll follow as needed.
--- NOTE | 2016-09-29 12:28 | P.PN ---
Subjective This a pleasant 80-year-old lady patient of Dr. Blanco Ruiz. She has underlying history of COPD, also arthritis, admitted through the emergency room after she was brought in by EMS secondary to right upper quadrant pain and later developed some shortness of breath, patient was noted to be hypoxemic requiring a nonrebreather mask prior to ER viable, pulse ox on ER was 95%, requiring nasal cannula patient denies any melena hematochezia no chest pain no palpitations, Emergency room, she was hypotensive after an earlier dose of fentanyl, this has stabilized she had full workup to include elevated lipase of 479, troponins were okay, they did additional imaging to include CAT scan of the abdomen and fell pelvis incidentally she was found to have a perforated viscus, also coming in with Rin clinton with rapid ventricular rate, she was immediately taken in operating room after Cardizem drip has been started and was hemodynamically stabilized . Patient was subsequently transferred to ICU postoperatively. Consults were made with Dr. Faith cardiology Dr. Leigh from postal supervisor pulmonary medicine currently receiving IV Zosyn for the peritonitis as well as right lower lobe infiltrate. She underwent emergent exploratory laparotomy 09/17/2016 and underwent a partial gastrectomy with loop gastrojejunostomy by Dr. Crowell for an 8 mm perforation in the antrum, and a large prepyloric ulcer abscess-like cavity there is an masslike inflammatory reaction at the location of the ulcer with clinical concern of possibility of malignant perforation. 09/21: Patient has been hemodynamically stable and was transferred to the selective care unit. She continues to have NG tube in place. Daughter is concerned that she has more cough with thick secretions and congestion. Incentive spirometry is only 300-500. Patient is complaining of feeling tired. Cardiology is following for she was noted to be in atrial arrhythmia but no atrial fibrillation. Blood pressure is well controlled. Repeat chest x-ray shows no significant interval change. Patient is followed by Dr. Anthony from infectious disease and continued on Zosyn and fluconazole. Pathology report remains pending. 09/22: Today the patient was noted to be hypoxic. The patient was placed on a Ventimask and O2 came up to 94%. She was drowsy but easily arousable. She has been receiving IV Dilaudid for pain control, this is believed to be the source of her hypoxemia. Her Dilaudid will be held for the next 24 hours. The patient has been receiving potassium supplementation per protocol, today her potassium was still noted to be 3.1. Magnesium was 1.4, supplement ordered along with potassium supplement per protocol, will recheck potassium this afternoon. The patient continues to be followed by Dr. Anthony. Blood cultures show no growth after 96 hours. 09/23: Patient still requires Ventimask to achieve a O2 sat above 90%. The patient Chest x-ray showed little interval change from the previous x-ray she does have bilateral effusions but no significant change. The patient did have her NG tube removed. Cardiology is following patient for her atrial arrhythmia with no evidence of atrial fibrillation. Infectious disease is also following patient who is planning for 3 further days of antibiotics at this time. Pathology report still pending. Her potassium improved to 3.6. 09/24: Last night the patient had an episode of sinus tachycardia with a rate of 120s. She is consulted by Dr. Faith who gave her a dose of IV beta michelle and and by mouth beta michelle was increased. Her heart rate is in the 70s currently. Her pathology did not report any malignancy and H. pylori was negative. Dr. Anthony is recommended two further days of antibiotics at this time. She was also consulted by Dr. Escalante for elongated thick dystrophic nails. Nails were reduced 1 through 5 bilaterally. There were concerns about aspiration, patient had barium swallow done today. Barium swallow showed penetration without aspiration with thin liquids. 09/25: The patient remaines hypokalemic last potassium was 3.1 despite multiple doses of potassium chloride. Will replace potassium and magnesium, will add cortisol level as well. Sodium noted to be 1:30. The patient was switched from a Ventimask to 6 L nasal cannula today. She continues to pull at the oxygen tubing. She remains on antibiotics of Zosyn along with flucanazole. The patient's heart rate remains in the 60s, currently rate controlled. 09/26/2016: Patient appears to be very weak today and she is more dyspneic, portal chest x-ray was done and the patient showed worsening bilateral pleural effusion and worsening airspace disease more the right side than the left side, subsequently I spoke with the nurse about starting the patient DuoNeb treatment nebulization 4 times every day, oxygen support, start the patient on Levaquin 500 mg IV piggyback every 24 hours, and obtain pulmonary consultation from Dr. Crane. : Patient developed to have a significant diarrhea yesterday and she became quite lethargic, her C. diff came back positive, patient was started on Flagyl 500 mg IV piggyback every 8 hours, she also had a chest x-ray that showed bilateral pleural effusion with bibasilar airspace disease, patient was placed on Levaquin along with the Zosyn and she will be seen by pulmonary medicine as well. 09/28: Patient has only had 1 stool this morning she is complaining of feeling tired patient is eating very little probably around 25% and she will not eat her Magic cups. Asked for dietitian to return for other supplementations. Patient is not using her incentive spirometry. We will discontinue IV fluids and saline lock, nitro paste discontinued. Anticipate discharge to [facility] tomorrow. Patient is continued on vancomycin and Lactinex for C. difficile colitis. Objective - Vital Signs Vital signs: Vital Signs Temp 96.6 F L 09/29/16 04:00 Pulse 60 09/29/16 07:45 Resp 18 09/29/16 07:27 BP 138/94 09/29/16 04:00 Pulse Ox 95 09/29/16 04:00 Intake & Output 09/28/16 09/29/16 09/29/16 18:59 06:59 18:59 Intake Total 1320 1000 Output Total 4 Balance 1320 996 Weight 50 kg 45.5 kg Intake: IV 300 1000 0.9% NaCl with KCl 20 Meq 1000 /l 1,000 ml @ 50 mls/hr IV .Q20H JEOVANNY Rx#: [id number] Piperacillin-Tazobactam 3 100 .375 gm In Dextrose/Water 1 50ml.bag @ 12.5 mls/hr IVPB Q8HR JEOVANNY Rx#: [id number] metroNIDAZOLE-NS PMX 500 200 mg In Saline 1 100ml.bag @ 100 mls/hr IVPB Q8HR JEOVANNY Rx#:[id number] Intake, IV Titration 600 Amount 0.9% NaCl with KCl 20 Meq 600 /l 1,000 ml @ 50 mls/hr IV .Q20H JEOVANNY Rx#: [id number] Oral 420 Output: Stool 4 Other: Voiding Method Diaper Diaper # Voids 3 # Bowel Movements 6 - Exam General appearance: average body habitus, cooperative, no acute distress - EENT Eyes: anicteric sclerae, edentulous, PERRLA, normal appearance ENT: no hard of hearing, hearing grossly normal, NA/AT, normal oropharynx, no other, no pharyngeal erythema, no thrush, no tonsillar exudates, no tonsillar swelling - Neck Neck: no lymphadenopathy, normal ROM, no other, no rigidity, no stridor, no thyromegaly - Respiratory Respiratory: bilateral: CTA, diminished, negative: dullness, rales, rhonchi, wheezing - Cardiovascular Rhythm: regular Heart sounds: normal: S1, S2 Abnormal Heart Sounds: no systolic murmur, no diastolic murmur, no rub, no S3 Gallop, no S4 Gallop, no click, no other - Gastrointestinal General gastrointestinal: decreased bowel sounds, soft Localized gastrointestinal: tender: diffuse - Integumentary Integumentary: normal - Neurologic Neurologic: CNII-XII intact - Musculoskeletal Musculoskeletal: strength equal bilaterally - Psychiatric Psychiatric: A&O x's 3, appropriate affect, intact judgment & insight - Labs CBC & Chem 7: 09/29/16 06:05 09/29/16 06:05 Labs: Abnormal Lab Results - Last 24 Hours (Table) 09/29/16 Range/Units 06:05 WBC 15.9 H (3.8-10.6) k/uL Neutrophils # 13.6 H (1.3-7.7) k/uL Assessment and Plan Plan: 1. Status post exploratory laparotomy perforated gastric ulcer and prepyloric ulcer requiring partial gastrectomy and loop gastrojejunostomy on 09/17/2016 secondary to pneumoperitoneum noted. This was most likely secondary to NSAID use prior to admission. Postoperative pain control along with incentive spirometry, and albuterol Atrovent for pulmonary prophylaxis. IV antibiotics Zosyn has completed. 2. Atrial arrhythmia. Cardiology is following. No atrial fibrillation was found. Patient received IV beta michelle to control tachycardia, currently rate controlled. 3. Acute peritonitis and abdominal sepsis secondary to perforated viscus, completed course of IV Josen, Dr. Anthony from infectious disease 4. Lumbar disc disease gabapentin is on hold 5. Acute hypoxic respiratory failure secondary to worsening bilateral pleural effusion and bilateral airspace disease mostly in the right side. She was treated with Levaquin, Zosyn, DuoNeb 3 mg nebulization 4 times every day, monitor chest x-ray regularly monitor oxygen support, pulmonary consultation. 6. GI prophylaxis with Protonix 40mg 7. Onychogryphosis, extremely long toenails noted, consult with Dr. Escalante, had nails trimmed. 8. CODE STATUS: No code 9. DVT prophylaxis with heparin subcu 10. Acute pancreatitis most likely secondary to inflammatory reaction from gastric perforation, this will be monitored. 11. Metabolic acidosis secondary to sepsis from peritonitis, this will be monitored 12. Elevated troponin most likely secondary troponin leak from atrial arrhythmia and sepsis. 13. Family history of pancreatic cancer. 14. Patient's prognosis is very guarded. 15. Hypokalemia status post replacement. 16. C. difficile colitis. Continue vancomycin 250 mg orally every 6 hours along with Lactinex. 17. Severe protein calorie malnutrition with BMI of 17, very poor oral intake and multiple medical difficulties. Discharge plan: [facility] tomorrow Impression and plan of care have been directed as dictated by the signing physician. Gisele Hilliard nurse practitioner acting as scribe for signing physician.
--- NOTE | 2016-09-29 19:14 | P.PN ---
Subjective Principal diagnosis: Perforated ulcer Patient without new complaints. Denies abdominal pain. Tolerating small volume of Food. No nausea or vomiting. Objective - Vital Signs Vital signs: Vital Signs Temp 97.8 F 09/29/16 15:00 Pulse 72 09/29/16 16:00 Resp 22 09/29/16 16:00 BP 82/48 09/29/16 15:00 Pulse Ox 94 L 09/29/16 15:00 Intake & Output 09/29/16 09/29/16 09/30/16 06:59 18:59 06:59 Intake Total 1000 505 Output Total 4 201 Balance 996 304 Weight 45.5 kg 45.5 kg Intake: IV 1000 250 0.9% NaCl with KCl 20 Meq 1000 /l 1,000 ml @ 50 mls/hr IV .Q20H JEOVANNY Rx#: [id number] Fluconazole in NaCl,Iso- 250 Osm 100 mg In Saline 1 50ml.bag @ 50 mls/hr IVPB Q24H JEOVANNY Rx#:[id number] Oral 255 Output: Urine 200 Stool 4 1 Other: Voiding Method Diaper Diaper # Voids 3 1 # Bowel Movements 6 1 - Exam Abdomen: Soft, nondistended, nontender, no additional serous drainage noted from the drain site, incision clean and dry - Labs CBC & Chem 7: 09/29/16 06:05 09/29/16 06:05 Labs: Abnormal Lab Results - Last 24 Hours (Table) 09/29/16 09/29/16 Range/Units 06:05 06:05 WBC 15.9 H (3.8-10.6) k/uL Neutrophils # 13.6 H (1.3-7.7) k/uL BUN 6 L (7-17) mg/dL Creatinine 0.44 L (0.52-1.04) mg/dL Calcium 7.6 L (8.4-10.2) mg/dL Magnesium 1.5 L (1.6-2.3) mg/dL Total Protein 4.1 L (6.3-8.2) g/dL Albumin 1.9 L (3.5-5.0) g/dL Assessment and Plan (1) Pneumoperitoneum Narrative/Plan: Continue encouraging oral intake. PTOT to continue. Consider transfer to rehab facility once cleared by the medical consultants. Status: Acute
[2016-09-30] MEDS: CHERRY FLAVOR 60 ML BOTTLE PO SCH ×3 (07:00→17:01)
[2016-09-30] MEDS: VANCOMYCIN ORAL SOLUTION 250 MG/5 ML BOTTLE PO SCH ×3 (07:00→17:02)
[2016-09-30] MEDS: METOPROLOL TARTRATE 25 MG TAB PO SCH ×2 (07:32→20:30)
[2016-09-30] MEDS: HEPARIN SODIUM,PORCINE 5,000 UNIT/ML 1 ML VIAL SQ SCH ×2 (07:32→17:01)
[2016-09-30] MEDS: LACTOBACILLUS ACIDOPH & BULGAR 1 EACH PACKET PO SCH ×2 (07:32→20:30)
[2016-09-30] MEDS: LISINOPRIL 5 MG TAB PO SCH (07:33)
[2016-09-30] MEDS: PANTOPRAZOLE 40 MG TABLET PO SCH (07:33)
[2016-09-30 08:14] LABS: ALT 17 U/L (9-52); AST 26 U/L (14-36); Alkaline Phosphatase 55 U/L (38-126); Anion Gap 7 mmol/L; Blood Urea Nitrogen 7 mg/dL (7-17); Calcium 7.6 mg/dL (8.4-10.2); Carbon Dioxide 25 mmol/L (22-30); Chloride 103 mmol/L (98-107); Glucose 89 mg/dL (74-99); Non-African American GFR(MDRD) >60 (>60 ml/min/1.73 sqM); Sodium 135 mmol/L (137-145); Total Bilirubin 0.8 mg/dL (0.2-1.3); Total Protein 4.4 g/dL (6.3-8.2)
[2016-09-30 08:25] LABS: Potassium 3.8 mmol/L (3.5-5.1)
[2016-09-30 09:52] LABS: CH 29.8; CHCM 31.7; HCT 33.9 % (34.0-46.0); HDW 2.89; HGB 12.6 gm/dL (11.4-16.0); Hypochromasia Slight; MCH 35.3 pg (25.0-35.0); MCHC 37.3 g/dL (31.0-37.0); MCV 94.6 fL (80.0-100.0); RBC 3.59 m/uL (3.80-5.40); RDW 15.2 % (11.5-15.5); WBC 9.7 k/uL (3.8-10.6)
[2016-09-30] MEDS ORDERED: IOHEXOL 350 MG/ML 25 ML BOTTLE (ORAL USE) PO PRN (11:51)
--- NOTE | 2016-09-30 11:54 | P.PN ---
Subjective Principal diagnosis: Perforated ulcer Patient seems a little more sleepy today. She is arousable. She denies pain. She appears slightly short of breath. Her vital signs of been stable. Her white blood cell count is now normal. Objective - Vital Signs Vital signs: Vital Signs Temp 97.8 F 09/30/16 07:34 Pulse 60 09/30/16 08:00 Resp 16 09/30/16 08:00 BP 100/79 09/30/16 07:34 Pulse Ox 95 09/30/16 07:34 Intake & Output 09/29/16 09/30/16 09/30/16 18:59 06:59 18:59 Intake Total 505 Output Total 201 0 Balance 304 0 Weight 45.5 kg Intake: IV 250 Fluconazole in NaCl,Iso- 250 Osm 100 mg In Saline 1 50ml.bag @ 50 mls/hr IVPB Q24H JEOVANNY Rx#:[id number] Oral 255 Output: Urine 200 Stool 1 0 Other: Voiding Method Diaper Diaper Diaper # Voids 1 3 1 # Bowel Movements 1 1 1 - Exam Abdomen: Soft, nondistended, mild upper abdominal tenderness that was not present yesterday, incision clean and dry - Labs CBC & Chem 7: 09/30/16 07:13 09/30/16 07:13 Labs: Abnormal Lab Results - Last 24 Hours (Table) 09/30/16 09/30/16 Range/Units 07:13 07:13 RBC 3.59 L (3.80-5.40) m/uL Hct 33.9 L (34.0-46.0) % MCH 35.3 H (25.0-35.0) pg MCHC 37.3 H (31.0-37.0) g/dL Sodium 135 L (137-145) mmol/L Creatinine 0.45 L (0.52-1.04) mg/dL Calcium 7.6 L (8.4-10.2) mg/dL Total Protein 4.4 L (6.3-8.2) g/dL Albumin 2.0 L (3.5-5.0) g/dL Assessment and Plan (1) Pneumoperitoneum Narrative/Plan: Will check CT abdomen and pelvis. Monitor the patient's shortness of breath. Status: Acute
--- NOTE | 2016-09-30 14:06 | CT ---
EXAMINATION TYPE: CT abdomen pelvis wo con DATE OF EXAM: 09/30/2016 COMPARISON: 09/17/2016 HISTORY: Post ulcer repair with abdominal pain CT DLP: 312.4 mGycm Examination of the solid and hollow viscera is limited given the lack of contrast. GI contrast was ut ilized. FINDINGS: LUNG BASES: Moderate basilar atelectasis and pleural effusions. Underlying infiltrates are not exclud ed. The heart is enlarged. LIVER/GB: Multiple gallstones are noted. No space-occupying hepatic lesion. PANCREAS: No pancreatic mass identified. No inflammatory process seen. SPLEEN: No evidence for splenomegaly. No intrasplenic lesions seen. ADRENALS: No adrenal nodules identified. No evidence for thickening. KIDNEYS: No evidence for renal mass. 3 mm nonobstructing right-sided renal calculus. No hydronephrosi s. Urinary bladder is distended measuring approximately 14 cm craniocaudal dimension. BOWEL: Midline skin yoandy are in place. No evidence for free air or extraluminal contrast at this t lang to suggest leak or perforation. No unusual collections are seen within the limits of exam limitat ions.No evidence of bowel obstruction. No inflammatory process. Scattered colonic diverticulosis with out diverticulitis at this time. Lymph nodes: No evidence for adenopathy greater than 1 cm. Abdominal aorta: Atheromatous changes seen. No evidence for aneurysm. Genital organs: No significant abnormality. Other: Severe degenerative change lumbar spine. IMPRESSION: 1. STATUS POST ULCER REPAIR WITHOUT EVIDENCE FOR LEAK OR PERFORATION. NO EVIDENCE FOR ABSCESS. 2. BASILAR COMPRESSIVE ATELECTASIS AND PLEURAL EFFUSIONS. UNDERLYING INFILTRATES ARE NOT EXCLUDED. 3. URINARY RETENTION WITH DISTENTION OF THE URINARY BLADDER NOTED. 4. CHOLELITHIASIS.
--- NOTE | 2016-09-30 14:07 | P.PN ---
Subjective This a pleasant 80-year-old lady patient of Dr. Blanco Ruiz. She has underlying history of COPD, also arthritis, admitted through the emergency room after she was brought in by EMS secondary to right upper quadrant pain and later developed some shortness of breath, patient was noted to be hypoxemic requiring a nonrebreather mask prior to ER viable, pulse ox on ER was 95%, requiring nasal cannula patient denies any melena hematochezia no chest pain no palpitations, Emergency room, she was hypotensive after an earlier dose of fentanyl, this has stabilized she had full workup to include elevated lipase of 479, troponins were okay, they did additional imaging to include CAT scan of the abdomen and fell pelvis incidentally she was found to have a perforated viscus, also coming in with Rin clinton with rapid ventricular rate, she was immediately taken in operating room after Cardizem drip has been started and was hemodynamically stabilized . Patient was subsequently transferred to ICU postoperatively. Consults were made with Dr. Faith cardiology Dr. Leigh from housekeeping supervisor pulmonary medicine currently receiving IV Zosyn for the peritonitis as well as right lower lobe infiltrate. She underwent emergent exploratory laparotomy 09/17/2016 and underwent a partial gastrectomy with loop gastrojejunostomy by Dr. Crowell for an 8 mm perforation in the antrum, and a large prepyloric ulcer abscess-like cavity there is an masslike inflammatory reaction at the location of the ulcer with clinical concern of possibility of malignant perforation. 09/21: Patient has been hemodynamically stable and was transferred to the selective care unit. She continues to have NG tube in place. Daughter is concerned that she has more cough with thick secretions and congestion. Incentive spirometry is only 300-500. Patient is complaining of feeling tired. Cardiology is following for she was noted to be in atrial arrhythmia but no atrial fibrillation. Blood pressure is well controlled. Repeat chest x-ray shows no significant interval change. Patient is followed by Dr. Anthony from infectious disease and continued on Zosyn and fluconazole. Pathology report remains pending. 09/22: Today the patient was noted to be hypoxic. The patient was placed on a Ventimask and O2 came up to 94%. She was drowsy but easily arousable. She has been receiving IV Dilaudid for pain control, this is believed to be the source of her hypoxemia. Her Dilaudid will be held for the next 24 hours. The patient has been receiving potassium supplementation per protocol, today her potassium was still noted to be 3.1. Magnesium was 1.4, supplement ordered along with potassium supplement per protocol, will recheck potassium this afternoon. The patient continues to be followed by Dr. Anthony. Blood cultures show no growth after 96 hours. 09/23: Patient still requires Ventimask to achieve a O2 sat above 90%. The patient Chest x-ray showed little interval change from the previous x-ray she does have bilateral effusions but no significant change. The patient did have her NG tube removed. Cardiology is following patient for her atrial arrhythmia with no evidence of atrial fibrillation. Infectious disease is also following patient who is planning for 3 further days of antibiotics at this time. Pathology report still pending. Her potassium improved to 3.6. 09/24: Last night the patient had an episode of sinus tachycardia with a rate of 120s. She is consulted by Dr. Faith who gave her a dose of IV beta michelle and and by mouth beta michelle was increased. Her heart rate is in the 70s currently. Her pathology did not report any malignancy and H. pylori was negative. Dr. Anthony is recommended two further days of antibiotics at this time. She was also consulted by Dr. Escalante for elongated thick dystrophic nails. Nails were reduced 1 through 5 bilaterally. There were concerns about aspiration, patient had barium swallow done today. Barium swallow showed penetration without aspiration with thin liquids. 09/25: The patient remaines hypokalemic last potassium was 3.1 despite multiple doses of potassium chloride. Will replace potassium and magnesium, will add cortisol level as well. Sodium noted to be 1:30. The patient was switched from a Ventimask to 6 L nasal cannula today. She continues to pull at the oxygen tubing. She remains on antibiotics of Zosyn along with flucanazole. The patient's heart rate remains in the 60s, currently rate controlled. 09/26/2016: Patient appears to be very weak today and she is more dyspneic, portal chest x-ray was done and the patient showed worsening bilateral pleural effusion and worsening airspace disease more the right side than the left side, subsequently I spoke with the nurse about starting the patient DuoNeb treatment nebulization 4 times every day, oxygen support, start the patient on Levaquin 500 mg IV piggyback every 24 hours, and obtain pulmonary consultation from Dr. Crane. : Patient developed to have a significant diarrhea yesterday and she became quite lethargic, her C. diff came back positive, patient was started on Flagyl 500 mg IV piggyback every 8 hours, she also had a chest x-ray that showed bilateral pleural effusion with bibasilar airspace disease, patient was placed on Levaquin along with the Zosyn and she will be seen by pulmonary medicine as well. 09/28: Patient has only had 1 stool this morning she is complaining of feeling tired patient is eating very little probably around 25% and she will not eat her Magic cups. Asked for dietitian to return for other supplementations. Patient is not using her incentive spirometry. We will discontinue IV fluids and saline lock, nitro paste discontinued. Anticipate discharge to [facility] tomorrow. Patient is continued on vancomycin and Lactinex for C. difficile colitis. 09/29: Patient continues to do poorly with very little oral intake. The patient denies any abdominal pain. Dr. Crowell has ordered a CAT scan of the abdomen and pelvis. Dr. Lentz is currently following on an as-needed basis. White count is normal at 9.7 and hemoglobin stable at 12.6. Objective - Vital Signs Vital signs: Vital Signs Temp 97.8 F 09/30/16 07:34 Pulse 60 09/30/16 07:34 Resp 16 09/30/16 07:34 BP 100/79 09/30/16 07:34 Pulse Ox 95 09/30/16 07:34 Intake & Output 09/29/16 09/30/16 09/30/16 18:59 06:59 18:59 Intake Total 505 Output Total 201 0 Balance 304 0 Weight 45.5 kg Intake: IV 250 Fluconazole in NaCl,Iso- 250 Osm 100 mg In Saline 1 50ml.bag @ 50 mls/hr IVPB Q24H JEOVANNY Rx#:[id number] Oral 255 Output: Urine 200 Stool 1 0 Other: Voiding Method Diaper Diaper # Voids 1 3 # Bowel Movements 1 1 - Exam General appearance: average body habitus, cooperative, no acute distress - EENT Eyes: anicteric sclerae, edentulous, PERRLA, normal appearance ENT: no hard of hearing, hearing grossly normal, NA/AT, normal oropharynx, no other, no pharyngeal erythema, no thrush, no tonsillar exudates, no tonsillar swelling - Neck Neck: no lymphadenopathy, normal ROM, no other, no rigidity, no stridor, no thyromegaly - Respiratory Respiratory: bilateral: CTA, diminished, negative: dullness, rales, rhonchi, wheezing - Cardiovascular Rhythm: regular Heart sounds: normal: S1, S2 Abnormal Heart Sounds: no systolic murmur, no diastolic murmur, no rub, no S3 Gallop, no S4 Gallop, no click, no other - Gastrointestinal General gastrointestinal: decreased bowel sounds, soft Localized gastrointestinal: tender: diffuse - Integumentary Integumentary: normal - Neurologic Neurologic: CNII-XII intact - Musculoskeletal Musculoskeletal: strength equal bilaterally - Psychiatric Psychiatric: A&O x's 3, appropriate affect, intact judgment & insight - Labs CBC & Chem 7: 09/30/16 07:13 09/30/16 07:13 Labs: Abnormal Lab Results - Last 24 Hours (Table) 09/29/16 09/30/16 Range/Units 06:05 07:13 Sodium 135 L (137-145) mmol/L BUN 6 L (7-17) mg/dL Creatinine 0.44 L 0.45 L (0.52-1.04) mg/dL Calcium 7.6 L 7.6 L (8.4-10.2) mg/dL Magnesium 1.5 L (1.6-2.3) mg/dL Total Protein 4.1 L 4.4 L (6.3-8.2) g/dL Albumin 1.9 L 2.0 L (3.5-5.0) g/dL Assessment and Plan Plan: 1. Status post exploratory laparotomy perforated gastric ulcer and prepyloric ulcer requiring partial gastrectomy and loop gastrojejunostomy on 09/17/2016 secondary to pneumoperitoneum noted. This was most likely secondary to NSAID use prior to admission. Postoperative pain control along with incentive spirometry, and albuterol Atrovent for pulmonary prophylaxis. IV antibiotics Zosyn has completed. CAT scan of the abdomen and pelvis today 2. Atrial arrhythmia. Cardiology is following. No atrial fibrillation was found. Patient received IV beta michelle to control tachycardia, currently rate controlled. 3. Acute peritonitis and abdominal sepsis secondary to perforated viscus, completed course of IV Zosyn, Dr. Anthony from infectious disease 4. Lumbar disc disease gabapentin is on hold 5. Acute hypoxic respiratory failure secondary to worsening bilateral pleural effusion and bilateral airspace disease mostly in the right side. She was treated with Levaquin, Zosyn, DuoNeb 3 mg nebulization 4 times every day, monitor chest x-ray regularly monitor oxygen support, pulmonary consultation. 6. GI prophylaxis with Protonix 40mg 7. Onychogryphosis, extremely long toenails noted, consult with Dr. Escalante, had nails trimmed. 8. CODE STATUS: No code 9. DVT prophylaxis with heparin subcu 10. Acute pancreatitis most likely secondary to inflammatory reaction from gastric perforation, this will be monitored. 11. Metabolic acidosis secondary to sepsis from peritonitis, this will be monitored 12. Elevated troponin most likely secondary troponin leak from atrial arrhythmia and sepsis. 13. Family history of pancreatic cancer. 14. Patient's prognosis is very guarded. 15. Hypokalemia status post replacement. 16. C. difficile colitis. Continue vancomycin 250 mg orally every 6 hours along with Lactinex. 17. Severe protein calorie malnutrition with BMI of 17, very poor oral intake and multiple medical difficulties. Discharge plan: [facility] under the care of Dr. Hammond. Impression and plan of care have been directed as dictated by the signing physician. Gisele Hilliard nurse practitioner acting as scribe for signing physician.
--- NOTE | 2016-09-30 14:51 | P.PN ---
Subjective 80-year-old female patient with known history of COPD who presented to the hospital because of a right upper quadrant pain and shortness of breath and hypoxemia. The patient was also hypotensive. Further workup showed a 2 fibrillation with rapid ventricular response. In addition, the patient was found to have a perforated viscus for which she was taken to the operating room and she underwent an extra to laparotomy on 09/17/2016 and the patient underwent a partial gastrectomy with a loop gastrojejunostomy for an 8 mm perforated antrum and a large prepyloric ulcer/abscess. Postop the patient was brought into the intensive care unit and the patient was started on IV Zosyn and Diflucan and she was treated also for a right lower lobe pneumonia. Her condition was further stabilized and the patient got moved out of the intensive care units. On today's evaluation of 09/28/2016, the patient seems to be slightly dyspneic. She is quite weak and debilitated. Her chest x-ray showing bilateral pleural effusion/airspace disease worse on the right. Antibiotics have been modified by infectious disease and the patient is currently on a combination of Zosyn and Levaquin and the patient was started on IV Flagyl for C. diff colitis. She is having some liquidy/diarrhea bowel movements. The white cell count is down to 17.2. Renal function is stable with a creatinine of 0.4. On today's evaluation of 09/29/2016 the patient is having any major respiratory difficulties. She is slow in answering questions however she is appropriate. She is still feeling very weak. Chest x-ray was repeated and showed persistent bibasilar airspace disease worse on the right compared to the left. On the right pleural effusion cannot be completely ruled out. She is being treated with oral vancomycin regarding significant colitis and her counts are improving and the white cell count is down to 15.9. The rest of the electrodes are all within normal limits. ID is on the case regarding her peritonitis. Surgical wound site over the anterior abdominal wall is dry clean and intact. She is afebrile and hemodynamically stable at this point. Oral intake is diminished and the patient is not meeting her caloric requirements. On today's evaluation of 09/22/2016, the patient is not having any major stroke difficulties. Chest x-ray shows consolidation of the right lung base probably a combination of atelectasis and effusion. Her diarrhea subsiding. I was told that she is eating more than her usual by the nursing staff. She remains on oral vancomycin regarding C. diff colitis. Discharge planning is in progress and the patient is probably going to transfer to [facility]. Her white cell count is not elevated. In fact her white cell count is dropped down to 9.7. Rest of the electrodes are all within normal limits. The patient is afebrile. The patient is pulse oxing 95% reduction of oxygen by nasal cannula. She remains weak. She needs help with mobility and feeding and performing activities of daily today life. Objective - Vital Signs Vital signs: Vital Signs Temp 97.8 F 09/30/16 07:34 Pulse 60 09/30/16 08:00 Resp 16 09/30/16 08:00 BP 100/79 09/30/16 07:34 Pulse Ox 95 09/30/16 07:34 Intake & Output 09/29/16 09/30/16 09/30/16 18:59 06:59 18:59 Intake Total 505 Output Total 201 0 Balance 304 0 Weight 45.5 kg Intake: IV 250 Fluconazole in NaCl,Iso- 250 Osm 100 mg In Saline 1 50ml.bag @ 50 mls/hr IVPB Q24H JEOVANNY Rx#:[id number] Oral 255 Output: Urine 200 Stool 1 0 Other: Voiding Method Diaper Diaper Diaper # Voids 1 3 1 # Bowel Movements 1 1 1 - Exam Gen. appearance the patient is calm and comfortable no acute rest. She is an elderly woman.Head exam was generally normal. There was no scleral icterus or corneal arcus. Mucous membranes were moist.Neck was supple and without jugular venous distension, thyromegaly, or carotid bruits. Carotids were easily palpable bilaterally. There was no adenopathy. Lung sounds are diminished in lung bases bilaterally more so in the right lung base.Cardiac exam revealed the PMI to be normally situated and sized. The rhythm was regular and no extrasystoles were noted during several minutes of auscultation. The first and second heart sounds were normal and physiologic splitting of the second heart sound was noted. There were no murmurs, rubs, clicks, or gallops. Abdomen is soft and there is hypoactive bowel sounds. The surgical wound site over the anterior abdominal wall is clean and intact. There is no active drainage or any signs of wound infection.Examination of the extremities revealed easily palpable radial, femoral and pedal pulses. There was no cyanosis, clubbing or edema. - Labs CBC & Chem 7: 09/30/16 07:13 09/30/16 07:13 Labs: Abnormal Lab Results - Last 24 Hours (Table) 09/30/16 09/30/16 Range/Units 07:13 07:13 RBC 3.59 L (3.80-5.40) m/uL Hct 33.9 L (34.0-46.0) % MCH 35.3 H (25.0-35.0) pg MCHC 37.3 H (31.0-37.0) g/dL Sodium 135 L (137-145) mmol/L Creatinine 0.45 L (0.52-1.04) mg/dL Calcium 7.6 L (8.4-10.2) mg/dL Total Protein 4.4 L (6.3-8.2) g/dL Albumin 2.0 L (3.5-5.0) g/dL Assessment and Plan Plan: Assessment 1 perforated gastric ulcer in the prepyloric ulcer requiring partial gastrectomy and loop gastrojejunostomy and surgery was done on 09/17/2016. Rule out NSAID-induced peptic ulcer disease. 2 abdominal peritonitis secondary to perforated viscus, completed the course of antibiotics and the Zosyn and the Levaquin and Diflucan were all discontinued. 3 C. diff colitis currently on by mouth vancomycin 4 atrial fibrillation 5 metabolic acidosis secondary to peritonitis/sepsis, improved 6 bilateral lower lobe consolidation and pleural effusion, rule out hospital- acquired versus aspiration pneumonia. The patient is still on a combination of Zosyn and Levaquin. Oxygenation is stable for now 7 hypertension, history of 8 COPD, history of Plan Chest x-ray findings are stable. I think the consolidation of the right lung bases a combination of atelectasis and effusion. Doubt pneumonia. The patient is currently off antibiotics pH is still receiving treatment for C. diff colitis. She is gradually advancing her diet. Aspiration precautions. Physical therapy. The patient was further seen by general surgery today. The patient was admitted by Dr. read. A CAT scan of the abdomen was ordered. I will review the CAT scan findings to make sure there is no evidence of any leak or perforation or any abscess formation and at the same time the CAT scan of the abdomen should be able to identified abnormalities in the lung bases especially interested in the right lung base. I think the findings are more consistent with atelectasis and effusions at this point.
--- NOTE | 2016-09-30 19:54 | P.PN ---
Subjective Principal diagnosis: Abdominal pain Pleasant 80-year-old female with a long-standing history of COPD presented to the emergency center with a several-day history of increasing abdominal pain. She relates over 3 or 4 days she was having increasing amounts of discomfort. She was feeling gassy and bloated. One day before admission she was having increasing amounts of discomfort and it went to her back. She Presented to the Emergency Center. Evaluation Revealed a Computed Tomography Scan of the Abdomen and Pelvis That Had Evidence of Pneumoperitoneum. She Was Taken to the Operating Room with Evidence of a Perforated Gastric Ulcer. The Partial Gastrectomy in Loop Gastrojejunostomy Was Performed. Pathology is pending for the mass that was noted in the stomach at the time of the resection. The patient had an increase of her leukocytosis and with concerns ongoing sepsis the infectious diseases consultation was requested. She relates that she has ongoing pain but it is improved. She would like to eat. She relates that she started to get some appetite. Family is present in relate that she ate some breakfast in some dinner she is a marked improvement of the day prior Patient had increasing stools. Was found to have evidence of C. diff. Is also having some ongoing shortness of breath associated with to her effusions. Does feel better today. Objective - Vital Signs Vital signs: Vital Signs Temp 99.3 F 09/30/16 15:00 Pulse 84 09/30/16 16:00 Resp 16 09/30/16 16:00 BP 137/73 09/30/16 15:00 Pulse Ox 92 L 09/30/16 15:00 Intake & Output 09/30/16 09/30/16 10/01/16 06:59 18:59 06:59 Intake Total 75 Output Total 0 1400 Balance 0 -1325 Weight 45.5 kg Intake: Oral 75 Output: Urine 1400 Uretheral (Gunderson) 1200 Stool 0 0 Other: Voiding Method Diaper Diaper # Voids 3 1 # Bowel Movements 1 1 - Exam Pleasant 80-year-old woman who is more comfortable and relate she's getting some desire for food. HEENT: Anicteric conjunctiva are pink and moist nasal mucosa grossly intact without significant lesions, there is no thrush. G-tube removed Neck: The neck is supple without significant lymphadenopathy or thyromegaly. Lungs: Good bilateral air entry basilar crackles are heard right greater than left. Heart: Regular rate and rhythm with an audible S1-S2, no S3 no S4. There is no significant murmur click or rub, PMI was nondisplaced. Abdomen: Soft, still somewhat tender in the right upper quadrant, midline incision is without drainage. She has bowel sounds. She is not rigid. Organomegaly was not palpated. Extremities: The upper extremities have excellent pulses they are symmetric, no significant petechiae or telangiectasia. No splinter hemorrhages were noted. The lower extremities are free from significant edema. The peripheral pulses were 2+ and symmetric. Neuro: Awake alert oriented to person place and time. There are no acute new gross focal sensory motor deficits. - Labs CBC & Chem 7: 09/30/16 07:13 09/30/16 07:13 Labs: Abnormal Lab Results - Last 24 Hours (Table) 09/30/16 09/30/16 Range/Units 07:13 07:13 RBC 3.59 L (3.80-5.40) m/uL Hct 33.9 L (34.0-46.0) % MCH 35.3 H (25.0-35.0) pg MCHC 37.3 H (31.0-37.0) g/dL Sodium 135 L (137-145) mmol/L Creatinine 0.45 L (0.52-1.04) mg/dL Calcium 7.6 L (8.4-10.2) mg/dL Total Protein 4.4 L (6.3-8.2) g/dL Albumin 2.0 L (3.5-5.0) g/dL Laboratory Results WBC 9.7 k/uL (3.8-10.6) 09/30/16 07:13 RBC 3.59 m/uL (3.80-5.40) L 09/30/16 07:13 Hgb 12.6 gm/dL (11.4-16.0) 09/30/16 07:13 Hct 33.9 % (34.0-46.0) L 09/30/16 07:13 MCV 94.6 fL (80.0-100.0) 09/30/16 07:13 MCH 35.3 pg (25.0-35.0) H 09/30/16 07:13 MCHC 37.3 g/dL (31.0-37.0) H 09/30/16 07:13 RDW 15.2 % (11.5-15.5) 09/30/16 07:13 Plt Count 285 k/uL (150-450) 09/30/16 07:13 Neutrophils % 86 % 09/29/16 06:05 Neutrophils % (Manual) 22.5 % 09/18/16 04:37 Band Neutrophils % 65.0 % 09/18/16 04:37 Lymphocytes % 8 % 09/29/16 06:05 Lymphocytes % (Manual) 6.0 % 09/18/16 04:37 Monocytes % 4 % 09/29/16 06:05 Monocytes % (Manual) 4.0 % 09/18/16 04:37 Eosinophils % 1 % 09/29/16 06:05 Basophils % 0 % 09/29/16 06:05 Metamyelocytes % 2.5 % 09/18/16 04:37 Neutrophils # 13.6 k/uL (1.3-7.7) H 09/29/16 06:05 Neutrophils # (Manual) 10.3 k/uL (1.3-7.7) H 09/18/16 04:37 Lymphocytes # 1.3 k/uL (1.0-4.8) 09/29/16 06:05 Lymphocytes # (Manual) 0.7 k/uL (1.0-4.8) L 09/18/16 04:37 Monocytes # 0.7 k/uL (0-1.0) 09/29/16 06:05 Monocytes # (Manual) 0.5 k/uL (0-1.0) 09/18/16 04:37 Eosinophils # 0.1 k/uL (0-0.7) 09/29/16 06:05 Basophils # 0.0 k/uL (0-0.2) 09/29/16 06:05 Nucleated RBCs 0 /100 WBC (0-0) 09/18/16 04:37 Manual Slide Review Performed 09/17/16 10:11 Toxic Vacuolation Present 09/18/16 04:37 Polychromasia Present 09/18/16 04:37 Hypochromasia Slight 09/30/16 07:13 Poikilocytosis (manual Present 09/18/16 04:37 Anisocytosis (manual) Present 09/18/16 04:37 PT 12.3 sec (9.0-12.0) H 09/17/16 10:11 INR 1.2 (<1.1) 09/17/16 10:11 APTT 21.5 sec (22.0-30.0) L 09/17/16 10:11 D-Dimer 3.61 mg/L FEU (<0.60) H 09/17/16 10:11 Sample Site lrad 09/22/16 12:40 ABG pH 7.51 (7.35-7.45) H 09/22/16 12:40 ABG pCO2 28 mmHg (35-45) L 09/22/16 12:40 ABG pO2 71 mmHg (83-108) L 09/22/16 12:40 ABG HCO3 22 mmol/L (21-25) 09/22/16 12:40 ABG Total CO2 23 mmol/L (19-24) 09/22/16 12:40 ABG O2 Saturation 96.0 % (94-97) 09/22/16 12:40 ABG Base Excess -0.8 mmol/L 09/22/16 12:40 FiO2 40 % 09/22/16 12:40 Sodium 135 mmol/L (137-145) L 09/30/16 07:13 Potassium 3.8 mmol/L (3.5-5.1) 09/30/16 07:13 Chloride 103 mmol/L (98-107) 09/30/16 07:13 Carbon Dioxide 25 mmol/L (22-30) 09/30/16 07:13 Anion Gap 7 mmol/L 09/30/16 07:13 BUN 7 mg/dL (7-17) 09/30/16 07:13 Creatinine 0.45 mg/dL (0.52-1.04) L 09/30/16 07:13 Est GFR (MDRD) Af Amer >60 (>60 ml/min/1.73 sqM) 09/30/16 07:13 Est GFR (MDRD) Non-Af >60 (>60 ml/min/1.73 sqM) 09/30/16 07:13 Glucose 89 mg/dL (74-99) 09/30/16 07:13 POC Glucose (mg/dL) 107 mg/dL (75-99) H 09/17/16 19:17 POC Glu Equipment Service Technician ID Melodie Thomson 09/17/16 19:17 Plasma Lactic Acid Denny 1.4 mmol/L (0.7-2.0) 09/17/16 10:11 Calcium 7.6 mg/dL (8.4-10.2) L 09/30/16 07:13 Phosphorus 1.8 mg/dL (2.5-4.5) L 09/21/16 05:48 Magnesium 1.5 mg/dL (1.6-2.3) L 09/29/16 06:05 Total Bilirubin 0.8 mg/dL (0.2-1.3) 09/30/16 07:13 AST 26 U/L (14-36) 09/30/16 07:13 ALT 17 U/L (9-52) 09/30/16 07:13 Alkaline Phosphatase 55 U/L (38-126) 09/30/16 07:13 Total Creatine Kinase 39 U/L (30-135) 09/17/16 10:11 CK-MB (CK-2) 1.1 ng/mL (0.0-2.4) 09/17/16 10:11 CK-MB (CK-2) Rel Index 2.8 09/17/16 10:11 Troponin I 0.061 ng/mL (0.000-0.034) H* 09/17/16 22:07 NT-Pro-B Natriuret Pep 4080 pg/mL 09/18/16 04:37 Total Protein 4.4 g/dL (6.3-8.2) L 09/30/16 07:13 Albumin 2.0 g/dL (3.5-5.0) L 09/30/16 07:13 Amylase 108 U/L (30-110) 09/17/16 10:11 Lipase 21 U/L (23-300) L 09/19/16 04:36 TSH 2.030 mIU/L (0.465-4.680) 09/18/16 04:37 Cortisol 41 ug/dL 09/25/16 06:01 Urine Color Yellow 09/17/16 22:30 Urine Appearance Clear (Clear) 09/17/16 22:30 Urine pH 6.5 (5.0-8.0) 09/17/16 22:30 Ur Specific [place] 1.050 (1.001-1.035) H 09/17/16 22:30 Urine Protein 1+ (Negative) H 09/17/16 22:30 Urine Glucose (UA) Negative (Negative) 09/17/16 22:30 Urine Ketones Negative (Negative) 09/17/16 22:30 Urine Blood Negative (Negative) 09/17/16 22:30 Urine Nitrite Negative (Negative) 09/17/16 22:30 Urine Bilirubin Negative (Negative) 09/17/16 22:30 Urine Urobilinogen <2.0 mg/dL (<2.0) 09/17/16 22:30 Ur Leukocyte Esterase Trace (Negative) H 09/17/16 22:30 Urine RBC 7 /hpf (0-5) H 09/17/16 22:30 Urine WBC 3 /hpf (0-5) 09/17/16 22:30 Urine Bacteria Rare /hpf (None) H 09/17/16 22:30 Urine Mucus Rare /hpf (None) H 09/17/16 12:30 C. difficile (EIA) Intrp Positive (Negative) A 09/26/16 16:00 Blood Type A Positive 09/17/16 10:11 Blood Type Confirm A Positive 09/17/16 13:04 Blood Type Recheck CABO Indicated 09/17/16 10:11 Antibody Screen NEGATIVE 09/17/16 10:11 Spec Expiration Date 09/20/2016 - 231009/17/16 10:11 Microbiology 09/17/16 16:00 Blood Blood Culture - Final No Growth after 144 hours 09/17/16 22:30 Urine,Catheterized Urine Culture - Final Assessment and Plan (1) Perforated viscus Narrative/Plan: 80-year-old female presents to hospital with a several-day history of abdominal pain. Imaging studies revealed evidence of the pneumoperitoneum. She was taken to the operating room and the perforated gastric ulceration was noted. This is been sent to the laboratory for further pathological review. That is pending at this time. The patient is feeling slightly better. She now has an increasing amount of leukocytosis. It is not a significant change. Likely due to the current extensive illness. She is on appropriate antibiotic therapy with Zosyn and fluconazole. She has no history of MRSA. She seems to be having some improvement in she's getting some appetite. Appetite improving, and a bowel movement this evening. Oral cavity care does make her feel better. Cultures are processing negative so far. Pathology did not report any malignancy, and H. pylori was negative. Patient now has evidence of Clostridium difficile colitis. Prior antibiotic therapy will be discontinued. Only Oral vancomycin therapy given her current level of illness. Continue supportive care. With ongoing symptoms a computed tomography scan has been performed. There is no evidence of any pneumonia but does have some atelectasis. Evidence of good repair of the gastric perforation with no evidence of leak or abscess formation. Status: Acute (2) Pneumoperitoneum Status: Acute (3) Leukocytosis Status: Acute
[2016-09-30 23:16] VITALS: RESP 16
[2016-10-01] MEDS: CHERRY FLAVOR 60 ML BOTTLE PO SCH ×3 (00:40→12:08)
[2016-10-01] MEDS: VANCOMYCIN ORAL SOLUTION 250 MG/5 ML BOTTLE PO SCH ×3 (00:41→12:08)
[2016-10-01] MEDS: HEPARIN SODIUM,PORCINE 5,000 UNIT/ML 1 ML VIAL SQ SCH ×3 (00:41→15:25)
[2016-10-01] MEDS: LACTOBACILLUS ACIDOPH & BULGAR 1 EACH PACKET PO SCH (08:47)
[2016-10-01] MEDS: PANTOPRAZOLE 40 MG TABLET PO SCH (08:47)
[2016-10-01] MEDS: LISINOPRIL 5 MG TAB PO SCH (08:48)
[2016-10-01] MEDS: METOPROLOL TARTRATE 25 MG TAB PO SCH (08:48)
[2016-10-01] MEDS: ACETAMINOPHEN TAB 325 MG TAB PO PRN (08:58)
[2016-10-01 12:08] LABS: Basophils % (A) 0 %; CH 29.4; CHCM 32.9; Eosinophils # (A) 0.1 k/uL (0-0.7); Eosinophils % (A) 1 %; HCT 36.2 % (34.0-46.0); HDW 2.92; HGB 12.3 gm/dL (11.4-16.0); Luc # (Auto) 0.15; Luc % (Auto) 1; Lymphocytes # (A) 1.4 k/uL (1.0-4.8); Lymphocytes % (A) 13 %; MCH 30.4 pg (25.0-35.0); MCHC 33.9 g/dL (31.0-37.0); MCV 89.8 fL (80.0-100.0); Mean Platelet Volume 8.4; Monocytes # (A) 0.5 k/uL (0-1.0); Monocytes % (A) 5 %; Neutrophils # (A) 8.1 k/uL (1.3-7.7); Neutrophils % (A) 79 %; RBC 4.03 m/uL (3.80-5.40); RDW 15.2 % (11.5-15.5); WBC 10.3 k/uL (3.8-10.6); WBC (Perox) 10.56
[2016-10-01 12:24] LABS: Anion Gap 6 mmol/L; Blood Urea Nitrogen 8 mg/dL (7-17); Carbon Dioxide 28 mmol/L (22-30); Chloride 103 mmol/L (98-107); Glucose 110 mg/dL (74-99); Non-African American GFR(MDRD) >60 (>60 ml/min/1.73 sqM); Potassium 3.8 mmol/L (3.5-5.1); Sodium 137 mmol/L (137-145)
[2016-10-01] MEDS ORDERED: TAMSULOSIN 0.4 MG CAP.ER.24H PO SCH (13:15)
--- NOTE | 2016-10-01 14:15 | P.DS ---
Providers Date of admission: 09/17/16 15:45 Expected date of discharge: 10/01/16 Attending physician: Mynor Crowell Consults: 09/17/16 15:47 Consult Physician Routine Consulting Provider: Kane Asencio Consult Reason/Comments: Atrial fibrillation Do you want consulting provider notified?: Yes Consult Physician Urgent Consulting Provider: Moriah Savage Consult Reason/Comments: Medical management, atrial fibrillation Do you want consulting provider notified?: Yes 09/17/16 19:37 Consult Physician Routine Consulting Provider: Mateo Anthony Consult Reason/Comments: Perforated ulcer Do you want consulting provider notified?: Yes, Notify in am 09/17/16 19:40 Consult Physician Routine Consulting Provider: Florentino Leigh Consult Reason/Comments: ICU management Do you want consulting provider notified?: Yes 09/18/16 12:02 Consult Physician Routine Consulting Provider: Reuben Escalante Consult Reason/Comments: trim toenails Do you want consulting provider notified?: Yes 09/26/16 14:07 Consult Physician Routine Consulting Provider: Juan Crane Consult Reason/Comments: Pneumonia/SOB Do you want consulting provider notified?: Yes Primary care physician: Reuben Ruiz - Discharge Diagnosis(es) (1) Pneumoperitoneum Please refer to the patient's chart for full details. The patient was admitted through the emergency Department with pneumoperitoneum. She underwent an exploratory laparotomy was found to have a large perforated gastric ulcer. Pathology is negative for malignancy. She underwent a partial gastrectomy loop gastrojejunostomy. Postoperatively the patient has done fairly well. Her activity level unfortunately remains poor. Her appetite is improving but remains somewhat suboptimal. The patient and the family are not interested in feeding tube placement. The patient did have C. difficile infection postop. Infectious disease pulmonary and the hospitalist service have been seeing her postop. Her incision is healing up properly. A CAT scan was ordered yesterday which showed urinary retention and a urinary catheter was replaced. The patient is felt to be stable for discharge at this point. She will follow up with us in the office in 2 weeks. Gunderson catheter be left in place for now. Current Visit: Yes Status: Acute Patient Condition at Discharge: Fair Plan - Discharge Summary New Discharge Prescriptions: New Lactobacillus Acidoph & Bulgar [Lactinex] 1 each PO BID packet Vancomycin Oral Solution 250 mg PO Q6HR #48 bottle No Action Ibuprofen [Motrin] 200 mg PO Q6HR PRN PRN Reason: Pain Gabapentin [Neurontin] 300 mg PO HS Discharge Medication List Gabapentin [Neurontin] 300 mg PO HS 09/17/16 [History] Ibuprofen [Motrin] 200 mg PO Q6HR PRN 09/17/16 [History] Lactobacillus Acidoph & Bulgar [Lactinex] 1 each PO BID packet 09/30/16 [Rx] Vancomycin Oral Solution 250 mg PO Q6HR #48 bottle 09/30/16 [Rx] Follow up Appointment(s)/Referral(s): Mynor Crowell MD [Medical Doctor] - 1 Week Mateo Anthony MD [STAFF PHYSICIAN] - 2 Weeks [facility], [NON-STAFF] - Reuben Ruiz MD [Primary Care Provider] - 1 Week (After discharge from rehab ) Patient Instructions/Handouts: Gastrectomy (DC), Clostridium Difficile Infection (DC) Activity/Diet/Wound Care/Special Instructions: Puree dysphagia 1, 1:1 feed, aspiration precautions. [place] thick liquids. NO straws. Activity as tolerated, fall precautions. Incision care, keep clean daily with gentle soap and water and as needed. No bathing till ok by physician. DNR Discharge Disposition: TRANSFER TO SNF/ECF
[2016-10-01 14:19] VITALS: BMI 17.7
[2016-10-01 15:13] VITALS: BP 157/73; PULSE 64; TEMP 97.7
--- NOTE | 2016-10-01 15:48 | P.PN ---
Subjective This a pleasant 80-year-old lady patient of Dr. Blanco Ruiz. She has underlying history of COPD, also arthritis, admitted through the emergency room after she was brought in by EMS secondary to right upper quadrant pain and later developed some shortness of breath, patient was noted to be hypoxemic requiring a nonrebreather mask prior to ER viable, pulse ox on ER was 95%, requiring nasal cannula patient denies any melena hematochezia no chest pain no palpitations, Emergency room, she was hypotensive after an earlier dose of fentanyl, this has stabilized she had full workup to include elevated lipase of 479, troponins were okay, they did additional imaging to include CAT scan of the abdomen and fell pelvis incidentally she was found to have a perforated viscus, also coming in with Rin clinton with rapid ventricular rate, she was immediately taken in operating room after Cardizem drip has been started and was hemodynamically stabilized . Patient was subsequently transferred to ICU postoperatively. Consults were made with Dr. Faith cardiology Dr. Leigh from paramedic pulmonary medicine currently receiving IV Zosyn for the peritonitis as well as right lower lobe infiltrate. She underwent emergent exploratory laparotomy 09/17/2016 and underwent a partial gastrectomy with loop gastrojejunostomy by Dr. Crowell for an 8 mm perforation in the antrum, and a large prepyloric ulcer abscess-like cavity there is an masslike inflammatory reaction at the location of the ulcer with clinical concern of possibility of malignant perforation. 09/21: Patient has been hemodynamically stable and was transferred to the selective care unit. She continues to have NG tube in place. Daughter is concerned that she has more cough with thick secretions and congestion. Incentive spirometry is only 300-500. Patient is complaining of feeling tired. Cardiology is following for she was noted to be in atrial arrhythmia but no atrial fibrillation. Blood pressure is well controlled. Repeat chest x-ray shows no significant interval change. Patient is followed by Dr. Anthony from infectious disease and continued on Zosyn and fluconazole. Pathology report remains pending. 09/22: Today the patient was noted to be hypoxic. The patient was placed on a Ventimask and O2 came up to 94%. She was drowsy but easily arousable. She has been receiving IV Dilaudid for pain control, this is believed to be the source of her hypoxemia. Her Dilaudid will be held for the next 24 hours. The patient has been receiving potassium supplementation per protocol, today her potassium was still noted to be 3.1. Magnesium was 1.4, supplement ordered along with potassium supplement per protocol, will recheck potassium this afternoon. The patient continues to be followed by Dr. Anthony. Blood cultures show no growth after 96 hours. 09/23: Patient still requires Ventimask to achieve a O2 sat above 90%. The patient Chest x-ray showed little interval change from the previous x-ray she does have bilateral effusions but no significant change. The patient did have her NG tube removed. Cardiology is following patient for her atrial arrhythmia with no evidence of atrial fibrillation. Infectious disease is also following patient who is planning for 3 further days of antibiotics at this time. Pathology report still pending. Her potassium improved to 3.6. 09/24: Last night the patient had an episode of sinus tachycardia with a rate of 120s. She is consulted by Dr. Faith who gave her a dose of IV beta michelle and and by mouth beta michelle was increased. Her heart rate is in the 70s currently. Her pathology did not report any malignancy and H. pylori was negative. Dr. Anthony is recommended two further days of antibiotics at this time. She was also consulted by Dr. Escalante for elongated thick dystrophic nails. Nails were reduced 1 through 5 bilaterally. There were concerns about aspiration, patient had barium swallow done today. Barium swallow showed penetration without aspiration with thin liquids. 09/25: The patient remaines hypokalemic last potassium was 3.1 despite multiple doses of potassium chloride. Will replace potassium and magnesium, will add cortisol level as well. Sodium noted to be 1:30. The patient was switched from a Ventimask to 6 L nasal cannula today. She continues to pull at the oxygen tubing. She remains on antibiotics of Zosyn along with flucanazole. The patient's heart rate remains in the 60s, currently rate controlled. 09/26/2016: Patient appears to be very weak today and she is more dyspneic, portal chest x-ray was done and the patient showed worsening bilateral pleural effusion and worsening airspace disease more the right side than the left side, subsequently I spoke with the nurse about starting the patient DuoNeb treatment nebulization 4 times every day, oxygen support, start the patient on Levaquin 500 mg IV piggyback every 24 hours, and obtain pulmonary consultation from Dr. Crane. : Patient developed to have a significant diarrhea yesterday and she became quite lethargic, her C. diff came back positive, patient was started on Flagyl 500 mg IV piggyback every 8 hours, she also had a chest x-ray that showed bilateral pleural effusion with bibasilar airspace disease, patient was placed on Levaquin along with the Zosyn and she will be seen by pulmonary medicine as well. 09/29: Patient has only had 1 stool this morning she is complaining of feeling tired patient is eating very little probably around 25% and she will not eat her Magic cups. Asked for dietitian to return for other supplementations. Patient is not using her incentive spirometry. We will discontinue IV fluids and saline lock, nitro paste discontinued. Anticipate discharge to [facility] tomorrow. Patient is continued on vancomycin and Lactinex for C. difficile colitis. 09/30: Patient continues to do poorly with very little oral intake. The patient denies any abdominal pain. Dr. Crowell has ordered a CAT scan of the abdomen and pelvis. Dr. Lentz is currently following on an as-needed basis. White count is normal at 9.7 and hemoglobin stable at 12.6. 10/01: CAT scan of the abdomen and pelvis reveals status post ulcer repair without evidence for leak or perforation. No evidence of abscess. Basilar compressive atelectasis and pleural effusions. Underlying infiltrates not excluded. Urinary retention with distention of the urinary bladder. Cholelithiasis. Patient was bladder scanned yesterday evening and was positive for 1200 ML's. Gunderson catheter was placed. Patient will be started on Flomax which will be continued at the intermediate. Patient has only had 1 bowel movement this morning at 6 AM. She is being fed by a volunteer. Plan for discharge to [facility] today under the care of Dr. Hammond. Medication reconciliation completed. Objective - Vital Signs Vital signs: Vital Signs Temp 97.2 F L 10/01/16 07:00 Pulse 67 10/01/16 07:00 Resp 16 10/01/16 07:00 BP 152/92 10/01/16 07:00 Pulse Ox 94 L 10/01/16 07:00 Intake & Output 06/28/17 06/29/17 06/29/17 18:59 06:59 18:59 Intake Total 75 Output Total 1400 550 Balance -1325 -550 Weight 45.5 kg Intake: Oral 75 Output: Urine 1400 550 Uretheral (Gunderson) 1200 Stool 0 Other: Voiding Method Diaper Indwelling Catheter # Voids 1 1 # Bowel Movements 1 - Exam General appearance: average body habitus, cooperative, no acute distress - EENT Eyes: anicteric sclerae, edentulous, PERRLA, normal appearance ENT: no hard of hearing, hearing grossly normal, NA/AT, normal oropharynx, no other, no pharyngeal erythema, no thrush, no tonsillar exudates, no tonsillar swelling - Neck Neck: no lymphadenopathy, normal ROM, no other, no rigidity, no stridor, no thyromegaly - Respiratory Respiratory: bilateral: CTA, diminished, negative: dullness, rales, rhonchi, wheezing - Cardiovascular Rhythm: regular Heart sounds: normal: S1, S2 Abnormal Heart Sounds: no systolic murmur, no diastolic murmur, no rub, no S3 Gallop, no S4 Gallop, no click, no other - Gastrointestinal General gastrointestinal: decreased bowel sounds, soft Localized gastrointestinal: tender: diffuse - Integumentary Integumentary: normal - Neurologic Neurologic: CNII-XII intact - Musculoskeletal Musculoskeletal: strength equal bilaterally - Psychiatric Psychiatric: A&O x's 3, appropriate affect, intact judgment & insight - Labs CBC & Chem 7: 10/01/16 12:01 10/01/16 12:01 Assessment and Plan Plan: 1. Status post exploratory laparotomy perforated gastric ulcer and prepyloric ulcer requiring partial gastrectomy and loop gastrojejunostomy on 09/17/2016 secondary to pneumoperitoneum noted. This was most likely secondary to NSAID use prior to admission. Postoperative pain control along with incentive spirometry, and albuterol Atrovent for pulmonary prophylaxis. IV antibiotics Zosyn has completed. CAT scan of the abdomen and pelvis today 2. Atrial arrhythmia. Cardiology is following. No atrial fibrillation was found. Patient received IV beta michelle to control tachycardia, currently rate controlled. 3. Acute peritonitis and abdominal sepsis secondary to perforated viscus, completed course of IV Dinasyizabella, Dr. Anthony from infectious disease 4. Lumbar disc disease gabapentin is on hold 5. Acute hypoxic respiratory failure secondary to worsening bilateral pleural effusion and bilateral airspace disease mostly in the right side. She was treated with Levaquin, Zosyn, DuoNeb 3 mg nebulization 4 times every day, monitor chest x-ray regularly monitor oxygen support, pulmonary consultation. 6. GI prophylaxis with Protonix 40mg 7. Onychogryphosis, extremely long toenails noted, consult with Dr. Escalante, had nails trimmed. 8. CODE STATUS: No code 9. DVT prophylaxis with heparin subcu 10. Acute pancreatitis most likely secondary to inflammatory reaction from gastric perforation, this will be monitored. 11. Metabolic acidosis secondary to sepsis from peritonitis, this will be monitored 12. Elevated troponin most likely secondary troponin leak from atrial arrhythmia and sepsis. 13. Family history of pancreatic cancer. 14. Patient's prognosis is very guarded. 15. Hypokalemia status post replacement. 16. C. difficile colitis. Continue vancomycin 250 mg orally every 6 hours along with Lactinex. 17. Severe protein calorie malnutrition with BMI of 17, very poor oral intake and multiple medical difficulties. 18. Urinary retention requiring Gunderson catheter placement. Patient started on Flomax. Discharge plan: [facility] under the care of Dr. Hammond. Impression and plan of care have been directed as dictated by the signing physician. Gisele Hilliard nurse practitioner acting as scribe for signing physician.
--- NOTE | 2016-10-01 16:05 | P.PN ---
Subjective 80-year-old female patient with known history of COPD who presented to the hospital because of a right upper quadrant pain and shortness of breath and hypoxemia. The patient was also hypotensive. Further workup showed a 2 fibrillation with rapid ventricular response. In addition, the patient was found to have a perforated viscus for which she was taken to the operating room and she underwent an extra to laparotomy on 09/17/2016 and the patient underwent a partial gastrectomy with a loop gastrojejunostomy for an 8 mm perforated antrum and a large prepyloric ulcer/abscess. Postop the patient was brought into the intensive care unit and the patient was started on IV Zosyn and Diflucan and she was treated also for a right lower lobe pneumonia. Her condition was further stabilized and the patient got moved out of the intensive care units. On today's evaluation of 09/28/2016, the patient seems to be slightly dyspneic. She is quite weak and debilitated. Her chest x-ray showing bilateral pleural effusion/airspace disease worse on the right. Antibiotics have been modified by infectious disease and the patient is currently on a combination of Zosyn and Levaquin and the patient was started on IV Flagyl for C. diff colitis. She is having some liquidy/diarrhea bowel movements. The white cell count is down to 17.2. Renal function is stable with a creatinine of 0.4. On today's evaluation of 09/29/2016 the patient is having any major respiratory difficulties. She is slow in answering questions however she is appropriate. She is still feeling very weak. Chest x-ray was repeated and showed persistent bibasilar airspace disease worse on the right compared to the left. On the right pleural effusion cannot be completely ruled out. She is being treated with oral vancomycin regarding significant colitis and her counts are improving and the white cell count is down to 15.9. The rest of the electrodes are all within normal limits. ID is on the case regarding her peritonitis. Surgical wound site over the anterior abdominal wall is dry clean and intact. She is afebrile and hemodynamically stable at this point. Oral intake is diminished and the patient is not meeting her caloric requirements. On today's evaluation of 09/30/2016, the patient is not having any major respiratory difficulties. Chest x-ray shows consolidation of the right lung base probably a combination of atelectasis and effusion. Her diarrhea subsiding. I was told that she is eating more than her usual by the nursing staff. She remains on oral vancomycin regarding C. diff colitis. Discharge planning is in progress and the patient is probably going to transfer to ECF. Her white cell count is not elevated. In fact her white cell count is dropped down to 9.7. Rest of the electrodes are all within normal limits. The patient is afebrile. The patient is pulse oxing 95% reduction of oxygen by nasal cannula. She remains weak. She needs help with mobility and feeding and performing activities of daily today life. On today's evaluation of 10/01/2016, the patient remains essentially the same. No new complaints for now. Oral intake is still low. She is not having any significant respiratory distress. As mentioned earlier she has atelectatic changes and effusion the right lung base. Unfortunately she is unable to do aggressive or toileting in addition. She remains weak. The plan is to send this patient to [facility]. Objective - Vital Signs Vital signs: Vital Signs Temp 97.7 F 10/01/16 15:00 Pulse 64 10/01/16 15:00 Resp 16 10/01/16 15:00 BP 157/73 10/01/16 15:00 Pulse Ox 96 10/01/16 15:00 Intake & Output 09/30/16 10/01/16 10/01/16 18:59 06:59 18:59 Intake Total 75 195 Output Total 1400 550 250 Balance -1325 -550 -55 Weight 45.5 kg 45.5 kg Intake: Oral 75 195 Output: Urine 1400 550 250 Uretheral ([place]) 1200 Stool 0 0 Other: Voiding Method Diaper Indwelling Catheter Indwelling Catheter # Voids 1 1 # Bowel Movements 1 - Exam Gen. appearance the patient is calm and comfortable no acute rest. She is an elderly woman.Head exam was generally normal. There was no scleral icterus or corneal arcus. Mucous membranes were moist.Neck was supple and without jugular venous distension, thyromegaly, or carotid bruits. Carotids were easily palpable bilaterally. There was no adenopathy. Lung sounds are diminished in lung bases bilaterally more so in the right lung base.Cardiac exam revealed the PMI to be normally situated and sized. The rhythm was regular and no extrasystoles were noted during several minutes of auscultation. The first and second heart sounds were normal and physiologic splitting of the second heart sound was noted. There were no murmurs, rubs, clicks, or gallops. Abdomen is soft and there is hypoactive bowel sounds. The surgical wound site over the anterior abdominal wall is clean and intact. There is no active drainage or any signs of wound infection.Examination of the extremities revealed easily palpable radial, femoral and pedal pulses. There was no cyanosis, clubbing or edema. - Labs CBC & Chem 7: 10/01/16 12:01 10/01/16 12:01 Labs: Abnormal Lab Results - Last 24 Hours (Table) 10/01/16 10/01/16 Range/Units 12: 12:01 Neutrophils # 8.1 H (1.3-7.7) k/uL Creatinine 0.44 L (0.52-1.04) mg/dL Glucose 110 H (74-99) mg/dL Calcium 8.0 L (8.4-10.2) mg/dL Assessment and Plan Plan: Assessment 1 perforated gastric ulcer in the prepyloric ulcer requiring partial gastrectomy and loop gastrojejunostomy and surgery was done on 09/17/2016. Rule out NSAID-induced peptic ulcer disease. 2 abdominal peritonitis secondary to perforated viscus, completed the course of antibiotics and the Zosyn and the Levaquin and Diflucan were all discontinued. 3 C. diff colitis currently on by mouth vancomycin 4 atrial fibrillation 5 metabolic acidosis secondary to peritonitis/sepsis, improved 6 bilateral lower lobe consolidation and pleural effusion, rule out hospital- acquired versus aspiration pneumonia. The patient is still on a combination of Zosyn and Levaquin. Oxygenation is stable for now 7 hypertension, history of 8 COPD, history of Plan Condition essentially the same, stable, yet the long-term prognosis poor based on her age and poor baseline performance and functional status. The patient is likely not survive this knowing that she is still very weak in her oral intake is still poor. The medical team is looking to discharge this patient for ECF. The most recent CAT scan of the abdomen pelvis was noted. No evidence of any abscess. C. diff colitis is being treated. Suggest aggressive pulmonary toileting. Suggest physical therapy. We'll sign off the case for now.
--- NOTE | 2016-10-04 08:36 | CDI ---
Date: 10/04/2016 8:27:00 AM From: Fe White, [employer] Admit Date: 09/17/2016 3:45:00 PM Patient Name: Leni Guzman Visit Number: [id number] Discharge Date: Babak The patient presented with ruptured gastric ulcer and went to OR for repair. Sepsis is documented in the progress notes beginning on day 4 of admission. Definition of Present on Admission (POA): A diagnosis present at the time the order for admission to inpatient status was written. For each diagnosis, documentation must be clear to determine if the condition was present at the time of the patients inpatient admission or developed during the hospital stay. Please clarify in progress notes and discharge summary as to whether sepsis was: ? Y = Yes, the condition was present at the time of the order for inpatient admission. ? N = No, the condition was not present at the time of the order for inpatient admission. ? W = Clinically undetermined if the condition was present at the time of the order for inpatient admission. Please continue to document in your progress notes and discharge summary in order to capture severity of illness and risk of mortality. Include clinical findings that support your diagnosis. Please see progress note MTDD
== END 2016-10-01 16:23 | DRG 853 ==
LOC: EC 10:31 → 6SEL 15:45 → 6ICU 17:59 → 6SEL 09-19 20:55 → 4MS4W 09-29 14:39
PROVIDERS: ADMIT Surgery; ATTEND Surgery
PROC: 0D160ZA Bypass Stomach to Jejunum, Open Approach (ICD-10-PCS; principal; 2016-09-17 16:21)
DX: A41.9 Sepsis, unspecified organism (principal); K25.1 Acute gastric ulcer with perforation; E43 Unspecified severe protein-calorie malnutrition; K65.9 Peritonitis, unspecified; J18.9 Pneumonia, unspecified organism; I11.0 Hypertensive heart disease with heart failure; K85.90 Acute pancreatitis without necrosis or infection, unspecified; E87.0 Hyperosmolality and hypernatremia; A04.7 Enterocolitis due to Clostridium difficile; I50.22 Chronic systolic (congestive) heart failure; I42.9 Cardiomyopathy, unspecified; E87.1 Hypo-osmolality and hyponatremia; E87.2 Acidosis; J44.0 Chronic obstructive pulmonary disease with (acute) lower respiratory infection; Z68.1 Body mass index [BMI] 19.9 or less, adult; J98.11 Atelectasis; E83.42 Hypomagnesemia; I07.1 Rheumatic tricuspid insufficiency; E86.0 Dehydration; E87.5 Hyperkalemia; E87.6 Hypokalemia; G89.29 Other chronic pain; I48.91 Unspecified atrial fibrillation; K44.9 Diaphragmatic hernia without obstruction or gangrene; K80.20 Calculus of gallbladder without cholecystitis without obstruction; R09.02 Hypoxemia; R33.9 Retention of urine, unspecified; T39.395A Adverse effect of other nonsteroidal anti-inflammatory drugs [NSAID], initial encounter; Z66 Do not resuscitate; Z79.899 Other long term (current) drug therapy; Z80.0 Family history of malignant neoplasm of digestive organs; Z82.49 Family history of ischemic heart disease and other diseases of the circulatory system; Z87.891 Personal history of nicotine dependence
CPT/HCPCS: 36415; 36600; 71010; 71275; 74022; 74176; 74230; 75635; 76604; 80048; 80053; 81001; 82150; 82533; 82550; 82553; 82805; 83605; 83690; 83735; 83880; 84100; 84132; 84443; 84484; 85025; 85027; 85379; 85610; 85730; 86850; 86900; 86901; 87040; 87086; 87324; 88307; 88342; 93005; 93306; 94002; 94003; 94640; 94760; 96361; 96365; 96366; 96367; 96375; 99285